=== PATIENT | female | born 1995 | race Caucasian/White ===

== ENCOUNTER → 2022-08-09 15:12 | Outpatient (BNVA) | payer OTHER, SELFPAY | PROVIDERS: PCP Hospitalist; Visit Provider Nurse Practitioner Family | DX: R40.0 Somnolence (principal); R06.83 Snoring; G47.9 Sleep disorder, unspecified; G43.009 Migraine without aura, not intractable, without status migrainosus | CPT/HCPCS: 99212 ==

== ENCOUNTER → 2022-09-01 15:03 | Outpatient (REF) | payer OTHER, SELFPAY | LOC: HO.SL 15:03 | PROVIDERS: Visit Provider Nurse Practitioner Family | DX: G47.19 Other hypersomnia (principal); R06.83 Snoring | CPT/HCPCS: 95806 ==

== ENCOUNTER 2023-08-24 12:53 | Outpatient (AMB) | payer OTHER, SELFPAY ==
[2023-08-24 13:15] VITALS: PULSE 94; O2SAT 99
--- NOTE | 2023-08-24 13:15 | A.OFFVIS_ITS ---
Intake Vital Signs 08/24/23 13:15 Height 5 ft 3 in Weight 113 lb BMI 20.0 Pulse 94 Pulse Source Pulse Oximeter Pulse Oximetry (%) 99 Oxygen Delivery Method Room Air Intake Visit Reasons: f/u appt - LVM Intake Note: Im having issues sleeping, Im on clonazepam and been on it for 4 years now and im tolerant to it Allergies amoxicillin Allergy (Unknown, Verified 08/24/23 13:16) Hives Medication List - Last Reconciled 08/24/23 by KEVEN Valentin albuterol sulfate 90 mcg/actuation (Ventolin HFA) 1 puff inhalation Q4H PRN bupropion HCl 150 mg PO QAM clonazepam 1 mg PO BEDTIME PRN clonidine HCl 0.1 mg PO BID fluticasone propionate 50 mcg/actuation 1 spray intranasal BID galcanezumab-gnlm (Emgality Pen) 120 mg subcut ONCE 30 days hydroxyzine HCl 50 mg PO BID levocetirizine 5 mg PO DAILY multivitamin 1 tab PO DAILY norgestimate-ethinyl estradiol 0.25-35 mg-mcg 1 tab PO DAILY riboflavin (vitamin B2) 400 mg PO DAILY 90 days rizatriptan 5 - 10 mg (0.5 - 1 x 10 mg) PO Q2H PRN 30 days HPI HPI Comments History of Present Illness Details 28-yr-old female presents for f/u visit for migraine. She is having migraine only on the 1st day of her migraine, which can last a second day. Takes Rizatriptan- which does not always help the menstrual migraine. She is on OCP- may be regular but may be a few days later. Pt patient has several concerns today: She is having worsening insomnia, needing to add NyQuil to her usual sleep medication routine. She notes more difficulty initiating, then maintaining slee p. States she can just lay awake for hours not sleeping. She notes that no matter what time she falls asleep, she wakes up at 07:00 despite the fact that she has complete room darkening drapes. She will tend to go back to bed after this, to make up for her sleep. She does avoid using her phone and electronics prior to bed. Her previous HST was normal, however patient does not feel that she slept- unfortunately HST cannot evaluate if the patient has slept or not during the study. Pt reports she does wake up with a racing heart. She feels that she an autoimmune disorder- but her previous LATASHA was normal. She has been having facial butterfly rash, she is more prone to photo sensitivity and skin redness with sun exposure, skin becomes easily red and bumpy, dry flaky skin on her chin and scalp, joint and muscle pain- on Gabapentin for this, fatigue, insomnia. She is also wondering about postural lightheadedness, think she may have POTS. Has maternal h/o cancer- breast, lung, liver, but no autoimmune hx. Does not know her paternal FMH- although states they were unwell. PFSH Surgical History (Updated 08/24/23 @ 13:19 by ROC Cortez) History of nasal surgery Family History Father HTN (hypertension) Mother Asthma FH: mental illness Social History Alcohol intake: never Patient Tobacco Use Status: Never used Tobacco Physical Exam Vital Signs: Last Vital Signs Pulse 94 08/24/23 13:15 Pulse Ox 99 08/24/23 13:15 Oxygen Delivery Method Room Air 08/24/23 13:15 BMI result Body Mass Index 20.0 Const General: cooperative and no acute distress Orientation/consciousness: patient oriented x3 Resp Effort & Inspection: normal respiratory effort and able to speak in complete sentences Skin Other: Tight cues areas of light headedness cross left arm. Very mild papular rash. Neuro General: patient oriented x3 Cranial nerves: Yes CN's II-XII intact bilaterally Cognition (Neuro): normal cognition Psych Appearance: grossly normal Mental Status: mental status grossly normal Speech and movement: Normal speech and movement present Affect: normal affect Attitude: cooperative Assessment & Plan Assessment & Plan (1) Migraine without aura: Code(s): G43.009 - Migraine without aura, not intractable, without status migrainosus (2) Orthostatic lightheadedness: Code(s): R42 - Dizziness and giddiness (3) Sleep difficulties: Code(s): G47.9 - Sleep disorder, unspecified Plan Reviewed HST- inconclusive. Patient may benefit from cognitive behavioral therapy for insomnia. Information shared on various [facility] resources. I advised patient to resist the urge to go back to bed after waking up at 07:00. Will check labs for common etiology of fatigue, rash, joint and muscle pain, lightheadedness. Will request Rheumatology input. We will schedule patient for a tilt-table test. ? For acute headache treatment: Continue Rizatriptan 10mg prn- she may try to take this along with an NSAID 1-2 days prior to onset of menses. Previous acute migraine medication trials: Sumatriptan- ineffective. Acute migraine medication contraindications: Opioids. ? For headache prevention medication: Continue Riboflavin 400mg qam Continue OTC Magnesium 400mg qhs Continue Emgality 120 mg sc q month, as pt has had a significant reduction migraine burden of greater than 30%. Reviewed potential adverse effects of Emgality, including but not limited to injection site reactions. Previous migraine prevention medication trials: Emgalaity was helpful- but previously stopped d/t insurance issues. Aimovig- was not tolerated or effective. Amitriptyline- ineffective. Propranolol- ineffective and caused hypotension. Topiramate- ineffective and caused altered taste. Migraine prevention medication contraindications: none at this time ? ? f/u in 3-4 months or sooner prn. Orders: Orders Comprehensive Met. Panel Today E53.8 - Deficiency of other specified B group vitamins, G47.9 - Sleep disorder, unspecified, M25.50 - Pain in unspecified joint, M79.10 - Myalgia, unspecified site, R41.3 - Other amnesia, R53.83 - Other fatigue, R63.4 - Abnormal weight loss Folate Today E53.8 - Deficiency of other specified B group vitamins, G47.9 - Sleep disorder, unspecified, M25.50 - Pain in unspecified joint, M79.10 - Myalgia, unspecified site, R41.3 - Other amnesia, R53.83 - Other fatigue, R63.4 - Abnormal weight loss Methylmalonic Acid Today E53.8 - Deficiency of other specified B group vitamins, G47.9 - Sleep disorder, unspecified, M25.50 - Pain in unspecified joint, M79.10 - Myalgia, unspecified site, R41.3 - Other amnesia, R53.83 - Other fatigue, R63.4 - Abnormal weight loss Homocysteine Today E53.8 - Deficiency of other specified B group vitamins, G47.9 - Sleep disorder, unspecified, M25.50 - Pain in unspecified joint, M79.10 - Myalgia, unspecified site, R41.3 - Other amnesia, R53.83 - Other fatigue, R63.4 - Abnormal weight loss Erythrocyte Sedimentation Rate Today E53.8 - Deficiency of other specified B group vitamins, G47.9 - Sleep disorder, unspecified, M25.50 - Pain in unspecified joint, M79.10 - Myalgia, unspecified site, R41.3 - Other amnesia, R53.83 - Other fatigue, R63.4 - Abnormal weight loss Creatine Kinase Total Today E53.8 - Deficiency of other specified B group vitamins, G47.9 - Sleep disorder, unspecified, M25.50 - Pain in unspecified joint, M79.10 - Myalgia, unspecified site, R41.3 - Other amnesia, R53.83 - Other fatigue, R63.4 - Abnormal weight loss ECG Tilt Table Test Today R00.2 - Palpitations, R42 - Dizziness and giddiness Lipid Panel with Reflex Today E78.5 - Hyperlipidemia, unspecified Complete Blood Count Auto Diff Today E53.8 - Deficiency of other specified B group vitamins, G47.9 - Sleep disorder, unspecified, M25.50 - Pain in unspecified joint, M79.10 - Myalgia, unspecified site, R41.3 - Other amnesia, R53.83 - Other fatigue, R63.4 - Abnormal weight loss LATASHA Reflex Titer and Pattern Today E53.8 - Deficiency of other specified B group vitamins, G47.9 - Sleep disorder, unspecified, M25.50 - Pain in unspecified joint, M79.10 - Myalgia, unspecified site, R41.3 - Other amnesia, R53.83 - Other fatigue, R63.4 - Abnormal weight loss Vitamin B12 and Folate Today E53.8 - Deficiency of other specified B group vitamins, G47.9 - Sleep disorder, unspecified, M25.50 - Pain in unspecified joint, M79.10 - Myalgia, unspecified site, R41.3 - Other amnesia, R53.83 - Other fatigue, R63.4 - Abnormal weight loss Rheumatoid Factor Today E53.8 - Deficiency of other specified B group vitamins, G47.9 - Sleep disorder, unspecified, M25.50 - Pain in unspecified joint, M79.10 - Myalgia, unspecified site, R41.3 - Other amnesia, R53.83 - Other fatigue, R63.4 - Abnormal weight loss TSH reflex Free T4 Today E53.8 - Deficiency of other specified B group vitamins, G47.9 - Sleep disorder, unspecified, M25.50 - Pain in unspecified joint, M79.10 - Myalgia, unspecified site, R41.3 - Other amnesia, R53.83 - Other fatigue, R63.4 - Abnormal weight loss CRP High Sensitivity Today E53.8 - Deficiency of other specified B group vitamins, G47.9 - Sleep disorder, unspecified, M25.50 - Pain in unspecified joint, M79.10 - Myalgia, unspecified site, R41.3 - Other amnesia, R53.83 - Other fatigue, R63.4 - Abnormal weight loss Referrals Rheumatology Referral G43.009 - Migraine without aura, not intractable, without status migrainosus, M25.50 - Pain in unspecified joint, M79.10 - Myalgia, unspecified site, R21 - Rash and other nonspecific skin eruption, R53.83 - Other fatigue Coding Level of Care Code Est Pt Level 4 (86540) Diagnoses Migraine without aura G43.009 Orthostatic lightheadedness R42 Sleep difficulties G47.9
== END 2023-08-24 14:07 | disposition home or self-care (01) ==
PROVIDERS: PCP Hospitalist; Visit Provider Nurse Practitioner Family
DX: G43.009 Migraine without aura, not intractable, without status migrainosus (principal); R42 Dizziness and giddiness; G47.9 Sleep disorder, unspecified
CPT/HCPCS: 99214

== ENCOUNTER → 2023-08-24 12:53 | Outpatient (BNVA) | payer OTHER, SELFPAY | PROVIDERS: PCP Hospitalist; Visit Provider Nurse Practitioner Family | DX: G43.009 Migraine without aura, not intractable, without status migrainosus (principal); G47.9 Sleep disorder, unspecified; R42 Dizziness and giddiness | CPT/HCPCS: 99212 ==

== ENCOUNTER → 2023-09-27 14:58 | Outpatient (BNVA) | payer OTHER, SELFPAY | PROVIDERS: PCP Hospitalist; Visit Provider Nurse Practitioner Family ==

== ENCOUNTER 2023-10-14 15:39 | Outpatient (AMB) | payer OTHER, SELFPAY ==
--- NOTE | 2023-10-14 15:40 | MHC.OFFVIS ---
Vital Signs 10/14/23 15:44 Height 5 ft 3 in Weight 113 lb 8.609 oz BMI 20.1 BP 102/80 Blood Pressure Location Rt brachial Position Sitting Pulse 109 H Pulse Source Pulse Oximeter Pulse Oximetry (%) 97 Oxygen Delivery Method Room Air Intake Visit Reasons: Rash/joint pain Intake Note: New patient, internally referred, presents to office today for rash and joint pain. Joints affected: Pain began approx: Has tried: Previously saw a wilton weaver once. Goes to [facility]. [facility]. [employer] Required: No Accompanied by: Self / Same As Patient Allergies amoxicillin Allergy (Unknown, Verified 10/14/23 15:47) Hives HPI Comments Details: Ms. Hightower 28-year-old female, here on referral by neurologist, presents for evaluation for rash and joint pain. For the last here her complaints are as follows: (also see Neurology visit below): --skin rash, --sun makes her red, gets rash and makes her really fatigue --Mouth sores on gums, inner [lip and tongue) --Raynaud's - feet and hands turn blue and pale when cold. --hair loss, has had sores on scalp --sweats at night; not sure about fevers --migraines. --dry eyes and dry mouth - uses dry mouth spray, and keeps hydrated;sometimes uses eye drops --posible Dx POTs, tachycardia, heart murmur --COVID 07/2023 --negative LATASHA Neuro Visit 08/24/2023: 28-yr-old female presents for f/u visit for migraine. She is having migraine only on the 1st day of her migraine, which can last a second day. Takes Rizatriptan- which does not always help the menstrual migraine. She is on OCP- may be regular but may be a few days later. Pt patient has several concerns today: She is having worsening insomnia, needing to add NyQuil to her usual sleep medication routine. She notes more difficulty initiating, then maintaining sleep. States she can just lay awake for hours not sleeping. She notes that no matter what time she falls asleep, she wakes up at 07:00 despite the fact that she has complete room darkening drapes. She will tend to go back to bed after this, to make up for her sleep. She does avoid using her phone and electronics prior to bed. Her previous HST was normal, however patient does not feel that she slept- unfortunately HST cannot evaluate if the patient has slept or not during the study. Pt reports she does wake up with a racing heart. She feels that she an autoimmune disorder- but her previous LATASHA was normal. She has been having facial butterfly rash, she is more prone to photo sensitivity and skin redness with sun exposure, skin becomes easily red and bumpy, dry flaky skin on her chin and scalp, joint and muscle pain- on Gabapentin for this, fatigue, insomnia. She is also wondering about postural lightheadedness, think she may have POTS. Has maternal h/o cancer- breast, lung, liver, but no autoimmune hx. Does not know her paternal FMH- although states they were unwell. 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 Pain in joint involving multiple sites POTS (postural orthostatic tachycardia syndrome) Anxiety Hair loss Surgical History History of nasal surgery Family History (Updated 10/14/23 @ 15:50 by ROC Faria) Father HTN (hypertension) Mother Asthma FH: mental illness Paternal Grandfather Fibromyalgia Social History (Updated 10/14/23 @ 15:49 by ROC Faria) Household Members: Family Alcohol intake: never Patient Tobacco Use Status: Never used Tobacco Current occupational status: employed 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 External ear normal. NOSE/SINUS:? Airflow through both nares, no nasal discharge, no bleeding THROAT:? Oral mucosa moist, no ulcerations NECK:? No thyromegaly or masses, no adenopathy, trachea midline. HEART:? Tachy, pulse 109, S1-S2 heard, no murmurs, rubs or gallops. LUNG:? Clear to percussion and auscultation EXTREMITIES:? No edema, no calf tenderness, normal peripheral pulses. NEURO:? Oriented and alert x3.? No focal weakness.? Reflexes symmetric.? Gait normal. SKIN:? There are no skin lesions evident. No objective signs of Raynaud's phenomenon. JOINT EXAM: Cervical Spine:.? Full range of motion without pain; no tenderness. Thoracic Spine:.? No scoliosis.? No tenderness on palpation. Lumbar Spine:.? Alignment normal.? Full range of motion without pain, no tenderness. Chest Wall:.? No tenderness, swelling, increased warmth or erythema. Hands:.? Normal pain-free range of motion with mild diffuse tenderness, but no swelling, increased warmth or erythema. 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 Wrists:.? Normal pain-free range of motion without tenderness, swelling, increased warmth or erythema. Elbows:. Normal pain-free range of motion with mild tenderness, but no swelling, increased warmth or erythema. Shoulders:.?? Full range of motion without pain. No tenderness, weakness, swelling, increased warmth or erythema. Hips:.? Full range of motion without pain. Hip bursa:.? No tenderness. Knees:.?? Normal pain-free range of motion without tenderness, swelling, increased warmth or erythema.? There is no effusion or crepitation Ankles:.? Normal pain-free range of motion without tenderness, swelling, increased warmth or erythema. Feet:.? Normal pain-free range of motion without tenderness, swelling, increased warmth or erythema. Tender points:? Tenderness to digital palpation at the occiput, trapezius, second rib, lateral epicondyle, and gluteal area bilaterally. ? Assessment & Plan Assessment & Plan (1) Butterfly rash: Code(s): R21 - Rash and other nonspecific skin eruption Category: Medical (2) Pain in joint involving multiple sites: Code(s): M25.50 - Pain in unspecified joint Category: Medical (3) Low serum alkaline phosphatase: Code(s): R74.8 - Abnormal levels of other serum enzymes Category: Medical (4) Weight loss: Code(s): R63.4 - Abnormal weight loss Category: Medical (5) Fatigue: Code(s): R53.83 - Other fatigue Category: Medical Qualifiers: Fatigue type: chronic, unspecified Qualified Code(s): R53.82 - Chronic fatigue, unspecified (6) Thyroid antibody positive: Code(s): R76.8 - Other specified abnormal immunological findings in serum Category: Medical (7) High total iron binding capacity: Code(s): R79.89 - Other specified abnormal findings of blood chemistry Category: Medical Plan #Multiple symptoms of UCTD: Ms. Hightower is here for evaluation of certain symptoms to determine if there is any autoimmune rheumatologic pathology. Her PE was largely unremarkable. However, her reported symptoms and complaints (see HPI) does give a clinical consideration for SLE or a MCTD onset, and she is of the age and sex demographics. However, except for a weak Low C4 result of 14(15), her serology is grossly negative for SLE or any other rheumatologic processes. The immunoglobulins are within normal range and therefore do not suggest hyperactivity in the immune system for CTD at this time. Nonetheless, SLE presentation, at the very least, can be described as a spectrum process so I think Ms. Hightower should continue to be monitored for development of an autoimmune rheumatologic progress. At this time, undifferentiated connective tissue disease(UCTD) comes to mind as a label, BUT it cannot be accurately labeled as an undifferentiated connective tissue process because of the lack of supporting serologies. #Low Alk Phos/Positive Thyroid Antibodies: Lab shows positive antibodies for autoimmune thyroid but her levels for TSH, T3 are within normal range. However, given low alk phos and low C4, with chronic fatigue and weight loss, she may benefit from an Endocrine evaluation. Autoimmune thyroid disease can also be responsible for her symptoms. #High TIBC: Labs also show elevated total iron binding capacity would suggest low serum iron levels though this is not reflected in her recent CBC. Further workup may be beneficial as this could also contribute to her level fatigue. She should also be continuously monitored as this can be the 1st stage of developing iron deficiency anemia. I spent 50 minutes reviewing history, evaluating patient and documenting Follow-up in 4 weeks Orders: Orders ANCA Vasculitides 10/17/23 R21 - Rash and other nonspecific skin eruption, G90.A - Postural orthostatic tachycardia syndrome [POTS], M25.50 - Pain in unspecified joint Anti DNA DS Antibody 10/17/23 R21 - Rash and other nonspecific skin eruption, G90.A - Postural orthostatic tachycardia syndrome [POTS], M25.50 - Pain in unspecified joint Complement C3 10/17/23 R21 - Rash and other nonspecific skin eruption, G90.A - Postural orthostatic tachycardia syndrome [POTS], M25.50 - Pain in unspecified joint Complement C4 10/17/23 R21 - Rash and other nonspecific skin eruption, G90.A - Postural orthostatic tachycardia syndrome [POTS], M25.50 - Pain in unspecified joint C Reactive Protein 10/17/23 R21 - Rash and other nonspecific skin eruption, G90.A - Postural orthostatic tachycardia syndrome [POTS], M25.50 - Pain in unspecified joint Creatine Kinase Total 10/17/23 R21 - Rash and other nonspecific skin eruption, G90.A - Postural orthostatic tachycardia syndrome [POTS], M25.50 - Pain in unspecified joint Erythrocyte Sedimentation Rate 10/17/23 R21 - Rash and other nonspecific skin eruption, G90.A - Postural orthostatic tachycardia syndrome [POTS], M25.50 - Pain in unspecified joint Immunofixation Pnl, Serum 10/17/23 R21 - Rash and other nonspecific skin eruption, G90.A - Postural orthostatic tachycardia syndrome [POTS], M25.50 - Pain in unspecified joint Sjogren's Antibodies 10/17/23 R21 - Rash and other nonspecific skin eruption, G90.A - Postural orthostatic tachycardia syndrome [POTS], M25.50 - Pain in unspecified joint UA w Microscopic 10/17/23 R21 - Rash and other nonspecific skin eruption, G90.A - Postural orthostatic tachycardia syndrome [POTS], M25.50 - Pain in unspecified joint Protein Electrophoresis, Serum 10/17/23 R21 - Rash and other nonspecific skin eruption, G90.A - Postural orthostatic tachycardia syndrome [POTS], M25.50 - Pain in unspecified joint Protein Creatinine Ratio, Ur 10/17/23 R21 - Rash and other nonspecific skin eruption, G90.A - Postural orthostatic tachycardia syndrome [POTS], M25.50 - Pain in unspecified joint Thyroid Peroxidase Antibodies 10/17/23 R21 - Rash and other nonspecific skin eruption, G90.A - Postural orthostatic tachycardia syndrome [POTS], M25.50 - Pain in unspecified joint IRON PROFILE 10/17/23 R21 - Rash and other nonspecific skin eruption, G90.A - Postural orthostatic tachycardia syndrome [POTS], M25.50 - Pain in unspecified joint LATASHA Reflex Titer and Pattern 10/17/23 R21 - Rash and other nonspecific skin eruption, G90.A - Postural orthostatic tachycardia syndrome [POTS], M25.50 - Pain in unspecified joint Anti-Centromere B Antibodies 10/17/23 R21 - Rash and other nonspecific skin eruption, G90.A - Postural orthostatic tachycardia syndrome [POTS], M25.50 - Pain in unspecified joint Anti Extractable Nuclear Ag 10/17/23 R21 - Rash and other nonspecific skin eruption, G90.A - Postural orthostatic tachycardia syndrome [POTS], M25.50 - Pain in unspecified joint Complete Blood Count Auto Diff 10/17/23 R21 - Rash and other nonspecific skin eruption, G90.A - Postural orthostatic tachycardia syndrome [POTS], M25.50 - Pain in unspecified joint Comprehensive Met. Panel 10/17/23 R21 - Rash and other nonspecific skin eruption, G90.A - Postural orthostatic tachycardia syndrome [POTS], M25.50 - Pain in unspecified joint Immunoglobulins,IgG IgA IgM 10/17/23 R21 - Rash and other nonspecific skin eruption, G90.A - Postural orthostatic tachycardia syndrome [POTS], M25.50 - Pain in unspecified joint Scleroderma 70 Antibody 10/17/23 R21 - Rash and other nonspecific skin eruption, G90.A - Postural orthostatic tachycardia syndrome [POTS], M25.50 - Pain in unspecified joint Vitamin D 25-OH (D2 and D3) 10/17/23 R21 - Rash and other nonspecific skin eruption, G90.A - Postural orthostatic tachycardia syndrome [POTS], M25.50 - Pain in unspecified joint Thyroid Stimulating Hormone 10/17/23 R21 - Rash and other nonspecific skin eruption, G90.A - Postural orthostatic tachycardia syndrome [POTS], M25.50 - Pain in unspecified joint Thyroglobulin Antibodies 10/17/23 R21 - Rash and other nonspecific skin eruption, G90.A - Postural orthostatic tachycardia syndrome [POTS], M25.50 - Pain in unspecified joint Coding Level of Care Code New Pt Level 5 (14202) Diagnoses Butterfly rash R21 Pain in joint involving multiple sites M25.50 Low serum alkaline phosphatase R74.8 Weight loss R63.4 Chronic fatigue R53.82 Fatigue type: chronic, unspecified Thyroid antibody positive R76.8 High total iron binding capacity R79.89
[2023-10-14 15:44] VITALS: BP 102/80; PULSE 109; O2SAT 97; BMI 20.1
== END 2023-10-14 16:32 | disposition home or self-care (01) ==
PROVIDERS: PCP Hospitalist; Visit Provider Nurse Practitioner Family
DX: R21 Rash and other nonspecific skin eruption (principal); M25.50 Pain in unspecified joint; R74.8 Abnormal levels of other serum enzymes; R63.4 Abnormal weight loss; R53.82 Chronic fatigue, unspecified; R76.8 Other specified abnormal immunological findings in serum; R79.89 Other specified abnormal findings of blood chemistry
CPT/HCPCS: 99204

== ENCOUNTER → 2023-10-14 15:39 | Outpatient (BNVA) | payer OTHER, SELFPAY | PROVIDERS: PCP Hospitalist; Visit Provider Nurse Practitioner Family | DX: M25.50 Pain in unspecified joint (principal); R21 Rash and other nonspecific skin eruption; R74.8 Abnormal levels of other serum enzymes; R63.4 Abnormal weight loss; R53.82 Chronic fatigue, unspecified; R76.8 Other specified abnormal immunological findings in serum; R79.89 Other specified abnormal findings of blood chemistry | CPT/HCPCS: 99202 ==

== ENCOUNTER 2023-10-17 15:06 | Outpatient (REF) | payer OTHER, SELFPAY ==
[2023-10-17 15:55] LABS: MANUAL DIFF FLAG NO
[2023-10-17 16:13] LABS: Basophils Percent Auto 0.5 % (0-2); Eosinophils Absolute Auto 0.1 X10*3/uL (0.0-0.4); Eosinophils Percent Auto 0.7 % (0-4); Hematocrit 39.3 % (37.0-47.0); Hemoglobin 13.1 g/dl (12.0-16.0); Imm Gran Abs Auto 0.03 X10*3/uL (0.00-0.03); Imm Gran Pct Auto 0.4 % (0.0-0.4); Lymphocytes Absolute Auto 2.5 X10*3/uL (1.2-4.9); Lymphocytes Percent Auto 29.6 % (20-40); Mean Corpuscular HGB Conc 33.3 g/dl (31.0-35.0); Mean Corpuscular Hemoglobin 27.8 pg (27.0-33.0); Mean Corpuscular Volume 83.4 fL (80.0-98.0); Mean Platelet Volume 9.4 fL (9.4-12.3); Monocytes Absolute Auto 0.2 X10*3/uL (0.1-1.2); Monocytes Percent Auto 2.7 % (2-11); Neutrophils Absolute Auto 5.6 x10*3/uL (2.0-8.3); Neutrophils Percent Auto 66.1 % (45-73); Platelet Count 328 X10*3/uL (160-400); Red Blood Count 4.71 X10*6/uL (4.20-5.50); Red Cell Distribution Width 11.9 % (11.0-16.0); White Blood Count 8.5 X10*3/uL (4.8-10.8)
[2023-10-17 16:47] LABS: Erythrocyte Sedimentation Rate 7 MM/HR (0-20)
[2023-10-17 17:59] LABS: Rheumatoid Factor < 13.0 IU/mL (<15.0)
[2023-10-17 18:33] LABS: Alanine Aminotransferase 8 U/L (0-31); Albumin Level 4.8 g/dL (3.5-5.0); Alkaline Phosphatase 27 U/L (39-117); Anion Gap 14 (12-20); Aspartate Amino Transferase 14 U/L (5-31); Bilirubin Total 0.3 mg/dL (0.0-1.0); Blood Urea Nitrogen 9 mg/dL (9-16); C Reactive Protein 0.16 mg/dL (< or = 0.50); Calcium 9.6 mg/dL (8.4-10.2); Carbon Dioxide 25 mmol/L (22-29); Chloride 104 mmol/L (96-108); Cholesterol 238 mg/dL (<200); Estimated Glomerular Filt Rate > 60; Glucose Random 84 mg/dL (60-115); HDL Cholesterol 67 mg/dL (>40); Iron 124 mcg/dL (30-160); LDL Cholesterol Calculated 139 mg/dL (<100); Percent Iron Saturation 27 % (15-50); Sodium 139 mmol/L (135-145); TSH reflex Free T4 2.33 uIU/mL (0.32-4.0); Thyroid Stimulating Hormone 2.33 uIU/mL (0.32-4.0); Total Iron Binding Capacity 451 mcg/dL (228-428); Total Protein 8.3 g/dL (6.5-8.0); Triglycerides 161 mg/dL (<150); Unsaturated Iron Binding 327 ug/dL
[2023-10-17 19:46] LABS: Folate 10.1 ng/mL (> or = 4.0); Vitamin B12 319 pg/mL (200-900)
[2023-10-17 20:56] LABS: Reflex LDLD? No
[2023-10-18 11:04] LABS: Thyroglobulin Antibodies 1 IU/mL (< or = 1); Thyroid Peroxidase Antibodies 260 IU/mL (<9)
[2023-10-18 19:28] LABS: Homocysteine 7.3 umol/L (<10.4)
[2023-10-18 20:54] LABS: Transglutaminase Ab IgG <1.0 U/mL
[2023-10-18 21:33] LABS: Prot Elec - Albumin 4.8 g/dL (3.8-4.8); Prot Elec - Alpha1 0.4 g/dL (0.2-0.3); Prot Elec - Alpha2 0.8 g/dL (0.5-0.9); Prot Elec - Beta 1 0.5 g/dL (0.4-0.6); Prot Elec - Beta 2 0.4 g/dL (0.2-0.5); Prot Elec - Total Protein 7.8 g/dL (6.1-8.1)
[2023-10-19 14:28] LABS: CRP High Sensitivity 1.6 mg/L
[2023-10-19 14:38] LABS: Complement C3 122 mg/dL (83-193)
[2023-10-19 15:34] LABS: Anti Nuclear Antibody Screen NEGATIVE (NEGATIVE)
[2023-10-19 18:18] LABS: Anti-Centromere B Antibodies <1.0 NEG AI (<1.0 NEG)
[2023-10-20 10:13] LABS: Methylmalonic Acid 232 nmol/L (87-318)
[2023-10-20 14:18] LABS: Vitamin D 25-OH, D2 <4 ng/mL; Vitamin D 25-OH, D3 49 ng/mL; Vitamin D 25-OH, Total 49 ng/mL (30-100)
[2023-10-20 14:27] LABS: Anti DNA DS Antibody <1 IU/mL; Antibody to SS-A Antigen <1.0 NEG AI (<1.0 NEG); Antibody to SS-B Antigen <1.0 NEG AI (<1.0 NEG); Myeloperoxidase Antibody <1.0 AI; Proteinase 3 PR3 Antibodies <1.0 AI; SM/Ribonucleoprotein Ab <1.0 NEG AI (<1.0 NEG); Scleroderma 70 Antibody <1.0 NEG AI (<1.0 NEG); Smith Protein <1.0 NEG AI (<1.0 NEG)
[2023-10-24 22:39] LABS: IgA 197 mg/dL (47-310); IgG 1070 mg/dL (600-1640); IgM 176 mg/dL (50-300)
== END 2023-10-17 15:07 | disposition home or self-care (01) ==
LOC: HO.LAB 15:06
PROVIDERS: Nurse Practitioner Family; Absent Provider Hospitalist; PCP Hospitalist; Visit Provider Nurse Practitioner Family
DX: Z00.00 Encounter for general adult medical examination without abnormal findings (principal); R21 Rash and other nonspecific skin eruption; G90.A Postural orthostatic tachycardia syndrome [POTS]; M25.50 Pain in unspecified joint; G47.9 Sleep disorder, unspecified; R53.83 Other fatigue; R41.3 Other amnesia; E53.8 Deficiency of other specified B group vitamins; M79.10 Myalgia, unspecified site; E78.5 Hyperlipidemia, unspecified; R63.4 Abnormal weight loss; R19.7 Diarrhea, unspecified
CPT/HCPCS: 36415; 80053; 80061; 82306; 82550; 82607; 82746; 82784; 83090; 83540; 83921; 84165; 84443; 85025; 85652; 86021; 86038; 86140; 86141; 86160; 86225; 86235; 86334; 86364; 86376; 86431; 86800

== ENCOUNTER → 2023-12-27 13:43 | Outpatient (BNVA) | payer OTHER, SELFPAY | PROVIDERS: PCP Hospitalist; Visit Provider Nurse Practitioner Family | DX: G47.9 Sleep disorder, unspecified (principal); R53.83 Other fatigue; R41.3 Other amnesia; E53.8 Deficiency of other specified B group vitamins; M79.10 Myalgia, unspecified site; M25.50 Pain in unspecified joint; R63.4 Abnormal weight loss; R42 Dizziness and giddiness; R00.2 Palpitations; E78.5 Hyperlipidemia, unspecified; R21 Rash and other nonspecific skin eruption; G43.009 Migraine without aura, not intractable, without status migrainosus ==

== ENCOUNTER 2024-06-25 14:03 | Outpatient (AMB) | payer OTHER, SELFPAY ==
--- NOTE | 2024-06-25 14:11 | MHC.OFFVIS ---
Vital Signs 06/25/24 14:11 Height 5 ft 3 in Weight 113 lb BMI 20.0 Intake Visit Reasons: Follow Up Intake Note: Patient presents for follow up. patient cant sleep,requested this appointment because she wants an MRI. Allergies amoxicillin Allergy (Unknown, Verified 06/25/24 14:13) Hives Medication List - Last Reconciled 06/25/24 by Pamella Rodriguez, KEVEN albuterol sulfate 90 mcg/actuation (Ventolin HFA) 1 puff inhalation Q4H PRN clonazepam 1 mg PO BEDTIME PRN clonidine HCl 0.1 mg PO BID fluticasone propionate 50 mcg/actuation 1 spray intranasal BID gabapentin 600 mg PO TID galcanezumab-gnlm (Emgality Pen) 120 mg subcut ONCE 30 days hydrocortisone 2.5% topical hydroxyzine HCl 50 mg PO BID levocetirizine 5 mg PO DAILY multivitamin 1 tab PO DAILY norgestimate-ethinyl estradiol 0.25-35 mg-mcg 1 tab PO DAILY riboflavin (vitamin B2) (Vitamin B-2) 200 mg PO BID rizatriptan 5 - 10 mg (0.5 - 1 x 10 mg) PO Q2H PRN 90 days trazodone 50 mg PO BEDTIME PRN HPI Comments Details: 29-yr-old female presents for f/u visit for migraine. Pt reports Emgality was helping her migraine, however in the last few months she is having worsening migraine. She she also reports generalized blurry vision, floaters, photophobia, skin photosensitivity, joint pains, distal extremity coldness, hands turning blue, skin rashes, fatigue and unrefreshing sleep, constipation alternating with diarrhea. She also notes difficulties swallowing and feeling like she can breathe well- in the last year. She has been having intermittent low back pain- over the last year. Stage she was recently shopping when all of a sudden she started having low back pain and began limping some. She has tried OTC NSAIDs, without much effect. She had initial rheumatology consult in October, however she has not had follow-up since the provider she saw has left the practice. Review of interval labs was notable for- positive TPO antibody 290 high. She is also concerned that her mother is currently being worked up for question of MS versus vasculitis in setting of chronic vertigo and recent onset gait difficulties. She states she has a strong family h/o thyroid dz- but unsure if autoimmune sub-type. 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 Very mild papular rash. Neuro General: patient oriented x3 Cranial nerves: Yes CN's II-XII intact bilaterally Cognition (Neuro): normal cognition Gait exam (Neuro): Normal gait present Motor exam (neuro): 5/5 motor strength present throughout Deep tendon reflexes (DTR's): Right patellar reflex intensity grade: 2+ and Left patellar reflex intensity grade: 2+ Psych Appearance: grossly normal Mental Status: mental status grossly normal Speech and movement: Normal speech and movement present Affect: normal affect Attitude: cooperative Assessment & Plan Assessment & Plan (1) Low back pain: Code(s): M54.50 - Low back pain, unspecified Category: Medical (2) Migraine without aura: Code(s): G43.009 - Migraine without aura, not intractable, without status migrainosus Category: Medical (3) Thyroid antibody positive: Code(s): R76.8 - Other specified abnormal immunological findings in serum Category: Medical (4) Orthostatic lightheadedness: Code(s): R42 - Dizziness and giddiness Category: Medical (5) Sleep difficulties: Code(s): G47.9 - Sleep disorder, unspecified Category: Medical Plan For worsening migraines w/ visual change, difficulty swallowing: Brain MRI w/wo F/u w/ rheumatology to review previous lab work-up. Will request endocrinology consult for +TPO Ab. Recheck labs. For low back apin: XR l-spine w/ flex/ext OTC Ibuprofen 400-600mg q 4-6 hrs prn or Naproxen 440mg q 12 hrs prn Warm packs x's 20 min. Future consideration- PT For sleep: Previous HST- inconclusive. Continue trazodone 50mg- 1-2 tabs qhs prn- will refill once as pt is running out. Information previously shared on various [facility] resources. F/u w/ psychiatry. ? For acute headache treatment: Continue Rizatriptan 10mg prn- she may try to take this along with an NSAID 1-2 days prior to onset of menses. Previous acute migraine medication trials: Sumatriptan- ineffective. Acute migraine medication contraindications: Opioids. ? For headache prevention medication: Continue Riboflavin 400mg qam Continue OTC Magnesium 400mg qhs Continue Emgality 120 mg sc q month. Previous migraine prevention medication trials: Emgalaity was helpful- but previously stopped d/t insurance issues. Aimovig- was not tolerated or effective. Amitriptyline- ineffective. Propranolol- ineffective and caused hypotension. Topiramate- ineffective and caused altered taste. Migraine prevention medication contraindications: none at this time ? ? Will follow-up upon review of above and patient to follow-up in clinic in 6 months or sooner prn.. Orders: Orders TSH reflex Free T4 Today H53.8 - Other visual disturbances, R51.9 - Headache, unspecified, R76.8 - Other specified abnormal immunological findings in serum Triiodothyronine T3 Free Today H53.8 - Other visual disturbances, R51.9 - Headache, unspecified, R76.8 - Other specified abnormal immunological findings in serum Free T4 (Free Thyroxine) Today H53.8 - Other visual disturbances, R51.9 - Headache, unspecified, R76.8 - Other specified abnormal immunological findings in serum MR head/brain wo/w con Today H53.8 - Other visual disturbances, R51.9 - Headache, unspecified XR lumbar spine 6V w bending Today M54.50 - Low back pain, unspecified Complete Blood Count Auto Diff Today H53.8 - Other visual disturbances, R51.9 - Headache, unspecified, R76.8 - Other specified abnormal immunological findings in serum Comprehensive Met. Panel Today H53.8 - Other visual disturbances, R51.9 - Headache, unspecified, R76.8 - Other specified abnormal immunological findings in serum Triiodothyronine T3 Total Today H53.8 - Other visual disturbances, R51.9 - Headache, unspecified, R76.8 - Other specified abnormal immunological findings in serum Referrals Endocrinology Referral R76.8 - Other specified abnormal immunological findings in serum Medications: New trazodone 100 mg (2 x 50 mg) PO BEDTIME 30 days PRN 60 tabs 0RF insomnia Coding Level of Care Code Est Pt Level 4 (11237) Complex EM visit Add On G2211 Diagnoses Low back pain M54.50 Migraine without aura G43.009 Thyroid antibody positive R76.8 Orthostatic lightheadedness R42 Sleep difficulties G47.9
== END 2024-06-25 15:18 | disposition home or self-care (01) ==
PROVIDERS: PCP Hospitalist; Visit Provider Nurse Practitioner Family
DX: M54.50 Low back pain, unspecified (principal); G43.009 Migraine without aura, not intractable, without status migrainosus; R76.8 Other specified abnormal immunological findings in serum; R42 Dizziness and giddiness; G47.9 Sleep disorder, unspecified
CPT/HCPCS: 99214; G2211

== ENCOUNTER → 2024-06-25 14:03 | Outpatient (BNVA) | payer OTHER, SELFPAY | PROVIDERS: PCP Hospitalist; Visit Provider Nurse Practitioner Family | DX: G43.009 Migraine without aura, not intractable, without status migrainosus (principal); G47.9 Sleep disorder, unspecified; R76.8 Other specified abnormal immunological findings in serum; R42 Dizziness and giddiness; M54.50 Low back pain, unspecified | CPT/HCPCS: 99212 ==

== ENCOUNTER 2024-07-30 13:43 | Outpatient (REF) | payer OTHER, SELFPAY ==
--- NOTE | ~2024-07-30 | MR_ITS ---
EXAMINATION: MR BRAIN WITHOUT AND WITH CONTRAST CLINICAL INFORMATION: Daily headaches, blurred vision and dizziness. Weakness in both upper and lower extremities with numbness.. Family history of MS. COMPARISON: None available. TECHNIQUE: Multiplanar, multisequence MRI of the brain was obtained before and after the intravenous administration of 5.5 mL Gadavist. FINDINGS: There is no restricted diffusion seen to suspect any acute ischemic changes. No magnetic susceptibility artifact either to suspect acute or chronic hemorrhagic products or calcium. No abnormal T2 FLAIR signal changes seen in the deep white matter. There is no extra-axial collection. The cortical sulci are symmetrical and normal. There is normal flow-void signal seen in major cerebral vasculature. The cervical -medullary junction appears normal. The lateral ventricles are symmetrical and normal. Postcontrast no enhancing foci, mass or edema seen the bone marrow signal is normal. The scalp soft tissues are normal. The paranasal sinuses and mastoid air cells are well-aerated. MR/MR head/brain wo/w con IMPRESSION: Unremarkable MRI brain without and with contrast. Electronically signed by: Evin Snowden MD 07/30/2024 04:04 PM ALEXANDER
[2024-07-30] MEDS: gadobutroL 7.5 ML VIAL IVPUSH (14:48)
--- OUTSIDE RECORDS SUMMARY | 2024-07-30 18:27 | XMS_ITS ---
Author Organization [facility] Address [address] [place] [address] Care Team Providers Care Flatwork Feeder Name Role Phone SHELLY DUKES Primary Care Provider [phone] REASON FOR VISIT Derm referral update Encounters Encounter Location Date Provider Diagnosis [facility] [address] [place] [address] 09/15/2023 SHELLY DUKES Plan Of Treatment No Information Progress Notes * Eugenia LEACHDOB: 4 (28 yo F)Acc No.[id number]:09/15/2023 Patient:?Eugenia LEACH :1995???Age:28 Y???Sex:Female Address:[address] [place] [id number] * true * Date:? Generated for Mark ferrer/Elias/eTransmitting on:?07/30/2024 06:26 PM EST
--- OUTSIDE RECORDS SUMMARY | 2024-07-30 18:27 | XMS_ITS | Clinical Summary ---
Author Organization [facility] it Address [address] [place] [address] Care Team Providers Care Scraper Meat Name Role Phone Meliza Martinez MD Primary Care Provider [phone] Surgical History Surgery Date Site/Laterality Comments OTHER SURGICAL HISTORY PROCEDURE: DENIES PREVIOUS SURGERY Medical History Medical History Date Comments Migraine headache without aura D X:Migraine headache without aura Family History Medical History Relation Name Comments No Known Problems Aunt No Known Problems Brother Hyperlipidemia Father Hypertension Father Sleep disorder Father Glaucoma Maternal Grandfather Heart failure Maternal Grandfather Arthritis Maternal Grandmother Glaucoma Maternal Grandmother Allergies Mother Depression Mother Hyperlipidemia Mother Sleep disorder Mother No Known Problems Other Diabetes Paternal Grandfather Hypertension Paternal Grandfather No Known Problems Paternal Grandmother No Known Problems Sister No Known Problems Uncle Blindness Neg Hx Cataracts Neg Hx Macular degeneration Neg Hx Strabismus Neg Hx Relation Name Status Comments Aunt Brother Father Alive noah aaron Maternal Grandfather Maternal Grandmother Alive Mother Alive gustavo 8 Other Paternal Grandfather Alive Paternal Grandmother Alive Sister Uncle Social History Tobacco Use Types Packs/Day Years Used Date Smoking Tobacco: Never Smokeless Tobacco: Never Alcohol Use Standard Drinks/Week Comments No 0 (1 standard drink = 0.6 oz pur e alcohol) Sex and Gender Information Value Date Recorded Sex Assigned at Not on file Gender Identity Not on file Sexual Orientation Not on file Obstetrics History Plan of Treatment Health Maintenance Due Date Last Done Comments Cervical Cancer Screening: Pap Smear 2015 DTaP,Tdap,and Td Vaccines (7 - Td or Tdap) 08/09/2016 08/09/2006, 02/26/2000, 11/02/1995, Additional history exists COVID-19 Vaccine ( season) 2024 Influenza Vaccine (#1) 2024 Hepatitis B Vaccines Completed 05/04/1995, 1995, 1995 HIB Vaccines Completed 08/15/1995, 02/1995, 1994, Additional history exists MMR Vaccines Completed 12/02/1998, 08/15/1995 IPV Vaccines Completed 02/26/2000, 08/04, 1994, Additional history exists HPV Vaccines Completed 02/09/2007, 03/2007, 08/09/2006 Varicella Vaccines Completed 07/31/2009, 08/15/1995 Meningococcal ACWY Vaccine Completed 08/04/2012 Hepatitis A Vaccines Aged Out No long er eligible based on patient's age to complete this topic Pneumococcal Vaccine: Pediatrics (0 to 5 Years) and At-Risk Patients (6 to 64 Years) Aged Out No longer eligible based on patient's age to complete this topic RSV Immunization Patients Under 20 months Aged Out No longer eligible based on patient's age to complete this topic Care Teams Scraper Meat Relationship Specialty Start Date End Date Meliza Martinez MD PCP - General Internal Medicine 10/23/18
--- OUTSIDE RECORDS SUMMARY | 2024-07-30 18:27 | XMS_ITS | Data Portability ---
Author Organization Offline [place], [place]_[facility]_Deposit Address [address] [place] [address] Assessment Encounter Date Assessment Date Assessment LastModified by Organization Details LastModified Time 05/10/2022 05/10/2022 This patient wit h a history of OUD presents today for their monthly MAT visit Current prescription is: Sublocade 25mg inj Patient denies any S/E, cravings, or withdrawal sx at current dose Update Since Last Visit : (narrative note) Patient Denies all illicit drug use since last visit Monthly OUD follow-up visit and sublocade injection. Sublocade 25 mg inj administered in RLQ without complications- weaning per pt request Next inj due 06/07/22 Weaning off sublocade- will transition to 25 mg starting next month x 2 months, patient in agreement with plan of care at this time. Advised patient that even after weaning off sublocade she will continue in MAT program monthly x 3 months for support and UDS monitoring- patient is in agreement with plan of care at this time Does not require Subutex supplemental tabs Denies cravings or W/D sxs at this time UDS NEG Seeing mental health prescriber @ [facility] - stable on current medications per patient. 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 Follow-up monthly for support LAB RESULTS Last UDS result (qualitative screen): pos bup Last confirmatory test result (LCMS/quantitative ): N/A due to negative UDS Last Bup confirmation test result: Bup: 226 ng/ml & Norbup: 104 ng/ml Last LFT result: WNL 2/14/22 ASSESSMENT The patient's current phase of OUD treatment is: Stable maintenance. Interpretation of last buprenorphine confirmation test result: No concern Medication dose: No report of severe or persistent cravings/withdrawa l symptoms. Pt will remain at current dose Sublocade Injection Administration: The patient is due for injection today. Sublocade injection dose of 25mg/0.12.5ml was administered subcutaneously using aseptic technique. - Site: [facility] - Lot #: [id number] - Exp. Date: 07/02/23 Sublocade dose 25 mg planned injection due on 06/07/22. PLAN (narrative, if applicable) Rx : Continue Sublocade 25mg inj monthly Rx Quantity No Rx provided today. VISIT FREQUENCY Continue monthly visits and UDS. Treatment plan review or change includes continue current level of care UNEXPECTED results on UDS may impact this patient's treatment plan. The following information will be used to place the proper confirmation orders for the specimen collected for this date 05/10/2022 . Perform Confirmation if Positive Amphetamines Currently Prescribed Benzodiazepines Perform Confirmation if Positive Cocaine Perform Confirmation if Positive Methadone Perform Confirmation if Positive Opiates and/or Fentanyl Perform Confirmation if Positive Oxycodone Additional requests in regards to confirmation orders. NONE LFTS will be repeated per our clinical protocol. Prescription monitoring program is reviewed. If applicable, I have identified agents prescribed to the patient in addition to any issued by our program. The patient has been counseled regarding any risk of combining sedating agents. Not available 05/10/2022 16:20:24 06/08/2022 06/08/2022 This patient with a history of OUD presents today for their monthly MAT visit Current prescription is: Sublocade 25mg inj Patient denies any S/E, cravings, or withdrawal sx at current dose Update Since Last Visit : (narrative note) Patient Denies all illicit drug use since last visit Monthly OUD follow-up visit and sublocade injection. Sublocade 25 mg inj administered in LLQ without complications- weaning per pt request Weaning off sublocade- patient has completed taper plan- feeling well and very proud of herself Patient in agreement with plan of care at this time. Advised patient that even after weaning off sublocade she will continue in MAT program monthly x 3 months for support and UDS monitoring- patient is in agreement with plan of care at this time Does not require Subutex supplemental tabs Denies cravings or W/D sxs at this time UDS + amphetamine- not confirmed yet Denies use of amphetamine Seeing mental health prescriber @ [facility] - stable on current medications per patient. 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 Follow-up monthly for support LAB RESULTS Last UDS result (qualitative screen): pos bup, + amphetamine Last confirmatory test result (LCMS/quantitative ): pending Last Bup confirmation test result: Bup: 429 ng/ml & Norbup: 261 ng/ml Last LFT result: WNL 08/17/21 ASSESSMENT The patient's current phase of OUD treatment is: Stable maintenance. Interpretation of last buprenorphine confirmation test result: No concern Medication dose: No report of severe or persistent cravings/withdrawa l symptoms. Pt will remain at current dose Sublocade Injection Administration: The patient is due for injection today. Sublocade injection dose of 25mg/0.12.5ml was administered subcutaneously using aseptic technique. - Site: [facility] - Lot #: [id number] - Exp. Date: 06/02/23 PLAN (narrative, if applicable) Rx : stop Sublocade monthly per pt request Rx Quantity No Rx provided today. VISIT FREQUENCY Continue monthly visits and UDS. Treatment plan review or change includes continue current level of care UNEXPECTED results on UDS may impact this patient's treatment plan. The following information will be used to place the proper confirmation orders for the specimen collected for this date 06/08/2022 . Perform Confirmation if Positive Amphetamines Currently Prescribed Benzodiazepines Perform Confirmation if Positive Cocaine Perform Confirmation if Positive Methadone Perform Confirmation if Positive Opiates and/or Fentanyl Perform Confirmation if Positive Oxycodone Additional requests in regards to confirmation orders. NONE LFTS will be repeated per our clinical protocol. Prescription monitoring program is reviewed. If applicable, I have identified agents prescribed to the patient in addition to any issued by our program. The patient has been counseled regarding any risk of combining sedating agents. Not available 06/08/2022 16:56:51 07/07/2022 07/07/2022 This patient wit h a history of OUD presents today for their monthly MAT visit Current prescription is: Sublocade on hold per pt request- completed sublocade taper Patient denies any S/E, cravings, or withdrawal sx at current dose Update Since Last Visit : (narrative note) Patient Denies all illicit drug use since last visit Monthly OUD follow-up visit and sublocade f/u Last Sublocade 25 mg inj administered 06/08/22 Weaned off sublocade- patient has completed taper plan- feeling well and very proud of herself Patient in agreement with plan of care at this time. Advised patient that even after weaning off sublocade she will continue in MAT program monthly x 3 months for support and UDS monitoring- patient is in agreement with plan of care at this time Reports feeling great- denies W/D sx, cravings or adverse side effects Does not require Subutex supplemental tabs She continues to follow up Q1 month as per agreement with MAT provider She states she [place] the [place] after she has completed the 3 month follow up She states she understands that she can call MAT provider anytime to restart tx if needed UDS + amphetamine- NEG on confirmation Denies use of amphetamine Seeing mental health prescriber @ [facility] - stable on current medications per patient. 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 Follow-up monthly for support LAB RESULTS Last UDS result (qualitative screen): pos bup, + amphetamine Last confirmatory test result (LCMS/quantitative ): Amphetamine NEG Last Bup confirmation test result: Bup: 334 ng/ml & Norbup: 384 ng/ml Last LFT result: WNL 08/17/21 ASSESSMENT The patient's current phase of OUD treatment is: Stable maintenance. Interpretation of last buprenorphine confirmation test result: No concern Medication dose: No report of severe or persistent cravings/withdrawa l symptoms. Pt will remain at current dose Sublocade Injection Administration: The patient is not due for injection today. PLAN (narrative, if applicable) Rx : stop Sublocade monthly per pt request Rx Quantity No Rx provided today. VISIT FREQUENCY Continue monthly visits and UDS. Treatment plan review or change includes continue current level of care UNEXPECTED results on UDS may impact this patient's treatment plan. The following information will be used to place the proper confirmation orders for the specimen collected for this date 07/07/2022 . Perform Confirmation if Positive Amphetamines Perform Confirmation if Positive Benzodiazepines Perform Confirmation if Positive Cocaine Perform Confirmation if Positive Methadone Perform Confirmation if Positive Opiates and/or Fentanyl Perform Confirmation if Positive Oxycodone Additional requests in regards to confirmation orders. NONE LFTS will be repeated per our clinical protocol. Prescription monitoring program is reviewed. If applicable, I have identified agents prescribed to the patient in addition to any issued by our program. The patient has been counseled regarding any risk of combining sedating agents. Not available 07/07/2022 14:53:40 08/05/2022 08/05/2022 This patient wit h a history of OUD presents today for their monthly MAT visit Current prescription is: Sublocade on hold per pt request- completed sublocade taper Patient denies any S/E, cravings, or withdrawal sx at current dose Update Since Last Visit : (narrative note) Patient Denies all illicit drug use since last visit Monthly OUD follow-up visit and sublocade f/u Last Sublocade 25 mg inj administered 06/08/22 Weaned off sublocade- patient has completed taper plan- feeling well and very proud of herself Patient in agreement with plan of care at this time. Advised patient that even after weaning off sublocade she will continue in MAT program monthly x 3 months for support and UDS monitoring- patient is in agreement with plan of care at this time Reports feeling great- denies W/D sx, cravings or adverse side effects Does not require Subutex supplemental tabs She continues to follow up Q1 month as per agreement with MAT provider She states she plans [place] traveling the [place] after she has completed the 3 month follow up She states she understands that she can call MAT provider anytime to restart tx if needed UDS +THC Smokes MJ- trusted source Seeing mental health prescriber @ [facility] - stable on current medications per patient. 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 Follow-up monthly for support LAB RESULTS Last UDS result (qualitative screen): pos bup, +THC Last confirmatory test result (LCMS/quantitative ): N/A due to negative UDS Last Bup confirmation test result: Bup: 156 ng/ml & Norbup: 161 ng/ml Last LFT result: WNL 08/17/21 ASSESSMENT The patient's current phase of OUD treatment is: Stable maintenance. Interpretation of last buprenorphine confirmation test result: No concern Medication dose: No report of severe or persistent cravings/withdrawa l symptoms. Pt will remain at current dose Sublocade Injection Administration: The patient is not due for injection today. PLAN (narrative, if applicable) Rx : stop Sublocade monthly per pt request Rx Quantity No Rx provided today. VISIT FREQUENCY Continue monthly visits and UDS. Treatment plan review or change includes continue current level of care UNEXPECTED results on UDS may impact this patient's treatment plan. The following information will be used to place the proper confirmation orders for the specimen collected for this date 08/05/2022 . Perform Confirmation if Positive Amphetamines Perform Confirmation if Positive Benzodiazepines Perform Confirmation if Positive Cocaine Perform Confirmation if Positive Methadone Perform Confirmation if Positive Opiates and/or Fentanyl Perform Confirmation if Positive Oxycodone Additional requests in regards to confirmation orders. Repeat Bup/Norbup LFTS will be repeated per our clinical protocol. Prescription monitoring program is reviewed. If applicable, I have identified agents prescribed to the patient in addition to any issued by our program. The patient has been counseled regarding any risk of combining sedating agents. Not available 08/05/2022 15:38:51 09/01/2022 09/01/2022 This patient wit h a history of OUD presents today for their monthly MAT visit Current prescription is: Sublocade on hold per pt request- completed sublocade taper Patient denies any S/E, cravings, or withdrawal sx at current dose Update Since Last Visit : (narrative note) Patient Denies all illicit drug use since last visit Monthly OUD follow-up visit and sublocade f/u Last Sublocade 25 mg inj administered 06/08/22 Weaned off sublocade- patient has completed taper plan- feeling well and very proud of herself Patient in agreement with plan of care at this time. Advised patient that even after weaning off sublocade she will continue in MAT program monthly x 3 months for support and UDS monitoring- patient is in agreement with plan of care at this time Reports feeling great- denies W/D sx, cravings or adverse side effects Does not require Subutex supplemental tabs She continues to follow up Q1 month as per agreement with MAT provider She states she plans to [place] the [place] after she has completed the 3 month follow up She states she understands that she can call MAT provider anytime to restart tx if needed UDS +THC + benzo, + amphetamine False pos amphetamine on confirmation Smokes MJ- trusted source Seeing mental health prescriber @ [facility] - stable on current medications per patient. 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 Follow-up monthly for support LAB RESULTS Last UDS result (qualitative screen): + amphetamine, + benzo, + bup, + THC Last confirmatory test result (LCMS/quantitative ): NEG amphetamine Last Bup confirmation test result: Bup: 92 ng/ml & Norbup: 114 ng/ml Last LFT result: WNL 08/17/21 ASSESSMENT The patient's current phase of OUD treatment is: Stable maintenance. Interpretation of last buprenorphine confirmation test result: No concern Medication dose: No report of severe or persistent cravings/withdrawa l symptoms. Pt will remain at current dose Sublocade Injection Administration: The patient is not due for injection today. PLAN (narrative, if applicable) Rx : stop Sublocade monthly per pt request Rx Quantity No Rx provided today. VISIT FREQUENCY Continue monthly visits and UDS. Treatment plan review or change includes continue current level of care UNEXPECTED results on UDS may impact this patient's treatment plan. The following information will be used to place the proper confirmation orders for the specimen collected for this date 09/01/2022 . Perform Confirmation if Positive Amphetamines Perform Confirmation if Positive Benzodiazepines Perform Confirmation if Positive Cocaine Perform Confirmation if Positive Methadone Perform Confirmation if Positive Opiates and/or Fentanyl Perform Confirmation if Positive Oxycodone Additional requests in regards to confirmation orders. Repeat Bup/Norbup LFTS will be repeated per our clinical protocol. Prescription monitoring program is reviewed. If applicable, I have identified agents prescribed to the patient in addition to any issued by our program. The patient has been counseled regarding any risk of combining sedating agents. Not available 09/01/2022 14:44:16 Plan of Treatment Reminders Order Date Submit Date Provider Last Modified By Organization Details Last Modified Time Details Appointments None recorded. Lab drug screen, urine 2021 022 [facility], [facility] [place], [address], 09:31:40 test, urine 2021 022 [email or web address], [address], 16:20:30 drug screen, urine 2021 022 [facility], [address] [place] [address], [address], 2 11:14:53 test, urine [address], [address], 2 11:13:49 drug screen, urine 2022 023 [facility], [address] [place] [address], [address], 3 13:11:53 test, urine 2022 023 [email or web address] [address], [address], 3 14:40:45 drug screen, urine 2022 023 [facility], [address] [place], [address], 3 05:45:06 test, urine 2022 023 [email or web address] [facility]sp [address], [address], 3 15:37:12 drug screen, urine 2022 023 J[facility], [address] [facility] [place], [address], 3 10:56:05 test, urine 2022 023 antonio Hern[facility] [address], [address], 3 14:43:59 Referral None recorded. Procedures None recorded. Surgeries None recorded. Imaging None recorded. Medication Orders None recorded. Patient TargetsNo targets recorded. Patient Instructions Encounter Date Encounter Id Patient Instructions Last Modified By Organization Details Last Modified Time 05/10/2022 [id number] Education provid ed at today's visit included: Review of patient's individualized treatment plan; Review of Specialty pharmacy procedures; Review of program policies: urine screening, medication, visit, counseling requirement; Discussed importance of avoiding opioid while on Sublocade Treatment; discussed Sublocadea??s common and serious side effects; Counseling re: trigger avoidance, relapse prevention and the importance of developing a sober network; Counseling re safe sex and control; Counseling re: Discovery & Drop-out prevention in early recovery. Greater than 50% of today's visit spent face to face counseling and coordinating care. Education provided at today's visit included: Review of patient's individualized treatment plan; Review of Specialty pharmacy procedures; Review of program policies: urine screening, medication, visit, counseling requirement; Discussed importance of avoiding opioid while on Sublocade Treatment; discussed Sublocadea??s common and serious side effects; Counseling re: trigger avoidance, relapse prevention and the importance of developing a sober network; Counseling re safe sex and control; Counseling re: Discovery & Drop-out prevention in early recovery. Greater than 50% of today's visit spent face to face counseling and coordinating care. Education provided at today's visit included: Review of patient's individualized treatment plan; Review of Specialty pharmacy procedures; Review of program policies: urine screening, medication, visit, counseling requirement; Discussed importance of avoiding opioid while on Sublocade Treatment; discussed Sublocadea??s common and serious side effects; Counseling re: trigger avoidance, relapse prevention and the importance of developing a sober network; Counseling re safe sex and control; Counseling re: Discovery & Drop-out prevention in early recovery. Greater than 50% of today's visit spent face to face counseling and coordinating care. Education provided at today's visit included: Review of patient's individualized treatment plan; Review of Specialty pharmacy procedures; Review of program policies: urine screening, medication, visit, counseling requirement; Discussed importance of avoiding opioid while on Sublocade Treatment; discussed Sublocadea??s common and serious side effects; Counseling re: trigger avoidance, relapse prevention and the importance of developing a sober network; Counseling re safe sex and control; Counseling re: Discovery & Drop-out prevention in early recovery. Greater than 50% of today's visit spent face to face counseling and coordinating care. Education provided at today's visit included: Review of patient's individualized treatment plan; Review of Specialty pharmacy procedures; Review of program policies: urine screening, medication, visit, counseling requirement; Discussed importance of avoiding opioid while on Sublocade Treatment; discussed Sublocadea??s common and serious side effects; Counseling re: trigger avoidance, relapse prevention and the importance of developing a sober network; Counseling re safe sex and control; Counseling re: Discovery & Drop-out prevention in early recovery. Greater than 50% of today's visit spent face to face counseling and coordinating care. Education provided at today's visit included: Review of patient's individualized treatment plan; Review of Specialty pharmacy procedures; Review of program policies: urine screening, medication, visit, counseling requirement; Discussed importance of avoiding opioid while on Sublocade Treatment; discussed Sublocadea??s common and serious side effects; Counseling re: trigger avoidance, relapse prevention and the importance of developing a sober network; Counseling re safe sex and control; Counseling re: Discovery & Drop-out prevention in early recovery. Greater than 50% of today's visit spent face to face counseling and coordinating care. Education provided at today's visit included: Review of patient's individualized treatment plan; Review of Specialty pharmacy procedures; Review of program policies: urine screening, medication, visit, counseling requirement; Discussed importance of avoiding opioid while on Sublocade Treatment; discussed Sublocadea??s common and serious side effects; Counseling re: trigger avoidance, relapse prevention and the importance of developing a sober network; Counseling re safe sex and control; Counseling re: Discovery & Drop-out prevention in early recovery. Greater than 50% of today's visit spent face to face counseling and coordinating care. Education provided at today's visit included: Review of patient's individualized treatment plan; Review of Specialty pharmacy procedures; Review of program policies: urine screening, medication, visit, counseling requirement; Discussed importance of avoiding opioid while on Sublocade Treatment; discussed Sublocadea??s common and serious side effects; Counseling re: trigger avoidance, relapse prevention and the importance of developing a sober network; Counseling re safe sex and control; Counseling re: Discovery & Drop-out prevention in early recovery. Greater than 50% of today's visit spent face to face counseling and coordinating care. Education provided at [facility]'s visit included: Review of patient's individualized treatment plan; Review of Specialty pharmacy procedures; Review of program policies: urine screening, medication, visit, counseling requirement; Discussed importance of avoiding opioid while on Sublocade Treatment; discussed Sublocadea??s common and serious side effects; Counseling re: trigger avoidance, relapse prevention and the importance of developing a sober network; Counseling re safe sex and control; Counseling re: Discovery & Drop-out prevention in early recovery. Greater than 50% of today's visit spent face to face counseling and coordinating care. [email or web address] Not available 05/10/2022 16:07:51 06/08/2022 [id number] Education provid ed at today's visit included: Review of patient's individualized treatment plan; Review of Specialty pharmacy procedures; Review of program policies: urine screening, medication, visit, counseling requirement; Discussed importance of avoiding opioid while on Sublocade Treatment; discussed Sublocadea??s common and serious side effects; Counseling re: trigger avoidance, relapse prevention and the importance of developing a sober network; Counseling re safe sex and control; Counseling re: Discovery & Drop-out prevention in early recovery. Greater than 50% of today's visit spent face to face counseling and coordinating care. Education provided at today's visit included: Review of patient's individualized treatment plan; Review of Specialty pharmacy procedures; Review of program policies: urine screening, medication, visit, counseling requirement; Discussed importance of avoiding opioid while on Sublocade Treatment; discussed Sublocadea??s common and serious side effects; Counseling re: trigger avoidance, relapse prevention and the importance of developing a sober network; Counseling re safe sex and control; Counseling re: Discovery & Drop-out prevention in early recovery. Greater than 50% of today's visit spent face to face counseling and coordinating care. Education provided at today's visit included: Review of patient's individualized treatment plan; Review of Specialty pharmacy procedures; Review of program policies: urine screening, medication, visit, counseling requirement; Discussed importance of avoiding opioid while on Sublocade Treatment; discussed Sublocadea??s common and serious side effects; Counseling re: trigger avoidance, relapse prevention and the importance of developing a sober network; Counseling re safe sex and control; Counseling re: Discovery & Drop-out prevention in early recovery. Greater than 50% of today's visit spent face to face counseling and coordinating care. Education provided at today's visit included: Review of patient's individualized treatment plan; Review of Specialty pharmacy procedures; Review of program policies: urine screening, medication, visit, counseling requirement; Discussed importance of avoiding opioid while on Sublocade Treatment; discussed Sublocadea??s common and serious side effects; Counseling re: trigger avoidance, relapse prevention and the importance of developing a sober network; Counseling re safe sex and control; Counseling re: Discovery & Drop-out prevention in early recovery. Greater than 50% of today's visit spent face to face counseling and coordinating care. Education provided at today's visit included: Review of patient's individualized treatment plan; Review of Specialty pharmacy procedures; Review of program policies: urine screening, medication, visit, counseling requirement; Discussed importance of avoiding opioid while on Sublocade Treatment; discussed Sublocadea??s common and serious side effects; Counseling re: trigger avoidance, relapse prevention and the importance of developing a sober network; Counseling re safe sex and control; Counseling re: Discovery & Drop-out prevention in early recovery. Greater than 50% of today's visit spent face to face counseling and coordinating care. Education provided at today's visit included: Review of patient's individualized treatment plan; Review of Specialty pharmacy procedures; Review of program policies: urine screening, medication, visit, counseling requirement; Discussed importance of avoiding opioid while on Sublocade Treatment; discussed Sublocadea??s common and serious side effects; Counseling re: trigger avoidance, relapse prevention and the importance of developing a sober network; Counseling re safe sex and control; Counseling re: Discovery & Drop-out prevention in early recovery. Greater than 50% of today's visit spent face to face counseling and coordinating care. Education provided at today's visit included: Review of patient's individualized treatment plan; Review of Specialty pharmacy procedures; Review of program policies: urine screening, medication, visit, counseling requirement; Discussed importance of avoiding opioid while on Sublocade Treatment; discussed Sublocadea??s common and serious side effects; Counseling re: trigger avoidance, relapse prevention and the importance of developing a sober network; Counseling re safe sex and control; Counseling re: Discovery & Drop-out prevention in early recovery. Greater than 50% of today's visit spent face to face counseling and coordinating care. Education provided at today's visit included: Review of patient's individualized treatment plan; Review of Specialty pharmacy procedures; Review of program policies: urine screening, medication, visit, counseling requirement; Discussed importance of avoiding opioid while on Sublocade Treatment; discussed Sublocadea??s common and serious side effects; Counseling re: trigger avoidance, relapse prevention and the importance of developing a sober network; Counseling re safe sex and control; Counseling re: Discovery & Drop-out prevention in early recovery. Greater than 50% of today's visit spent face to face counseling and coordinating care. Education provided at today's visit included: Review of patient's individualized treatment plan; Review of Specialty pharmacy procedures; Review of program policies: urine screening, medication, visit, counseling requirement; Discussed importance of avoiding opioid while on Sublocade Treatment; discussed Sublocadea??s common and serious side effects; Counseling re: trigger avoidance, relapse prevention and the importance of developing a sober network; Counseling re safe sex and control; Counseling re: Discovery & Drop-out prevention in early recovery. Greater than 50% of today's visit spent face to face counseling and coordinating care. Education provided at today's visit included: Review of patient's individualized treatment plan; Review of Specialty pharmacy procedures; Review of program policies: urine screening, medication, visit, counseling requirement; Discussed importance of avoiding opioid while on Sublocade Treatment; discussed Sublocadea??s common and serious side effects; Counseling re: trigger avoidance, relapse prevention and the importance of developing a sober network; Counseling re safe sex and control; Counseling re: Discovery & Drop-out prevention in early recovery. Greater than 50% of today's visit spent face to face counseling and coordinating care. [email or web address] Not available 06/08/2022 15:51:30 07/07/2022 [id number] Education provid ed at today's visit included: Review of patient's individualized treatment plan; Review of Specialty pharmacy procedures; Review of program policies: urine screening, medication, visit, counseling requirement; Discussed importance of avoiding opioid while on Sublocade Treatment; discussed Sublocadea??s common and serious side effects; Counseling re: trigger avoidance, relapse prevention and the importance of developing a sober network; Counseling re safe sex and control; Counseling re: Discovery & Drop-out prevention in early recovery. Greater than 50% of today's visit spent face to face counseling and coordinating care. Education provided at today's visit included: Review of patient's individualized treatment plan; Review of Specialty pharmacy procedures; Review of program policies: urine screening, medication, visit, counseling requirement; Discussed importance of avoiding opioid while on Sublocade Treatment; discussed Sublocadea??s common and serious side effects; Counseling re: trigger avoidance, relapse prevention and the importance of developing a sober network; Counseling re safe sex and control; Counseling re: Discovery & Drop-out prevention in early recovery. Greater than 50% of today's visit spent face to face counseling and coordinating care. Education provided at today's visit included: Review of patient's individualized treatment plan; Review of Specialty pharmacy procedures; Review of program policies: urine screening, medication, visit, counseling requirement; Discussed importance of avoiding opioid while on Sublocade Treatment; discussed Sublocadea??s common and serious side effects; Counseling re: trigger avoidance, relapse prevention and the importance of developing a sober network; Counseling re safe sex and control; Counseling re: Discovery & Drop-out prevention in early recovery. Greater than 50% of today's visit spent face to face counseling and coordinating care. Education provided at today's visit included: Review of patient's individualized treatment plan; Review of Specialty pharmacy procedures; Review of program policies: urine screening, medication, visit, counseling requirement; Discussed importance of avoiding opioid while on Sublocade Treatment; discussed Sublocadea??s common and serious side effects; Counseling re: trigger avoidance, relapse prevention and the importance of developing a sober network; Counseling re safe sex and control; Counseling re: Discovery & Drop-out prevention in early recovery. Greater than 50% of today's visit spent face to face counseling and coordinating care. Education provided at today's visit included: Review of patient's individualized treatment plan; Review of Specialty pharmacy procedures; Review of program policies: urine screening, medication, visit, counseling requirement; Discussed importance of avoiding opioid while on Sublocade Treatment; discussed Sublocadea??s common and serious side effects; Counseling re: trigger avoidance, relapse prevention and the importance of developing a sober network; Counseling re safe sex and control; Counseling re: Discovery & Drop-out prevention in early recovery. Greater than 50% of today's visit spent face to face counseling and coordinating care. Education provided at today's visit included: Review of patient's individualized treatment plan; Review of Specialty pharmacy procedures; Review of program policies: urine screening, medication, visit, counseling requirement; Discussed importance of avoiding opioid while on Sublocade Treatment; discussed Sublocadea??s common and serious side effects; Counseling re: trigger avoidance, relapse prevention and the importance of developing a sober network; Counseling re safe sex and control; Counseling re: Discovery & Drop-out prevention in early recovery. Greater than 50% of today's visit spent face to face counseling and coordinating care. Education provided at today's visit included: Review of patient's individualized treatment plan; Review of Specialty pharmacy procedures; Review of program policies: urine screening, medication, visit, counseling requirement; Discussed importance of avoiding opioid while on Sublocade Treatment; discussed Sublocadea??s common and serious side effects; Counseling re: trigger avoidance, relapse prevention and the importance of developing a sober network; Counseling re safe sex and control; Counseling re: Discovery & Drop-out prevention in early recovery. Greater than 50% of today's visit spent face to face counseling and coordinating care. Education provided at today's visit included: Review of patient's individualized treatment plan; Review of Specialty pharmacy procedures; Review of program policies: urine screening, medication, visit, counseling requirement; Discussed importance of avoiding opioid while on Sublocade Treatment; discussed Sublocadea??s common and serious side effects; Counseling re: trigger avoidance, relapse prevention and the importance of developing a sober network; Counseling re safe sex and control; Counseling re: Discovery & Drop-out prevention in early recovery. Greater than 50% of today's visit spent face to face counseling and coordinating care. Education provided at today's visit included: Review of patient's individualized treatment plan; Review of Specialty pharmacy procedures; Review of program policies: urine screening, medication, visit, counseling requirement; Discussed importance of avoiding opioid while on Sublocade Treatment; discussed Sublocadea??s common and serious side effects; Counseling re: trigger avoidance, relapse prevention and the importance of developing a sober network; Counseling re safe sex and control; Counseling re: Discovery & Drop-out prevention in early recovery. Greater than 50% of today's visit spent face to face counseling and coordinating care. Education provided at today's visit included: Review of patient's individualized treatment plan; Review of Specialty pharmacy procedures; Review of program policies: urine screening, medication, visit, counseling requirement; Discussed importance of avoiding opioid while on Sublocade Treatment; discussed Sublocadea??s common and serious side effects; Counseling re: trigger avoidance, relapse prevention and the importance of developing a sober network; Counseling re safe sex and control; Counseling re: Discovery & Drop-out prevention in early recovery. Greater than 50% of today's visit spent face to face counseling and coordinating care. Education provided at today's visit included: Review of patient's individualized treatment plan; Review of Specialty pharmacy procedures; Review of program policies: urine screening, medication, visit, counseling requirement; Discussed importance of avoiding opioid while on Sublocade Treatment; discussed Sublocadea??s common and serious side effects; Counseling re: trigger avoidance, relapse prevention and the importance of developing a sober network; Counseling re safe sex and control; Counseling re: Discovery & Drop-out prevention in early recovery. Greater than 50% of today's visit spent face to face counseling and coordinating care. [email or web address] Not available 07/07/2022 14:29:46 08/05/2022 [id number] Education provid ed at today's visit included: Review of patient's individualized treatment plan; Review of Specialty pharmacy procedures; Review of program policies: urine screening, medication, visit, counseling requirement; Discussed importance of avoiding opioid while on Sublocade Treatment; discussed Sublocadea??s common and serious side effects; Counseling re: trigger avoidance, relapse prevention and the importance of developing a sober network; Counseling re safe sex and control; Counseling re: Discovery & Drop-out prevention in early recovery. Greater than 50% of today's visit spent face to face counseling and coordinating care. Education provided at today's visit included: Review of patient's individualized treatment plan; Review of Specialty pharmacy procedures; Review of program policies: urine screening, medication, visit, counseling requirement; Discussed importance of avoiding opioid while on Sublocade Treatment; discussed Sublocadea??s common and serious side effects; Counseling re: trigger avoidance, relapse prevention and the importance of developing a sober network; Counseling re safe sex and control; Counseling re: Discovery & Drop-out prevention in early recovery. Greater than 50% of today's visit spent face to face counseling and coordinating care. Education provided at today's visit included: Review of patient's individualized treatment plan; Review of Specialty pharmacy procedures; Review of program policies: urine screening, medication, visit, counseling requirement; Discussed importance of avoiding opioid while on Sublocade Treatment; discussed Sublocadea??s common and serious side effects; Counseling re: trigger avoidance, relapse prevention and the importance of developing a sober network; Counseling re safe sex and control; Counseling re: Discovery & Drop-out prevention in early recovery. Greater than 50% of today's visit spent face to face counseling and coordinating care. Education provided at today's visit included: Review of patient's individualized treatment plan; Review of Specialty pharmacy procedures; Review of program policies: urine screening, medication, visit, counseling requirement; Discussed importance of avoiding opioid while on Sublocade Treatment; discussed Sublocadea??s common and serious side effects; Counseling re: trigger avoidance, relapse prevention and the importance of developing a sober network; Counseling re safe sex and control; Counseling re: Discovery & Drop-out prevention in early recovery. Greater than 50% of today's visit spent face to face counseling and coordinating care. Education provided at today's visit included: Review of patient's individualized treatment plan; Review of Specialty pharmacy procedures; Review of program policies: urine screening, medication, visit, counseling requirement; Discussed importance of avoiding opioid while on Sublocade Treatment; discussed Sublocadea??s common and serious side effects; Counseling re: trigger avoidance, relapse prevention and the importance of developing a sober network; Counseling re safe sex and control; Counseling re: Discovery & Drop-out prevention in early recovery. Greater than 50% of today's visit spent face to face counseling and coordinating care. Education provided at today's visit included: Review of patient's individualized treatment plan; Review of Specialty pharmacy procedures; Review of program policies: urine screening, medication, visit, counseling requirement; Discussed importance of avoiding opioid while on Sublocade Treatment; discussed Sublocadea??s common and serious side effects; Counseling re: trigger avoidance, relapse prevention and the importance of developing a sober network; Counseling re safe sex and control; Counseling re: Discovery & Drop-out prevention in early recovery. Greater than 50% of today's visit spent face to face counseling and coordinating care. Education provided at today's visit included: Review of patient's individualized treatment plan; Review of Specialty pharmacy procedures; Review of program policies: urine screening, medication, visit, counseling requirement; Discussed importance of avoiding opioid while on Sublocade Treatment; discussed Sublocadea??s common and serious side effects; Counseling re: trigger avoidance, relapse prevention and the importance of developing a sober network; Counseling re safe sex and control; Counseling re: Discovery & Drop-out prevention in early recovery. Greater than 50% of today's visit spent face to face counseling and coordinating care. Education provided at today's visit included: Review of patient's individualized treatment plan; Review of Specialty pharmacy procedures; Review of program policies: urine screening, medication, visit, counseling requirement; Discussed importance of avoiding opioid while on Sublocade Treatment; discussed Sublocadea??s common and serious side effects; Counseling re: trigger avoidance, relapse prevention and the importance of developing a sober network; Counseling re safe sex and control; Counseling re: Discovery & Drop-out prevention in early recovery. Greater than 50% of today's visit spent face to face counseling and coordinating care. Education provided at today's visit included: Review of patient's individualized treatment plan; Review of Specialty pharmacy procedures; Review of program policies: urine screening, medication, visit, counseling requirement; Discussed importance of avoiding opioid while on Sublocade Treatment; discussed Sublocadea??s common and serious side effects; Counseling re: trigger avoidance, relapse prevention and the importance of developing a sober network; Counseling re safe sex and control; Counseling re: Discovery & Drop-out prevention in early recovery. Greater than 50% of today's visit spent face to face counseling and coordinating care. Education provided at today's visit included: Review of patient's individualized treatment plan; Review of Specialty pharmacy procedures; Review of program policies: urine screening, medication, visit, counseling requirement; Discussed importance of avoiding opioid while on Sublocade Treatment; discussed Sublocadea??s common and serious side effects; Counseling re: trigger avoidance, relapse prevention and the importance of developing a sober network; Counseling re safe sex and control; Counseling re: Discovery & Drop-out prevention in early recovery. Greater than 50% of today's visit spent face to face counseling and coordinating care. Education provided at today's visit included: Review of patient's individualized treatment plan; Review of Specialty pharmacy procedures; Review of program policies: urine screening, medication, visit, counseling requirement; Discussed importance of avoiding opioid while on Sublocade Treatment; discussed Sublocadea??s common and serious side effects; Counseling re: trigger avoidance, relapse prevention and the importance of developing a sober network; Counseling re safe sex and control; Counseling re: Discovery & Drop-out prevention in early recovery. Greater than 50% of today's visit spent face to face counseling and coordinating care. [email or web address] Not available 08/05/2022 15:32:15 09/01/2022 [id number] Education provid ed at today's visit included: Review of patient's individualized treatment plan; Review of Specialty pharmacy procedures; Review of program policies: urine screening, medication, visit, counseling requirement; Discussed importance of avoiding opioid while on Sublocade Treatment; discussed Sublocadea??s common and serious side effects; Counseling re: trigger avoidance, relapse prevention and the importance of developing a sober network; Counseling re safe sex and control; Counseling re: Discovery & Drop-out prevention in early recovery. Greater than 50% of today's visit spent face to face counseling and coordinating care. Education provided at today's visit included: Review of patient's individualized treatment plan; Review of Specialty pharmacy procedures; Review of program policies: urine screening, medication, visit, counseling requirement; Discussed importance of avoiding opioid while on Sublocade Treatment; discussed Sublocadea??s common and serious side effects; Counseling re: trigger avoidance, relapse prevention and the importance of developing a sober network; Counseling re safe sex and control; Counseling re: Discovery & Drop-out prevention in early recovery. Greater than 50% of today's visit spent face to face counseling and coordinating care. Education provided at today's visit included: Review of patient's individualized treatment plan; Review of Specialty pharmacy procedures; Review of program policies: urine screening, medication, visit, counseling requirement; Discussed importance of avoiding opioid while on Sublocade Treatment; discussed Sublocadea??s common and serious side effects; Counseling re: trigger avoidance, relapse prevention and the importance of developing a sober network; Counseling re safe sex and control; Counseling re: Discovery & Drop-out prevention in early recovery. Greater than 50% of today's visit spent face to face counseling and coordinating care. Education provided at today's visit included: Review of patient's individualized treatment plan; Review of Specialty pharmacy procedures; Review of program policies: urine screening, medication, visit, counseling requirement; Discussed importance of avoiding opioid while on Sublocade Treatment; discussed Sublocadea??s common and serious side effects; Counseling re: trigger avoidance, relapse prevention and the importance of developing a sober network; Counseling re safe sex and control; Counseling re: Discovery & Drop-out prevention in early recovery. Greater than 50% of today's visit spent face to face counseling and coordinating care. Education provided at today's visit included: Review of patient's individualized treatment plan; Review of Specialty pharmacy procedures; Review of program policies: urine screening, medication, visit, counseling requirement; Discussed importance of avoiding opioid while on Sublocade Treatment; discussed Sublocadea??s common and serious side effects; Counseling re: trigger avoidance, relapse prevention and the importance of developing a sober network; Counseling re safe sex and control; Counseling re: Discovery & Drop-out prevention in early recovery. Greater than 50% of today's visit spent face to face counseling and coordinating care. Education provided at today's visit included: Review of patient's individualized treatment plan; Review of Specialty pharmacy procedures; Review of program policies: urine screening, medication, visit, counseling requirement; Discussed importance of avoiding opioid while on Sublocade Treatment; discussed Sublocadea??s common and serious side effects; Counseling re: trigger avoidance, relapse prevention and the importance of developing a sober network; Counseling re safe sex and control; Counseling re: Discovery & Drop-out prevention in early recovery. Greater than 50% of today's visit spent face to face counseling and coordinating care. Education provided at today's visit included: Review of patient's individualized treatment plan; Review of Specialty pharmacy procedures; Review of program policies: urine screening, medication, visit, counseling requirement; Discussed importance of avoiding opioid while on Sublocade Treatment; discussed Sublocadea??s common and serious side effects; Counseling re: trigger avoidance, relapse prevention and the importance of developing a sober network; Counseling re safe sex and control; Counseling re: Discovery & Drop-out prevention in early recovery. Greater than 50% of today's visit spent face to face counseling and coordinating care. Education provided at today's visit included: Review of patient's individualized treatment plan; Review of Specialty pharmacy procedures; Review of program policies: urine screening, medication, visit, counseling requirement; Discussed importance of avoiding opioid while on Sublocade Treatment; discussed Sublocadea??s common and serious side effects; Counseling re: trigger avoidance, relapse prevention and the importance of developing a sober network; Counseling re safe sex and control; Counseling re: Discovery & Drop-out prevention in early recovery. Greater than 50% of today's visit spent face to face counseling and coordinating care. Education provided at today's visit included: Review of patient's individualized treatment plan; Review of Specialty pharmacy procedures; Review of program policies: urine screening, medication, visit, counseling requirement; Discussed importance of avoiding opioid while on Sublocade Treatment; discussed Sublocadea??s common and serious side effects; Counseling re: trigger avoidance, relapse prevention and the importance of developing a sober network; Counseling re safe sex and control; Counseling re: Discovery & Drop-out prevention in early recovery. Greater than 50% of today's visit spent face to face counseling and coordinating care. Education provided at today's visit included: Review of patient's individualized treatment plan; Review of Specialty pharmacy procedures; Review of program policies: urine screening, medication, visit, counseling requirement; Discussed importance of avoiding opioid while on Sublocade Treatment; discussed Sublocadea??s common and serious side effects; Counseling re: trigger avoidance, relapse prevention and the importance of developing a sober network; Counseling re safe sex and control; Counseling re: Discovery & Drop-out prevention in early recovery. Greater than 50% of today's visit spent face to face counseling and coordinating care. Education provided at today's visit included: Review of patient's individualized treatment plan; Review of Specialty pharmacy procedures; Review of program policies: urine screening, medication, visit, counseling requirement; Discussed importance of avoiding opioid while on Sublocade Treatment; discussed Sublocadea??s common and serious side effects; Counseling re: trigger avoidance, relapse prevention and the importance of developing a sober network; Counseling re safe sex and control; Counseling re: Discovery & Drop-out prevention in early recovery. Greater than 50% of today's visit spent face to face counseling and coordinating care. [email or web address] Not available 09/01/2022 14:31:26 Reason for Referral None Reported. Results Created Date Observation Date Name Description Value Unit Range Abnormal Flag Note LastModifiedBy Organization Detail LastModifiedTime 04/12/20 22 04/12/2022 [facility] PT SCREE ISHMAEL amphetamines Negati ve NG/mL 1,000 Tatianna brown by LESTER KEMP NA-WE ISS Not Available [facility] [place] [address] [place], [id number], 04/14/2022 09:05:52 04/12/20 22 04/12/2022 [facility] PT [facility]MAEL benzodiazapi everton Negati ve NG/mL 200 Not Available [facility] [place], [id number], 04/14/2022 09:05:52 04/12/20 22 04/12/2022 [facility] PT SCREE ISHMAEL buprenorphin e Positi ve NG/mL 5 Not Available [place] [address] [place], [address], 04/14/2022 09:05:52 04/12/20 22 04/12/2022 [facility] PT SCREE [facility]HMAEL cocaine metabolite Negati ve NG/mL 150 Not Available [place] [address] [place], [address], 04/14/2022 09:05:52 04/12/20 22 04/12/2022 [facility] PT SCREE ISHMAEL opiates Negati ve NG/mL 300 Not Available [place] [address] [place], [address], 04/14/2022 09:05:52 04/12/20 22 04/12/2022 [facility] PT SCREE ISHMAEL oxycodone Negati ve NG/mL 300 Not Available [place] [address] [place], [address], 04/14/2022 09:05:52 04/12/20 22 04/12/2022 [facility] PT [facility]CR[facility] ISHMAEL fentanyl Negati ve NG/mL 2 Not Available [place] [address] [place], [address], 04/14/2022 09:05:52 04/12/20 22 04/12/2022 [facility] PT SCREE ISHMAEL ethyl alcohol Negati ve mg/dL 10 Not Available [place] [address] [place], [address], 04/14/2022 09:05:52 04/12/20 22 04/12/2022 [facility] PT [facility]HMAEL methadone metabolite Negati ve NG/mL 300 Not Available [place] [address] [place], [address], 04/14/2022 09:05:52 04/12/20 22 04/12/2022 [facility] PT SCREE ISHMAEL cannabinoids (THC) Negati ve NG/mL 50 Not Available [place] [address] [place], [address], 04/14/2022 09:05:52 04/12/20 22 04/12/2022 [facility] PT SCREE ISHMAEL urine creatinine 287.3 mg/dL >20 Not Available [place] [address] [place], [address], 04/14/2022 09:05:52 04/12/20 22 04/12/2022 [facility] PT [facility]CR[facility] ISHMAEL urine pH 6.10 4.5-9. 0 Not Available [place] [address] [place], [address], 04/14/2022 09:05:52 04/12/20 22 04/12/2022 [facility] PT SCREE ISHMAEL specific gravity 1.034 1.003- 1.035 Not Available [place] [address] [place], [address], 04/14/2022 09:05:52 04/12/20 22 04/12/2022 PRESC RIBED DRUG CONFI RMATI ON BUPRE NORPH INE 1, QN, U buprenorphin e 225.6 NG/mL 10 Elect solitairo rodrigues d by LESTER KEMP NA-WE ISS Not Available [place] [address] [place], [address], 04/15/2022 06:09:06 04/12/20 22 04/12/2022 PRESC RIBED DRUG CONFI RMATI ON BUPRE [facility] INE 1, QN, U norbuprenorp liliane 103.7 NG/mL 10 Not Available [place] [address] [place], [address], 04/15/2022 06:09:06 04/12/20 22 04/12/2022 PRESC RIBED DRUG CONFI RMATI ON BUPRE [facility]PH INE 1, QN, U legend Abbrev iation s LOW - Detec courtney but unqua ntifi able OLR - Outsi de of linea r range ATR - Addit ional Testi ng Requi red Not Available [place] [address] [address] [place] M[place]ain, [address], 04/15/2022 06:09:06 04/12/20 22 04/12/2022 PRESC RIBED DRUG CONFI RMATI ON BUPRE NORPH INE 1, QN, U billing only (g0480) Billin g Only Not Available [facility] [place], [address], 04/15/2022 06:09:06 05/10/20 22 05/10/2022 [facility] PT SCREE [facility]HMAEL amphetamines Positi ve NG/mL 1,000 abnormal Elect solitario rodrigues d by LESTER KEMP NA-WE ISS Not Available [place] [address] [place], [address], 05/12/2022 09:31:40 05/10/20 22 05/10/2022 [facility] PT SCREE ISHMAEL benzodiazapi everton Negati ve NG/mL 200 Not Available [facility] [place], [address], 05/12/2022 09:31:40 05/10/20 22 05/10/2022 [facility] PT SCREE ISHMAEL buprenorphin e Positi ve NG/mL 5 Not Available [facility] [place], [address], 05/12/2022 09:31:40 05/10/20 22 05/10/2022 [facility] PT SCREE ISHMAEL cocaine metabolite Negati ve NG/mL 150 Not Available [facility] [place], [address], 05/12/2022 09:31:40 05/10/20 22 05/10/2022 [facility] PT SCREE ISHMAEL opiates Negati ve NG/mL 300 Not Available [place] [address] [place], [address], 05/12/2022 09:31:40 05/10/20 22 05/10/2022 [facility] PT SCREE ISHMAEL oxycodone Negati ve NG/mL 300 Not Available [place] [address] [place], [address], 05/12/2022 09:31:40 05/10/20 22 05/10/2022 [facility] PT SCREE ISHMAEL fentanyl Negati ve NG/mL 2 Not Available [place] [address] [place], [address], 05/12/2022 09:31:40 05/10/20 22 05/10/2022 [facility] PT SCREE ISHMAEL ethyl alcohol Negati ve mg/dL 10 Not Available [place] [address] [place], [address], 05/12/2022 09:31:40 05/10/20 22 05/10/2022 [facility] PT SCREE ISHMAEL methadone metabolite Negati ve NG/mL 300 Not Available [place] [address] [place], [address], 05/12/2022 09:31:40 05/10/20 22 05/10/2022 [facility] PT SCR[facility]HMAEL cannabinoids (THC) Negati ve NG/mL 50 Not Available [place] [address] [place], [address], 05/12/2022 09:31:40 05/10/20 22 05/10/2022 [facility] PT [facility]CR[facility]HMAEL urine creatinine 357.1 mg/dL >20 Not Available [place] [address] [place], [address], 05/12/2022 09:31:40 05/10/20 22 05/10/2022 [facility] PT SCREE ISHMAEL urine pH 5.90 4.5-9. 0 Not Available [place] [address] [place], [address], 05/12/2022 09:31:40 05/10/20 22 05/10/2022 [facility] PT SCREE ISHMAEL specific gravity 1.036 1.003- 1.035 high Not Available [place] [address] [place], [address], 05/12/2022 09:31:40 05/10/20 22 05/10/2022 AMPHE TAMIN ES, QN, U amphetamine Negati ve NG/mL 250 Elect solitario brown by LESTER KEMP NA-WE ISS Not Available [place] [address] [place], [address], 05/14/2022 07:28:01 05/10/20 22 05/10/2022 AMPHE TAMIN ES, QN, U methamphetam ine Negati ve NG/mL 250 Not Available [facility] [place], [address], 05/14/2022 07:28:01 05/10/20 22 05/10/2022 AMPHE TAMIN ES, QN, U mda Negati ve NG/mL 250 Not Available [facility] Debbie [place], [address], 05/14/2022 07:28:01 05/10/20 22 05/10/2022 AMPHE TAMIN ES, QN, U legend Abbrev iation s OLR - Outsi de of linea r range Not Available [place] [address] [place], [address], 05/14/2022 07:28:01 05/10/20 22 05/10/2022 AMPHE TAMIN ES, QN, U billing only (g0480) Billin g Only Not Available [facility] Debbie [place], [address], 05/14/2022 07:28:01 05/10/20 22 05/10/2022 PRESC RIBED DRUG CONFI RMATI ON BUPRE [facility]PH INE 1, QN, U buprenorphin e 428.5 NG/mL 10 Elect solitario rodrigues d by LESTER KEMP NA-WE ISS Not Available [place] [address] [place], [address], 05/14/2022 07:28:02 05/10/20 22 05/10/2022 PRESC RIBED DRUG CONFI RMATI ON BUPRE [facility]PH INE 1, QN, U norbuprenorp liliane 261.3 NG/mL 10 Not Available [place] [address] [place], [address], 05/14/2022 07:28:02 05/10/20 22 05/10/2022 PRESC RIBED DRUG CONFI RMATI ON BUPRE NORPH INE 1, QN, U legend Abbrev iation s LOW - Detec courtney but unqua ntifi able OLR - Outsi de of linea r range ATR - Addit ional Testi ng Requi red Not Available [place] [address] [place], [address], 05/14/2022 07:28:02 05/10/20 22 05/10/2022 pregn vasquez test, urine HCG negati ve Not Available [facility] [address], [address], 05/10/2022 16:05:50 06/08/20 22 06/08/2022 [facility] PT SCREE [facility]HMAEL amphetamines Positi ve NG/mL 1,000 abnormal Elect solitario rodrigues d by LESTER KEMP NA-WE ISS Not Available [place] [address] [place], [address], 06/10/2022 11:14:53 06/08/20 22 06/08/2022 [facility] PT SCREE ISHMAEL benzodiazapi everton Negati ve NG/mL 200 Not Available [facility] [place], [address], 06/10/2022 11:14:53 06/08/20 22 06/08/2022 BUPRE NORPH INE PT SCREE ISHMAEL buprenorphin e Positi ve NG/mL 5 Not Available [facility] [place], [address], 06/10/2022 11:14:53 06/08/20 22 06/08/2022 [facility]UP[facility] PT SCREE ISHMAEL cocaine metabolite Negati ve NG/mL 150 Not Available [facility] [place], [address], 06/10/2022 11:14:53 06/08/20 22 06/08/2022 BUP[facility]PH INE PT SCREE ISHMAEL opiates Negati ve NG/mL 300 Not Available [facility] [place], [address], 06/10/2022 11:14:53 06/08/20 22 06/08/2022 B[facility]E PT SCREE ISHMAEL oxycodone Negati ve NG/mL 300 Not Available [facility] [place], [address], 06/10/2022 11:14:53 06/08/20 22 06/08/2022 BUPRE [facility]PH INE PT SCREE ISHMAEL fentanyl Negati ve NG/mL 2 Not Available [facility] [place], [address], 06/10/2022 11:14:53 06/08/20 22 06/08/2022 BUPRE [facility]PH INE PT SCREE ISHMAEL ethyl alcohol Negati ve mg/dL 10 Not Available [facility] [place], [address], 06/10/2022 11:14:53 06/08/20 22 06/08/2022 BUP[facility]E PT SCREE ISHMAEL methadone metabolite Negati ve NG/mL 300 Not Available [facility] [address] [place], [address], 06/10/2022 11:14:53 06/08/20 22 06/08/2022 BUPRE [facility] INE PT SCREE ISHMAEL cannabinoids (THC) Negati ve NG/mL 50 Not Available [facility] [address] [place], [address], 06/10/2022 11:14:53 06/08/20 22 06/08/2022 BUP[facility]PH [facility]E PT SCREE ISHMAEL urine creatinine 284.9 mg/dL >20 Not Available [place] [address] [place], [address], 06/10/2022 11:14:53 06/08/20 22 06/08/2022 B[facility] PT SCREE ISHMAEL urine pH 6.70 4.5-9. 0 Not Available [place] [address] SeanDebbie CummingsMIRIAM [place], [address], 06/10/2022 11:14:53 06/08/20 22 06/08/2022 [facility] PT SCREE ISHMAEL specific gravity 1.035 1.003- 1.035 Not Available [place] [address] [place], [address], 06/10/2022 11:14:53 06/08/20 22 06/08/2022 PRESC RIBED DRUG CONFI RMATI ON BUPRE [facility]PH INE 1, QN, U buprenorphin e 333.9 NG/mL 10 Tatianna brown by LESTER PERSON Not Available [place] [address] [place], [address], 06/14/2022 08:11:13 06/08/20 22 06/08/2022 PRESC RIBED DRUG CONFI RMATI ON BUPRE NORPH INE 1, QN, U norbuprenorp liliane 383.6 NG/mL 10 Not Available [place] [address] [place], [address], 06/14/2022 08:11:13 06/08/20 22 06/08/2022 PRES RIBED DRUG CONFI RMATI ON BUPRE NORPH INE 1, QN, U legend Abbrev iation s LOW - Detec courtney but unqua ntifi able OLR - Outsi de of linea r range ATR - Addit ional Testi ng Requi red Not Available [place] [address] [place], [address], 06/14/2022 08:11:13 06/08/20 22 06/08/2022 [facility] RIBED DRUG CONFI RMATI ON BUPRE NORPH INE 1, QN, U billing only (g0480) Billin g Only Not Available [place] [address] [place], [address], 06/14/2022 08:11:13 06/08/20 22 06/08/2022 AMPHE TAMIN ES, QN, U amphetamine Negati ve NG/mL 250 Elect solitario rodrigues d by LESTER KEMP NA-WE ISS Not Available [place] [address] [place], [address], 06/14/2022 08:11:13 06/08/20 22 06/08/2022 AMPHE TAMIN ES, QN, U methamphetam ine Negati ve NG/mL 250 Not Available [facility] [place], [address], 06/14/2022 08:11:13 06/08/20 22 06/08/2022 AMPHE TAMIN ES, QN, U mda Negati ve NG/mL 250 Not Available [facility] [place], [address], 06/14/2022 08:11:13 06/08/20 22 06/08/2022 AMPHE TAMIN ES, QN, U legend Abbrev iation s OLR - Outsi de of linea r range Not Available [place] [address] [place], [address], 06/14/2022 08:11:13 06/10/20 22 06/10/2022 pregn vasquez test, urine HCG negati ve Not Available [facility] [address], [address], 06/08/2022 15:48:34 07/07/19 23 07/07/2022 [facility] PT SCREE ISHMAEL amphetamines Negati ve NG/mL 1,000 Elect solitario rodrigues d by LESTER KEMP NA-WE ISS Not Available [place] [address] [place], [address], 07/09/2022 13:11:53 07/07/19 23 07/07/2022 [facility]E PT SCREE ISHMAEL benzodiazapi everton Negati ve NG/mL 200 Not Available [facility] [place], [address], 07/09/2022 13:11:53 07/07/19 23 07/07/2022 [facility] INE PT SCREE ISHMAEL buprenorphin e Positi ve NG/mL 5 Not Available [facility] [place], [address], 07/09/2022 13:11:53 07/07/19 23 07/07/2022 BUPRE NORPH INE PT SCREE ISHMAEL cocaine metabolite Negati ve NG/mL 150 Not Available [facility] [place] [place], [address], 07/09/2022 13:11:53 07/07/19 23 07/07/2022 BUPRE NORPH INE PT SCREE ISHMAEL opiates Negati ve NG/mL 300 Not Available [facility] [place], [address], 07/09/2022 13:11:53 07/07/19 23 07/07/2022 BUPRE NORPH INE PT SCREE ISHMAEL oxycodone Negati ve NG/mL 300 Not Available [place] [address] [place], [address], 07/09/2022 13:11:53 07/07/19 23 07/07/2022 BUPRE NORPH INE PT SCREE ISHMAEL fentanyl Negati ve NG/mL 2 Not Available [place] [address] [place], [address], 07/09/2022 13:11:53 07/07/19 23 07/07/2022 BUPRE NORPH INE PT SCREE ISHMAEL ethyl alcohol Negati ve mg/dL 10 Not Available [place] [address] [place], [address], 07/09/2022 13:11:53 07/07/19 23 07/07/2022 BUPRE NORPH INE PT SCREE ISHMAEL methadone metabolite Negati ve NG/mL 300 Not Available [place] [address] [place], [address], 07/09/2022 13:11:53 07/07/19 23 07/07/2022 BUPRE NORPH INE PT SCREE ISHMAEL cannabinoids (THC) Positi ve NG/mL 50 abnormal Not Available [place] [address] [place], [address], 07/09/2022 13:11:53 07/07/19 23 07/07/2022 BUPRE NORPH INE PT SCREE ISHMAEL urine creatinine 213.0 mg/dL >20 Not Available [place] [address] [place], [address], 07/09/2022 13:11:53 07/07/19 23 07/07/2022 BUPRE NORPH INE PT SCREE ISHMAEL urine pH 6.20 4.5-9. 0 Not Available [place] [address] [place], [address], 07/09/2022 13:11:53 07/07/19 23 07/07/2022 BUPRE NORPH INE PT RHEA QUIÑONES specific gravity 1.036 1.003- 1.035 high Not Available [place] [address] [place], [address], 07/09/2022 13:11:53 07/07/19 23 07/07/2022 PRESC RIBED DRUG CONFI RMATI ON BUPRE NORPH INE 1, QN, U buprenorphin e 156.3 NG/mL 10 Elect solitario rodrigues d by LESTER KEMP NA-WE ISS Not Available [place] [address] [place], [address], 07/13/2022 10:49:19 07/07/19 23 07/07/2022 PRESC RIBED DRUG CONFI RMATI ON BUPRE NORPH INE 1, QN, U norbuprenorp liliane 160.8 NG/mL 10 Not Available [place] [address] [place], [address], 07/13/2022 10:49:19 07/07/19 23 07/07/2022 PRESC RIBED DRUG CONFI RMATI ON BUPRE NORPH INE 1, QN, U legend Abbrev iation s LOW - Detec courtney but unqua ntifi able OLR - Outsi de of linea r range ATR - Addit ional Testi ng Requi red Not Available [place] [address] [place], [address], 07/13/2022 10:49:19 07/07/19 23 07/07/2022 PRESC RIBED DRUG CONFI RMATI ON BUPRE NORPH INE 1, QN, U billing only (g0480) Billin g Only Not Available [place] [address] [place], [address], 07/13/2022 10:49:19 07/07/19 23 07/07/2022 pregn vasquez test, urine HCG negati ve Not Available [facility] [address], [place], [address], 07/07/2022 14:23:58 08/05/19 23 08/05/2022 BUPRE NORPH INE PT SCREE ISHMAEL amphetamines Positi ve NG/mL 1,000 abnormal Elect solitario rodrigues d by LESTER KEMP NA-WE ISS Not Available [place] [address] [place], [address], 08/10/2022 05:45:06 08/05/19 23 08/05/2022 BUPRE NORPH INE PT SCREE ISHMAEL benzodiazapi everton Positi ve NG/mL 200 abnormal Not Available [place] [address] [place], [address], 08/10/2022 05:45:06 08/05/19 23 08/05/2022 BUPRE NORPH INE PT SCREE ISHMAEL buprenorphin e Positi ve NG/mL 5 Not Available [place] [address] [place], [address], 08/10/2022 05:45:06 08/05/19 23 08/05/2022 BUPRE NORPH INE PT SCREE ISHMAEL cocaine metabolite Negati ve NG/mL 150 Not Available [place] [address] [place], [address], 08/10/2022 05:45:06 08/05/19 23 08/05/2022 BUPRE NORPH INE PT SCREE ISHMAEL opiates Negati ve NG/mL 300 Not Available [place] [address] [place], [address], 08/10/2022 05:45:06 08/05/19 23 08/05/2022 BUPRE NORPH INE PT SCREE ISHMAEL oxycodone Negati ve NG/mL 300 Not Available [place] [address] [place], [address], 08/10/2022 05:45:06 08/05/19 23 08/05/2022 BUPRE NORPH INE PT SCREE ISHMAEL fentanyl Negati ve NG/mL 2 Not Available [place] [address] [place], [address], 08/10/2022 05:45:06 08/05/19 23 08/05/2022 BUPRE NORPH INE PT SCREE ISHMAEL ethyl alcohol Negati ve mg/dL 10 Not Available [place] [address] [place], [address], 08/10/2022 05:45:06 08/05/19 23 08/05/2022 BUPRE NORPH INE PT SCREE ISHMAEL methadone metabolite Negati ve NG/mL 300 Not Available [place] [address] [place], [address], 08/10/2022 05:45:06 08/05/19 23 08/05/2022 BUPRE NORPH INE PT SCREE ISHMAEL cannabinoids (THC) Positi ve NG/mL 50 abnormal Not Available [place] [address] [place], [address], 08/10/2022 05:45:06 08/05/19 23 08/05/2022 BUPRE NORPH INE PT SCREE ISHMAEL urine creatinine 204.1 mg/dL >20 Not Available [place] [address] [place], [address], 08/10/2022 05:45:06 08/05/19 23 08/05/2022 BUPRE NORPH INE PT SCREE ISHMAEL urine pH 5.70 4.5-9. 0 Not Available [place] [address] [place], [address], 08/10/2022 05:45:06 08/05/19 23 08/05/2022 BUPRE NORPH INE PT SCREE ISHMAEL specific gravity 1.032 1.003- 1.035 Not Available [place] [address] [place], [address], 08/10/2022 05:45:06 08/05/19 23 08/05/2022 AMPHE TAMIN ES, QN, U amphetamine Negati ve NG/mL 250 Elect solitario rodrigues d by LESTER KEMP NA-WE ISS Not Available [place] [address] [place], [address], 08/12/2022 09:42:11 08/05/19 23 08/05/2022 AMPHE TAMIN ES, QN, U methamphetam ine Negati ve NG/mL 250 Not Available [facility] [place], [address], 08/12/2022 09:42:11 08/05/19 23 08/05/2022 AMPHE RENETTAIN ES, QN, U mda Negati ve NG/mL 250 Not Available [facility] [place], [address], 08/12/2022 09:42:11 08/05/19 23 08/05/2022 AMPHE TAMIN ES, QN, U legend Abbrev iation s OLR - Outsi de of linea r range Not Available [place] [address] [place], [address], 08/12/2022 09:42:11 08/05/19 23 08/05/2022 AMPHE TAMIN ES, QN, U billing only (g0480) Billin g Only Not Available [facility] [place], [address], 08/12/2022 09:42:11 08/05/19 23 08/05/2022 BENZO DIAZE [place] , QN, U alpha-hydrox yalprazolam Negati ve NG/mL 25 Elect solitario rodrigues d by LESTER KEMP NA-WE ISS Not Available [place] [address] [place], [address], 08/12/2022 09:42:11 08/05/19 23 08/05/2022 BENZO DIAZE [place] , QN, U 7-aminoclona zepam 1619.1 NG/mL 40 high Not Available [place] [address] [address] [place], [address], 08/12/2022 09:42:11 08/05/19 23 08/05/2022 BENZO D[place] , QN, U lorazepam Negati ve NG/mL 50 Not Available [place] [address] [place], [address], 08/12/2022 09:42:11 08/05/19 23 08/05/2022 BENZO [place] , QN, U nordiazepam Negati ve NG/mL 50 Not Available [place] [address] [place], [address], 08/12/2022 09:42:11 08/05/19 23 08/05/2022 BENZO [place] , QN, U temazepam Negati ve NG/mL 50 Not Available [facility] [place], [address], 08/12/2022 09:42:11 08/05/19 23 08/05/2022 BENZO [place] , QN, U legend Abbrev iation s OLR - Outsi de of linea r range Not Available [place] [address] [place], [id number], 08/12/2022 09:42:11 08/05/19 23 08/05/2022 PRESC RIBED DRUG CONFI RMATI ON BUPRE NORPH INE 1, QN, U buprenorphin e 92.2 NG/mL 10 Elect solitario rodrigues d by LESTER KEMP NA-WE ISS Not Available [place] [address] [place], [id number], 08/12/2022 09:42:12 08/05/19 23 08/05/2022 PRESC RIBED DRUG CONFI RMATI ON BUPRE NORPH INE 1, QN, U norbuprenorp liliane 114.0 NG/mL 10 Not Available [place] [address] [place], [address], 08/12/2022 09:42:12 08/05/19 23 08/05/2022 PRESC RIBED DRUG CONFI RMATI ON BUPRE NORPH INE 1, QN, U legend Abbrev iation s LOW - Detec courtney but unqua ntifi able OLR - Outsi de of linea r range ATR - Addit ional Testi ng Requi red Not Available [place] [address] [place], [id number], 08/12/2022 09:42:12 08/05/19 23 08/05/2022 pregn vasquez test, urine HCG negati ve Not Available [facility] [address], [address], 08/05/2022 15:24:01 09/02/19 23 09/01/2022 BUPRE NORPH INE PT SCREE ISHMAEL amphetamines Positi ve NG/mL 1,000 abnormal Elect solitario rodrigues d by LESTER KEMP NA-WE ISS Not Available [place] [address] [place], [address], 09/02/2022 10:56:04 09/02/19 23 09/01/2022 BUPRE NORPH INE PT SCREE ISHMAEL benzodiazapi everton Positi ve NG/mL 200 abnormal Not Available [facility] [place], [address], 09/02/2022 10:56:04 09/02/19 23 09/01/2022 BUPRE NORPH INE PT SCREE ISHMAEL buprenorphin e Positi ve NG/mL 5 Not Available [facility] [place], [address], 09/02/2022 10:56:04 09/02/19 23 09/01/2022 BUPRE NORPH INE PT SCREE ISHMAEL cocaine metabolite Negati ve NG/mL 150 Not Available [facility] [place], [address], 09/02/2022 10:56:04 09/02/19 23 09/01/2022 BUPRE NORPH INE PT SCREE ISHMAEL opiates Negati ve NG/mL 300 Not Available [place] [address] [place], [address], 09/02/2022 10:56:04 09/02/19 23 09/01/2022 BUPRE NORPH INE PT SCREE ISHMAEL oxycodone Negati ve NG/mL 300 Not Available [place] [address] [place], [address], 09/02/2022 10:56:04 09/02/19 23 09/01/2022 BUPRE NORPH INE PT SCREE ISHMAEL fentanyl Negati ve NG/mL 2 Not Available [place] [address] [place], [address], 09/02/2022 10:56:04 09/02/19 23 09/01/2022 BUPRE NORPH INE PT SCREE ISHMAEL ethyl alcohol Negati ve mg/dL 10 Not Available [place] [address] [place], [address], 09/02/2022 10:56:04 09/02/19 23 09/01/2022 BUPRE NORPH INE PT SCREE ISHMAEL methadone metabolite Negati ve NG/mL 300 Not Available [place] [address] [place], [address], 09/02/2022 10:56:04 09/02/19 23 09/01/2022 BUPRE NORPH INE PT SCREE ISHMAEL cannabinoids (THC) Positi ve NG/mL 50 abnormal Not Available [place] [address] [place], [address], 09/02/2022 10:56:04 09/02/19 23 09/01/2022 BUPRE NORPH INE PT SCREE ISHMAEL urine creatinine 216.0 mg/dL >20 Not Available [place] [address] [place], [address], 09/02/2022 10:56:04 09/02/19 23 09/01/2022 BUPRE NORPH INE PT SCREE ISHMAEL urine pH 5.90 4.5-9. 0 Not Available [place] [address] [place], [address], 09/02/2022 10:56:04 09/02/19 23 09/01/2022 BUPRE NORPH INE PT SCREE ISHMAEL specific gravity 1.029 1.003- 1.035 Not Available [place] [address] [place], [address], 09/02/2022 10:56:04 09/02/19 23 09/01/2022 AMPHE TAMIN ES, QN, U amphetamine Negati ve NG/mL 250 Elect solitario rodrigues d by LESTER KEMP NA-WE ISS Not Available [place] [address] [place], [address], 09/07/2022 07:12:38 09/02/19 23 09/01/2022 AMPHE TAMIN ES, QN, U methamphetam ine Negati ve NG/mL 250 Not Available [facility] [place] [place], [address], 09/07/2022 07:12:38 09/02/19 23 09/01/2022 AMPHE TAMIN ES, QN, U mda Negati ve NG/mL 250 Not Available [facility] [place] [place], [address], 09/07/2022 07:12:38 09/02/19 23 09/01/2022 AMPHE TAMIN ES, QN, U legend Abbrev iation s OLR - Outsi de of linea r range Not Available [place] [address] [place], [address], 09/07/2022 07:12:38 09/02/19 23 09/01/2022 AMPHE TAMIN ES, QN, U billing only ([id number]) Billin g Only Not Available [place] [address] [place], [address], 09/07/2022 07:12:38 09/02/19 23 09/01/2022 PRESC RIBED DRUG CONFI RMATI ON BUPRE NORPH INE 1, QN, U buprenorphin e 91.2 NG/mL 10 Elect solitario rodrigues d by LESTER KEMP NA-WE ISS Not Available [place] [address] [place], [address], 09/07/2022 07:12:38 09/02/19 23 09/01/2022 PRESC RIBED DRUG CONFI RMATI ON BUPRE NORPH INE 1, QN, U norbuprenorp liliane 95.9 NG/mL 10 Not Available [place] [address] [place], [address], 09/07/2022 07:12:38 09/02/19 23 09/01/2022 PRESC RIBED DRUG CONFI RMATI ON BUPRE NORPH INE 1, QN, U legend Abbrev iation s LOW - Detec courtney but unqua ntifi able OLR - Outsi de of linea r range ATR - Addit ional Testi ng Requi red Not Available [place] [address] [place], [address], 09/07/2022 07:12:38 09/02/19 23 09/01/2022 BENZO DIAZE PINES , QN, U alpha-hydrox yalprazolam Negati ve NG/mL 25 Elect solitario [place] lilia d by LESTER KEMP NA-WE ISS Not Available [place] [address] [place], [address], 09/07/2022 07:12:39 09/02/19 23 09/01/2022 BENZO DIAZE [place] , QN, U 7-aminoclona zepam 662.7 NG/mL 40 high Not Available [place] [address] [place], [address], 09/07/2022 07:12:39 09/02/19 23 09/01/2022 BENZO DIAZE [place] , QN, U lorazepam Negati ve NG/mL 50 Not Available [facility] [place], [address], 09/07/2022 07:12:39 09/02/19 23 09/01/2022 BENZO DIAZE [place] , QN, U nordiazepam Negati ve NG/mL 50 Not Available [facility] [place], [address], 09/07/2022 07:12:39 09/02/19 23 09/01/2022 BENZO DIAZE [place] , QN, U temazepam Negati ve NG/mL 50 Not Available [facility] [place] [place], [address], 09/07/2022 07:12:39 09/02/19 23 09/01/2022 BENZO DIAZE [place] , QN, U legend Abbrev iation s OLR - Outsi de of linea r range Not Available [place] [address] [place], [address], 09/07/2022 07:12:39 09/02/19 23 09/01/2022 pregn vasquez test, urine HCG negati ve Not Available [facility] [address], [address], 09/01/2022 14:30:05 Result Notes None recorded. Problems Name Problem SNOMED Code Status Onset Date Resolution Date Notes Provider Name and Address Organization Details Recorded Time Insomnia 039956922 Active 2019 Not Available [facility] 1 10:09:00 Migraine 06277884 Active 2019 Not Available [facility] 1 10:09:00 Anxiety 46053378 Active 2019 Not Available [facility] 1 10:09:00 Opioid dependence 09742429 Active 2019 Not Available [facility] 1 10:09:00 Problem Notes None recorded. Procedures Surgical History Date Name Laterality Status Provider Name and Address Organization Details Recorded Time 09/01/2022 98823, G0480, G0481 completed [facility] 09/01/2022 14:24:21 08/05/2022 66547, G0480, G0481 completed Y[facility]ila [facility] 08/05/2022 15:19:14 07/07/2022 85412, G0480, G0481 completed [facility] 07/07/2022 14:18:49 06/08/2022 34062, G0480, G0481 completed [facility] Carmen [facility] 06/08/2022 15:37:43 05/10/2022 79040, G0480, G0481 [facility] 05/10/2022 15:55:35 04/12/2022 52295, G0480, G0481 completed Betty Carmen [place] - [facility] 04/12/2022 15:53:06 03/15/2022 25916, G0480, G0481 completed Betty Carmen [place] - [facility] 03/15/2022 15:23:47 02/11/2022 63513, G0480, G0481 completed Betty Carmen [place] - [facility] 02/11/2022 15:04:07 01/14/2022 38468, G0480, G0481 completed Betty Carmen [place] - [facility] 01/14/2022 15:04:41 12/17/2021 94298, G0480, G0481 completed Gabby Sharmin [facility] 12/17/2021 13:08:22 12/03/2021 98350, G0480, G0481 completed Betty Carmen [place] [facility] 12/03/2021 14:22:57 11/19/2021 14211, G0480, G0481 completed Emmanuelle Ann CNP [address] [place], [address], [facility] 11/19/2021 09:55:23 11/03/2021 87265, G0480, G0481 completed [facility] 11/03/2021 15:38:04 10/20/2021 55658, G0480, G0481 completed [facility] 10/20/2021 15:28:52 10/09/2021 05512, G0480, G0481 completed Doroteo Galvano [facility] 10/09/2021 14:36:25 09/23/2021 65192, G0480, G0481 completed [facility] 09/23/2021 14:54:59 09/08/2021 31798, G0480, G0481 [facility]/08/[facility] 14:57:18 09/01/2021 31187, G0480, G0481 completed [facility] 09/01/2021 14:40:04 08/25/2021 98062, G0480, G0481 completed Tanika Colon [facility] 08/25/2021 15:42:53 08/10/2021 37673, G0480, G0481 completed Emmanuelle Ann, REFRIGERATOR REPAIRMAN [address] [place], [address], [facility] 08/10/2021 13:28:19 08/03/2021 61432, G0480, G0481 completed Gabby Sharmin [facility] 08/03/2021 13:26:53 Imaging Results None recorded. Procedure Notes None recorded. Medical Equipment None Reported. Allergies Allergen ID Allergen Name Allergen Category Reaction Reaction Severity Criticality Documentation Date Start Date Code Code System Note Provider Name and Address Organization Details Recorded Time 4661 amoxicill in medicatio n Not available Not available Not available 07/03/2021 723 RxNorm Not Available [facility] 10:33:24 6583 Suboxone medicatio n headache nausea palpitati ons tachycard ia Not available Not available Not available Not available Not available 08/03/2021 97055 0 RxNorm Emmanuelle Valenzuela eiss, REFRIGERATOR REPAIRMAN [address] [place], [address], [facility] - [employer] [facility] 13:50:24 Medications Name Sig Start Date Stop Date Status Note LastModified by Organization Details LastModified Time clonidine HCl 0.1 mg tablet Take 1 tablet every day by oral route. 08/25 completed Not Available Not Available Not Available hydroxyzine HCl 50 mg tablet Take 1 tablet every day by oral route. active Not Available Not Available No t Available ondansetron 4 mg disintegrat ing tablet Place 1 tablet twice a day by transling ual route as needed for 7 days. 2021 active Not Available Not Available Not Avai lable Sudafed 12 Hour 120 mg tablet,exte nded release Take 1 tablet every day by oral route. 08/25 completed Not Available Not Available Not Available buprenorphi ne HCl [address] 2 tablets every day by sublingua l route as needed for 5 days. 2021 active Not Available Not Available Not Avai lable buprenorphi ne HCl [address] 1 tablet every day by sublingua l route for 8 days. 08/25 completed Not Available Not Available Not Available sumatriptan active Not Available Not A vailable Not Available Fish Oil active Not Available Not Avai lable Not Available multivitami n active Not Available Not Available Not Available Suboxone 4 mg-[address] 1 film twice a day by sublingua l route. 08/17 completed Not Available Not Available Not Available Sublocade 300 mg/1.5 mL solution,ex tended release subcutaneou s syringe Inject 1.5 mL every month by subcutane ous route. 09/23 completed Not Available Not Available Not Available Sublocade 100 mg/0.5 mL solution,ex tended release subcutaneou s syringe Inject 0.5 mL every month by subcutane ous route. 2021 active Not Available Not Available Not Avai lable Vitals Date Recorded Heart rate Oxygen saturation Oxygen saturation in Arterial blood by Pulse oximetry Body temperature Provider Name and Address Organization Details Last Updated DateTime 05/10/2022 79 /min 99 % 99 % 98 [degF] Shayla Elena [facility] 16:05:33 Date Recorded Heart rate Oxygen saturation Oxygen saturation in Arterial blood by Pulse oximetry Provider Name and Address Organization Details Last Updated DateTime 07/07/2022 82 /min 98 % 98 % Betty Morales [facility] 07/07/2022 14:24:53 Date Recorded Heart rate Oxygen saturation Oxygen saturation in Arterial blood by Pulse oximetry Body temperature Provider Name and Address Organization Details Last Updated DateTime 08/05/2022 98 /min 98 % 98 % 97.6 [degF] Stas Bull [facility] 3 15:30:04 Social History Question Answer Notes LastModified by Organizat ion Details LastModified Time *Housing Stable - Safe Information not available 08/03/2021 *Employment Employed Self Empployed Information not available 08/03/2021 *Food Adequate Information no t available 08/03/2021 * Not A [place] Information not available 08/03/2021 *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 Not Needed Information not available 08/03/2021 *Legal Status No Legal Issues Information not available 08/03/2021 *Legal Assistance Not Required Information not available 08/03/2021 *Custody Of Dependent Children N/A Information not available 08/03/2021 *Social Service's Involvement With Dependent Children Not Applicable Information not available 08/03/2021 *Childcare Needed No Information not available 08/03/2021 *Concern For Domestic Violence No Information not available 08/03/2021 *Primary Care Provider Yes Dr Domo Bowman Information not available 08/03/2021 *Other Medical Issues None Information not available 08/03/2021 *Social Support Network Does Not Have Stable Support System Sometimes Has And Sometimes Does Not Have Support Information not available 08/03/2021 *Transportatio n Issues No Information not available 08/03/2021 Sex: Unknown Functional Status None recorded. Mental Status None recorded. Family History Nothing Reported Notes:NICOTINE ADDICTION Medical History No medical history recorded. Gynecological HistoryNo gynecological history recorded. Obstetrics History GPAL:G 0 P 0 0 0 0 Past Encounters Encounter ID Performer Location Encounter Start Date Encounter Closed Date Diagnosis/Indication Diagnosis SNOMED-CT Code Diagnosis ICD10 Code Diagnosis Note [id number] Adeel [facility] [address] [place] [address] 01/11/2020 00:00:00 01/19/2020 11:22:57 [id number] Adeel Whiteside [address] [place] [address] 01/16/2020 00:00:00 01/17/2020 08:23:35 [id number] Emmanuelle person, GUILHERME Denis [address] [place] [address] 08/03/2021 13:03:32 08/03/2021 14:08:09 Opioid dependence 46318602 F11.20 unstable [id number] Emmanuelle person, GUILHERME Mora[address] [place] [address] 08/10/2021 13:20:15 08/10/2021 16:40:07 Opioid dependence 70236522 F11.20 unstable [id number] Emmanuelle Schneider [facility], GUILHERME Denis l_[address] [place] [address] 08/25/2021 15:42:12 08/25/2021 16:54:25 Opioid dependence 12845158 F11.20 unstable Injection given 49077523 2 Z98.890 Stable [id number] Emmanuelle person, GUILHERME guillaumeSpring[address] [place] [address] 09/01/2021 14:38:50 09/01/2021 16:28:07 Opioid dependence 64899187 F11.20 unstable [id number] Emmanuelle person, GUILHERME [facility]Medica [facility] [address] [place] [address] 09/08/2021 14:52:38 09/08/2021 16:53:09 Opioid dependence 61267385 F11.20 unstable [id number] Emmanuelle person, GUILHERME Denis [facility] [address] [place] [address] 09/23/2021 14:47:37 09/23/2021 16:04:39 Opioid dependence 54637955 F11.20 stable Anxiety 74930035 F41.9 Stable Injection given 49418494 2 Z98.890 Stable [id number] Miguel Angel Jenkins NP [facility] [facility] [address] [place] [address] 10/09/2021 14:34:31 10/09/2021 15:13:25 Opioid dependence 47936807 F11.20 STABLE [id number] Emmanuelle person, GUILHERME Rydera [facility] [address] [place] [address] 10/20/2021 15:17:33 10/20/2021 15:39:02 Opioid dependence 47786819 F11.20 stable Anxiety 20645235 F41.9 Stable Injection given 06331574 2 Z98.890 Stable [id number] Emmanuelle person, GUILHERME [place] [facility] [address] [place] [address] 11/03/2021 15:33:38 11/03/2021 16:25:13 Opioid dependence 02580691 F11.20 stable [id number] Emmanuelle person, GUILHERME HERN[facility]Medica [facility] [address] [place] [address] 11/19/2021 09:49:28 11/19/2021 11:06:05 Opioid dependence 37007233 F11.20 stable Injection given 33692569 2 Z98.890 Stable [id number] Emmanuelle person, GUILHERME HERN[facility]Medica [facility] [address] [facility], [place] [address] 12/03/2021 14:22:00 12/03/2021 14:36:00 Opioid dependence 86400538 F11.20 stable [id number] Emmanuelle person, GUILHERME HERN[facility]ZMedica [facility] [address] [facility], [place] [address] 12/17/2021 13:00:08 12/17/2021 13:35:03 Opioid dependence 37450863 F11.20 stable Injection given 06185847 2 Z98.890 Stable [id number] Emmanuelle person, GUILHERME [place] [facility] [address] [facility], [place] [address] 01/14/2022 15:02:05 01/14/2022 15:31:24 Opioid dependence 94192633 F11.20 stable Injection given 79158779 2 Z98.890 Stable [id number] Emmanuelle person, GUILHERME [place]a [facility] [address] [facility], [place] [address] 02/11/2022 15:00:34 02/11/2022 16:15:24 Opioid dependence 83620485 F11.20 stable Injection given 73777043 2 Z98.890 Stable [id number] Emmanuelle person, GUILHERME [place]a [facility] [address] [facility], [place] [address] 03/15/2022 15:16:13 03/15/2022 15:58:08 Opioid dependence 40556438 F11.20 stable Injection given 85691272 2 Z98.890 Stable [id number] Emmanuelle person, GUILHERME HERN[facility]NDEZMedica [facility] [address] [place] [address] 04/12/2022 15:47:56 04/12/2022 16:15:19 Opioid dependence 76024229 F11.20 stable Injection given 17677383 2 Z98.890 Stable Medication dose decreased by tapering 9724402803 37759 Z76.89 Stable [id number] Emmanuelle person, GUILHERME HERN[facility]NDEZMedica [facility] [address] [place] [address] 05/10/2022 15:51:12 2022 12:11:13 Opioid dependence 05973579 F11.20 stable Injection given 35756869 2 Z98.890 Stable Medication dose decreased by tapering 9850257236 20568 Z76.89 Stable [id number] Emmanuelle person, GUILHERME HERN[facility]ZMedica [facility] [address] [place] [address] 06/08/2022 15:35:19 06/08/2022 16:47:05 Opioid dependence 49784991 F11.20 stable Injection given 79006286 2 Z98.890 Stable Medication dose decreased by tapering 7706419432 99032 Z76.89 Stable [id number] Emmanuelle person, GUILEHRME Rydera [facility] [place] [address] [place] [address] 07/07/2022 14:14:30 07/07/2022 14:45:17 Opioid dependence 08092158 F11.20 stable [id number] Emmanuelle person, GUILHERME HERN[facility]ZMedica [facility] [address] [place] [address] 08/05/2022 15:18:13 08/06/2022 17:14:01 Opioid dependence 79061876 F11.20 stable [id number] Emmanuelle Schneider [facility], GUILHERME HERN[facility]NDEZMedica [facility] [address] [place] [address] 09/01/2022 14:18:47 09/01/2022 14:43:39 Opioid dependence 43781795 F11.20 stable Health Concerns Section Related Observation LastModified by Organization Detai ls LastModified Time None Recorded Concern Status LastModified by Organization Details LastModified Time None Recorded Advance Directives Directive None Recorded Payers Encounter Date Sequence Insurance Name Policy Number Policy Lemon Covered Member ID Lemon Member ID Guarantor Name 05/10/2022 1 [facility] [employer] - HEALTH NET PLAN (MEDICAID HMO) [id number] Eugenia Lopardo [id number] Eugenia Lopardo 06/08/2022 1 [facility] HEALTH NET PLAN (MEDICAID HMO) [id number] Eugenia Lopardo [id number] Eugenia Lopardo 07/07/2022 1 [facility] HEALTH NET PLAN (MEDICAID HMO) [id number] Eugenia Lopardo [id number] Eugenia Lopardo 08/05/2022 1 [facility] HEALTH NET PLAN (MEDICAID HMO) [id number] Eugenia Lopardo [id number] Eugenia Lopardo 09/01/2022 1 [facility] HEALTH NET PLAN (MEDICAID HMO) [id number] Eugenia Lopardo [id number] Eugenia Lopardo Notes Date Note Type Note Provider Name and Address Organization Details Recorded Time 05/10/2022 text/html This patient is being treated for their OUD with Sublocade Injection. They are here today for their injection visit. PLEASE SEE A & P SECTION FOR FULL VISIT NOTE Emmanuelle Ann, REFRIGERATOR REPAIRMAN [address] [place], [address], Figure 1 [facility] 05/10/2022 16:20:28 06/08/2022 text/html This patient is being treated for their OUD with Sublocade Injection. They are here today for their injection visit. PLEASE SEE A & P SECTION FOR FULL VISIT NOTE Emmanuelle Ann, GUILHERME [address] [place], [address], Figure 1 [facility] 06/08/2022 16:57:07 07/07/2022 text/html This patient is being treated for their OUD with Sublocade Injection. They are here today for their injection visit. PLEASE SEE A & P SECTION FOR FULL VISIT NOTE This patient is here today for their follow-up MAT visit. They are being treated for OUD with buprenorphine. PLEASE SEE A & P SECTION FOR FULL VISIT NOTE Emmanuelle Ann, REFRIGERATOR REPAIRMAN [address] [place], [address], [employer] 07/07/2022 14:54:07 08/05/2022 text/html This patient is here today for their follow-up MAT visit. They are being treated for OUD with buprenorphine. PLEASE SEE A & P SECTION FOR FULL VISIT NOTE Emmanuelle Ann CNP [address] [place], [address], [facility] [employer] [facility] 08/05/2022 15:39:37 09/01/2022 text/html This patient is here today for their follow-up MAT visit. They are being treated for OUD with buprenorphine. PLEASE SEE A & P SECTION FOR FULL VISIT NOTE Emmanuelle Ann, GUILHERME [address] [place], [address], [facility] [employer] [facility] 09/01/2022 14:44:27 OBGyn Episode No OBEpisode recorded.
--- OUTSIDE RECORDS SUMMARY | 2024-07-30 18:27 | XMS_ITS ---
Author Organization [facility] Address [address] [address] Care Team Providers Care Automotive Service Writer Name Role Phone ROSELINESHELLY Primary Care Provider REASON FOR VISIT Refill Medications Medication SIG (Take, Route, Frequency, Duration) Notes Start Date End Date Status Ventolin HFA 108 (90 Base) MCG/ACT INHALE 1 PUFF NEEDED INTO THE LUNGS EVERY 4 HOURS for 30 days REFILL NEEDED Active Encounters Encounter Location Date Provider Diagnosis [facility] [address] [address] 12/20/2023 SHELLY DUKES Plan Of Treatment Medication Medication Name Sig Start Date Stop Date Notes Ventolin HFA 108 (90 Base) MCG/ACT INHALE 1 PUFF NEEDED INTO THE LUNGS EVERY 4 HOURS for 30 days REFILL NEEDED Progress Notes * CHRISTINASHEKHARBhupendrajennifferDOB: 4 (28 yo F)Acc No.[id number]:12/20/2023 Patient:?Eugenia LEACH :1995???Age:28 Y???Sex:Female Address:[address] [place] [address] * Refills? Refill Ventolin HFA Aerosol Solution, 108 (90 Base) MCG/ACT, 1, INHALE 1 PUFF NEEDED INTO THE LUNGS EVERY 4 HOURS, 30 days, Refills=5 * true * Date:? Generated for Printi ng/Faxing/eTransmitting on:?07/30/2024 06:27 PM EST
--- OUTSIDE RECORDS SUMMARY | 2024-07-30 18:27 | XMS_ITS | Data Portability ---
Author Organization [place] [facility] , [place] Address [address] [place] [address] Assessment Encounter Date Assessment Date Assessment LastModified by Organization Details LastModified Time 01/11/2020 01/11/2020 - PRESENTS TOODA Y FOR INITIAL BUP ASSMT - PMH: OPIATE (VICODIN) PILL ABUSE. PRESCRIBE FOR MIGRAINES. ONCE D/'C'D SOUGHT illicit OXYCODONE--ENROLLE D IN [facility] BUP [place] PROG 07/2019. RECIEVED SUBOXONE 6 MG/DAILY (DIV TID DOSES) - D/T INSUR ISSUES PT [facility] / GRANDMOTHER, UNEMPLOYED - DISCUSSED ACCURATE TECHNIQUE OF SUBOXONE SELF-ADMIN. - DISCUSSED PRECIPITATED W/D RISKS, SYMPTOMS, TIME FRAME, AND GRADUAL INDUCTION PROCESS. PATIENT VERBALIZES UNDERSTANDING, INCLUDING 24 HOUR OPIATE ABSTINENCE PRIOR TO SUBOXONE INDUCTION. DENIES OPIATE USE WITHIN THE LAST 24 HOURS. THE FOLLOWING SUBSTANCES LIST LAST OR CURRENT USE: - SUBOXONE: 01/10 - OXYCODONE--07/2018 - HEROIN: N/A - METHADONE:N/A - COCAINE: N/A - THC: N/A - BENZO: RX CLONAZEPAM---INSOM ANNA AND ANX - ALCOHOL: N/A - SMOKER: N/A - COWS SCORE: 0 - OVERDOSE: WITNESS: - NO HX OF SUICIDAL IDEATION. CURRENTLY DENIES Telemedicine Information: This telmed (audio & visual) appointment provided a MAT prescription. Time Start: 02:33 PM; Time End:02:53 PM Provider Location: office; Patient Location: office Telemedicine Consent Given (verbal): Y The patient's current phase of treatment is Stabilization phase, OUD. Assessment The patient does meet diagnostic criteria for opioid dependence. The patient is responding to treatment with buprenorphine at OBOT level of care at this phase of treatment. The patient does continue to be a good candidate for this level of care. LFT will be repeated per our clinical protocol. Urine drug testing is ordered today with medical necessity as below. Plan Recommendations for buprenorphine dosing today include continue same dose. Visit frequency recommendations include continue current frequency of visits. Treatment plan review or change TODAY includes continue current level of care. Discussed next step requirements for treatment plan based on response to treatment between now and next visit which will include no change. Referrals made today include substance abuse counseling. Prescription monitoring program is reviewed. If reviewed, I have identified agents prescribed to the patient in addition to any issued by our program; the patient is counseled regarding any risk of combining sedating agents. [email or web address] Not available 01/19/2020 11:22:47 01/16/2020 01/16/2020 - INITIAL BUP 01/10. PMX: TREATED FR MIGRAINES W/ VICODIN, ONCE D/C'D ABUSE OF ILLICIT OXYCODONE. ENTERED [facility] WITH SUBOXONE 6 MG/DAILY ( DIV TID DOSES) - PRESENTS TO TODAY INFORMING SHE WILL OBTAIN MAT SERVICES AT [facility] WITH MAIRA GREENWOOD BEGINNING 01/23 - REPORTS UNEVENTFUL WEEK WITH NO ILLICIT USE - 01/10 HARM R PANEL NEGATIVE - RX: CLONAZEPAM - PRESCRIBED SUBOXONE TO HER NEXT VISIT W/ PSYCH ON 01/23 - PT CASE SENT TO INFORM ANTWAN OF D/C STATUS Telemedicine Information: This telmed (audio & visual) appointment provided a MAT prescription. Time Start: 03:54 PMTime End:04:12 PM Provider Location: office; Patient Location: office Telemedicine Consent Given (verbal): Y The patient's current phase of treatment is Stabilization phase, OUD. Assessment Review of recent UDS and LCMS is expected. The patient does meet diagnostic criteria for opioid dependence. The patient is responding to treatment with buprenorphine at OBOT level of care at this phase of treatment. The patient does continue to be a good candidate for this level of care. LFT will be repeated per our clinical protocol. Urine drug testing is ordered today with medical necessity as below. Plan Recommendations for buprenorphine dosing today include continue same dose. Visit frequency recommendations include continue current frequency of visits. Treatment plan review or change TODAY includes continue current level of care. Discussed next step requirements for treatment plan based on response to treatment between now and next visit which will include no change. Referrals made today include substance abuse counseling. Prescription monitoring program is reviewed. If reviewed, I have identified agents prescribed to the patient in addition to any issued by our program; the patient is counseled regarding any risk of combining sedating agents. [email or web address] Not available 01/17/2020 08:22:46 Plan of Treatment Reminders Order Date Submit Date Provider Last Modified By Organization Details Last Modified Time Details Appointments None recorded. Lab test, urine 2019 [email or web address] Not available 0 17:23:17 drug screen, urine 2019 [facility], [address] [place], [address], 0 12:38:05 drug screen, urine 2019 [facility], [address] [place], [address], 0 11:39:43 Referral None recorded. Procedures None recorded. Surgeries None recorded. Imaging None recorded. Medication Orders None recorded. Patient TargetsNo targets recorded. Patient Instructions Encounter Date Encounter Id Patient Instructions Last Modified By Organization Details Last Modified Time 01/11/2020 [id number] Abstain from opiates for 24 hours unless directed by provider; > If already taking buprenorphine, do not take a dose the day of the induction until you are in the office with your provider; > Comfort medications were recommended. If accepted, please take as prescribed to support your ability to abstain from opiates until your buprenorphine induction; > Keep your buprenorphine RX package closed until you are seen by your provider for induction unless otherwise directed; If you have problems abstaining from opiates, please call the office. As part of your individualized treatment plan and program requirement, you will need to bring your correct prescription bottle and all used and unused medication and counseling verification to each appointment; > Agree to participate in counseling and bring counseling verification to each appointment; > Agree to present for random visits; > Agree to not falsify your urine specimens. [email or web address] Not available 01/11/2020 14:25:40 Education provid ed at today's visit included: Review of patient's individualized treatment plan; Review of program policies: RX, visit, counseling and DATA compliance; Review medication administration technique; Discussion proper care of medication/safety/ lock box; Counseling re: trigger avoidance, relapse prevention and the importance of developing a sober network; Counseling re safe sex and control; Review risk of BZD and BUP, as well as ETOH; Counseling re: Discovery & Drop out prevention in early recovery. [email or web address] Not available 01/11/2020 14:25:40 01/16/2020 [id number] As part of your individualized treatment plan and program requirement, you will need to bring your correct prescription bottle and all used and unused medication and counseling verification to each appointment; > Agree to participate in counseling and bring counseling verification to each appointment; > Agree to present for random visits; > Agree to not falsify your urine specimens. [email or web address] Not available 01/16/2020 15:21:56 Education provid ed at today's visit included: Review of patient's individualized treatment plan; Review of program policies: RX, visit, counseling and DATA compliance; Review medication administration technique; Discussion proper care of medication/safety/ lock box; Counseling re: trigger avoidance, relapse prevention and the importance of developing a sober network; Counseling re safe sex and control; Review risk of BZD and BUP, as well as ETOH; Counseling re: Discovery & Drop out prevention in early recovery. [email or web address] Not available 01/16/2020 15:21:56 Reason for Referral None Reported. Results Created Date Observation Date Name Description Value Unit Range Abnormal Flag Note LastModifiedBy Organization Detail LastModifiedTime 01/11/20 20 01/11/2020 drug scree n, urine amphetamine NEGATI VE 100 Elect solitario rodrigues d by IRENE LOPEZ Not Available [employer] [place] [address] [place], [address], 01/14/2020 12:38:05 01/11/2001/11/2020 drug scree n, urine benzodiazepi ne NEGATI VE 100 Not Available [facility] [place], [address], 01/14/2020 12:38:05 01/11/2001/11/2020 drug scree n, urine buprenorphin e POSITI VE 100 Not Available [facility] [place], [address], 01/14/2020 12:38:05 01/11/20 20 01/11/2020 drug scree n, urine cannabinoid NEGATI VE 100 Not Available [place] [address] [place], [address], 01/14/2020 12:38:05 01/11/20 20 01/11/2020 drug scree n, urine cocaine metab. NEGATI VE 100 Not Available [place] [address] [place], [address], 01/14/2020 12:38:05 01/11/20 20 01/11/2020 drug scree n, urine methadone NEGATI VE 100 Not Available [place] [address] [place], [address], 01/14/2020 12:38:05 01/11/20 20 01/11/2020 drug scree n, urine opiates NEGATI VE 100 Not Available [place] [address] [place], [address], 01/14/2020 12:38:05 01/11/20 20 01/11/2020 drug scree n, urine oxycodone NEGATI VE 100 Not Available [place] [address] [place], [address], 01/14/2020 12:38:05 01/11/20 20 01/11/2020 drug scree n, urine ethanol <10, <10 mg/dL <10 Not Available [place] [address] [place], [address], 01/14/2020 12:38:05 01/11/20 20 01/11/2020 drug scree n, urine fentanyl NEGATI VE 100 Not Available [place] [address] [place], [address], 01/14/2020 12:38:05 01/11/20 20 01/11/2020 drug scree n, urine creatinine 203.2 mg/dL >20 Not Available [place] [address] [place], [address], 01/14/2020 12:38:05 01/11/20 20 01/11/2020 drug scree n, urine specific gravity 1.024 1.003- 1.035 Not Available [place] [address] Sean[address] [place], [address], 01/14/2020 12:38:05 01/11/20 20 01/11/2020 drug scree n, urine pH 7.00 4.5-9. 0 Not Available [place] [address] SeanDeb[address] [place], [address], 01/14/2020 12:38:05 01/11/20 20 01/11/2020 pregn vasquez test, urine HCG negati ve Not Available [facility] [address], [address], 01/11/2020 14:25:45 01/16/20 20 01/16/2020 drug scree n, urine amphetamine Negati ve 100 Elect solitario rodrigues d by IRENE LOPEZ Not Available [place] [address] [place], [address], 01/17/2020 11:39:43 01/16/20 20 01/16/2020 drug scree n, urine benzodiazepi ne Negati ve 100 Not Available [place] [address] [place], [address], 01/17/2020 11:39:43 01/16/20 20 01/16/2020 drug scree n, urine buprenorphin e Positi ve 100 Not Available [place] [address] [place], [address], 01/17/2020 11:39:43 01/16/20 20 01/16/2020 drug scree n, urine cocaine metab. Negati ve 100 Not Available [place] [address] [place], [address], 01/17/2020 11:39:43 01/16/20 20 01/16/2020 drug scree n, urine methadone Negati ve 100 Not Available [place] [address] [place], [address], 01/17/2020 11:39:43 01/16/20 20 01/16/2020 drug scree n, urine opiates Negati ve 100 Not Available [place] [address] [place], [address], 01/17/2020 11:39:43 01/16/20 20 01/16/2020 drug scree n, urine oxycodone Negati ve 100 Not Available [place] [address] [place], [address], 01/17/2020 11:39:43 01/16/20 20 01/16/2020 drug scree n, urine fentanyl Negati ve 100 Not Available [place] [address] [place], [address], 01/17/2020 11:39:43 01/16/20 20 01/16/2020 drug scree n, urine creatinine 112.9 mg/dL >20 Not Available [place] [address] [place], [address], 01/17/2020 11:39:43 01/16/20 20 01/16/2020 drug scree n, urine specific gravity 1.021 1.003- 1.035 Not Available [place] [address] [place], [address], 01/17/2020 11:39:43 01/16/20 20 01/16/2020 drug scree n, urine pH 7.10 4.5-9. 0 Not Available [place] [address] [place], [address], 01/17/2020 11:39:43 Result Notes None recorded. Problems Name Problem SNOMED Code Status Onset Date Resolution Date Notes Provider Name and Address Organization Details Recorded Time Opioid dependence 33776599 Active 020 IRENE LOPEZ NP [address] [place] [address] [place], [address], [facility], 0 07:03:19 Anxiety 34369127 Active 020 IRENE LOPEZ, [employer] [address] [place], [address], [facility], 0 07:03:28 Migraine 30873480 Active 020 IRENE LOPEZ, [employer] [address] [place], [address], [facility], 0 07:03:35 Insomnia 701157458 Active 020 IRENE LOPEZ, INSTRU[employer] [address] [place], [address], [facility], 0 07:04:01 Problem Notes None recorded. Procedures Surgical History Date Name Laterality Status Provider Name and Address Organization Details Recorded Time 01/16/2020 22733, G0480, G0481 completed [facility], 01/16/2020 15:21:56 01/11/2020 61694, G0480, G0481 completed [facility], 01/11/2020 14:25:41 Imaging Results None recorded. Procedure Notes None recorded. Medical Equipment None Reported. Allergies Allergen ID Allergen Name Allergen Category Reaction Reaction Severity Criticality Documentation Date Start Date Code Code System Note Provider Name and Address Organization Details Recorded Time [id number] 2824e amoxicill in medicatio n Not available Not available Not available 01/12/2020 723 RxNorm Not Available Not Available Not Available Medications Name Sig Start Date Stop Date Status Note LastModified by Organization Details LastModified Time Suboxone 4 mg-[address] 1 film twice a day by sublingual route. 2019 active Not Available Not Available Not Avai lable Vitals Date Recorded Body temperature Provider Name a nd Address Organization Details Last Updated DateTime 01/11/2020 98.5 [degF] Tanika Hollingsworth [place] [facility] 01/11/2020 14:21:38 Date Recorded Body temperature Provider Name a nd Address Organization Details Last Updated DateTime 01/16/2020 98.7 [degF] Tanika [facility]ane [facility] 01/16/2020 15:17:28 Date Recorded Oxygen saturation Oxygen saturation in Arterial blood by Pulse oximetry Heart rate Provider Name and Address Organization Details Last Updated DateTime 01/16/2020 98 % 98 % 130 /min Nasreen Paresh [facility], 01/16/2020 15:31:42 Social History None recorded. Functional Status None recorded. Mental Status None recorded. Family History Nothing Reported Notes:NICOTINE ADDICTION Medical History No medical history recorded. Gynecological HistoryNo gynecological history recorded. Obstetrics History GPAL:G 0 P 0 0 0 0 Past Encounters Encounter ID Performer Location Encounter Start Date Encounter Closed Date Diagnosis/Indication Diagnosis SNOMED-CT Code Diagnosis ICD10 Code Diagnosis Note [id number] IRENE LOPEZ NP [facility] [address] 01/11/2020 14:19:16 01/11/2020 15:58:59 Opioid dependence 78492820 F11.20 Anxiety 56387076 F41.9 [id number] IRENE [facility]OPEZ NP [facility] [address] [address] 01/16/2020 15:17:05 01/16/2020 16:24:54 Opioid dependence 15275562 F11.20 Health Concerns Section Related Observation LastModified by Organization Detai ls LastModified Time None Recorded Concern Status LastModified by Organization Details LastModified Time None Recorded Advance Directives Directive None Recorded Payers Encounter Date Sequence Insurance Name Policy Number Policy Lemon Covered Member ID Lemon Member ID Guarantor Name 01/11/2020 1 [facility] [facility] (MEDICAID HMO) [id number] Eugenia Hightower [id number] Eugenia Hightower 01/16/2020 1 [facility] [employer] [facility] (MEDICAID HMO) [id number] Eugenia Hightower [id number] Eugenia Hightower Notes Date Note Type Note Provider Name and Address Organization Details Recorded Time 01/11/2020 text/html Initial MAT HPI The patient presents today seeking outpatient treatment for {{opiate* alcohol bot h opiate and alcohol}} dependence. Current readiness for treatment/stage of change is described as {{pre-contemplation c ontemplation preparat ion* action maintenan ce}}. Onset of substance dependence, beginning with first substance used and all illicit and/or prescription abuse to date and including current substances: {{YR 2018 -# CLICK TO FREE TEXT}}. Current or most recent route of primary substance use is described as {{oral* intranasal sk in popping intravenous s moking}}. The patient {{denies* reports}} a history of IV drug use. The patient {{denies* reports}} a history of overdose. The patient {{denies* reports}} a history of witnessing an overdose. The patient {{denies* reports}} having ever used or been prescribed Methadone. The patient {{denies reports*}} having ever used or been prescribed Buprenorphine. The patient's last exposure to Buprenorphine was {{DATE 01/11/2020}}. Attempts to stop including past and/or most recent: > Inpatient detox: {{Y N*}} > Residential and/or Sober Housing: {{Y N*}} > Periods of sobriety during incarceration: {{Y N*}} > Intensive Outpatient Program: {{Y N*}} > Partial Hospitalization Program: {{Y N*}} > Medication assisted treatment program(s): {{Y* N}} Most successful program to date has been {{none methadone/OTP inpatient residential sober living buprenorphine* bup+residential Valerie trol Vivitrol+residen tial incarceration}}. The patient describes individual goals for substance dependence treatment as {{TAPERING OFF SUBOXONE# CLICK TO FREE TEXT}}. IRENE LOPEZ NP [address] [place] [address], [address], [facility] 01/19/2020 11:22:57 01/16/2020 text/html The patient repo rts {{doing better doing well* struggling}} since last visit and {{denies* reports}} slip or relapse. MAT HPI They {{deny* report}} cravings for opiates and {{deny* report}} opiates use since their last visit. They {{deny* report}} cravings for other substances and {{deny* report}} other substance use since their last visit. Triggers {{are* are not}} identified and any alleviating factors to identified triggers are discussed. Withdrawal symptoms {{are are not*}} present. MAT Administration and Program Adherence The patient {{has* has not}} met with their buprenorphine prescriber within the past 6 months. The patient {{is* is not}} compliant with prescribed buprenorphine dose and {{can* can not}} describe proper medication administration and technique. The patient {{denies* reports}} side effects from the medication. The patient {{has* has not}} attended counseling since their last MAT visit and {{is* is not}} in program compliance. There {{are* are not}} other support systems in place for this patient. Markers of recovery include:{{NO OPIOID CRAVINGS OR USE.# CLICK TO FREE TEXT OR DELETE LINE}} IRENE LOPEZ, VIET [address] [place] [address], [address], [facility], 01/17/2020 08:23:35 OBGyn Episode No OBEpisode recorded.
--- OUTSIDE RECORDS SUMMARY | 2024-07-30 18:27 | XMS_ITS ---
Author Organization [employer] Address [address] [place] [address] Care Team Providers Care Staff Climate Scientist Name Role Phone SHELLY DUKES Primary Care Provider REASON FOR VISIT CPE Medications Medication SIG (Take, Route, Frequency, Duration) Notes Start Date End Date Status Ventolin HFA 108 (90 Base) MCG/ACT INHALE 1 PUFF PRN INTO THE LUNGS EVERY 4 HOURS for 30 days Active Paxlovid 10 x 150 MG & 10 x 100MG as directed Orally 2 times a day for 5 days 12/09/2021 Not-Takin g OXcarbazepine 150 MG 1 tablet Orally Twi ce a day Not-Taking Fluticasone Propionate 50 MCG/ACT SPRAY 1 SPRAY INTO EACH NOSTRIL EVERY DAY FOR 30 DAYS for 90 Active Levocetirizine Dihydrochloride 5 MG TAKE 1 TABLET BY MOUTH EVERY DAY IN THE EVENING FOR 30 DAYS for 90 Active Paxlovid (300/100) 20 x 150 MG & 10 x 100MG 3 tablets Orally Twice a day for 5 day(s) 10/08/2022 Not-Taking Ketoconazole 2 % 1 application Externally Once a day Not-Taking Sublocade Not-Taking Rizatriptan Benzoate 10 MG TAKE 1 TABLET BY MOUTH EVERY DAY NEEDED FOR 28 DAYS for 28 Not-Taking Vitamin D 25 MCG (1000 UT) 1 tablet Oral ly Once a day Active clonazePAM 1 MG 1 tablet at bedtime Orally Active Biotin Active cloNIDine HCl 0.1 MG 1 tablet Orally Onc e a day Active Gabapentin 300 MG 1 capsule Orally 3 TIMES A DAY 06/02/2023 Active hydrOXYzine HCl 50 MG 1 tablet as needed Orally Once a day Active Encounters Encounter Location Date Provider Diagnosis [facility] [address] [place] [address] 06/04/2024 SHELLY DUKES Plan Of Treatment No Information Progress Notes * Eugenia LEACHDOB: [birth year] (29 yo F)Acc No.[id number]:06/04/2024 Progress Notes Patient:?Eugenia LEACH Provider:?SHELLY DUKES MD :1995???Age:29 Y???Sex:Female D ate:06/04/2024 Address:[address] [place], [place] [id number] Subjective: * Chief Complaints: * ???1. CPE. * Medical History:? * Medications:?Taking cloNIDin e HCl 0.1 MG Tablet 1 tablet Orally Once a day , Taking hydrOXYzine HCl 50 MG Tablet 1 tablet as needed Orally Once a day , Taking Gabapentin 300 MG Capsule 1 capsule Orally 3 TIMES A DAY , Taking Biotin , Taking clonazePAM 1 MG Tablet 1 tablet at bedtime Orally , Taking Vitamin D 25 MCG (1000 UT) Tablet 1 tablet Orally Once a day , Taking Levocetirizine Dihydrochloride 5 MG Tablet TAKE 1 TABLET BY MOUTH EVERY DAY IN THE EVENING FOR 30 DAYS , Taking Fluticasone Propionate 50 MCG/ACT Suspension SPRAY 1 SPRAY INTO EACH NOSTRIL EVERY DAY FOR 30 DAYS , Taking Ventolin HFA 108 (90 Base) MCG/ACT Aerosol Solution INHALE 1 PUFF PRN INTO THE LUNGS EVERY 4 HOURS , Not-Taking Rizatriptan Benzoate 10 MG Tablet TAKE 1 TABLET BY MOUTH EVERY DAY NEEDED FOR 28 DAYS , Not-Taking Paxlovid (300/100) 20 x 150 MG & 10 x 100MG Tablet Therapy Pack 3 tablets Orally Twice a day , Not-Taking Sublocade , Not-Taking Ketoconazole 2 % Shampoo 1 application Externally Once a day , Not- Taking OXcarbazepine 150 MG Tablet 1 tablet Orally Twice a day , Not-Taking Paxlovid 10 x 150 MG & 10 x 100MG Tablet Therapy Pack as directed Orally 2 times a day Objective: * Vitals:? Assessment: Plan: * Treatment: * Procedure Codes:?NOSHO NO SH OW FEE * Preventive Medicine:?COVID FLU BMD COLONSCOPY EYE EXAM BOX SHOOK PATCHER MAMMOGRAM. * * Electronic signature of PUSHPA DUKES MD on 07/30/2024 at 06:27 PM EST Sign off status: Pending * Provider:YULY DUKES MD Date:?06/04 Generated for Mark ferrer/Elias/Hueyitting on:?07/30/2024 06:27 PM EST
--- OUTSIDE RECORDS SUMMARY | 2024-07-30 18:27 | XMS_ITS | Clinical Summary ---
Author Organization [facility] [employer] Address [address] [place] [address] Care Team Providers Care Machine Lay Out Worker Name Role Phone Hira Stephens MD Primary Care Prov ider Social History Tobacco Use Types Packs/Day Years Used Date Smoking Tobacco: Never Assessed Comments Unknown Sex and Gender Information Value Date Recorded Sex Assigned at Not on file Legal Sex Female 11:15 AM EDT Gender Identity Not on file Sexual Orientation Not on file Plan of Treatment Health Maintenance Due Date Last Done Comments Depression: Screening Annual ly using PHQ-2/9 in Adults 18 yrs or above (or HM Modifier)([facility]) 2012 Hepatitis C Virus Infection in Adolescents and Adults: Screening (or Modifier) ([facility]) 2012 SDPA Screening Reminder: Debra georgina for all adults ([facility]) 2012 Tobacco Smoking Cessation: i n Adults excluding Women: Behavioral and Pharmacotherapy Interventions ([facility]) 2012 DTaP/Tdap/Td Vaccines ([facility]) (1 - Tdap) 2013 Lipid Screening: Once for Wo men aged 20 to 45 yrs ([facility]) 2014 Cervical Cancer Screenin 1-65 yrs of age (or Modifier) 2015 Cervical Cancer Screening: P ap every 3 yrs pts age 21-65 2015 Cervical Cancer: Pap Screeni ng with Modifier timing ([facility]) 2015 Cervical Cancer: hrHPV alone or with cotesting Pap for Pts 30-65yrs screening every 5yrs ([facility]) 2015 Flu Vaccination: Yearly for ages 18mos through 64 years (or Modifier)([facility]) 02/02/2024 COVID-19 Vaccine Screening: Initial Series and Booster Status ([facility]) (2023- season) 2024 Zoster/Shingles Vaccine Seri es Screening: Adults aged 18+ yrs (or HM Modifiers)([facility]) (1 of 2) 2044 Pneumococcal Vaccination Scr eening: Pts 0-19 & 19-64 yrs of age ([facility]) Aged Out No longer eligible based on patient's age to complete this topic Medical Devices Not on file Insurance [employer] Care Teams Machine Lay Out Worker Relationship Specialty Start Date End Date Hira Stephens MD [address] [place] [id number] PCP - Glue Bone Crusher 12/05/19
--- OUTSIDE RECORDS SUMMARY | 2024-07-30 18:27 | XMS_ITS | Patient Health Record ---
Author Organization [employer] Address [address] [place] [address] Care Team Providers Care Radiologic Electronic Specialist Name Role Phone SHELLY DUKES Primary Care Provider Allergies Allergen (clinical drug ingredient) Drug/Non Drug Allergy documented on EMR Reaction Allergy Type Onset Date Status amoxicillin Amoxicillin hives Drug Allergy Act poncho Results Component Value Reference Range Notes Calprotectin, Fecal-[id number] Reviewed date:09/22/2023 12:13:25 PM Interpretation: Performing Lab:[facility], [address] [place] [address], Phone - [phone], Director - yMchal Notes/Report: Clinical Information:SRC:ST SRC:ST Calprotectin, Fecal 10 0-120 ug/g Concentration Interpretation Follow-Up < 5 - 50 ug/g Normal None >50 -120 ug/g Borderline Re-evaluate in 4-6 weeks >120 ug/g Abnormal Repeat as clinically indicated Lactoferrin, Fecal, Quant.-1 [id number] Reviewed date:09/22/2023 12:14:18 PM Interpretation: Performing Lab:[facility], [facility], Phone - [phone], Director - Mychal Notes/Report: Clinical Information:SRC:ST SRC:ST Lactoferrin, Fecal, Quant. <1.00 0.00-7.24 ug/m L(g) Results verified by repeat testing . Baseline (normal) 0.00 - 7.24 Elevated >7.24 . An elevated result is indicative of the presence of fecal lactoferrin, a marker of intestinal inflammation. A normal result does not exclude the presence of intestinal inflammation. The test can be used as an in vitro diagnostic aid to distinguish patients with active inflammatory bowel disease (IBD) from those with non-inflammatory irritable bowel syndrome (IBS). C difficile Toxins A+B, EIA- [id number] Reviewed date:09/22/2023 12:13:39 PM Interpretation: Performing Lab:[facility], [address] [place] [address], [place], Phone - [phone], Director - Mychal Notes/Report: Clinical Information:SRC:ST SRC:ST C difficile Toxins A+B, EIA Negative Negative White Blood Cells (WBC), Sto ol-[id number] Reviewed date:09/22/2023 12:13:14 PM Interpretation: Performing Lab:[facility], [address] [place] [address], [place], Phone - [phone], Director - Mychal Notes/Report: Clinical Information:SRC:ST SRC:ST Clinical Information:SRC:ST SRC:ST White Blood Cells (WBC), Stool Final report None Seen Result 1 No white blood cells seen. Stool Culture-[id number] Reviewed date:09/22/2023 12:13:47 PM Interpretation: Performing Lab:[facility], [address] [place] [address], [place], Phone - [phone], Director - [facility] Notes/Report: Clinical Information:SRC:ST SRC:ST Clinical Information:SRC:ST SRC:ST Clinical Information:SRC:ST SRC:ST Salmonella/Shigella Screen Final report Campylobacter Culture Final report E coli Shiga Toxin EIA Negative Negative Result 1 No Salmonella o r Shigella recovered. Result 1 No Campylobacte r species isolated. Reason For Referral Reason rash Diagnosis 1 Rash and other nonsp ecific skin eruption (R21) Referral Organization [facility] Referring Provider First Name SHELLY Referring Provider Last Name [facility] Referring Provider Speciality Internal M edicine Referred Provider Specialty Dermatology General Notes Referral sent to [facility] F: [phone], marked STAT. Printed referral and given to patient, Kristal Perez 09/08/2023 04:14:37 PM > Clinical Notes Fax failed, Printed referral with ov notes and manually faxed to F: [phone], Chris Kristal 09/09/2023 08:01:14 AM > Referral Priority Stat Reason diarrhea Diagnosis 1 Diarrhea, unspecifie d (R19.7) Referral Organization [facility] Referring Provider First Name SHELLY Referring Provider Last Name GUAngelica Referring Provider Speciality Internal M edicine Referred Provider Specialty Gastroentero logy General Notes Referral faxed to [facility] at F: [phone], Tonyaylakvng Kristal 10/05/2023 12:54:24 PM > Referral Priority Routine Medications Medication SIG (Take, Route, Frequency, Duration) Notes Start Date End Date Status Paxlovid (300/100) 20 x 150 MG & 10 x 100MG 3 tablets Orally Twice a day for 5 day(s) 10/08/2022 Not-Taking Ketoconazole 2 % 1 application Externally Once a day Not-Taking Sublocade Not-Taking clonazePAM 1 MG 1 tablet at bedtime Orally Active Biotin Active Ventolin HFA 108 (90 Base) MCG/ACT INHALE 1 PUFF PRN INTO THE LUNGS EVERY 4 HOURS for 30 days Active Rizatriptan Benzoate 10 MG TAKE 1 TABLET BY MOUTH EVERY DAY NEEDED FOR 28 DAYS for 28 Not-Taking Vitamin D 25 MCG (1000 UT) 1 tablet Oral ly Once a day Active cloNIDine HCl 0.1 MG 1 tablet Orally Onc e a day Active Paxlovid 10 x 150 MG & 10 x 100MG as directed Orally 2 times a day for 5 days 12/09/2021 Not-Takin g OXcarbazepine 150 MG 1 tablet Orally Twi ce a day Not-Taking Gabapentin 300 MG 1 capsule Orally 3 TIMES A DAY 06/02/2023 Active Fluticasone Propionate 50 MCG/ACT SPRAY 1 SPRAY INTO EACH NOSTRIL EVERY DAY FOR 30 DAYS for 90 Active hydrOXYzine HCl 50 MG 1 tablet as needed Orally Once a day Active Levocetirizine Dihydrochloride 5 MG TAKE 1 TABLET BY MOUTH EVERY DAY IN THE EVENING FOR 30 DAYS for 90 Active Social History Tobacco Use: Social History Observation Description Date Details (start date - stop date) Never Smoker NA - NA Tobacco Use/Smoking Question Answer Notes Are you a nonsmoker Problems Problem Type SNOMED Code ICD Code Onset Dates Problem Status W/U Status Risk Notes Problem Thyrotoxicosis (56498376) Thyrotoxicosis, unspecified without thyrotoxic crisis or storm (E05.90) Active confirmed Problem Vitamin D deficiency (15627707) Vitamin D deficiency, unspecified (E55.9) Active confirmed Problem Opioid dependence (66882870) Opioid dependence, uncomplicated (F11.20) Active confirmed Problem Generalized anxiety disorder (89659667) Generalized anxiety disorder (F41.1) Active confirmed Problem Chronic migraine without aura, non-refractory (disorder) (644808756707098) Migraine without aura, not intractable, without status migrainosus (G43.009) Active confirmed Problem Chronic sinusitis (05834399) Chronic sinusitis, unspecified (J32.9) Active confirmed Vital Signs Heart Rate 80 /min 09/08/2023 Temperature 97.2 degrees Fahrenheit 09/08/2023 Blood pressure diastolic 100 mm Hg 09/08/2023 Oximetry 98 % 09/08/2023 Height 64 in 09/08/2023 Blood pressure systolic 128 mm Hg 09/08/2023 Weight 112.2 lbs 09/08/2023 BMI 19.26 kg/m2 09/08/2023 Encounters Encounter Location Date Provider Diagnosis [address] [address] 06/04/[address] [address] 09/08/2023 BRAVO GUL Diarrhea, unspecifie d R19.7 and Rash and other nonspecific skin eruption R21 [address] [address] 09/06/[address] [address] 09/09/[address] [address] 09/15/[address] [address] 12/20/2023 BRAVO GUL Assessments Encounter Date Diagnosis (ICD Code) Assessment Notes Treatment Notes Treatment Clinical Notes Section Notes 09/08/2023 Diarrhea, unspecified (ICD-10 - R19.7) Ms. Hightower is a 28 year old lady with vitamin D deficiency, migraine headaches, mood disorder/anxiety disorder, insomnia and opioid use disorder here complaining of watery diarrhea associated with abdominal cramping. It started a month ago after she contracted COVID. Denies melena or hematochezia. Plan is as follows: Diarrhea. Likely colitis/IBS/lacto se or gluten-sensitivit y. Keep a food diary and avoid triggers. She may do a trial of gluten- and lactose-free diets on alternating weeks. Advised appropriate hydration. Stool test ordered Referred to GI for futher evaluation and management. Rash. Referred to Dermatology. Screening blood work before next appointment. General health concerns discussed with patient. Scribe services used to formulate this note under HIPAA compliance and under [place] law mandated for scribe services. Patient aware of service. Verbal consent and written consent taken from the patient. Patient understands and verbalizes understanding of the scribes services and all questions answered regarding scribes services. Patient agrees to use of scribes services. 09/08/2023 Rash and other nonspecific skin eruption (ICD-10 - R21) Ms. Hightower is a 28 year old lady with vitamin D deficiency, migraine headaches, mood disorder/anxiety disorder, insomnia and opioid use disorder here complaining of watery diarrhea associated with abdominal cramping. It started a month ago after she contracted COVID. Denies melena or hematochezia. Plan is as follows: Diarrhea. Likely colitis/IBS/lacto se or gluten-sensitivit y. Keep a food diary and avoid triggers. She may do a trial of gluten- and lactose-free diets on alternating weeks. Advised appropriate hydration. Stool test ordered Referred to GI for futher evaluation and management. Rash. Referred to Dermatology. Screening blood work before next appointment. General health concerns discussed with patient. Scribe services used to formulate this note under HIPAA compliance and under [place] law mandated for scribe services. Patient aware of service. Verbal consent and written consent taken from the patient. Patient understands and verbalizes understanding of the scribes services and all questions answered regarding scribes services. Patient agrees to use of scribes services. Plan Of Treatment Pending Test Test Name Order Date RESPIRATORY PATHOGEN PANEL, PCR 07/15/19 23 Future Test Test Name Order Date 25OH VITAMIN D 01/10/2020 CBC (COMPLETE BLOOD COUNT) 01/10/2020 COMPREHENSIVE METABOLIC PANEL 01/10/2020 LIPID PANEL 01/10/2020 TSH WITH REFLEX TO FT4 01/10/2020 25OH VITAMIN D 06/02/2022 ANTI-NUCLEAR ANTIBODY SCREEN, REFLEX TO TITER 06/02/2022 CBC (COMPLETE BLOOD COUNT) 06/02/2022 CITRULLINE PEPTIDE ANTIBODY 06/02/2022 COMPREHENSIVE METABOLIC PANEL 06/02/2022 C-REACTIVE PROTEIN 06/02/2022 DNA (DOUBLE-STRANDED, [place]AKTOVIK) ANTIBODY 1 08/02/2021 LIPID PANEL 06/02/2022 RHEUMATOID FACTOR 06/02/2022 SEDIMENTATION RATE 06/02/2022 SMOOTH MUSCLE ANTIBODY 06/02/2022 TSH WITH REFLEX TO FT4 06/02/2022 URIC ACID 06/02/2022 COMPREHENSIVE METABOLIC PANEL 06/02/2023 LIPID PANEL 06/02/2023 CULTURE, STOOL 09/08/2023 BASIC METABOLIC PANEL 09/08/2023 C. DIFFICILE TOXIN PCR 09/08/2023 CALPROTECTIN,FECAL 09/08/2023 CBC (COMPLETE BLOOD COUNT) WITH DIFF 01/2024 LACTOFERRIN, STOOL 09/08/2023 TISSUE TRANSGLUTAMINASE IGG 09/08/2023 WBC STOOL 09/08/2023 Insurance Providers Payer Name Payer Address Payer Phone Subscriber Number Group Number Insured Name Patient Relationship to Insured Coverage Start Date Coverage End Date [facility]) [address] [address] [place] [address] [id number] Eugenia Hightower Self - patient is the insured Medical (General) History Medical History History ICD Code hypertension hyperthyroidism insomnia Opioid use disorder Generalized anxiety disorder/mood disord er, Dr. Saldana Chronic insomnia Migraine headaches Vitamin D deficiency Personal history of COVID-19
--- OUTSIDE RECORDS SUMMARY | 2024-07-30 18:27 | XMS_ITS | Data Portability ---
Author Organization [place] - [facility], Allergy Address [address] [place] [address] Assessment Encounter Date Assessment Date Assessment LastModified by Organization Details LastModified Time 12/05/2023 12/05/2023 Patient with history of allergic rhinitis. Sublingual immunotherapy treatment was initiated today. Epi-pen teaching was performed. The first dose of immunotherapy was administered in the office and the patient was observed for 20 minutes without adverse reaction. Proper use of the immunotherapy drops was discussed in detail and all questions were answered. [email or web address] Not available 12/05/2023 16:05:20 Plan of Treatment Reminders Order Date Submit Date Provider Last Modified By Organization Details Last Modified Time Details Appointments None record ed. Lab None record ed. Referral None record ed. Procedures None record ed. Surgeries None record ed. Imaging None record ed. Medication Orders None record ed. Patient TargetsNo targets recorded. Patient InstructionsNo instructions recorded. Reason for Referral None Reported. Results Created Date Observation Date Name Description Value Unit Range Abnormal Flag Note LastModifiedBy Organization Detail LastModifiedTime 02/22/2010/18/2023 imagi ng/di agnos tic resul t No observ ation record ed. [email or web address] Not Available 04:54:56 Result Notes None recorded. Problems Name Problem SNOMED Code Status Onset Date Resolution Date Notes Provider Name and Address Organization Details Recorded Time Nasal congestio n 56957209 Active 2022 Nasal congestio n; Note: Date Diagnosed : 11/02/2022 3:17 PM (R09.81) Not Available [employer] 03:08:03 Deviated nasal septum 350202809 Active 2022 Deviated nasal septum; Note: Date Diagnosed : 11/02/2022 3:17 PM (J34.2) Not Available [facility] 4 03:08:01 Posterior rhinorrhe a 35757425 Active 2022 Postnasal drip; Note: Date Diagnosed : 11/02/2022 3:17 PM (R09.82) Not Available [facility] 4 03:08:02 Allergic rhinitis 57960384 Active 2023 Allergic rhinitis: Due to other allergen; Note: Date Diagnosed : 10/19/2023 3:04 PM (477.8) ; Start Date : 4 Other allergic rhinitis; Note: Date Diagnosed : 11/10/2023 2:40 PM (J30.89) Not Available [facility] 4 03:08:02 Impacted cerumen of bilateral ears [id number] 65270 Active 2023 Impacted cerumen, bilateral ; Note: Date Diagnosed : 09/23/2023 1:57 PM (H61.23) Not Available [facility] 4 03:08:02 Problem Notes None recorded. Procedures Surgical History None recorded. Imaging Results Imaging Date Name Status LastModified by Organiz ation Details LastModified Time 10/18/2023 imaging/diag nostic result completed [email or web address] Information not available 02/22/2024 04:54:56 Procedure Notes None recorded. Medical Equipment None Reported. Allergies Allergen ID Allergen Name Allergen Category Reaction Reaction Severity Criticality Documentation Date Start Date Code Code System Note Provider Name and Address Organization Details Recorded Time 915154 amoxicill in medicatio n hives Not available Not available 02/03/2024 723 RxNorm React ion: Hives ; Not Available [facility] 4 00:36:01 Medications Name Sig Start Date Stop Date Status Note LastModified by Organization Details LastModified Time Vitamin B-2 100 mg tablet TAKE 4 TABLETS BY MOUTH DAILY FOR 90 DAYS active Not Available Not Available No t Available norgestim ate 0.25 mg-ethiny l estradiol 35 mcg tablet active Medicati on ID: [id number] B rand Name: norgesti mate-eth inyl estradio l Send Method: E-Prescr ibed Sub s Allowed: subs OK Medic ationGen ericName : norgesti mate-eth inyl estradio l Not Available Not Available Not Available clonidine HCl 0.1 mg tablet TAKE 1 TABLET BY MOUTH TWICE A DAY DIRECTED TAKE 1 AT BEDTIME AND 1 IN THE AM IF NEEDED active Not Available Not Available No t Available gabapenti n 600 mg tablet TAKE 1 TABLET BY MOUTH THREE TIMES A DAY NEEDED active Not Available Not Available No t Available trazodone 50 mg tablet TAKE 1 TABLET BY MOUTH EVERYDAY AT BEDTIME active Not Available Not Available No t Available rizatript an 10 mg tablet PLEASE SEE ATTACHED FOR DETAILED DIRECTIO NS active Not Available Not Available No t Available clonazepa m 1 mg tablet TAKE 1 TABLET BY MOUTH EVERY DAY AT BEDTIME NEEDED active Not Available Not Available No t Available metronida zole 500 mg tablet TAKE 1 TABLET BY MOUTH EVERY 12 HOURS FOR 7 DAYS active Not Available Not Available No t Available hydroxyzi ne HCl 50 mg tablet TAKE 1 TABLET BY MOUTH TWICE A DAY NEEDED FOR ANXIETY /SLEEP active Not Available Not Available No t Available epinephri ne 0.3 mg/0.3 mL injection , auto-inje ctor INJECT 1 PEN INTRAMUS CULARLY A SINGLE DOSE NEEDED active Not Available Not Available No t Available hydrocort isone 2.5 % topical ointment APPLY TO THE AFFECTED AREAS ON FACE ONCE NIGHTLY FOR ONE WEEK, BREAK ONE WEEK. REPEAT NEEDED active Not Available Not Available No t Available fluticaso ne propionat e 50 mcg/actua tion nasal spray,jaqui pension SPRAY 1 SPRAY INTO EACH NOSTRIL EVERY DAY active Not Available Not Available No t Available Ventolin HFA 90 mcg/actua tion aerosol inhaler INHALE 1 PUFF NEEDED INTO THE LUNGS EVERY 4 HOURS 30 DAYS active Not Available Not Available No t Available bupropion HCl XL 150 mg 24 hr tablet, extended release 12/04 completed Medicati on ID: [id number] B rand Name: bupropio n HCl Send Method: E-Prescr ibed Sub s Allowed: subs OK Medic ationGen ericName : bupropio n HCl Medi cation ID: [id number] B rand Name: bupropio n HCl Send Method: E-Prescr ibed Sub s Allowed: subs OK Medic ationGen ericName : bupropio n HCl Not Available Not Available Not Available gabapenti n 600 mg active Not Available Not Available Not Available aripipraz ole 2 mg tablet TAKE 1 TABLET BY MOUTH EVERY DAY active Not Available Not Available No t Available levocetir izine 5 mg tablet TAKE 1 TABLET BY MOUTH EVERY DAY IN THE EVENING active Not Available Not Available No t Available GaviLyte- G 236 gram-22.7 4 gram-6.74 gram-5.86 gram oral solution PER INSTRUCT IONS FROM GI. active Not Available Not Available No t Available riboflavi n (vitamin B2) 400 mg tablet active Medicati on ID: [id number] B rand Name: riboflav in (vitamin B2) Send Method: E-Prescr ibed Sub s Allowed: subs OK Medic ationGen ericName : riboflav in (vitamin B2) Not Available Not Available Not Available Emgality Pen 120 mg/mL subcutane ous pen injector INJECT 1 PEN SUBCUTAN EOUSLY ONCE FOR 30 DAYS active Not Available Not Available No t Available Vitals Date Recorded Oxygen saturation Oxygen saturation in Arterial blood by Pulse oximetry Body height Body mass index (BMI) Body weight Heart rate Systolic blood pressure Diastolic blood pressure Provider Name and Address Organization Details Last Updated DateTime 4 100 % 100 % 160.02 cm 19.5 kg/m2 33097.1 6 g 101 /min 103 mm[Hg] 73 mm[Hg] HECTOR THOMPSON Eric [address] [address], [place], [address] [place] - [facility] 4 15:22:30 Social History None recorded. Functional Status None recorded. Mental Status None recorded. Family History Nothing Reported. Medical History No medical history recorded. Gynecological HistoryNo gynecological history recorded. Obstetrics History GPAL:G 0 P 0 0 0 0 Past Encounters Encounter ID Performer Location Encounter Start Date Encounter Closed Date Diagnosis/Indication Diagnosis SNOMED-CT Code Diagnosis ICD10 Code Diagnosis Note [id number] PEDRO RICHTER MD Allergy [address] [facility] [address] [place] [address] 12/05/2023 15:06:46 12/06/2023 15:52:59 Deviated nasal septum 700802074 J34.2 Nasal congestion 7156428 0 R09.81 Health Concerns Section Related Observation LastModified by Organization Rayshawn reyes LastModified Time None Recorded Concern Status LastModified by Organization Details LastModified Time None Recorded Advance Directives Directive None Recorded Payers Encounter Date Sequence Insurance Name Policy Number Policy Lemon Covered Member ID Lemon Member ID Guarantor Name 12/05/2023 1 [facility] [employer] (MEDICAID HMO) [id number] Eugenia Campbell [id number] Eugenia Hightower Notes Date Note Type Note Provider Name and Address Organization Details Recorded Time 12/05/2023 text/html 28-year-old female presents for SLIT initiation. She has brought her EpiPen. PDERO GUERRA MD [address] [place] [address], [phone], [facility] - [facility] 12/05/2023 16:39:22 OBGyn Episode No OBEpisode recorded.
== END 2024-07-30 13:44 | disposition home or self-care (01) ==
LOC: HO.MRI 13:43
PROVIDERS: PCP Hospitalist; Visit Provider Nurse Practitioner Family
DX: R51.9 Headache, unspecified (principal); H53.8 Other visual disturbances
CPT/HCPCS: 70553; A9585

== ENCOUNTER → 2024-07-30 13:59 | Outpatient (BNV) | payer OTHER, SELFPAY | PROVIDERS: PCP Hospitalist; Visit Provider Radiology Diagnostic Radiology | DX: H53.9 Unspecified visual disturbance (principal); R42 Dizziness and giddiness; R51.9 Headache, unspecified; R53.1 Weakness | CPT/HCPCS: 70553 ==

== ENCOUNTER 2024-08-01 12:02 | Outpatient (REF) | payer OTHER, SELFPAY ==
--- NOTE | ~2024-08-01 | XR_ITS ---
CLINICAL HISTORY: M54.50 - Low back pain, unspecified 7 views lumbar spine Comparison: None Findings: Normal vertebral body alignment. No acute fractures or dislocation. No significant degenerative change. IMPRESSION: No acute findings. This document has been electronically signed by: Nemesio Alatorre MD on 08/02/2024 14:55:11
[2024-08-01 12:32] LABS: MANUAL DIFF FLAG NO
[2024-08-01 13:06] LABS: Basophils Absolute Auto 0.1 X10*3/uL (0.0-0.2); Basophils Percent Auto 1.1 % (0-2); Eosinophils Absolute Auto 0.1 X10*3/uL (0.0-0.4); Eosinophils Percent Auto 2.1 % (0-4); Imm Gran Abs Auto 0.01 X10*3/uL (0.00-0.03); Imm Gran Pct Auto 0.2 % (0.0-0.4); Lymphocytes Absolute Auto 2.1 X10*3/uL (1.2-4.9); Lymphocytes Percent Auto 44.4 % (20-40); Mean Corpuscular HGB Conc 34.3 g/dl (31.0-35.0); Mean Corpuscular Hemoglobin 28.9 pg (27.0-33.0); Mean Corpuscular Volume 84.3 fL (80.0-98.0); Mean Platelet Volume 9.2 fL (9.4-12.3); Monocytes Absolute Auto 0.3 X10*3/uL (0.1-1.2); Monocytes Percent Auto 5.6 % (2-11); Neutrophils Absolute Auto 2.2 x10*3/uL (2.0-8.3); Neutrophils Percent Auto 46.6 % (45-73); Platelet Count 268 X10*3/uL (160-400); Red Blood Count 4.15 X10*6/uL (4.20-5.50); Red Cell Distribution Width 11.7 % (11.0-16.0); White Blood Count 4.7 X10*3/uL (4.8-10.8)
[2024-08-01 13:50] LABS: Alanine Aminotransferase 11 U/L (0-31); Albumin Level 4.6 g/dL (3.5-5.0); Alkaline Phosphatase 31 U/L (39-117); Anion Gap 14 (12-20); Aspartate Amino Transferase 18 U/L (5-31); Bilirubin Total 0.3 mg/dL (0.0-1.0); Blood Urea Nitrogen 13 mg/dL (9-16); Carbon Dioxide 23 mmol/L (22-29); Chloride 103 mmol/L (96-108); Estimated Glomerular Filt Rate > 60; Glucose Random 103 mg/dL (60-115); Potassium 3.6 mmol/L (3.3-5.1); Sodium 136 mmol/L (135-145); Total Protein 7.7 g/dL (6.5-8.0)
[2024-08-01 14:06] LABS: Free T4 (Free Thyroxine) 0.99 ng/dL (0.71-1.85); TSH reflex Free T4 2.71 uIU/mL (0.32-4.0)
--- OUTSIDE RECORDS SUMMARY | 2024-08-01 14:25 | XMS_ITS ---
Author Organization [facility] Address [address] [place] [address] Care Team Providers Care School Lunch Manager Name Role Phone SHELLY DUKES Primary Care Provider [phone] REASON FOR VISIT Derm referral update Encounters Encounter Location Date Provider Diagnosis [facility] [address] [place] [address] 09/15/2023 SHELLY DUKES Plan Of Treatment No Information Progress Notes * Eugenia LEACHDOB: 4 (28 yo F)Acc No.[id number]:09/15/2023 Patient:?Eugenia LEACH :1995???Age:28 Y???Sex:Female Address:[address] [place] [phone] * true * Date:? Generated for Mark ferrer/Elias/eTransmitting on:?08/01/2024 02:25 PM EST
--- OUTSIDE RECORDS SUMMARY | 2024-08-01 14:26 | XMS_ITS ---
Author Organization [facility] Address [address] [place] [address] Care Team Providers Care Community Reinvestment Act Officer Name Role Phone SHELLY DUKES Primary Care Provider [phone] REASON FOR VISIT CPE Medications Medication SIG [...] Active Encounters Encounter Location Date Provider Diagnosis [facility] [address] [place] [address] 06/04/2024 SHELLY DUKES Plan Of Treatment No Information Progress Notes * Eugenia LEACHDOB: 4 (29 yo F)Acc No.[id number]:06/04/2024 Progress Notes Patient:?Eugenia LEACH Provider:?SHELLY DUKES MD :1995???Age:29 Y???Sex:Female D ate:06/04/2024 Address:[address] [place], [place] [id number] Subjective: * Chief Complaints: * ???1. CPE. [...] Preventive Medicine:?COVID FLU BMD COLONSCOPY EYE EXAM PARLIAMENTARY LIBRARIAN MAMMOGRAM. * * Electronic signature of PUSHPA DUKES MD on 08/01/2024 at 02:26 PM EST Sign off status: Pending * Provider:YULY DUKES MD Date:?06/04 Generated for Mark ferrer/Elias/Hueyitting on:?08/01/2024 02:26 PM EST
--- OUTSIDE RECORDS SUMMARY | 2024-08-01 14:26 | XMS_ITS ---
Author Organization [facility] Address [address] [address] Care Team Providers Care Ged Instructor Name Role Phone ROSELINESHELLY Primary Care Provider REASON FOR VISIT Refill Medications Medication SIG (Take, Route, Frequency, Duration) Notes Start Date End Date Status Ventolin HFA 108 (90 Base) MCG/ACT INHALE 1 PUFF NEEDED INTO THE LUNGS EVERY 4 HOURS for 30 days REFILL NEEDED Active Encounters Encounter Location Date Provider Diagnosis [facility] [address] [address] 12/20/2023 SHELLY DUKES Plan Of Treatment Medication Medication Name Sig Start Date Stop Date Notes Ventolin HFA 108 (90 Base) MCG/ACT INHALE 1 PUFF NEEDED INTO THE LUNGS EVERY 4 HOURS for 30 days REFILL NEEDED Progress Notes * CHRISTINASHEKHARBhupendrajennifferDOB: 4 (28 yo F)Acc No.[id number]:12/20/2023 Patient:?Eugenia LEACH :1995???Age:28 Y???Sex:Female Address:[address] [place] [id number] * Refills? Refill Ventolin HFA Aerosol Solution, 108 (90 Base) MCG/ACT, 1, INHALE 1 PUFF NEEDED INTO THE LUNGS EVERY 4 HOURS, 30 days, Refills=5 * true * Date:? Generated for Printi ng/Faxing/eTransmitting on:?08/01/2024 02:25 PM EST
--- OUTSIDE RECORDS SUMMARY | 2024-08-01 14:26 | XMS_ITS | Data Portability ---
Author Organization [facility] Address [address] [place] [phone] Assessment Encounter Date Assessment Date Assessment LastModified [...] in detail and all questions were answered. [email or web address] Not available 12/05/2023 16:05:20 Plan of Treatment [...] Organization Details Recorded Time Nasal congestio n 58447961 Active 2022 Nasal congestio n; Note: Date Diagnosed : 11/02/2022 3:17 PM (R09.81) Not Available [facility] 03:08:03 Deviated nasal septum 351534015 Active 2022 Deviated nasal septum; Note: Date Diagnosed : 11/02/2022 3:17 PM (J34.2) Not Available [facility] 4 03:08:01 Posterior rhinorrhe a 82099454 Active 2022 Postnasal drip; Note: Date Diagnosed : 11/02/2022 3:17 PM (R09.82) Not Available [facility] 4 03:08:02 Allergic rhinitis 77897091 Active 2023 Allergic rhinitis: Due to other allergen; Note: Date Diagnosed : 10/19/2023 3:04 PM (477.8) ; Start Date : 4 Other allergic rhinitis; Note: Date Diagnosed : 11/10/2023 2:40 PM (J30.89) Not Available [facility] 4 03:08:02 Impacted cerumen of bilateral ears 01176033063 32857 Active 2023 Impacted cerumen, bilateral ; Note: Date Diagnosed : 09/23/2023 1:57 PM (H61.23) Not Available [facility] 4 03:08:02 Problem Notes None recorded. Procedures [...] Name and Address Organization Details Recorded Time 836835 amoxicill in medicatio n hives Not available Not available 02/03/2024 723 RxNorm React ion: Hives ; Not Available [facility] 4 00:36:01 Medications Name Sig Start Date Stop Date Status Note LastModified by Organization Details LastModified Time Vitamin B-2 100 mg tablet TAKE 4 TABLETS BY MOUTH DAILY FOR 90 DAYS active Not Available Not Available No t Available norgestim ate 0.25 mg-ethiny l estradiol 35 mcg tablet active Medicati on ID: 496329 B rand Name: norgesti mate-eth inyl estradio [...] extended release 12/04 completed Medicati on ID: 787059 B rand Name: bupropio n HCl Send Method: E-Prescr ibed Sub s Allowed: subs OK Medic ationGen ericName : bupropio n HCl Medi cation ID: [id number] B rand Name: bupropio n HCl Send [...] 400 mg tablet active Medicati on ID: [id number] B rand Name: riboflav in (vitamin B2) [...] % 100 % 160.02 cm 19.5 kg/m2 78017.1 6 g 101 /min 103 mm[Hg] 73 mm[Hg] HECTOR THOMPSON Eric [address] [address], [place], [address] [place] - [facility] 4 15:22:30 Social History None recorded. Functional [...] Note 2514 PEDRO RICHTER MD Allergy [address] [facility] [address] [place] [address] 12/05/2023 15:06:46 12/06/2023 15:52:59 Deviated nasal septum 819626547 J34.2 Nasal congestion 6230981 0 R09.81 Health Concerns Section Related Observation LastModified by Organization Rayshawn reyes LastModified Time None Recorded Concern Status LastModified by Organization Details LastModified Time None Recorded Advance Directives Directive None Recorded Payers Encounter Date Sequence Insurance Name Policy Number Policy Lemon Covered Member ID Lemon Member ID Guarantor Name 12/05/2023 1 [facility] - HEALTH NET PLAN (MEDICAID HMO) [id number] Eugenia Campbell [id number] Eugenia Hightower Notes Date Note Type Note Provider Name and Address Organization Details Recorded Time 12/05/2023 text/html 28-year-old female presents for SLIT initiation. She has brought her EpiPen. PEDRO GUERRA MD [address] [place] [address], [phone], [facility] - [facility] 12/05/2023 16:39:22 OBGyn Episode No OBEpisode recorded.
--- OUTSIDE RECORDS SUMMARY | 2024-08-01 14:26 | XMS_ITS | Data Portability ---
Author Organization [place] [place] Address [address] [place] [address] Assessment Encounter Date Assessment Date Assessment LastModified [...] UDS NEG Seeing mental health prescriber @ [facility] - stable on current medications per patient. 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 - Site: [facility] - Lot #: [id number] - Exp. Date: 07/02/23 Sublocade dose 25 [...] of amphetamine Seeing mental health prescriber @ [facility] - stable on current medications per patient. 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 - Site: [facility] - Lot #: [id number] - Exp. Date: 06/02/23 PLAN (narrative, if [...] of amphetamine Seeing mental health prescriber @ [facility] - stable on current medications per patient. 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 - stable on current medications per patient. 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 - stable on current medications per patient. 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 Lab drug screen, urine 2021 022 [facility], [facility] [place], [address], 09:31:40 test, urine 2021 [email or web address], [address], 16:20:30 drug screen, urine 2021 022 [facility], [address] [place] [address], [address], 2 11:14:53 test, urine [address], [address], 2 11:13:49 drug screen, urine 2022 023 [facility], [address] [place] [address], [address], 3 13:11:53 test, urine 2022 023 [email or web address], [address], 3 14:40:45 drug screen, urine 2022 023 [facility], [address] [place], [address], 3 05:45:06 test, urine 2022 023 antonio Hern[facility]dezmedical_sp [address], [address], 3 15:37:12 drug screen, urine 2022 023 JAMAL [facility], [address] [facility] [place], [address], 3 10:56:05 test, urine 2022 023 antonio Hernándezmedical_sp [address], [address], 3 14:43:59 Referral None recorded. Procedures None recorded. Surgeries None recorded. Imaging None recorded. Medication Orders None recorded. Patient TargetsNo targets recorded. Patient Instructions Encounter Date Encounter Id Patient Instructions Last Modified By Organization Details Last Modified Time 05/10/2022 [id number] Education provid ed at today's visit included: [...] counseling and coordinating care. Education provided at [facility]'s visit included: Review of patient's individualized [...] [email or web address] Not available 05/10/2022 16:07:51 06/08/2022 [id number] Education provid ed at today's visit included: [...] [email or web address] Not available 06/08/2022 15:51:30 07/07/2022 [id number] Education provid ed at today's visit included: [...] alissa [email or web address] Not available 07/07/2022 14:29:46 08/05/2022 [id number] Education provid ed at today's visit included: [...] [email or web address] Not available 08/05/2022 15:32:15 09/01/2022 [id number] Education provid ed at today's visit included: [...] by LESTER KEMP NA-WE ISS Not Available [facility] [place] [address] [place], [address], 04/14/2022 09:05:52 04/12/20 22 04/12/2022 BUPRE NORPH INE PT SCREE ISHMAEL benzodiazapi everton Negati ve NG/mL 200 Not Available [facility] [place], [address], 04/14/2022 09:05:52 04/12/20 22 04/12/2022 BUPRE NORPH INE PT SCREE ISHMAEL buprenorphin e Positi ve NG/mL 5 Not Available [place] [address] [place], [address], 04/14/2022 09:05:52 04/12/20 22 04/12/2022 BUPRE NORPH INE PT SCREE ISHMAEL cocaine metabolite Negati ve NG/mL 150 Not Available [place] [address] [address] [place], [address], 04/14/2022 09:05:52 04/12/20 22 04/12/2022 BUPRE NORPH INE PT SCREE ISHMAEL opiates Negati ve NG/mL 300 Not Available [place] [address] [place], [address], 04/14/2022 09:05:52 04/12/20 22 04/12/2022 BUPRE NORPH INE PT SCREE ISHMAEL oxycodone Negati ve NG/mL 300 Not Available [place] [address] [place], [address], 04/14/2022 09:05:52 04/12/20 22 04/12/2022 BUPRE NORPH INE PT SCREE ISHMAEL fentanyl Negati ve NG/mL 2 Not Available [place] [address] [place], [address], 04/14/2022 09:05:52 04/12/20 22 04/12/2022 BUPRE NORPH INE PT SCREE ISHMAEL ethyl alcohol Negati ve mg/dL 10 Not Available [place] [address] [place], [address], 04/14/2022 09:05:52 04/12/20 22 04/12/2022 BUPRE NORPH INE PT SCREE ISHMAEL methadone metabolite Negati ve NG/mL 300 Not Available [place] [address] [place], [address], 04/14/2022 09:05:52 04/12/20 22 04/12/2022 BUPRE NORPH INE PT SCREE ISHMAEL cannabinoids (THC) Negati ve NG/mL 50 Not Available [place] [address] [place], [address], 04/14/2022 09:05:52 04/12/20 22 04/12/2022 BUPRE NORPH INE PT SCREE ISHMAEL urine creatinine 287.3 mg/dL >20 Not Available [place] [address] [place], [address], 04/14/2022 09:05:52 04/12/20 22 04/12/2022 BUPRE NORPH INE PT SCREE ISHMAEL urine pH 6.10 4.5-9. 0 Not Available [place] [address] [place], [address], 04/14/2022 09:05:52 04/12/20 22 04/12/2022 BUPRE NORPH INE PT SCREE ISHMAEL specific gravity 1.034 1.003- 1.035 Not Available [place] [address] [place], [address], 04/14/2022 09:05:52 04/12/20 22 04/12/2022 PRESC RIBED DRUG CONFI RMATI ON BUPRE NORPH INE 1, QN, U buprenorphin e 225.6 NG/mL 10 Elect solitario rodrigues d by LESTER KEMP NA-WE ISS Not Available [place] [address] [place], [address], 04/15/2022 06:09:06 04/12/20 22 04/12/2022 PRESC RIBED DRUG CONFI RMATI ON BUPRE NORPH INE 1, QN, U norbuprenorp liliane 103.7 NG/mL 10 Not Available [address] [address] [place], [address], 04/15/2022 06:09:06 04/12/20 22 04/12/2022 PRESC RIBED DRUG CONFI RMATI ON BUPRE NORPH INE 1, QN, U legend Abbrev iation s LOW - Detec courtney but unqua ntifi able OLR - Outsi de of linea r range ATR - Addit ional Testi ng Requi red Not Available [place] [address] [address] [place], [address], 04/15/2022 06:09:06 04/12/20 22 04/12/2022 PRESC RIBED DRUG CONFI RMATI ON BUPRE NORPH INE 1, QN, U billing only ([id number]) Billin g Only Not Available [facility] [place], [address], 04/15/2022 06:09:06 05/10/20 22 05/10/2022 BUPRE NORPH INE PT SCREE ISHMAEL amphetamines Positi ve NG/mL 1,000 abnormal Elect solitario rodrigues d by LESTER KEMP NA-WE ISS Not Available [place] [address] [place], [address], 05/12/2022 09:31:40 05/10/20 22 05/10/2022 BUPRE NORPH INE PT SCREE ISHMAEL benzodiazapi everton Negati ve NG/mL 200 Not Available [facility] [place], [address], 05/12/2022 09:31:40 05/10/20 22 05/10/2022 BUPRE NORPH INE PT SCREE ISHMAEL buprenorphin e Positi ve NG/mL 5 Not Available [facility] [place], [address], 05/12/2022 09:31:40 05/10/20 22 05/10/2022 BUPRE NORPH INE PT SCREE ISHMAEL cocaine metabolite Negati ve NG/mL 150 Not Available [facility] [place], [address], 05/12/2022 09:31:40 05/10/20 22 05/10/2022 BUPRE NORPH INE PT SCREE ISHMAEL opiates Negati ve NG/mL 300 Not Available [place] [address] [place], [address], 05/12/2022 09:31:40 05/10/20 22 05/10/2022 BUPRE NORPH INE PT SCREE ISHMAEL oxycodone Negati ve NG/mL 300 Not Available [place] [address] [place], [address], 05/12/2022 09:31:40 05/10/20 22 05/10/2022 BUPRE NORPH INE PT SCREE ISHMAEL fentanyl Negati ve NG/mL 2 Not Available [place] [address] [place], [address], 05/12/2022 09:31:40 05/10/20 22 05/10/2022 BUPRE NORPH INE PT SCREE ISHMAEL ethyl alcohol Negati ve mg/dL 10 Not Available [place] [address] [place], [address], 05/12/2022 09:31:40 05/10/20 22 05/10/2022 BUPRE NORPH INE PT SCREE ISHMAEL methadone metabolite Negati ve NG/mL 300 Not Available [place] [address] [place], [address], 05/12/2022 09:31:40 05/10/20 22 05/10/2022 BUPRE NORPH INE PT SCREE ISHMAEL cannabinoids (THC) Negati ve NG/mL 50 Not Available [place] [address] [place], [address], 05/12/2022 09:31:40 05/10/20 22 05/10/2022 BUPRE NORPH INE PT SCREE ISHMAEL urine creatinine 357.1 mg/dL >20 Not Available [place] [address] [place], [address], 05/12/2022 09:31:40 05/10/20 22 05/10/2022 BUPRE NORPH INE PT SCREE ISHMAEL urine pH 5.90 4.5-9. 0 Not Available [address] [address] [place], [address], 05/12/2022 09:31:40 05/10/20 22 05/10/2022 BUPRE NORPH INE PT SCREE ISHMAEL specific gravity 1.036 1.003- 1.035 high Not Available [address] [place] [address] [place], [address], 05/12/2022 09:31:40 05/10/20 22 05/10/2022 AMPHE TAMIN ES, QN, U amphetamine Negati ve NG/mL 250 Elect solitario brown by LESTER KEMP NA-WE ISS Not Available [address] [place] [address] [place], [address], 05/14/2022 07:28:01 05/10/20 22 05/10/2022 AMPHE TAMIN ES, QN, U methamphetam ine Negati ve NG/mL 250 Not Available [facility] [place], [address], 05/14/2022 07:28:01 05/10/20 22 05/10/2022 AMPHE TAMIN ES, QN, U mda Negati ve NG/mL 250 Not Available [facility] Debbie [place], [address], 05/14/2022 07:28:01 05/10/20 22 05/10/2022 AMPHE TAMIN ES, QN, U legend Abbrev iation s OLR - Outsi de of linea r range Not Available [address] [address] [place], [address], 05/14/2022 07:28:01 05/10/20 22 05/10/2022 AMPHE TAMIN ES, QN, U billing only ([id number]) Billin g Only Not Available [facility] Debbie [place], [address], 05/14/2022 07:28:01 05/10/20 22 05/10/2022 PRESC RIBED DRUG CONFI RMATI ON BUPRE NORPH INE 1, QN, U buprenorphin e 428.5 NG/mL 10 Elect solitario rodrigues d by LESTER KEMP NA-WE ISS Not Available [address] [address] [place], [address], 05/14/2022 07:28:02 05/10/20 22 05/10/2022 PRESC RIBED DRUG CONFI RMATI ON BUPRE NORPH INE 1, QN, U norbuprenorp liliane 261.3 NG/mL 10 Not Available [address] [address] [place], [address], 05/14/2022 07:28:02 05/10/20 22 05/10/2022 PRESC RIBED DRUG CONFI RMATI ON BUPRE NORPH INE 1, QN, U legend Abbrev iation s LOW - Detec courtney but unqua ntifi able OLR - Outsi de of linea r range ATR - Addit ional Testi ng Requi red Not Available [address] [address] [place], [address], 05/14/2022 07:28:02 05/10/20 22 05/10/2022 pregn vasquez test, urine HCG negati ve Not Available [facility] [address], [address], 05/10/2022 16:05:50 06/08/20 22 06/08/2022 BUPRE NORPH INE PT SCREE ISHMAEL amphetamines Positi ve NG/mL 1,000 abnormal Elect solitario rodrigues d by LESTER KEMP NA-WE ISS Not Available [address] [address] [place], [address], 06/10/2022 11:14:53 06/08/20 22 06/08/2022 BUPRE NORPH INE PT SCREE ISHMAEL benzodiazapi everton Negati ve NG/mL 200 Not Available [facility] [place], [address], 06/10/2022 11:14:53 06/08/20 22 06/08/2022 BUPRE NORPH INE PT SCREE ISHMAEL buprenorphin e Positi ve NG/mL 5 Not Available [facility] [place], [address], 06/10/2022 11:14:53 06/08/20 22 06/08/2022 BUPRE NORPH INE PT SCREE ISHMAEL cocaine metabolite Negati ve NG/mL 150 Not Available [facility] [place], [address], 06/10/2022 11:14:53 06/08/20 22 06/08/2022 BUPRE NORPH INE PT SCREE ISHMAEL opiates Negati ve NG/mL 300 Not Available [facility] [place], [address], 06/10/2022 11:14:53 06/08/20 22 06/08/2022 BUPRE NORPH INE PT SCREE ISHMAEL oxycodone Negati ve NG/mL 300 Not Available [facility] [place], [address], 06/10/2022 11:14:53 06/08/20 22 06/08/2022 BUPRE NORPH INE PT SCREE ISHMAEL fentanyl Negati ve NG/mL 2 Not Available [facility] [place], [address], 06/10/2022 11:14:53 06/08/20 22 06/08/2022 BUPRE NORPH INE PT SCREE ISHMAEL ethyl alcohol Negati ve mg/dL 10 Not Available [facility] [place], [address], 06/10/2022 11:14:53 06/08/20 22 06/08/2022 BUPRE NORPH INE PT SCREE ISHMALE methadone metabolite Negati ve NG/mL 300 Not Available [facility] [address] [place], [address], 06/10/2022 11:14:53 06/08/20 22 06/08/2022 BUPRE NORPH INE PT SCREE ISHMAEL cannabinoids (THC) Negati ve NG/mL 50 Not Available [facility] [address] [place], [address], 06/10/2022 11:14:53 06/08/20 22 06/08/2022 BUPRE NORPH INE PT SCREE ISHMAEL urine creatinine 284.9 mg/dL >20 Not Available [place] [address] [place], [address], 06/10/2022 11:14:53 06/08/20 22 06/08/2022 BUPRE NORPH INE PT SCREE ISHMAEL urine pH 6.70 4.5-9. 0 Not Available [place] [address] [address]Deb[address] Cummings[place]IRIAM [place], [address], 06/10/2022 11:14:53 06/08/20 22 06/08/2022 BUPRE NORPH INE PT SCREE ISHMAEL specific gravity 1.035 1.003- 1.035 Not Available [place] [address] [place] [place], [address], 06/10/2022 11:14:53 06/08/20 22 06/08/2022 PRESC RIBED DRUG CONFI RMATI ON BUPRE NORPH INE 1, QN, U buprenorphin e 333.9 NG/mL 10 Tatianna brown by LESTER PERSON Not Available [place] [address] [place], [address], 06/14/2022 08:11:13 06/08/20 22 06/08/2022 PRESC RIBED DRUG CONFI RMATI ON BUPRE NORPH INE 1, QN, U norbuprenorp liliane 383.6 NG/mL 10 Not Available [place] [address] [place], [address], 06/14/2022 08:11:13 06/08/20 22 06/08/2022 PRES RIBED DRUG CONFI RMATI ON BUPRE NORPH INE 1, QN, U legend Abbrev iation s LOW - Detec courtney but unqua ntifi able OLR - Outsi de of linea r range ATR - Addit ional Testi ng Requi red Not Available [place] [address] [place], [address], 06/14/2022 08:11:13 06/08/20 22 06/08/2022 RUST RIBED DRUG CONFI RMATI ON BUPRE NORPH INE 1, QN, U billing only ([id number]) Billin g Only Not Available [place] [address] [place], [address], 06/14/2022 08:11:13 06/08/20 22 06/08/2022 AMPHE TAMIN ES, QN, U amphetamine Negati ve NG/mL 250 Elect solitario rodrigues d by LESTER KEMP NA-WE ISS Not Available [place] [address] [place], [address], 06/14/2022 08:11:13 06/08/20 22 06/08/2022 AMPHE TAMIN ES, QN, U methamphetam ine Negati ve NG/mL 250 Not Available [facility] [place], [address], 06/14/2022 08:11:13 06/08/20 22 06/08/2022 AMPHE TAMIN ES, QN, U mda Negati ve NG/mL 250 Not Available [facility] [place], [address], 06/14/2022 08:11:13 06/08/20 22 06/08/2022 AMPHE TAMIN ES, QN, U legend Abbrev iation s OLR - Outsi de of linea r range Not Available [place] [address] [place], [address], 06/14/2022 08:11:13 06/10/20 22 06/10/2022 pregn vasquez test, urine HCG negati ve Not Available [facility] [address], [address], 06/08/2022 15:48:34 07/07/19 23 07/07/2022 BUPRE NORPH INE PT SCREE ISHMAEL amphetamines Negati ve NG/mL 1,000 Elect solitario rodrigues d by LESTER KEMP NA-WE ISS Not Available [place] [address] [place], [address], 07/09/2022 13:11:53 07/07/19 23 07/07/2022 BUPRE NORPH INE PT SCREE ISHMAEL benzodiazapi everton Negati ve NG/mL 200 Not Available [facility] [place], [address], 07/09/2022 13:11:53 07/07/19 23 07/07/2022 BUPRE NORPH INE PT SCREE ISHAMEL buprenorphin e Positi ve NG/mL 5 Not Available [facility] [place], [address], 07/09/2022 13:11:53 07/07/19 23 07/07/2022 BUPRE NORPH INE PT SCREE ISHMAEL cocaine metabolite Negati ve NG/mL 150 Not Available [facility] [place], [address], 07/09/2022 13:11:53 07/07/19 23 07/07/2022 BUPRE NORPH INE PT SCREE ISHMAEL opiates Negati ve NG/mL 300 Not Available [facility] [place], [address], 07/09/2022 13:11:53 07/07/19 23 07/07/2022 BUPRE NORPH INE PT SCREE ISHMAEL oxycodone Negati ve NG/mL 300 Not Available [place] [address] [place], [address], 07/09/2022 13:11:53 07/07/19 23 07/07/2022 BUPRE NORPH INE PT SCREE ISHMAEL fentanyl Negati ve NG/mL 2 Not Available [place] [address] [place], [address], 07/09/2022 13:11:53 07/07/19 23 07/07/2022 BUPRE NORPH INE PT SCREE ISHMAEL ethyl alcohol Negati ve mg/dL 10 Not Available [place] [address] [place], [address], 07/09/2022 13:11:53 07/07/19 23 07/07/2022 BUPRE NORPH INE PT SCREE ISHMAEL methadone metabolite Negati ve NG/mL 300 Not Available [place] [address] [place], [address], 07/09/2022 13:11:53 07/07/19 23 07/07/2022 BUPRE NORPH INE PT SCREE ISHMAEL cannabinoids (THC) Positi ve NG/mL 50 abnormal Not Available [place] [address] [place], [address], 07/09/2022 13:11:53 07/07/19 23 07/07/2022 BUPRE NORPH INE PT SCREE ISHMAEL urine creatinine 213.0 mg/dL >20 Not Available [place] [address] [place], [address], 07/09/2022 13:11:53 07/07/19 23 07/07/2022 BUPRE NORPH INE PT SCREE ISHMAEL urine pH 6.20 4.5-9. 0 Not Available [address] [place] [address] [place], [address], 07/09/2022 13:11:53 07/07/19 23 07/07/2022 BUPRE NORPH INE PT RHEA QUIÑONES specific gravity 1.036 1.003- 1.035 high Not Available [address] [place] [address] [place], [address], 07/09/2022 13:11:53 07/07/19 23 07/07/2022 PRESC RIBED DRUG CONFI RMATI ON BUPRE NORPH INE 1, QN, U buprenorphin e 156.3 NG/mL 10 Elect solitario rodrigues d by LESTER KEMP NA-WE ISS Not Available [place] [address] [place], [address], 07/13/2022 10:49:19 07/07/19 23 07/07/2022 PRESC RIBED DRUG CONFI RMATI ON BUPRE NORPH INE 1, QN, U norbuprenorp liliane 160.8 NG/mL 10 Not Available [place] [address] [address] [place], [address], 07/13/2022 10:49:19 07/07/19 23 07/07/2022 PRESC RIBED DRUG CONFI RMATI ON BUPRE NORPH INE 1, QN, U legend Abbrev iation s LOW - Detec courtney but unqua ntifi able OLR - Outsi de of linea r range ATR - Addit ional Testi ng Requi red Not Available [place] [address] [place], [address], 07/13/2022 10:49:19 07/07/19 23 07/07/2022 PRESC RIBED DRUG CONFI RMATI ON BUPRE NORPH INE 1, QN, U billing only ([id number]) Billin g Only Not Available [place] [address] [place], [address], 07/13/2022 10:49:19 07/07/19 23 07/07/2022 pregn vasquez test, urine HCG negati ve Not Available [facility] [address], [place], [address], 07/07/2022 14:23:58 08/05/19 23 08/05/2022 BUPRE NORPH INE PT SCREE ISHMAEL amphetamines Positi ve NG/mL 1,000 abnormal Elect solitario rodrigues d by LESTER KEMP NA-WE ISS Not Available [address] [place] [address] [place], [address], 08/10/2022 05:45:06 08/05/19 23 08/05/2022 BUPRE NORPH INE PT SCREE ISHMAEL benzodiazapi everton Positi ve NG/mL 200 abnormal Not Available [place] [address] [place], [address], 08/10/2022 05:45:06 08/05/19 23 08/05/2022 BUPRE NORPH INE PT SCREE ISHMAEL buprenorphin e Positi ve NG/mL 5 Not Available [place] [address] [place], [address], 08/10/2022 05:45:06 08/05/19 23 08/05/2022 BUPRE NORPH INE PT SCREE ISHMAEL cocaine metabolite Negati ve NG/mL 150 Not Available [place] [address] [place], [address], 08/10/2022 05:45:06 08/05/19 23 08/05/2022 BUPRE NORPH INE PT SCREE ISHMAEL opiates Negati ve NG/mL 300 Not Available [place] [address] [place], [address], 08/10/2022 05:45:06 08/05/19 23 08/05/2022 BUPRE NORPH INE PT SCREE ISHMAEL oxycodone Negati ve NG/mL 300 Not Available [place] [address] [place], [address], 08/10/2022 05:45:06 08/05/19 23 08/05/2022 BUPRE NORPH INE PT SCREE ISHMAEL fentanyl Negati ve NG/mL 2 Not Available [place] [address] [place], [address], 08/10/2022 05:45:06 08/05/19 23 08/05/2022 BUPRE NORPH INE PT SCREE ISHMAEL ethyl alcohol Negati ve mg/dL 10 Not Available [place] [address] [place], [address], 08/10/2022 05:45:06 08/05/19 23 08/05/2022 BUPRE NORPH INE PT SCREE ISHMAEL methadone metabolite Negati ve NG/mL 300 Not Available [place] [address] [place], [address], 08/10/2022 05:45:06 08/05/19 23 08/05/2022 BUPRE NORPH INE PT SCREE ISHMAEL cannabinoids (THC) Positi ve NG/mL 50 abnormal Not Available [place] [address] [place], [address], 08/10/2022 05:45:06 08/05/19 23 08/05/2022 BUPRE NORPH INE PT SCREE ISHMAEL urine creatinine 204.1 mg/dL >20 Not Available [address] [place] [address] [place], [address], 08/10/2022 05:45:06 08/05/19 23 08/05/2022 BUPRE NORPH INE PT SCREE ISHMAEL urine pH 5.70 4.5-9. 0 Not Available [address] [address] [place], [address], 08/10/2022 05:45:06 08/05/19 23 08/05/2022 BUPRE NORPH INE PT SCREE ISHMAEL specific gravity 1.032 1.003- 1.035 Not Available [address] [address] [place], [address], 08/10/2022 05:45:06 08/05/19 23 08/05/2022 AMPHE TAMIN ES, QN, U amphetamine Negati ve NG/mL 250 Elect solitario rodrigues d by LESTER KEMP NA-WE ISS Not Available [address] [place] [address] [place], [address], 08/12/2022 09:42:11 08/05/19 23 08/05/2022 AMPHE TAMIN ES, QN, U methamphetam ine Negati ve NG/mL 250 Not Available [facility] [place], [address], 08/12/2022 09:42:11 08/05/19 23 08/05/2022 AMPHE RENETTAIN ES, QN, U mda Negati ve NG/mL 250 Not Available [facility] [place], [address], 08/12/2022 09:42:11 08/05/19 23 08/05/2022 AMPHE TAMIN ES, QN, U legend Abbrev iation s OLR - Outsi de of linea r range Not Available [address] [address] [place], [address], 08/12/2022 09:42:11 08/05/19 23 08/05/2022 AMPHE TAMIN ES, QN, U billing only ([id number]) Billin g Only Not Available [facility] [place], [address], 08/12/2022 09:42:11 08/05/19 23 08/05/2022 BENZO [place] , QN, U alpha-hydrox yalprazolam Negati ve NG/mL 25 Elect solitario rodrigues d by LESTER KEMP NA-WE ISS Not Available [address] [place] [address] [place], [address], 08/12/2022 09:42:11 08/05/19 23 08/05/2022 BENZO [place] , QN, U 7-aminoclona zepam 1619.1 NG/mL 40 high Not Available [place] [address] [address] [place] MIRIAM M[place]ain, [id number], 08/12/2022 09:42:11 08/05/19 23 08/05/2022 BENZO DIAZE PINES , QN, U lorazepam Negati ve NG/mL 50 Not Available [place] [address] [place], [id number], 08/12/2022 09:42:11 08/05/19 23 08/05/2022 BENZO DIAZE PINES , QN, U nordiazepam Negati ve NG/mL 50 Not Available [place] [address] [place], [id number], 08/12/2022 09:42:11 08/05/19 23 08/05/2022 BENZO DIAZE PINES , QN, U temazepam Negati ve NG/mL 50 Not Available [facility] [place], [address], 08/12/2022 09:42:11 08/05/19 23 08/05/2022 BENZO DIAZE PINES , QN, U legend Abbrev iation s OLR - Outsi de of linea r range Not Available [place] [address] [place], [id number], 08/12/2022 09:42:11 08/05/19 23 08/05/2022 PRESC RIBED DRUG CONFI RMATI ON BUPRE NORPH INE 1, QN, U buprenorphin e 92.2 NG/mL 10 Elect solitario rodrigues d by LESTER KEMP NA-WE ISS Not Available [place] [address] [place], [id number], 08/12/2022 09:42:12 08/05/19 23 08/05/2022 PRESC RIBED DRUG CONFI RMATI ON BUPRE NORPH INE 1, QN, U norbuprenorp liliane 114.0 NG/mL 10 Not Available [place] [address] [place], [id number], 08/12/2022 09:42:12 08/05/19 23 08/05/2022 PRESC RIBED DRUG CONFI RMATI ON BUPRE NORPH INE 1, QN, U legend Abbrev iation s LOW - Detec courtney but unqua ntifi able OLR - Outsi de of linea r range ATR - Addit ional Testi ng Requi red Not Available [place] [address] [place], [id number], 08/12/2022 09:42:12 08/05/19 23 08/05/2022 pregn vasquez test, urine HCG negati ve Not Available [facility] [address], [address], 08/05/2022 15:24:01 09/02/19 23 09/01/2022 BUPRE NORPH INE PT SCREE ISHMAEL amphetamines Positi ve NG/mL 1,000 abnormal Elect solitario rodrigues d by LESTER KEMP NA-WE ISS Not Available [place] [address] [place], [address], 09/02/2022 10:56:04 09/02/19 23 09/01/2022 BUPRE NORPH INE PT SCREE ISHMAEL benzodiazapi everton Positi ve NG/mL 200 abnormal Not Available [facility] [place], [address], 09/02/2022 10:56:04 09/02/19 23 09/01/2022 BUPRE NORPH INE PT SCREE ISHMAEL buprenorphin e Positi ve NG/mL 5 Not Available [facility] [place], [address], 09/02/2022 10:56:04 09/02/19 23 09/01/2022 BUPRE NORPH INE PT SCREE ISHMAEL cocaine metabolite Negati ve NG/mL 150 Not Available [facility] [place], [address], 09/02/2022 10:56:04 09/02/19 23 09/01/2022 BUPRE NORPH INE PT SCREE ISHMAEL opiates Negati ve NG/mL 300 Not Available [place] [address] [place], [address], 09/02/2022 10:56:04 09/02/19 23 09/01/2022 BUPRE NORPH INE PT SCREE ISHMAEL oxycodone Negati ve NG/mL 300 Not Available [place] [address] [place], [address], 09/02/2022 10:56:04 09/02/19 23 09/01/2022 BUPRE NORPH INE PT SCREE ISHMAEL fentanyl Negati ve NG/mL 2 Not Available [place] [address] [place], [address], 09/02/2022 10:56:04 09/02/19 23 09/01/2022 BUPRE NORPH INE PT SCREE ISHMAEL ethyl alcohol Negati ve mg/dL 10 Not Available [place] [address] [place], [address], 09/02/2022 10:56:04 09/02/19 23 09/01/2022 BUPRE NORPH INE PT SCREE ISHMAEL methadone metabolite Negati ve NG/mL 300 Not Available [place] [address] [place], [address], 09/02/2022 10:56:04 09/02/19 23 09/01/2022 BUPRE NORPH INE PT SCREE ISHMAEL cannabinoids (THC) Positi ve NG/mL 50 abnormal Not Available [place] [address] [place], [address], 09/02/2022 10:56:04 09/02/19 23 09/01/2022 BUPRE NORPH INE PT SCREE ISHMAEL urine creatinine 216.0 mg/dL >20 Not Available [place] [address] [place], [address], 09/02/2022 10:56:04 09/02/19 23 09/01/2022 BUPRE NORPH INE PT SCREE ISHMAEL urine pH 5.90 4.5-9. 0 Not Available [place] [address] [place], [address], 09/02/2022 10:56:04 09/02/19 23 09/01/2022 BUPRE NORPH INE PT SCREE ISHMAEL specific gravity 1.029 1.003- 1.035 Not Available [address] [place] [address] [place], [address], 09/02/2022 10:56:04 09/02/19 23 09/01/2022 AMPHE TAMIN ES, QN, U amphetamine Negati ve NG/mL 250 Elect solitario rodrigues d by LESTER KEMP NA-WE ISS Not Available [place] [address] [place], [address], 09/07/2022 07:12:38 09/02/19 23 09/01/2022 AMPHE TAMIN ES, QN, U methamphetam ine Negati ve NG/mL 250 Not Available [facility] [place], [address], 09/07/2022 07:12:38 09/02/19 23 09/01/2022 AMPHE TAMIN ES, QN, U mda Negati ve NG/mL 250 Not Available [facility] [place], [address], 09/07/2022 07:12:38 09/02/19 23 09/01/2022 AMPHE TAMIN ES, QN, U legend Abbrev iation s OLR - Outsi de of linea r range Not Available [place] [address] [place], [address], 09/07/2022 07:12:38 09/02/19 23 09/01/2022 AMPHE TAMIN ES, QN, U billing only ([id number]) Billin g Only Not Available [place] [address] [place], [address], 09/07/2022 07:12:38 09/02/19 23 09/01/2022 PRESC RIBED DRUG CONFI RMATI ON BUPRE NORPH INE 1, QN, U buprenorphin e 91.2 NG/mL 10 Elect solitario rodrigues d by LESTER KEMP NA-WE ISS Not Available [place] [address] [place], [address], 09/07/2022 07:12:38 09/02/19 23 09/01/2022 PRESC RIBED DRUG CONFI RMATI ON BUPRE NORPH INE 1, QN, U norbuprenorp liliane 95.9 NG/mL 10 Not Available [address] [place] [address] [place], [address], 09/07/2022 07:12:38 09/02/19 23 09/01/2022 PRESC RIBED DRUG CONFI RMATI ON BUPRE NORPH INE 1, QN, U legend Abbrev iation s LOW - Detec courtney but unqua ntifi able OLR - Outsi de of linea r range ATR - Addit ional Testi ng Requi red Not Available [place] [address] [place], [address], 09/07/2022 07:12:38 09/02/19 23 09/01/2022 BENZO [place] , QN, U alpha-hydrox yalprazolam Negati ve NG/mL 25 Elect solitario [place] lilia d by LESTER KEMP NA-WE ISS Not Available [place] [address] [place], [address], 09/07/2022 07:12:39 09/02/19 23 09/01/2022 [place]ENZO [place] , QN, U 7-aminoclona zepam 662.7 NG/mL 40 high Not Available [place] [address] [place], [address], 09/07/2022 07:12:39 09/02/19 23 09/01/2022 [place] , QN, U lorazepam Negati ve NG/mL 50 Not Available [facility] [place], [address], 09/07/2022 07:12:39 09/02/19 23 09/01/2022 [place]ZO [place] , QN, U nordiazepam Negati ve NG/mL 50 Not Available [facility] [place], [address], 09/07/2022 07:12:39 09/02/19 23 09/01/2022 [place]ZO [place] , QN, U temazepam Negati ve NG/mL 50 Not Available [facility] [place], [address], 09/07/2022 07:12:39 09/02/19 23 09/01/2022 B[place] , QN, U legend Abbrev iation s OLR - Outsi de of linea r range Not Available [address] [place] [address] [place], [address], 09/07/2022 07:12:39 09/02/19 23 09/01/2022 pregn vasquez test, urine HCG negati ve Not Available [facility] [address], [address], 09/01/2022 14:30:05 Result Notes None recorded. Problems Name Problem SNOMED Code Status Onset Date Resolution Date Notes Provider Name and Address Organization Details Recorded Time Insomnia 038796811 Active 2019 Not Available [facility] 1 10:09:00 Migraine 60373618 Active 2019 Not Available [facility] 1 10:09:00 Anxiety 30416302 Active 2019 Not Available [facility] 1 10:09:00 Opioid dependence 61211205 Active 2019 Not Available [facility] 1 10:09:00 Problem Notes None recorded. Procedures Surgical History Date Name Laterality Status Provider Name and Address Organization Details Recorded Time 09/01/2022 72625, G0480, G0481 completed [facility] 09/01/2022 14:24:21 08/05/2022 06698, G0480, G0481 completed Yeleila Escobartron [facility] 08/05/2022 15:19:14 07/07/2022 37469, G0480, G0481 completed Betty Carmen [facility] 07/07/2022 14:18:49 06/08/2022 50791, G0480, G0481 completed Betty Carmen [facility] 06/08/2022 15:37:43 05/10/2022 10495, G0480, G0481 completed [facility] 05/10/2022 15:55:35 04/12/2022 94319, G0480, G0481 completed Betty Carmen [facility] - [facility] 04/12/2022 15:53:06 03/15/2022 41946, G0480, G0481 completed Betty Carmen [place] - [facility] 03/15/2022 15:23:47 02/11/2022 30818, G0480, G0481 completed Betty Carmen [place] - [facility] 02/11/2022 15:04:07 01/14/2022 43112, G0480, G0481 completed Betty Carmen [place] - [facility] 01/14/2022 15:04:41 12/17/2021 32109, G0480, G0481 completed Gabby Sharmin [facility] 12/17/2021 13:08:22 12/03/2021 29711, G0480, G0481 completed Betty Carmen [facility] - [facility] 12/03/2021 14:22:57 11/19/2021 67194, G0480, G0481 completed Emmanuelle Ann CNP [address] [place], [address], [facility] 11/19/2021 09:55:23 11/03/2021 76879, G0480, G0481 completed [facility] 11/03/2021 15:38:04 10/20/2021 73837, G0480, G0481 completed [facility] 10/20/2021 15:28:52 10/09/2021 71290, G0480, G0481 completed Doroteo Galvano [facility] 10/09/2021 14:36:25 09/23/2021 78001, G0480, G0481 completed [facility] 09/23/2021 14:54:59 09/08/2021 30919, G0480, G0481 [facility] 09/08/[facility] 14:57:18 09/01/2021 15305, G0480, G0481 completed [facility] 09/01/2021 14:40:04 08/25/2021 07691, G0480, G0481 completed Tanika Colon [facility] 08/25/2021 15:42:53 08/10/2021 10043, G0480, G0481 completed Emmanuelle Ann, GRADUATION COACH [address] [place], [address], [facility] 08/10/2021 13:28:19 08/03/2021 86490, G0480, G0481 completed Gabby Sharmin [facility] 08/03/2021 13:26:53 Imaging Results None recorded. Procedure Notes None recorded. Medical Equipment None Reported. Allergies Allergen ID Allergen Name Allergen Category Reaction Reaction Severity Criticality Documentation Date Start Date Code Code System Note Provider Name and Address Organization Details Recorded Time 4661 amoxicill in medicatio n Not available Not available Not available 07/03/2021 723 RxNorm [facility] Available [facility] 10:33:24 6583 Suboxone medicatio n headache nausea palpitati ons tachycard ia Not available Not available Not available Not available Not available 08/03/2021 37740 0 RxNorm Emmanuelle Valenzuela eiss, GRADUATION COACH [address] [place], [address], [facility] [employer] [facility] 13:50:24 Medications Name Sig Start Date Stop [...] % 99 % 98 [degF] Shayla Elena [facility] 16:05:33 Date Recorded Heart rate Oxygen saturation Oxygen saturation in Arterial blood by Pulse oximetry Provider Name and Address Organization Details Last Updated DateTime 07/07/2022 82 /min 98 % 98 % Betty Morales [facility] 07/07/2022 14:24:53 Date Recorded Heart rate Oxygen saturation Oxygen saturation in Arterial blood by Pulse oximetry Body temperature Provider Name and Address Organization Details Last Updated DateTime 08/05/2022 98 /min 98 % 98 % 97.6 [degF] Stas Bull [facility] 3 15:30:04 Social History Question Answer Notes LastModified by Organizat ion Details LastModified Time *Housing Stable - Safe Information not available 08/03/2021 *Employment Employed Self Empployed Information not available 08/03/2021 *Food Adequate Information no t available 08/03/2021 * Not A [place] Information not available 08/03/2021 *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 [...] SNOMED-CT Code Diagnosis ICD10 Code Diagnosis Note [id number] Adeel l_[place] [address] [place] [address] 01/11/2020 00:00:00 01/19/2020 11:22:57 129484 Adeel Whiteside [address] [place] [address] 01/16/2020 00:00:00 01/17/2020 08:23:35 285399 Emmanuelle person, GUILHERME Denis lRuthSpring[address] [place] [address] 08/03/2021 13:03:32 08/03/2021 14:08:09 Opioid dependence 66104382 F11.20 unstable [id number] Emmanuelle person, GUILHERME Mora[address] [place] [address] 08/10/2021 13:20:15 08/10/2021 16:40:07 Opioid dependence 82913227 F11.20 unstable [id number] Emmanuelle Schneider [facility], GUILHERME Denis l_[address] [place] [address] 08/25/2021 15:42:12 08/25/2021 16:54:25 Opioid dependence 93456384 F11.20 unstable Injection given 87998677 2 Z98.890 Stable 680719 Emmanuelle person, GUILHERME guillaumeSpring[address] [place] [address] 09/01/2021 14:38:50 09/01/2021 16:28:07 Opioid dependence 10395054 F11.20 unstable [id number] Emmanuelle person, GUILHERME HERN[facility]NDEZMedica l[facility] [address] [facility] [place] [address] 09/08/2021 14:52:38 09/08/2021 16:53:09 Opioid dependence 37641097 F11.20 unstable [id number] Emmanuelle person, GUILHERME Denis l[place] [address] [facility] [place] [address] 09/23/2021 14:47:37 09/23/2021 16:04:39 Opioid dependence 10833853 F11.20 stable Anxiety 01750177 F41.9 Stable Injection given 03841606 2 Z98.890 Stable 326460 Miguel Angel Jenkins NP [facility] [facility] [address] [facility] [place] [address] 10/09/2021 14:34:31 10/09/2021 15:13:25 Opioid dependence 02679743 F11.20 STABLE 843805 Emmanuelle person, GUILHERME Rydera l[place] [address] [facility] [place] [address] 10/20/2021 15:17:33 10/20/2021 15:39:02 Opioid dependence 56020905 F11.20 stable Anxiety 99368905 F41.9 Stable Injection given 89366389 2 Z98.890 Stable 831313 Emmanuelle person, GUILHERME Rydera [facility] [address] [facility] [place] [address] 11/03/2021 15:33:38 11/03/2021 16:25:13 Opioid dependence 15019855 F11.20 stable 224922 Emmanuelle person, GUILHERME HERN[facility]ZMedica [facility] [address] [facility] [place] [address] 11/19/2021 09:49:28 11/19/2021 11:06:05 Opioid dependence 99947835 F11.20 stable Injection given 34388449 2 Z98.890 Stable 046447 Emmanuelle person, GUILHERME HERN[facility]NDEZMedica l[facility] [address] [facility], [place] [address] 12/03/2021 14:22:00 12/03/2021 14:36:00 Opioid dependence 45023497 F11.20 stable [id number] Emmanuelle person, GUILHERME HERN[facility]NDEZMedica l[facility] [address] [facility], [place] [address] 12/17/2021 13:00:08 12/17/2021 13:35:03 Opioid dependence 67830479 F11.20 stable Injection given 76097474 2 Z98.890 Stable [id number] Emmanuelle person, GUILHERME Rydera [place] [address] [facility], [place] [address] 01/14/2022 15:02:05 01/14/2022 15:31:24 Opioid dependence 43315813 F11.20 stable Injection given 07334295 2 Z98.890 Stable 205482 Emmanuelle person, GUILHERME Rydera [place] [address] [facility], [place] [address] 02/11/2022 15:00:34 02/11/2022 16:15:24 Opioid dependence 19605230 F11.20 stable Injection given 89274722 2 Z98.890 Stable 542224 Emmanuelle person, GUILHERME [place]a [place] [address] [facility], [place] [address] 03/15/2022 15:16:13 03/15/2022 15:58:08 Opioid dependence 05747464 F11.20 stable Injection given 82130698 2 Z98.890 Stable 383059 Emmanuelle person, GUILHERME HERNÁNDEZMedica l[facility] [address] [facility] [place] [address] 04/12/2022 15:47:56 04/12/2022 16:15:19 Opioid dependence 77205669 F11.20 stable Injection given 31394855 2 Z98.890 Stable Medication dose decreased by tapering 7341290432 43538 Z76.89 Stable 597033 Emmanuelle person, GUILHERME HERN[facility]NDEZMedica l[facility] [address] [facility] [place] [address] 05/10/2022 15:51:12 2022 12:11:13 Opioid dependence 80502616 F11.20 stable Injection given 22649846 2 Z98.890 Stable Medication dose decreased by tapering 7346904449 67784 Z76.89 Stable 736701 Emmanuelle person, GUILHERME HERN[facility]NDEZMedica l[facility] [address] [facility] [place] [address] 06/08/2022 15:35:19 06/08/2022 16:47:05 Opioid dependence 56077988 F11.20 stable Injection given 72755344 2 Z98.890 Stable Medication dose decreased by tapering 4487198351 31945 Z76.89 Stable 458902 Emmanuelle person, GUILHERME Rydera l_[place] [address] [facility] [place] [address] 07/07/2022 14:14:30 07/07/2022 14:45:17 Opioid dependence 52720274 F11.20 stable 306084 Emmanuelle person, GUILHERME HERN[facility]NDEZMedica l[facility] [place] [address] [facility] [place] [address] 08/05/2022 15:18:13 08/06/2022 17:14:01 Opioid dependence 78972285 F11.20 stable [id number] Emmanuelle Schneider [facility], GUILHERME HERNÁNDEZMedica l[facility] [address] [facility] [place] [address] 09/01/2022 14:18:47 09/01/2022 14:43:39 Opioid dependence 36636039 F11.20 stable Health Concerns Section Related Observation LastModified by Organization Detai ls LastModified Time None Recorded Concern Status LastModified by Organization Details LastModified Time None Recorded Advance Directives Directive None Recorded Payers Encounter Date Sequence Insurance Name Policy Number Policy Lemon Covered Member ID Lemon Member ID Guarantor Name 05/10/2022 1 [employer] - HEALTH NET PLAN (MEDICAID HMO) [id number] Eugenia Lopardo [id number] Eugenia Lopardo 06/08/2022 1 [facility] HEALTH NET PLAN (MEDICAID HMO) [id number] Eugenia Lopardo [id number] Eugenia Lopardo 07/07/2022 1 [facility] HEALTH NET PLAN (MEDICAID HMO) [id number] Eugenia Lopardo [id number] Eugenia Lopardo 08/05/2022 1 [facility] HEALTH NET PLAN (MEDICAID HMO) [id number] Eugenia Lopardo [id number] Eugenia Lopardo 09/01/2022 1 [facility] HEALTH NET PLAN (MEDICAID HMO) [id number] Eugenia Lopardo [id number] Eugenia Lopardo Notes Date Note Type Note Provider Name and Address Organization Details Recorded Time 05/10/2022 text/html This patient is being treated for their OUD with Sublocade Injection. They are here today for their injection visit. PLEASE SEE A & P SECTION FOR FULL VISIT NOTE Emmanuelle Ann, GRADUATION COACH [address] [place], [address], [facility] 05/10/2022 16:20:28 06/08/2022 text/html This patient is being treated for their OUD with Sublocade Injection. They are here today for their injection visit. PLEASE SEE A & P SECTION FOR FULL VISIT NOTE Emmanuelle Ann, GUILHERME [address] [place], [address], [facility] 06/08/2022 16:57:07 07/07/2022 text/html This patient is being treated for their OUD with Sublocade Injection. They are here today for their injection visit. PLEASE SEE A & P SECTION FOR FULL VISIT NOTE This patient is here today for their follow-up MAT visit. They are being treated for OUD with buprenorphine. PLEASE SEE A & P SECTION FOR FULL VISIT NOTE Emmanuelle Ann, GRADUATION COACH [address] [place], [address], [employer] 07/07/2022 14:54:07 08/05/2022 text/html This patient is here today for their follow-up MAT visit. They are being treated for OUD with buprenorphine. PLEASE SEE A & P SECTION FOR FULL VISIT NOTE Emmanuelle Ann CNP [address] [place], [address], [facility] [employer] [facility] 08/05/2022 15:39:37 09/01/2022 text/html This patient is here today for their follow-up MAT visit. They are being treated for OUD with buprenorphine. PLEASE SEE A & P SECTION FOR FULL VISIT NOTE Emmanuelle Ann, GUILHERME [address] [place], [address], [facility] [employer] [facility] 09/01/2022 14:44:27 OBGyn Episode No OBEpisode recorded.
--- OUTSIDE RECORDS SUMMARY | 2024-08-01 14:26 | XMS_ITS | Patient Health Record ---
Author Organization [facility] Address [address] [place] [address] Care Team Providers Care Online Advertising Director Name Role Phone SHELLY DUKES Primary Care Provider Allergies Allergen (clinical drug ingredient) Drug/Non Drug Allergy documented on EMR Reaction Allergy Type Onset Date Status amoxicillin Amoxicillin hives Drug Allergy Act poncho Results Component Value Reference Range Notes Calprotectin, Fecal-[id number] Reviewed date:09/22/2023 12:13:25 PM Interpretation: Performing Lab:[facility], [address] [place] [address], Phone - [phone], Director - Mychal Notes/Report: Clinical Information:SRC:ST SRC:ST Calprotectin, Fecal 10 0-120 ug/g Concentration Interpretation Follow-Up < 5 - 50 ug/g Normal None >50 -120 ug/g Borderline Re-evaluate in 4-6 weeks >120 ug/g Abnormal Repeat as clinically indicated Lactoferrin, Fecal, Quant.-1 74884 Reviewed date:09/22/2023 12:14:18 PM Interpretation: Performing Lab:[facility], [facility], Phone - [phone], Director - Mychal Notes/Report: Clinical Information:SRC:ST SRC:ST [...] syndrome (IBS). C difficile Toxins A+B, EIA- 676884 Reviewed date:09/22/2023 12:13:39 PM Interpretation: Performing Lab:[facility] [place], [address] [place] [address], [place], Phone - [phone], Director - Mychal Notes/Report: Clinical Information:SRC:ST SRC:ST C difficile Toxins A+B, EIA Negative Negative White Blood Cells (WBC), Sto ol-337430 Reviewed date:09/22/2023 12:13:14 PM Interpretation: Performing Lab:[facility] [place], [address] [place] [address], [place], Phone - [phone], Director - Mychal Notes/Report: Clinical Information:SRC:ST SRC:ST Clinical Information:SRC:ST SRC:ST White Blood Cells (WBC), Stool Final report None Seen Result 1 No white blood cells seen. Stool Culture-886671 Reviewed date:09/22/2023 12:13:47 PM Interpretation: Performing Lab:[facility] [place], [address] [place] [address], [place], Phone - [phone], [facility] Notes/Report: Clinical Information:SRC:ST SRC:ST Clinical Information:SRC:ST SRC:ST Clinical Information:SRC:ST SRC:ST Salmonella/Shigella Screen Final report Campylobacter Culture Final report E coli Shiga Toxin EIA Negative Negative Result 1 No Salmonella o r Shigella recovered. Result 1 No Campylobacte r species isolated. Reason For Referral Reason rash Diagnosis 1 Rash and other nonsp ecific skin eruption (R21) Referral Organization [facility] Referring Provider First Name SHELLY Referring Provider Last Name [facility] Referring Provider Speciality Internal M edicine Referred Provider Specialty Dermatology General Notes Referral sent to [facility] F: [phone], marked STAT. Printed referral and given to patient, Kristal Perez 09/08/2023 04:14:37 PM > Clinical Notes Fax failed, Printed referral with ov notes and manually faxed to F: [phone], Chris Kristal 09/09/2023 08:01:14 AM > Referral Priority Stat Reason diarrhea Diagnosis 1 Diarrhea, unspecifie d (R19.7) Referral Organization [facility] Referring Provider First Name SHELLY Referring Provider Last Name GUAngelica Referring Provider Speciality Internal M edicine Referred Provider Specialty Gastroentero logy General Notes Referral faxed to Honorio [facility] at F: [phone], Tonyaylakvng Kristal 10/05/2023 12:54:24 PM > Referral [...] Status W/U Status Risk Notes Problem Thyrotoxicosis (82278548) Thyrotoxicosis, unspecified without thyrotoxic crisis or storm (E05.90) Active confirmed Problem Vitamin D deficiency (69409295) Vitamin D deficiency, unspecified (E55.9) Active confirmed Problem Opioid dependence (68009161) Opioid dependence, uncomplicated (F11.20) Active confirmed Problem Generalized anxiety disorder (42403998) Generalized anxiety disorder (F41.1) Active confirmed Problem Chronic migraine without aura, non-refractory (disorder) (960094960734326) Migraine without aura, not intractable, without status migrainosus (G43.009) Active confirmed Problem Chronic sinusitis (96315566) Chronic sinusitis, unspecified (J32.9) Active confirmed Vital Signs Heart Rate 80 /min 09/08/2023 Temperature 97.2 degrees Fahrenheit 09/08/2023 Blood pressure diastolic 100 mm Hg 09/08/2023 Oximetry 98 % 09/08/2023 Height 64 in 09/08/2023 Blood pressure systolic 128 mm Hg 09/08/2023 Weight 112.2 lbs 09/08/2023 BMI 19.26 kg/m2 09/08/2023 Encounters Encounter Location Date Provider Diagnosis [address] [address] 06/04/[address] [address] 09/08/2023 BRAVO GUL Diarrhea, unspecifie d R19.7 and Rash and other nonspecific skin eruption R21 [address] [address] 09/06/[address] [address] 09/09/[address] [address] 09/15/[address] [address] 12/20/2023 BRAVO GUL Assessments Encounter Date Diagnosis (ICD Code) Assessment Notes Treatment Notes Treatment Clinical Notes Section Notes 09/08/2023 Diarrhea, unspecified (ICD-10 - R19.7) Ms. Hightoewr is a 28 year old lady with [...] this note under HIPAA compliance and under [place] law mandated for scribe services. Patient aware [...] this note under HIPAA compliance and under [place] law mandated for scribe services. Patient aware [...] PANEL 06/02/2022 C-REACTIVE PROTEIN 06/02/2022 DNA (DOUBLE-STRANDED, ASA'CARSARMIUT) ANTIBODY 1 08/02/2021 LIPID PANEL 06/02/2022 RHEUMATOID [...] Insured Coverage Start Date Coverage End Date [facility] [address] [address] [place] [address] [id number] Eugenia Hightower Self - patient is the insured Medical (General) History Medical History History ICD Code hypertension hyperthyroidism insomnia Opioid use disorder Generalized anxiety disorder/mood disord er, Dr. Saldana Chronic insomnia Migraine headaches Vitamin D deficiency Personal history of COVID-19
--- OUTSIDE RECORDS SUMMARY | 2024-08-01 14:26 | XMS_ITS | Clinical Summary ---
Author Organization [facility] it Address [address] [place] [address] Care Team Providers Care Dock Worker Name Role Phone Meliza Martinez MD Primary Care Provider [phone] Surgical History Surgery Date Site/Laterality Comments OTHER [...] age to complete this topic Care Teams Dock Worker Relationship Specialty Start Date End Date Meliza Martinez MD PCP - General Internal Medicine 10/23/18
[2024-08-02 07:44] LABS: Triiodothyronine T3 Free 3.5 pg/mL (2.3-4.2); Triiodothyronine T3 Total 101 ng/dL (76-181)
[2024-08-02 10:23] LABS: Ceruloplasmin 25 mg/dL (14-48)
[2024-08-04 00:29] LABS: Zinc 79 mcg/dL (60-130)
[2024-08-04 16:28] LABS: Copper, serum 112 mcg/dL (70-175)
== END 2024-08-01 12:03 | disposition home or self-care (01) ==
LOC: HO.LAB 12:02
PROVIDERS: PCP Hospitalist; Visit Provider Nurse Practitioner Family
DX: R51.9 Headache, unspecified (principal); H53.8 Other visual disturbances; R76.8 Other specified abnormal immunological findings in serum; R74.8 Abnormal levels of other serum enzymes; M54.50 Low back pain, unspecified
CPT/HCPCS: 36415; 72114; 80053; 82390; 82525; 84439; 84443; 84480; 84481; 84630; 85025

== ENCOUNTER → 2024-08-01 12:33 | Outpatient (BNV) | payer OTHER, SELFPAY | PROVIDERS: PCP Hospitalist; Visit Provider Radiology Diagnostic Radiology | DX: M54.50 Low back pain, unspecified (principal) | CPT/HCPCS: 72114 ==

== ENCOUNTER 2024-10-31 12:28 | Outpatient (REF) | payer OTHER, SELFPAY ==
--- OUTSIDE RECORDS SUMMARY | 2024-10-31 15:08 | XMS_ITS | Encounter Summary ---
Author Organization [facility] Address [address] [place] [address] Care Team Providers Care Superintendent Production Name Role Phone Dick Rene MD Primary Care Provider [phone] Reason for Visit * Reason Comments Abdominal Pain Encounter Details Date Type Department Care Team (Late st Contact Info) Description 10/27/2024 2:38 PM EDT - 10/27/2024 7:14 PM EDT Emergency [facility] Emergency [address] [place] [address] Abdominal pain, epigastric (Primary Dx); [...] she was seen at a hospital in [place] and diagnosed with acute pancreatitis when she had similar pain, then 2 weeks later was seen at [facility] however there were no acute findings on [...] REFLEX MICROSCOPIC AND CULTURE - Normal Specific Finley Urine 1.017 pH, Urine 7.0 Leukocytes, Urine [...] Procedure Abnormality Status --------- ------ CBC auto differential[[id number]] Abnormal Final result Please view results for these tests on the individual orders. URINALYSIS WITH REFLEX MICROSCOPIC AND CULTURE Narrative: The following orders were created for panel order Urinalysis with reflex microscopic and culture. Procedure Abnormality Status --------- ------ Urinalysis with reflex ...[[id number]] Normal Final result Schmitz urine culture tube[[id number]] Final result Please view results for these [...] ago was seen at a hospital in [place] and found to have acute pancreatitis with similar pain, then 2 weeks later was seen at [facility] with similar pain but there was no [...] on 10/27/2024 17:13:03 us Yotam Block [facility] CT PROCEDURES Final Result * ECG 12 lead (10/27/2024 4:20 PM EDT) Ventricular Rate ECG 70 BPM GEMUSE Atrial Rate 70 BPM GEMUSE P-R Interval 120 ms GEMUSE QRS Duration 74 ms GEMUSE Q-T Interval 424 ms GEMUSE QTc 457 ms GEMUSE P Wave Tie Siding 40 degrees GEMUSE R Tie Siding 71 degrees GEMUSE T Tie Siding 45 degrees GEMUSE ECG Interpretation Normal sinus rhythm with sinus arrhythmia Normal ECG When compared with ECG of 23-AUG-2017 21:54, QT has lengthened Confirmed by MD Domingo, Dexter ([id number]) on 10/28/2024 12:15:21 AM GEMUSE 10/27/2024 4:20 PM EDT 10/28/2024 12:15 AM EDT us [email or web address] [place] ECG ORDERABLES Final Result Performing Organization Address City/[facility]/ZIP Co de Phone Number GEMUSE * Schmitz urine culture tube (10/27/2024 4:08 PM EDT) Pathologist [facility] Extra Tube Hold for add-ons. 10/27/2024 6:01 PM EDT [facility] Comment:Auto resulted. Urine Urine specimen obtained by clean catch procedure / Unknown Non-blood Collection / Unknown 10/27/2024 4:08 PM EDT 10/27/2024 4:15 PM EDT Blair Angulo [place] LAB URINE ORDERABLES Final Resul t Performing Organization Address City/[facility] Co de Phone Number [facility] [address] [place] [address], [place] [phone] * Urinalysis with reflex microscopic and culture (10/27/2024 4:08 PM EDT) Pathologist [facility] Specific Finley Urine 1.017 1.003 - 1.030 LAB URINALYSIS - AUTOMATED METHOD 10/27/2024 4:38 PM EDT [facility] pH, Urine 7.0 5.0 - 8.0 pH LAB URINALYSIS - AUTOMATED METHOD 10/27/2024 4:38 PM EDT [facility] Leukocytes, Urine Negative Negative LAB URINALYSIS - AUTOMATED METHOD 10/27/2024 4:38 PM EDT [facility] Nitrite, Urine Negative Negative LAB URINALYSIS - AUTOMATED METHOD 10/27/2024 4:38 PM EDT [facility] Protein, Urine Negative <=Trace mg/dL LAB URINALYSIS - AUTOMATED METHOD 10/27/2024 4:38 PM EDT [facility] Glucose, Urine Negative Negative mg/dL LAB URINALYSIS - AUTOMATED METHOD 10/27/2024 4:38 PM EDT [facility] Ketones, Urine Negative Negative mg/dL LAB URINALYSIS - AUTOMATED METHOD 10/27/2024 4:38 PM EDT [facility] Urobilinogen, Urine 0.2 0.2 - 1.0 mg/dL LAB URINALYSIS - AUTOMATED METHOD 10/27/2024 4:38 PM EDT [facility] Bilirubin, Urine Negative Negative LAB URINALYSIS - AUTOMATED METHOD 10/27/2024 4:38 PM EDT [facility] Blood, Urine Negative Negative LAB URINALYSIS - AUTOMATED METHOD 10/27/2024 4:38 PM EDT [facility] Urine Urine specimen obtained by clean catch procedure / Unknown Non-blood Collection / Unknown 10/27/2024 4:08 PM EDT 10/27/2024 4:15 PM EDT us Bentley Kev [place] LAB URINE ORDERABLES Final Resul t [facility] [address] [place] [address], * POC , urine manually resulted (10/27/2024 4:07 PM EDT) HCG, Ur POC Negative Negative POC hCG Int QC Pass? Yes Yes Urine Urine specimen obtained by clean catch procedure / Unknown 10/27/2024 4:07 PM EDT De Moody MD POINT OF CARE TEST ENTER/ED IT ORDERABLES Final Result * (ABNORMAL) CBC auto differential (10/27/2024 1:59 PM EDT) [facility] WBC 5.7 4.8 - 10.8 K/mcL LAB HEMETOLOGY METHOD 10/27/2024 2:23 [facility] RBC 3.90 3.80 - 4.80 M/mcL LAB HEMETOLOGY METHOD 10/27/2024 2:23 PM [facility] Hemoglobin 11.0(L) 11.5 - 16.0 g/dL LAB HEMETOLOGY METHOD 10/27/2024 2:23 PM [facility] Hematocrit 33.4(L) 35.0 - 47.0 % LAB HEMETOLOGY METHOD 10/27/2024 2:23 PM [facility] MCV 84.8 79.0 - 98.0 FL LAB HEMETOLOGY METHOD 10/27/2024 2:23 PM [facility] MCH 27.9 27.0 - 32.0 pcg LAB HEMETOLOGY METHOD 10/27/2024 2:23 PM [facility] MCHC 32.9 32.0 - 37.0 g/dL LAB HEMETOLOGY METHOD 10/27/2024 2:23 PM [facility] RDW 11.6 11.0 - 15.0 % LAB HEMETOLOGY METHOD 10/27/2024 2:23 PM [facility] Platelets 254 130 - 400 K/mcL LAB HEMETOLOGY METHOD 10/27/2024 2:23 PM [facility] MPV 9.6 7.0 - 11.0 FL LAB HEMETOLOGY METHOD 10/27/2024 2:23 PM [facility] NRBC 0.0 <1.0 % LAB HEMETOLOGY METHOD 10/27/2024 2:23 PM T [facility] NRBC Absolute 0.00 <0.10 K/mcL LAB HEMETOLOGY METHOD 10/27/2024 2:23 PM [facility] Neutrophils Relative 55.3 % LAB HEMETOLOGY METHOD 10/27/2024 2:23 PM [facility] Lymphocytes Relative 36.8 % LAB HEMETOLOGY METHOD 10/27/2024 2:23 PM [facility] Monocytes Relative 5.7 % LAB HEMETOLOGY METHOD 10/27/2024 2:23 PM [facility] Eosinophils Relative 0.9 % LAB HEMETOLOGY METHOD 10/27/2024 2:23 PM [facility] Basophils Relative 0.9 % LAB HEMETOLOGY METHOD 10/27/2024 2:23 PM [facility] Immature Granulocytes Relative 0.4 % LAB HEMETOLOGY METHOD 10/27/2024 2:23 PM [facility] Neutrophils Absolute 3.13 1.50 - 7.00 K/mcL LAB HEMETOLOGY METHOD 10/27/2024 2:23 PM [facility] Lymphocytes Absolute 2.08 1.00 - 5.00 K/mcL LAB HEMETOLOGY METHOD 10/27/2024 2:23 PM [facility] Monocytes Absolute 0.32 0.20 - 1.00 K/mcL LAB HEMETOLOGY METHOD 10/27/2024 2:23 PM [facility] Eosinophils Absolute 0.05 0.00 - 0.50 K/mcL LAB HEMETOLOGY METHOD 10/27/2024 2:23 PM [facility] Basophils Absolute 0.05 0.00 - 0.20 K/mcL LAB HEMETOLOGY METHOD 10/27/2024 2:23 PM [facility] Immature Granulocytes Absolute 0.02 0.00 - 0.03 K/mcL LAB HEMETOLOGY METHOD 10/27/2024 2:23 PM EDT [facility] Blood Venous blood specimen / Unknown Venipuncture / Unknown 10/27/2024 1:59 PM EDT 10/27/2024 2:17 PM EDT De Moody MD LAB BLOOD ORDERABLES Final Result Performing Organization Address [facility]/ZIP Co de Phone Number [facility] [address] [place] [address], [place] [phone] * Lipase (10/27/2024 1:59 PM EDT) [facility] Lipase 17 13 - 75 unit/L LAB CHEMISTRY METHOD 10/27/2024 2:47 PM EDT [facility] Blood Venous blood specimen / Unknown Venipuncture / Unknown 10/27/2024 1:59 PM EDT 10/27/2024 2:17 PM EDT De Moody MD LAB BLOOD ORDERABLES Final Result Performing Organization Address [facility] de Phone Number [facility] [address] [place] [address], [place] [phone] * Comprehensive metabolic panel (10/27/2024 1:59 PM EDT) [facility] Sodium 136 133 - 145 mmol/L LAB CHEMISTRY METHOD 10/27/2024 2:47 PM EDT [facility] Potassium 4.3 3.5 - 5.5 mmol/L LAB CHEMISTRY METHOD 10/27/2024 2:47 PM EDT [facility] Chloride 102 96 - 110 mmol/L LAB CHEMISTRY METHOD 10/27/2024 2:47 PM EDT [facility] CO2 27 21 - 32 mmol/L LAB CHEMISTRY METHOD 10/27/2024 2:47 PM EDT [facility] Anion Gap 7 3 - 11 LAB CHEMISTRY METHOD 10/27/2024 2:47 PM [facility] Glucose 95 70 - 100 mg/dL LAB CHEMISTRY METHOD 10/27/2024 2:47 PM [facility] BUN 11 5 - 25 mg/dL LAB CHEMISTRY METHOD 10/27/2024 2:47 PM [facility] Creatinine 0.57 0.50 - 1.10 mg/dL LAB CHEMISTRY METHOD 10/27/2024 2:47 PM [facility] eGFR 126 >=60 mL/min/1. 73m2 LAB CHEMISTRY METHOD 10/27/2024 2:47 PM [facility] Comment:Calculation based on the??Chronic Kidney Disease Epidemiology Collaboration (CKD-EPI) equation refit??without adjustment for race. BUN/Creatinine Ratio 19.3 LAB CHEMISTRY METHOD 10/27/2024 2:47 PM [facility] Calcium 9.3 8.5 - 10.5 mg/dL LAB CHEMISTRY METHOD 10/27/2024 2:47 PM [facility] AST (SGOT) 11 10 - 42 unit/L LAB CHEMISTRY METHOD 10/27/2024 2:47 PM [facility] ALT (SGPT) 13 10 - 60 unit/L LAB CHEMISTRY METHOD 10/27/2024 2:47 PM [facility] Alkaline Phosphatase 63 42 - 121 unit/L LAB CHEMISTRY METHOD 10/27/2024 2:47 PM [facility] Total Protein 7.5 6.0 - 8.0 g/dL LAB CHEMISTRY METHOD 10/27/2024 2:47 PM [facility] Albumin 4.1 3.2 - 5.0 g/dL LAB CHEMISTRY METHOD 10/27/2024 2:47 PM [facility] Total Bilirubin 0.3 0.0 - 1.4 mg/dL LAB CHEMISTRY METHOD 10/27/2024 2:47 PM EDT [facility] Blood Venous blood specimen / Unknown Venipuncture / Unknown 10/27/2024 1:59 PM EDT 10/27/2024 2:17 PM EDT us De Moody MD LAB BLOOD ORDERABLES Final Result [facility] [address] [place] [address], documented in this encounter Visit Diagnoses Diagnosis [...] Hernandez) documented in this encounter Care Teams Superintendent Production Relationship Specialty Start Date End Date Dick Rene MD [address] [place] [address] PCP - General Internal Medicine 09/08/24 documented as of this encounter
--- OUTSIDE RECORDS SUMMARY | 2024-10-31 15:08 | XMS_ITS | Data Portability ---
Author Organization [place] - [employer], , [place]_[facility] Address [address] [place] [address] Assessment Encounter Date Assessment Date Assessment LastModified by Organization Details LastModified Time 01/11/2020 01/11/2020 - PRESENTS TOODA Y FOR INITIAL BUP ASSMT - PMH: OPIATE (VICODIN) PILL ABUSE. PRESCRIBE FOR MIGRAINES. ONCE D/'C'D SOUGHT illicit OXYCODONE--ENROLLE D IN [facility] BUP [place] PROG 07/2019. RECIEVED SUBOXONE 6 MG/DAILY (DIV TID DOSES) - D/T INSUR ISSUES PT [facility] / GRANDMOTHER, UNEMPLOYED - DISCUSSED [...] risk of combining sedating agents. Not available 01/19/2020 11:22:47 01/16/2020 01/16/2020 - INITIAL BUP 01/10. PMX: TREATED FR MIGRAINES W/ VICODIN, ONCE D/C'D ABUSE OF ILLICIT OXYCODONE. ENTERED [facility] WITH SUBOXONE 6 MG/DAILY ( DIV TID DOSES) - PRESENTS TO TODAY INFORMING SHE WILL OBTAIN MAT SERVICES AT [facility] WITH MAIRA GREENWOOD BEGINNING 01/23 [...] risk of combining sedating agents. Not available 01/17/2020 08:22:46 Plan of Treatment Reminders Order Date Submit Date Provider Last Modified By Organization Details Last Modified Time Details Appointments None recorded. Lab drug screen, urine 2019 [facility], [address] [place], [address], 0 11:39:43 test, urine 2019 Not available 0 17:23:17 drug screen, urine 2019 [facility], [address] [place], [address], 0 12:38:05 Referral None recorded. Procedures None recorded. Surgeries None recorded. Imaging None recorded. Medication Orders None recorded. Patient TargetsNo targets recorded. Patient Instructions Encounter Date Encounter Id Patient Instructions Last Modified By Organization Details Last Modified Time 01/11/2020 [id number] Abstain from opiates for 24 hours unless [...] Agree to not falsify your urine specimens. [email or web address] Not available 01/11/2020 14:25:40 Education provid [...] & Drop out prevention in early recovery. [email or web address] Not available 01/11/2020 14:25:40 01/16/2020 [id number] As part of your individualized treatment plan and program requirement, you will need to bring your correct prescription bottle and all used and unused medication and counseling verification to each appointment; > Agree to participate in counseling and bring counseling verification to each appointment; > Agree to present for random visits; > Agree to not falsify your urine specimens. [email or web address] 9 Not available 01/16/2020 15:21:56 Education provid [...] & Drop out prevention in early recovery. [email or web address] Not available 01/16/2020 15:21:56 Reason for Referral None Reported. Results Created Date Observation Date Name Description Value Unit Range Abnormal Flag Note LastModifiedBy Organization Detail LastModifiedTime 01/11/20 20 01/11/2020 drug scree n, urine amphetamine NEGATI VE 100 Elect solitario rodrigues d by IRENE LOPEZ Not Available [facility] [address] [address] [place], [address], 01/14/2020 12:38:05 01/11/2001/11/2020 drug scree n, urine benzodiazepi ne NEGATI VE 100 Not Available [facility] [place], [address], 01/14/2020 12:38:05 01/11/2001/11/2020 drug scree n, urine buprenorphin e POSITI VE 100 Not Available [facility] [place], [address], 01/14/2020 12:38:05 01/11/20 20 01/11/2020 drug scree n, urine cannabinoid NEGATI VE 100 Not Available [place] [address] [place], [address], 01/14/2020 12:38:05 01/11/20 20 01/11/2020 drug scree n, urine cocaine metab. NEGATI VE 100 Not Available [place] [address] [place], [address], 01/14/2020 12:38:05 01/11/20 20 01/11/2020 drug scree n, urine methadone NEGATI VE 100 Not Available [place] [address] [place], [address], 01/14/2020 12:38:05 01/11/20 20 01/11/2020 drug scree n, urine opiates NEGATI VE 100 Not Available [place] [address] [place], [address], 01/14/2020 12:38:05 01/11/20 20 01/11/2020 drug scree n, urine oxycodone NEGATI VE 100 Not Available [place] [address] [place], [address], 01/14/2020 12:38:05 01/11/20 20 01/11/2020 drug scree n, urine ethanol <10, <10 mg/dL <10 Not Available [place] [address] [place], [address], 01/14/2020 12:38:05 01/11/20 20 01/11/2020 drug scree n, urine fentanyl NEGATI VE 100 Not Available [place] [address] [place], [address], 01/14/2020 12:38:05 01/11/20 20 01/11/2020 drug scree n, urine creatinine 203.2 mg/dL >20 Not Available [place] [address] [place], [address], 01/14/2020 12:38:05 01/11/20 20 01/11/2020 drug scree n, urine specific gravity 1.024 1.003- 1.035 Not Available [place] [address] [address] [place], [address], 01/14/2020 12:38:05 01/11/20 20 01/11/2020 drug scree n, urine pH 7.00 4.5-9. 0 Not Available [place] [address] [address] [place], [address], 01/14/2020 12:38:05 01/11/20 20 01/11/2020 pregn vasquez test, urine HCG negati ve Not Available [facility] [address], [address], 01/11/2020 14:25:45 01/16/20 20 01/16/2020 drug scree n, urine amphetamine Negati ve 100 Elect solitario rodrigues d by IRENE LOPEZ Not Available [place] [address] [place], [address], 01/17/2020 11:39:43 01/16/20 20 01/16/2020 drug scree n, urine benzodiazepi ne Negati ve 100 Not Available [place] [address] [place], [address], 01/17/2020 11:39:43 01/16/20 20 01/16/2020 drug scree n, urine buprenorphin e Positi ve 100 Not Available [place] [address] [place], [address], 01/17/2020 11:39:43 01/16/20 20 01/16/2020 drug scree n, urine cocaine metab. Negati ve 100 Not Available [place] [address] [place], [address], 01/17/2020 11:39:43 01/16/20 20 01/16/2020 drug scree n, urine methadone Negati ve 100 Not Available [place] [address] [place], [address], 01/17/2020 11:39:43 01/16/20 20 01/16/2020 drug scree n, urine opiates Negati ve 100 Not Available [place] [address] [place], [address], 01/17/2020 11:39:43 01/16/20 20 01/16/2020 drug scree n, urine oxycodone Negati ve 100 Not Available [place] [address] [place], [address], 01/17/2020 11:39:43 01/16/20 20 01/16/2020 drug scree n, urine fentanyl Negati ve 100 Not Available [place] [address] [place], [address], 01/17/2020 11:39:43 01/16/20 20 01/16/2020 drug scree n, urine creatinine 112.9 mg/dL >20 Not Available [place] [address] [place], [address], 01/17/2020 11:39:43 01/16/20 20 01/16/2020 drug scree n, urine specific gravity 1.021 1.003- 1.035 Not Available [place] [address] [place], [address], 01/17/2020 11:39:43 01/16/20 20 01/16/2020 drug scree n, urine pH 7.10 4.5-9. 0 Not Available [place] [address] [place], [address], 01/17/2020 11:39:43 Result Notes None recorded. Problems Name Problem SNOMED Code Status Onset Date Resolution Date Notes Provider Name and Address Organization Details Recorded Time Opioid dependence 62877842 Active 020 IRENE LOPEZ NP [address] [place] [address] [place], [address], [facility], 0 07:03:19 Anxiety 86196459 Active 020 IRENE LOPEZ NP [address] [place], [address], [facility], 0 07:03:28 Migraine 15086985 Active 020 IRENE LOPEZ NP [address] [place], [address], [facility], 0 07:03:35 Insomnia 907621373 Active 020 IRENE LOPEZ, [address] [place], [address], [facility], 0 07:04:01 Problem Notes None recorded. Procedures Surgical History Date Name Laterality Status Provider Name and Address Organization Details Recorded Time 01/16/2020 [address]3871, G0480, G0481 completed [facility], 01/16/2020 15:21:56 01/11/2020 998[address], G0480, G0481 completed [facility], 01/11/2020 14:25:41 Imaging Results None recorded. Procedure Notes None recorded. Medical Equipment None Reported. Allergies Allergen ID Allergen Name Allergen Category Reaction Reaction Severity Criticality Documentation Date Start Date Code Code System Note Provider Name and Address Organization Details Recorded Time 4119 amoxicill in medicatio n Not available Not available Not available 01/12/2020 723 RxNorm IRENE LOPEZ NP [address] [place] [address], [place], [address], [facility], 0 06:58:39 Medications Name Sig Start Date Stop Date Status Note LastModified by Organization Details LastModified Time Suboxone 4 mg-[address] 1 film twice a day by sublingual route. 2019 active Not Available Not Available Not Avai lable Vitals Date Recorded Body temperature Provider Name a nd Address Organization Details Last Updated DateTime 01/11/2020 98.5 [degF] Tanika Colon [facility], 01/11/2020 14:21:38 Date Recorded Body temperature Provider Name a nd Address Organization Details Last Updated DateTime 01/16/2020 98.7 [degF] Tanika Hollingsworth [facility], 01/16/2020 15:17:28 Date Recorded Oxygen saturation Oxygen saturation in Arterial blood by Pulse oximetry Heart rate Provider Name and Address Organization Details Last Updated DateTime 01/16/2020 98 % 98 % 130 /min Nasreen Yoder [facility], 01/16/2020 15:31:42 Social History None recorded. Functional Status None recorded. Mental Status None recorded. Family History Nothing Reported Notes:NICOTINE ADDICTION Medical History No medical history recorded. Gynecological HistoryNo gynecological history recorded. Obstetrics History GPAL:G 0 P 0 0 0 0 Past Encounters Encounter ID Performer Location Encounter Start Date Encounter Closed Date Diagnosis/Indication Diagnosis SNOMED-CT Code Diagnosis ICD10 Code Diagnosis Note [id number] Ashely Sharp MD [facility] [address] [place] [address] 01/11/2020 14:19:16 01/11/2020 15:58:59 Opioid dependence 17156809 F11.20 Anxiety 91305850 F41.9 [id number] Ashely Sharp MD [facility] [address] [place] [address] 01/16/2020 15:17:05 01/16/2020 16:24:54 Opioid dependence 43955654 F11.20 Health Concerns Section Related Observation LastModified by Organization Detai ls LastModified Time None Recorded Concern Status LastModified by Organization Details LastModified Time None Recorded Advance Directives Directive None Recorded Payers Encounter Date Sequence Insurance Name Policy Number Policy Lemon Covered Member ID Lemon Member ID Guarantor Name 01/11/2020 1 [facility] Our [employer] Team [employer] (MEDICAID HMO) [id number] Eugenia Davispardo [id number] Eugenia Hightower 01/16/2020 1 [facility] Our Security Team [employer] (MEDICAID HMO) [id number] Eugenia Davispardo [id number] Eugenia Davispar Notes Date Note Type Note Provider Name [...] CLICK TO FREE TEXT}}. IRENE LOPEZ NP [address] [place] [address], [phone], [facility] [employer], 01/19/2020 11:22:57 01/16/2020 text/html The patient repo [...] TO FREE TEXT OR DELETE LINE}} IRENE LOPEZ NP [address] [place] [address], [phone], [facility], 01/17/2020 08:23:35 OBGyn Episode No OBEpisode recorded.
--- OUTSIDE RECORDS SUMMARY | 2024-10-31 15:08 | XMS_ITS | Clinical Summary ---
Author Organization [facility] Address [address] [place] [address] Phone Care Team Providers Care Design Editor Name Role Phone Dick Rene MD Primary Care Provider Allergies Active Allergy Reactions Criticality Noted Date Comments Amoxicillin Rash 12/13/2006 Medications promethazine (PHENERGAN) 12.5 mg tablet Take 1 tablet (12.5 mg total) by mouth every 4 (four) hours if needed. 10/08/2024 Active Active Problems No known active problems Encounters Date Type Department Care Team Description 10/27/2024 2:38 PM EDT - 10/27/2024 7:14 PM EDT Emergency [facility] Emergency [address] [place] [phone] Abdominal pain, epigastric (Primary Dx); Pericardial effusion Discharge Disposition: Home or Self Care 09/08/2024 1:17 PM EST - 09/08/2024 5:06 PM EST Emergency [facility] Emergency [address] [place] [phone] Acute recurrent frontal sinusitis (Primary Dx) Discharge [...] This document has been electronically signed by: Umberot Blevins MD on 10/27/2024 17:13:03 Yotam Block PA IM CT PROCEDURES Final Result * ECG 12 lead (10/27/2024 4:20 PM EDT) Ventricular Rate ECG 70 BPM GEMUSE Atrial Rate 70 BPM GEMUSE P-R Interval 120 ms GEMUSE QRS Duration 74 ms GEMUSE Q-T Interval 424 ms GEMUSE QTc 457 ms GEMUSE P Wave Nenzel 40 degrees GEMUSE R Nenzel 71 degrees GEMUSE T Nenzel 45 degrees GEMUSE ECG Interpretation Normal sinus rhythm with sinus arrhythmia Normal ECG When compared with ECG of 23-AUG-2017 21:54, QT has lengthened Confirmed by MD Domingo, Dexter ([id number]) on 10/28/2024 12:15:21 AM GEMUSE 10/27/2024 4:20 PM EDT 10/28/2024 12:15 AM EDT Blair OJEDA ECG ORDERABLES Final Result GEMUSE * Urinalysis with reflex microscopic and culture (10/27/2024 4:08 PM EDT) Specific [place] Urine 1.017 1.003 - 1.030 LAB URINALYSIS - AUTOMATED METHOD 10/27/2024 4:[address] [facility] pH, Urine 7.0 5.0 - 8.0 pH LAB URINALYSIS - AUTOMATED METHOD 10/27/2024 4:38 PM [facility] Leukocytes, Urine Negative Negative LAB URINALYSIS - AUTOMATED METHOD 10/27/2024 4:38 PM [facility] Nitrite, Urine Negative Negative LAB URINALYSIS - AUTOMATED METHOD 10/27/2024 4:38 PM [facility] Protein, Urine Negative <=Trace mg/dL LAB URINALYSIS - AUTOMATED METHOD 10/27/2024 4:38 PM [facility] Glucose, Urine Negative Negative mg/dL LAB URINALYSIS - AUTOMATED METHOD 10/27/2024 4:38 PM [facility] Ketones, Urine Negative Negative mg/dL LAB URINALYSIS - AUTOMATED METHOD 10/27/2024 4:38 PM [facility] Urobilinogen, Urine 0.2 0.2 - 1.0 mg/dL LAB URINALYSIS - AUTOMATED METHOD 10/27/2024 4:38 PM [facility] Bilirubin, Urine Negative Negative LAB URINALYSIS - AUTOMATED METHOD 10/27/2024 4:38 PM [facility] Blood, Urine Negative Negative LAB URINALYSIS - AUTOMATED METHOD 10/27/2024 4:38 PM [facility] Urine Urine specimen obtained by clean catch procedure / Unknown Non-blood Collection / Unknown 10/27/2024 4:08 PM EDT 10/27/2024 4:15 PM EDT [facility] URINE ORDERABLES Final Resul t Performing Organization Address [facility]/ZIP Co de Phone Number [facility] [address] [place] [address], [place] [phone] * Schmitz urine culture tube (10/27/2024 4:08 PM EDT) Pathologist [facility] [place] Extra Tube Hold for add-ons. 10/27/2024 6:[address] [facility] Comment:Auto resulted. Urine Urine specimen obtained by clean catch procedure / Unknown Non-blood Collection / Unknown 10/27/2024 4:08 PM EDT 10/27/2024 4:15 PM EDT [facility] URINE ORDERABLES Final Resul t Performing Organization Address [facility] Co de Phone Number [facility] [address] [place] [address], [place] [phone] * POC , urine manually resulted (10/27/2024 4:07 PM EDT) Pathologist [facility] [place] HCG, Ur POC Negative Negative POC hCG Int QC Pass? Yes Yes Urine Urine specimen obtained by clean catch procedure / Unknown 10/27/2024 4:07 PM EDT De Moody MD POINT OF CARE TEST ENTER/ED IT ORDERABLES Final Result * (ABNORMAL) CBC auto differential (10/27/2024 1:59 PM EDT) WBC 5.7 4.8 - 10.8 K/[facility] LAB HEMETOLOGY METHOD 10/27/2024 2:[address] [facility] RBC 3.90 3.80 - 4.80 M/mcL LAB HEMETOLOGY METHOD 10/27/2024 2:[address] [facility] Hemoglobin 11.0(L) 11.5 - 16.0 g/dL LAB HEMETOLOGY METHOD 10/27/2024 2:[address] [facility] Hematocrit 33.4(L) 35.0 - 47.0 % LAB HEMETOLOGY METHOD 10/27/2024 2:[address] [facility] MCV 84.8 79.0 - 98.0 FL LAB HEMETOLOGY METHOD 10/27/2024 2:[address] [facility] MCH 27.9 27.0 - 32.0 pcg LAB HEMETOLOGY METHOD [facility] MCHC 32.9 32.0 - 37.0 g/dL LAB HEMETOLOGY METHOD 10/27[facility]2024 [facility] RDW 11.6 11.0 - 15.0 % LAB HEMETOLOGY METHOD 10/27/2024 2:[address] [facility] Platelets 254 130 - 400 K/mcL LAB HEMETOLOGY METHOD 10/27/2024 2[facility] MPV 9.6 7.0 - 11.0 FL LAB HEMETOLOGY METHOD 10/27/2024 2[facility] NRBC 0.0 <1.0 % LAB HEMETOLOGY METHOD 10/27/2024 2:[address] [facility] NRBC Absolute 0.00 <0.10 K/mcL LAB HEMETOLOGY METHOD 10/27/2024 2:[facility] Neutrophils Relative 55.3 % LAB HEMETOLOGY METHOD 10/27/2024 2:[facility] Lymphocytes Relative 36.8 % LAB HEMETOLOGY METHOD 10/27/2024 2:[address] [facility] Monocytes Relative 5.7 % LAB HEMETOLOGY METHOD 10/27/2024 2:[address] [facility] Eosinophils Relative 0.9 % LAB HEMETOLOGY METHOD 10/27/2024 2:[address] [facility] Basophils Relative 0.9 % LAB HEMETOLOGY METHOD 10/27/2024 2:[address] [facility] Immature Granulocytes Relative 0.4 % LAB HEMETOLOGY METHOD 10/27/2024 2:[address] [facility] Neutrophils Absolute 3.13 1.50 - 7.00 K/mcL LAB HEMETOLOGY METHOD 10/27/2024 2:[address] [facility] Lymphocytes Absolute 2.08 1.00 - 5.00 K/mcL LAB HEMETOLOGY METHOD 10/27/2024 2:[address] [facility] Monocytes Absolute 0.32 0.20 - 1.00 K/mcL LAB HEMETOLOGY METHOD 10/27/2024 2:[address] [facility] Eosinophils Absolute 0.05 0.00 - 0.50 K/mcL LAB HEMETOLOGY METHOD 10/27/2024 2:23 PM [facility] Basophils Absolute 0.05 0.00 - 0.20 K/mcL LAB HEMETOLOGY METHOD 10/27/2024 2:[address] [facility] Immature Granulocytes Absolute 0.02 0.00 - 0.03 K/mcL LAB HEMETOLOGY METHOD 10/27/2024 2:23 PM [facility] Blood Venous blood specimen / Unknown Venipuncture / Unknown 10/27/2024 1:59 PM EDT 10/27/2024 2:17 PM EDT De Moody MD LAB BLOOD ORDERABLES Final Result [facility] [address] [place] [address], [place] [phone] * Lipase (10/27/2024 1:59 PM EDT) Pathologist [facility] [place] Lipase 17 13 - 75 unit/L LAB CHEMISTRY METHOD 10/27/2024 2:[address] [facility] Blood Venous blood specimen / Unknown Venipuncture / Unknown 10/27/2024 1:59 PM EDT 10/27/2024 2:17 PM EDT De Moody MD LAB BLOOD ORDERABLES Final Result Performing Organization Address [facility] Co de Phone Number [facility] [address] [place] [address], [place] [phone] * Comprehensive metabolic panel (10/27/2024 1:59 PM EDT) [facility] Sodium 136 133 - 145 mmol/L LAB CHEMISTRY METHOD 10/27/2024 2:47 PM [facility] Potassium 4.3 3.5 - 5.5 mmol/L LAB CHEMISTRY METHOD 10/27/2024 2:47 PM [facility] Chloride 102 96 - 110 mmol/L LAB CHEMISTRY METHOD 10/27/2024 2:47 PM [facility] CO2 27 21 - 32 mmol/L LAB CHEMISTRY METHOD 10/27/2024 2:47 PM [facility] Anion Gap 7 3 - 11 LAB CHEMISTRY METHOD 10/27/2024 2:47 PM [facility] Glucose 95 70 - 100 mg/dL LAB CHEMISTRY METHOD 10/27/2024 2:47 PM [facility] BUN 11 5 - 25 mg/dL LAB CHEMISTRY METHOD 10/27/2024 2:47 PM [facility] Creatinine 0.57 0.50 - 1.10 mg/dL LAB CHEMISTRY METHOD 10/27/2024 2:[address] [facility] eGFR 126 >=60 mL/min/1. 73m2 LAB CHEMISTRY METHOD 10/27/2024 2:[address] [facility] Comment:Calculation based on the??Chronic Kidney Disease Epidemiology Collaboration (CKD-EPI) equation refit??without adjustment for race. BUN/Creatinine Ratio 19.3 LAB CHEMISTRY METHOD 10/27/2024 2:[address] [facility] Calcium 9.3 8.5 - 10.5 mg/dL LAB CHEMISTRY METHOD 10/27/2024 2:47 PM [facility] AST (SGOT) 11 10 - 42 unit/L LAB CHEMISTRY METHOD 10/27/2024 2:47 PM [facility] ALT (SGPT) 13 10 - 60 unit/L LAB CHEMISTRY METHOD 10/27/2024 2:47 PM [facility] Alkaline Phosphatase 63 42 - 121 unit/L LAB CHEMISTRY METHOD 10/27/2024 2:47 PM [facility] Total Protein 7.5 6.0 - 8.0 g/dL LAB CHEMISTRY METHOD 10/27/2024 2:47 PM [facility] Albumin 4.1 3.2 - 5.0 g/dL LAB CHEMISTRY METHOD 10/27/2024 2:47 PM [facility] Total Bilirubin 0.3 0.0 - 1.4 mg/dL LAB CHEMISTRY METHOD 10/27/2024 2:47 PM [facility] Blood Venous blood specimen / Unknown Venipuncture / Unknown 10/27/2024 1:59 PM EDT 10/27/2024 2:17 PM EDT us De Moody MD LAB BLOOD ORDERABLES Final Result [facility] [address] [place] [address], [place] [phone] * XR Chest 2 Views (09/08/2024 1:21 PM EST) Anatomical Region Laterality Modality Body Radiographic Yasmin ging 09/08/2024 1:50 PM EST Impressions 09/08/2024 1:51 PM EST No acute chest disease -------- FINAL REPORT -------- Dictated By: Geoffrey Acosta Dictated Date: 09/08/2024 13:50 ET Assigned Physician: Geoffrey Acosta Reviewed and Electronically Signed By: Geoffrey Acosta Signed Date: 09/08/2024 13:51 ET Workstation ID: [id number] Transcribed By: Self Edit Transcribed Date: 09/08/2024 [...] Signed Date: 09/08/2024 13:51 ET Workstation ID: [id number] Transcribed By: Self Edit Transcribed Date: 09/08/2024 13:50 ET Zion Moss MD IMG XR PROCEDURES Final Resul t * Respiratory virus panel molecular study (09/08/2024 1:10 PM EST) Adenovirus Detection by PCR Not Detected Not Detected LAB MICROBIOLOGY METHOD 09/08/2024 2:31 PM [facility] Influenza A PCR Not Detected Not Detected LAB MICROBIOLOGY METHOD 09/08/2024 2:31 PM [facility] Influenza B PCR Not Detected Not Detected LAB MICROBIOLOGY METHOD 09/08/2024 2:31 PM [facility] Coronavirus 229E Not Detected Not Detected LAB MICROBIOLOGY METHOD 09/08/2024 2:31 PM [facility] Coronavirus HKU1 Not Detected Not Detected LAB MICROBIOLOGY METHOD 09/08/2024 2:31 PM [facility] Coronavirus OC43 Not Detected Not Detected LAB MICROBIOLOGY METHOD 09/08/2024 2:31 PM [facility] Coronavirus NL63 Not Detected Not Detected LAB MICROBIOLOGY METHOD 09/08/2024 2:31 PM [facility] Parainfluenza Virus 1 Not Detected Not Detected LAB MICROBIOLOGY METHOD 09/08/2024 2:31 PM [facility] Parainfluenza Virus 2 Not Detected Not Detected LAB MICROBIOLOGY METHOD 09/08/2024 2:31 PM [facility] Parainfluenza Virus 3 Not Detected Not Detected LAB MICROBIOLOGY METHOD 09/08/2024 2:31 PM [facility] Parainfluenza Virus 4 Not Detected Not Detected LAB MICROBIOLOGY METHOD 09/08/2024 2:31 PM [facility] RSV PCR Not Detected Not Detected LAB MICROBIOLOGY METHOD 09/08/2024 2:31 PM [facility] Human Metapneumovirus A and B Not Detected Not Detected LAB MICROBIOLOGY METHOD 09/08/2024 2:31 PM [facility] Rhinovirus/Entero virus Not Detected Not Detected LAB MICROBIOLOGY METHOD 09/08/2024 2:[address] [facility] Bordetella pertussis Not Detected Not Detected LAB MICROBIOLOGY METHOD 09/08/2024 2:[address] [facility] Bordetella parapertussis Not Detected Not Detected LAB MICROBIOLOGY METHOD 09/08/2024 2:[address] [facility] Mycoplasma pneumo by PCR Not Detected Not Detected LAB MICROBIOLOGY METHOD 09/08/2024 2:[address] [facility] Chlamydia pneumoniae Not Detected Not Detected LAB MICROBIOLOGY METHOD 09/08/2024 2:[address] [facility] SARS COV-2 Not Detected Not Detected LAB MICROBIOLOGY METHOD 09/08/2024 2:[address] [facility] Swab Both anterior nares / Unknown Non-blood Collection / Unknown 09/08/2024 1:10 PM EST 09/08/2024 1:[address] [facility] - 09/08/2024 2:31 PM EST Testing was performed using the [employer] Respiratory Pathogen PCR Assay. All results must [...] MICROBIOLOGY - GENERAL OR DERABLES Final Result [facility] [address] [place] [address], * Rapid strep A screen (09/08/2024 1:10 PM EST) Strep A Ag Negative Negative, Invalid 09/08/2024 1:[address] [facility] Comment:Refer to Throat Cult ure. Swab Structure of anterior portion of neck / Unknown Non-blood Collection / Unknown 09/08/2024 1:10 PM EST 09/08/2024 1:18 PM EST Zion Moss MD LAB MICROBIOLOGY - GENERAL OR DERABLES Final Result Performing Organization Address [facility] de Phone Number [facility] [address] [place] [address], * (ABNORMAL) Culture throat (09/08/2024 1:10 PM EST) Culture, Throat Streptococcus beta-hemolytic Group C(A) 09/10/2024 12:[address] [facility] Comment: Susceptibility testing is not [...] OR DERABLES Final Result Performing Organization Address [facility] de Phone Number [facility] [address] [place] [address], from Last 3 Months Insurance [facility] [employer] Care Teams Design Editor Relationship Specialty Start Date End Date Dick Rene MD [address] [place] [phone] PCP - General Internal Medicine 09/08/24
[2024-10-31 18:04] LABS: MANUAL DIFF FLAG NO
[2024-10-31 18:11] LABS: Basophils Absolute Auto 0.1 X10*3/uL (0.0-0.2); Basophils Percent Auto 0.7 % (0-2); Eosinophils Absolute Auto 0.1 X10*3/uL (0.0-0.4); Eosinophils Percent Auto 0.7 % (0-4); Hematocrit 37.7 % (37.0-47.0); Hemoglobin 12.3 g/dl (12.0-16.0); Imm Gran Abs Auto 0.02 X10*3/uL (0.00-0.03); Imm Gran Pct Auto 0.3 % (0.0-0.4); Lymphocytes Absolute Auto 2.2 X10*3/uL (1.2-4.9); Lymphocytes Percent Auto 31.3 % (20-40); Mean Corpuscular HGB Conc 32.6 g/dl (31.0-35.0); Mean Corpuscular Hemoglobin 27.5 pg (27.0-33.0); Mean Corpuscular Volume 84.3 fL (80.0-98.0); Mean Platelet Volume 9.7 fL (9.4-12.3); Monocytes Absolute Auto 0.3 X10*3/uL (0.1-1.2); Monocytes Percent Auto 4.6 % (2-11); Neutrophils Absolute Auto 4.5 x10*3/uL (2.0-8.3); Neutrophils Percent Auto 62.4 % (45-73); Platelet Count 314 X10*3/uL (160-400); Red Blood Count 4.47 X10*6/uL (4.20-5.50); Red Cell Distribution Width 11.6 % (11.0-16.0); White Blood Count 7.2 X10*3/uL (4.8-10.8)
[2024-10-31 18:34] LABS: Alanine Aminotransferase 25 U/L (0-31); Aspartate Amino Transferase 35 U/L (5-31); C Reactive Protein 0.21 mg/dL (< or = 0.50); Estimated Glomerular Filt Rate > 60
[2024-10-31 22:04] LABS: Amylase 74 U/L (28-100); Lipase 40 U/L (8-78)
[2024-11-01 08:09] LABS: HBc Num1 0.19 S/CO (0.00-0.79); HBsAGNum1 0.46 S/CO (0.00-0.99); Hepatitis B Core Antibody Nonreactive (Nonreactive); Hepatitis B Surface Antigen Negative (Negative); ~HepC Num1 0.13 S/CO (0.00-0.79); ~Hepatitis B Surface Antibody NONREACTIVE (Nonreactive); ~Hepatitis C Antibody Nonreactive (Nonreactive)
[2024-11-02 12:33] LABS: IgA 213 mg/dL (47-310); IgG 1010 mg/dL (600-1640); IgM 148 mg/dL (50-300)
[2024-11-04 22:58] LABS: Complement C3 187 mg/dL (83-193)
[2024-11-05 10:33] LABS: Anti Nuclear Antibody Screen NEGATIVE (NEGATIVE)
[2024-11-06 14:44] LABS: Aldolase 4.8 U/L (<=8.1)
[2024-11-14 09:04] LABS: Prot Elec - Total Protein 7.7
[2024-11-14 09:05] LABS: Prot Elec - Albumin 4.7; Prot Elec - Alpha1 0.4 (H); Prot Elec - Alpha2 0.8
[2024-11-14 09:06] LABS: Prot Elec - Beta 1 0.5; Prot Elec - Beta 2 0.4; Prot Elec - Gamma 0.9
[2024-11-14 09:07] LABS: Immunoglobulin G Subclass 1 576
[2024-11-14 09:08] LABS: Immunoglobulin G Subclass 2 193 (L)
[2024-11-14 09:09] LABS: Immunoglobulin G Subclass 3 19 (L)
[2024-11-14 09:10] LABS: Anti DNA DS Antibody <1; Immunoglobulin G Total 905
== END 2024-10-31 12:29 | disposition home or self-care (01) ==
LOC: HO.HKASLDS 12:28
PROVIDERS: PCP Hospitalist; Visit Provider Internal Medicine Rheumatology
DX: M79.10 Myalgia, unspecified site (principal); M25.50 Pain in unspecified joint; G90.A Postural orthostatic tachycardia syndrome [POTS]; R68.2 Dry mouth, unspecified; R53.82 Chronic fatigue, unspecified; Z79.899 Other long term (current) drug therapy; E53.8 Deficiency of other specified B group vitamins; R21 Rash and other nonspecific skin eruption; K85.90 Acute pancreatitis without necrosis or infection, unspecified
CPT/HCPCS: 36415; 82085; 82150; 82550; 82565; 82784; 83690; 84165; 84450; 84460; 85025; 86038; 86140; 86160; 86225; 86704; 86706; 86803; 87340; 99212

== ENCOUNTER 2024-10-31 12:28 | Outpatient (AMB) | payer OTHER, SELFPAY ==
--- NOTE | 2024-10-31 12:42 | A.OFFVIS_ITS ---
Vital Signs 10/31/24 12:44 Height 5 ft 4.29 in Weight 120 lb 13.013 oz BMI 20.5 BP 120/82 Blood Pressure Location Rt brachial Position Sitting Pulse 90 Pulse Source Pulse Oximeter Pulse Oximetry (%) 98 Oxygen Delivery Method Room Air Intake Visit Reasons: joint pain Intake Note: presents to office today for joint pain for auto immune . Pt states that she was seeing a doctor who was ging to prescribe a low dose medication for lupus until the office closed. Accompanied by: Self / Same As Patient Allergies amoxicillin Allergy (Unknown, Verified 10/31/24 12:47) Hives HPI HPI joint pain: Details: She has been experiencing recurrent Headaches, migraines, photosensitivity, brain fog, fatigue, CHRONIC malar rash, chronic sicca symptoms. Takes rizotriptin few times a week. She is on maintenance Emgality for migraine management prescribed by neurologists. sometimes cannot take a deep breath yawing. No pleurisy. No fevers. +chills. Raynaud's affects her feet. She has noted the toe nails turned blue. Denies digit turning blue. Difficulty swallowing. Sometimes food gets stuck and comes out. Pain in hands, knees, shoulders, calves. No joint swelling. lost 10 lbs in the last month. She was dx with acute panceratitis on imaging in [place] a month ago. Constant right upper abdomen pain. She had EGD and colonscopy 1.5 weeks ago at [facility] [place] during [place], which was negative. She had went to [facility] last weekend. Her pain right upper quadrant pain is uncontrolled with Tylenol and codeine prescribed by PCP. She spends most of her time in bed. She also has difficulty swallowing. There was an incident where food came up her mouth and her nose. Difficulty swallowing to solids. Denies diarrhea or constipation. Denies nausea. She is unable to work at her current job because of the uncontrolled abdominal pain and the multiple symptoms that she is currently experiencing including brain fog. Last admission at [facility] she was told she had pericardial effusion. It was described as small to her. She reports that couple years ago in [place] she was also found to have fluid around her heart . She has pain in her muscles. She is very teary. She wants to be functional and have a normal life. 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 Pain in joint involving multiple sites POTS (postural orthostatic tachycardia syndrome) Anxiety Hair loss Surgical History History of nasal surgery Family History Father HTN (hypertension) Mother Asthma FH: mental illness Paternal Grandfather Fibromyalgia Social History Household Members: Family Alcohol intake: never Patient Tobacco Use Status: Never used Tobacco Current occupational status: employed 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 Good respiratory effort Skin: Malar erythema present Abdomen: Soft tenderness to palpate right upper and lower quadrant. No guarding. MSK: Diffuse tender upper forearms and lower extremities. Tender PIPs in right hand. No synovitis. Normal range of motion of upper extremity and lower extremity. She has tenderness along spinous process of thoracic spine and paraspinal muscles. No tenderness of lower extremities. Results Reviewed Results Reviewed: [facility] Imaging in [facility] reviewed. Assessment & Plan Assessment & Plan (1) Myalgia: Code(s): M79.10 - Myalgia, unspecified site Category: Medical (2) Pain in joint involving multiple sites: Code(s): M25.50 - Pain in unspecified joint Category: Medical (3) Fatigue: Code(s): R53.83 - Other fatigue Category: Medical Qualifiers: Fatigue type: chronic, unspecified Qualified Code(s): R53.82 - Chronic fatigue, unspecified (4) Dry mouth: Code(s): R68.2 - Dry mouth, unspecified Category: Medical (5) Dry eyes: Code(s): H04.123 - Dry eye syndrome of bilateral lacrimal glands Category: Medical (6) Pancreatitis: Comment: Recent diagnosis of acute pancreatitis in September 2024 in [place]. She continues to have chronic abdominal pain. Patient reports that imaging confirmed acute pancreatitis and that it was attributed secondary to prednisone use for symptoms of chronic sinusitis, which she currently still has. Code(s): K85.90 - Acute pancreatitis without necrosis or infection, unspecified Category: Medical (7) Butterfly rash: Code(s): R21 - Rash and other nonspecific skin eruption Category: Medical Plan 29-year-old female presenting with history of recent diagnosis of acute pancreatitis on imaging a month ago, recently found to have pericardial effusion on imaging per patient with multiple chronic symptoms including sicca symptoms, recurrent headaches, malar rash, photosensitivity, Raynaud's syndrome affecting feet, fatigue, diffuse myalgias and arthralgias. Labs from July reviewed, which reveal leukopenia. Prior rheumatological testing revealed borderline low C4 with negative LATASHA, SSA/SSB, double-stranded DNA, Sm/CAREER DEVELOPMENT MANAGER. With her current symptomatology it is possible that she has cutaneous lupus (malar rash) with secondary Sjogren syndrome (sicca symptoms, leukopenia and low C4) that requires further workup. In setting of malar rash, photosensitivity, Raynaud's syndrome, uncontrolled migraines/headaches, serositis (pericardial effusion), leukopenia and C4 I would consider SLE but prior workup has revealed negative lupus specific antibodies - rare to have seronegative SLE (1%). She just meets SLICC criteria with 4 points (postitive if 4 or greater out of 11). She brought up the possibility of IgG4 related disease in the setting of acute pancreatitis. I will need to review the records of her imaging and workup from her admissions to look for features associated with IgG4 related disease. Typically, IgG4 related disease presenting with acute pancreatitis is diagnosed through imaging with negative amylase and lipase. IgG4 related disease can involved salivary gland with dry mouth and orbital inflammation contributing to dry eyes. Plan: -labs ordered including lupus workup, SPEP, inflammatory markers, immunoglobulins, IgG subsets, muscle enzymes -ophthalmology exam to evaluate for Yoel's test and keratoconjunctivitis sicca ocular manifestation of Sjogren's syndrome. If eye exam reveals orbital inflammation, would need to consider IgG4 related disease. I am requesting consultation with wrapping clerk Dr. Sam. -requesting records of CT chest/abdomen from recent admissions, discharge summary from [facility], and recent urinalysis from [facility] and [facility] -I have requested that she contact GI for further evaluation of dysphagia with consideration of workup for dysmotility disorder/achalasia. -RTC 1-2 months to review results Orders: Orders Aldolase Today M79.10 - Myalgia, unspecified site Aspartate Amino Transferase Today M25.50 - Pain in unspecified joint, M79.10 - Myalgia, unspecified site Complement C3 Today M25.50 - Pain in unspecified joint, M79.10 - Myalgia, unspecified site Creatinine Today M25.50 - Pain in unspecified joint, M79.10 - Myalgia, unspecified site Anti DNA DS Antibody Today M25.50 - Pain in unspecified joint, M79.10 - Myalgia, unspecified site Hepatitis B,C Profile Today M25.50 - Pain in unspecified joint, M79.10 - Myalgia, unspecified site, R53.82 - Chronic fatigue, unspecified Protein Electrophoresis, Serum Today R68.2 - Dry mouth, unspecified Amylase Today K85.90 - Acute pancreatitis without necrosis or infection, unspecified LATASHA Reflex Titer and Pattern Today R21 - Rash and other nonspecific skin eruption Immunoglobulins,IgG IgA IgM Today K85.90 - Acute pancreatitis without necrosis or infection, unspecified, R68.2 - Dry mouth, unspecified IgE Antibody (Anti-IgE IgG) Today K85.90 - Acute pancreatitis without necrosis or infection, unspecified Immunoglobulin G Subclasses Today K85.90 - Acute pancreatitis without necrosis or infection, unspecified Alanine Aminotransferase Today G90.A - Postural orthostatic tachycardia syndrome [POTS], M25.50 - Pain in unspecified joint, M79.10 - Myalgia, unspe cified site, R68.2 - Dry mouth, unspecified C Reactive Protein Today Z79.899 - Other correction (current) drug therapy Complement C4 Today M25.50 - Pain in unspecified joint, M79.10 - Myalgia, unspecified site Complete Blood Count Auto Diff Today E53.8 - Deficiency of other specified B group vitamins, M79.10 - Myalgia, unspecified site Creatine Kinase Total Today M25.50 - Pain in unspecified joint, M79.10 - Myalgia, unspecified site Erythrocyte Sedimentation Rate Today M25.50 - Pain in unspecified joint Lipase Today K85.90 - Acute pancreatitis without necrosis or infection, unspecified Referrals Ophthalmology Referral H04.123 - Dry eye syndrome of bilateral lacrimal glands Coding Level of Care Code Est Pt Level 5 (61092) Complex EM visit Add On G2211 Diagnoses Myalgia M79.10 Pain in joint involving multiple sites M25.50 Chronic fatigue R53.82 Fatigue type: chronic, unspecified Dry mouth R68.2 Dry eyes H04.123 Pancreatitis K85.90 Butterfly rash R21 Time Spent (min) 50
[2024-10-31 12:44] VITALS: BP 120/82; PULSE 90; O2SAT 98; BMI 20.5
--- OUTSIDE RECORDS SUMMARY | 2024-10-31 13:47 | XMS_ITS | Data Portability ---
Author Organization [place] [facility], Allergy Address [address] [address] Assessment Encounter Date Assessment Date Assessment LastModified [...] in detail and all questions were answered. [email or web address] Not available 12/05/2023 16:05:20 Plan of Treatment Reminders Order Date Submit Date Provider Last Modified By Organization Details Last Modified Time Details Appointments Post Op 025 11:00AM SHANNON STERLING PA-C Not available Not available Not available Lab None record ed. Referral None record [...] Organization Details Recorded Time Nasal congestio n 88315988 Active 2022 Nasal congestio n; Note: Date Diagnosed : 11/02/2022 3:17 PM (R09.81) RHONDA WOOD MD 100 [facility], [address] [place] [address], [place], [address], [facility] [place] 5 09:48:19 Deviated nasal septum 843258474 Active 2022 Deviated nasal septum; Note: Date Diagnosed : 11/02/2022 3:17 PM (J34.2) RHONDA WOOD MD 100 [facility], [address], [place], [address], [facility] 5 09:48:19 Posterior rhinorrhe a 43519193 Active 2022 Postnasal drip; Note: Date Diagnosed : 11/02/2022 3:17 PM (R09.82) RHONDA WOOD MD [address] [place] [address] [address] [facility], [place], [place], [address], [facility] 5 09:48:19 Allergic rhinitis 81537810 Active 2023 Allergic rhinitis: Due to other allergen; Note: Date Diagnosed : 10/19/2023 3:04 PM (477.8) ; Start Date : 4 Other allergic rhinitis; Note: Date Diagnosed : 11/10/2023 2:40 PM (J30.89) RHONDA WOOD MD [address] [place] [address] [address] [facility], [place], [address], [facility] 5 09:48:19 Impacted cerumen of bilateral ears [id number] 9108 Active 2023 Impacted cerumen, bilateral ; Note: Date Diagnosed : 09/23/2023 1:57 PM (H61.23) RHONDA WOOD MD [address] [place] [address], E [facility], [place], [address], [facility] - [facility] 5 09:48:19 Problem Notes None recorded. Procedures Surgical History None recorded. Imaging Results Imaging Date Name Status [facility] LastModified Time 10/18/2023 imaging/diag nostic result completed [email or web address] Information not available 02/22/2024 04:54:56 Procedure Notes None recorded. Medical Equipment None Reported. Allergies Allergen ID Allergen Name Allergen Category Reaction Reaction Severity Criticality Documentation Date Start Date Code Code System Note Provider Name and Address Organization Details Recorded Time 609646 amoxicill in medicatio n rash Not available Not available 02/03/20242006 723 [facility]Norm RHONDA WOOD MD [address] [place] [address], [phone], [facility] 5 09:47:00 Medications Name Sig Start Date Stop Date Status Note LastModified by Organization Details LastModified Time Vitamin B-2 100 mg tablet TAKE 4 TABLETS BY MOUTH DAILY FOR 90 DAYS active Not Available Not Available No t Available diclofena c 3 % topical gel DIRECTED EXTERNAL LY THREE TIMES A DAY APPLIED TO THE RIGHT THUMB 7 DAYS active Not Available Not Available No t Available norgestim ate 0.25 mg-ethiny l estradiol 0.035 mg tablet active Medicati on ID: [id number] B rand Name: norgesti mate-eth inyl estradio l Send Method: E-Prescr ibed Sub s Allowed: subs OK Medic ationGen ericName : norgesti mate-eth inyl estradio l Not Available Not Available Not Available clonidine HCl 0.1 mg tablet TAKE 1 TABLET BY MOUTH TWICE A DAY DIRECTED . 1 TAB IN THE MORNING IF NEEDED AND 1 TAB AT BEDTIME active Not Available Not Available No t Available gabapenti n 600 mg tablet TAKE 1 TABLET BY MOUTH THREE TIMES A DAY NEEDED active Not Available Not Available No t Available doxycycli ne hyclate 100 mg capsule TAKE 1 CAPSULE BY MOUTH TWICE A DAY FOR 7 DAYS active Not Available Not Available No t Available trazodone 50 mg tablet TAKE 1 TABLET BY MOUTH EVERYDAY AT BEDTIME active Not Available Not Available No t Available azithromy wilmar 250 mg tablet TAKE 2 TABLETS BY MOUTH TODAY, THEN TAKE 1 TABLET DAILY FOR 4 DAYS DIRECTED active Not Available Not Available No t Available tizanidin e 4 mg tablet TAKE 1 TABLET BY MOUTH EVERY DAY AT BEDTIME NEEDED FOR 14 DAYS active Not Available Not Available No t Available fluconazo le 150 mg tablet TAKE ONE TABLET TODAY AND ONE TABLET IN 72 HOURS active Not Available Not Available No t Available sucralfat e 1 gram tablet TAKE 1 TABLET BY MOUTH TWICE A DAY active Not Available Not Available No t Available promethaz ine 12.5 mg tablet TAKE 1 TABLET BY MOUTH EVERY 4 HOURS, NEEDED FOR NAUSEA/V OMITING active Not Available Not Available No t Available sumatript an 25 mg tablet TAKE 1 TABLET BY MOUTH EVERY DAY NEEDED X7 DAYS active Not Available Not Available No t Available ondansetr on HCl 4 mg tablet TAKE 1 TABLET BY MOUTH IN THE MORNING AND AT NOON AND IN THE EVENING AND BEFORE BEDTIME FOR 7 DAYS active Not Available Not Available No t Available prednison e 20 mg tablet 40 mg by oral route. 09/14 completed Not Available Not Available Not Available clonazepa m 0.5 mg tablet TAKE 1 TABLET BY MOUTH THREE TIMES A DAY NEEDED active Not Available Not Available No t Available rizatript an 10 mg tablet TAKE 1/2 TO 1 TABLET BY MOUTH EVERY 2 HOURS NEEDED FOR MIGRAINE HEADACHE FOR 30 DAYS MAX 2 TABS P active Not Available Not Available No t Available clonazepa m 1 mg tablet TAKE 1 TABLET BY MOUTH EVERY DAY AT BEDTIME NEEDED active Not Available Not Available No t Available hydroxyzi ne pamoate 50 mg capsule TAKE 1 CAPSULE BY MOUTH THREE TIMES A DAY NEEDED active Not Available Not Available No t Available metronida zole 500 mg tablet TAKE 1 TABLET BY MOUTH TWICE A DAY FOR 7 DAYS active Not Available Not Available No t Available hydroxyzi ne HCl 50 mg tablet TAKE 2 TABLETS BY MOUTH AT BEDTIME active Not Available Not Available No t Available famotidin e 20 mg tablet TAKE 1 TABLET BY MOUTH 2 TIMES A DAY NEEDED DYSPEPSI A active Not Available Not Available No t Available trazodone 100 mg tablet TAKE 2 TABLET BY MOUTH EVERY NIGHT AT BEDTIME active Not Available Not Available No t Available benzonata te 100 mg capsule TAKE 1 CAPSULE BY MOUTH THREE TIMES A DAY NEEDED FOR 7 DAYS active Not Available Not Available No t Available pantopraz ole 40 mg tablet,de layed release TAKE 1 TABLET BY MOUTH IN THE MORNING AND 1 IN THE EVENING BEFORE MEALS. DO NOT CRUSH, CHEW OR SPLIT active Not Available Not Available No t Available trazodone 150 mg tablet TAKE 1 TABLET BY MOUTH EVERYDAY AT BEDTIME active Not Available Not Available No t Available clotrimaz ole-betam ethasone 1 %-0.05 % topical cream PLEASE SEE ATTACHED FOR DETAILED DIRECTIO NS [...] Not Available Not Available No t Available ondansetr on 4 mg disintegr ating tablet TAKE 1 TABLET BY MOUTH EVERY 8 HOURS NEEDED FOR NAUSEA AND VOMITING FOR 3 DAYS active Not Available Not Available No t Available fluticaso ne propionat e 50 mcg/actua tion nasal spray,jaqui pension SPRAY 1 SPRAY INTO EACH NOSTRIL EVERY DAY active Not Available Not Available No t Available dicyclomi ne 10 mg capsule TAKE 1 CAPSULE BY MOUTH 4 TIMES A DAY NEEDED FOR ABDOMINA L RELAXANT active Not Available Not Available No t Available Ventolin HFA 90 mcg/actua tion aerosol inhaler INHALE 1 PUFF NEEDED INTO THE LUNGS EVERY 4 HOURS 30 DAYS active Not Available Not Available No t Available oxycodone 5 mg tablet TAKE 1 TABLET BY MOUTH EVERY 8 HOURS NEEDED FOR 7 DAYS active Not Available Not Available No t Available bupropion HCl XL 150 mg 24 hr tablet, extended release 12/04 completed Medicati on ID: [id number] B rand Name: bupropio n HCl Send Method: E-Prescr ibed Sub s Allowed: subs OK Medic ationGen ericName : bupropio n HCl Medi cation ID: [id number] B rand Name: bupropio n HCl Send [...] Not Available Not Available No t Available naloxone 4 mg/actuat ion nasal spray ADMINIST ER 1 SPRAY INTO AFFECTED NOSTRIL( S) IF NEEDED FOR OPIOID REVERSAL OR RESPIRAT ORY DEPRESSI ON FOR UP TO 1 DOSE. MAY REPEAT EVERY 2 TO 3 MINUTES IF NEEDED ALTERNAT ING NOSTRILS , UNTIL MEDICAL ASSISTAN CE BECOMES AVAILABL E active Not Available Not Available No t Available riboflavi n (vitamin B2) 400 mg tablet active Medicati on ID: [id number] B rand Name: riboflav in (vitamin B2) [...] % 100 % 160.02 cm 19.5 kg/m2 05692.1 6 g 101 /min 103 mm[Hg] 73 mm[Hg] [facility] 100 [facility] [address], [place], [address] [place], [place] - [facility] 4 15:22:30 Social History None recorded. Functional Status None recorded. Mental Status None recorded. Family History Nothing Reported. Medical History No medical history recorded. Gynecological HistoryNo gynecological history recorded. Obstetrics History GPAL:G 0 P 0 0 0 0 Past Encounters Encounter ID Performer Location Encounter Start Date Encounter Closed Date Diagnosis/Indication Diagnosis SNOMED-CT Code Diagnosis ICD10 Code Diagnosis Note [id number] SHANNON STERLING PA-C Allergy [address] [facility] [address] [place] [address] 12/05/2023 15:06:46 12/06/2023 15:52:59 Deviated nasal septum [id number] J34.2 Nasal congestion 1689209 0 R09.81 Health Concerns Section Related Observation LastModified by Organization [facility] LastModified Time None Recorded Concern Status LastModified by Organization Details LastModified Time None Recorded Advance Directives Directive None Recorded Payers Encounter Date Sequence Insurance Name Policy Number Policy Lemon Covered Member ID Lemon Member ID Guarantor Name 12/05/2023 1 [facility] PLAN (MEDICAID HMO) [id number] Eugenia Hightower [id number] Eugenia Hightower Notes Date Note Type Note Provider Name and Address Organization Details Recorded Time 12/05/2023 text/html 28-year-old female presents for SLIT initiation. She has brought her EpiPen. PEDRO GUERRA MD [address] [place] [address], [phone], [facility] - [facility] 12/05/2023 16:39:22 OBGyn Episode No OBEpisode recorded.
--- OUTSIDE RECORDS SUMMARY | 2024-10-31 13:47 | XMS_ITS ---
Author Organization [facility] Address [address] [facility] [address] [place] [address] Care Team Providers Care Sales Development Coordinator Name Role Phone SHELLY DUKES Primary Care Provider REASON FOR VISIT Oxycodone Encounters Encounter Location Date Provider Diagnosis [facility] [address] [facility] [address] [place] [address] 10/29/2024 SHELLY DUKES Plan Of Treatment No Information Progress Notes * Eugenia LEACHDOB: 4 (29 yo F)Acc No.[id number]:10/29/2024 Patient:?Eugenia LEACH :1995???Age:29 Y???Sex:Female Address:[address] [place] [phone] * true * Date:? Generated for Mark ferrer/Elias/eTransmitting on:?10/31/2024 01:47 PM EDT
--- OUTSIDE RECORDS SUMMARY | 2024-10-31 13:47 | XMS_ITS ---
Author Organization [facility] Address [address] [place] [address] Care Team Providers Care Etched Circuit Processor Name Role Phone SHELLY DUKES Primary Care Provider [phone] Allergies Allergen (clinical drug ingredient) Drug/Non Drug Allergy documented on EMR Reaction Allergy Type Onset Date Status amoxicillin Amoxicillin hives Drug Allergy Act poncho Reason For Referral Reason the right intercosta l pain Referral Organization [facility] Referring Provider First Name SHELLY Referring Provider Last Name ROSELINE Referring Provider Speciality Internal M edicine Referred Provider Specialty Pain Medicin e Referral Priority Routine REASON FOR VISIT Pain Management Medications Medication SIG (Take, Route, Frequency, Duration) Notes Start Date End Date Status Ventolin HFA 108 (90 Base) MCG/ACT INHALE 1 PUFF PRN INTO THE LUNGS EVERY 4 HOURS for 30 days Active clonazePAM 1 MG 1 tablet at bedtime Orally Active Biotin Active Levocetirizine Dihydrochloride 5 MG TAKE 1 TABLET BY MOUTH EVERY DAY IN THE EVENING FOR 30 DAYS for 90 Active Vitamin D 25 MCG (1000 UT) 1 tablet Orally Once a day Active Acetaminophen-Codeine 300-30 MG 1 tablet as needed Orally 3 times a day for 5 days 10/30/2024 Active cloNIDine HCl 0.1 MG 1 tablet Orally Once a day Active traZODone HCl 150 MG 1 tablet at bedtime Orally Once at night Active Gabapentin 600 MG 1 capsule Orally 3 TIMES A DAY 06/02/2023 Active hydrOXYzine HCl 50 MG 1 tablet as needed Orally Once a day Active tiZANidine HCl 4 MG 1 tablet at bedtime as needed Orally Once a day for 14 days 09/03/2024 Not-Taking Azithromycin 250 MG as directed Orally 2 tablets on the first day, then 1 tablet daily for 5 days 09/03/2024 Not-Taking Doxycycline Hyclate 100 MG 1 capsule Orally Twice a day for 7 days 08/27/2024 Not-Taking oxyCODONE HCl 5 MG 1 tablet as needed Orally every 8 hrs for 3 days Partial Fill upon Patient Request 10/28/2024 Active Fluticasone Propionate 50 MCG/ACT SPRAY 1 SPRAY INTO EACH NOSTRIL EVERY DAY FOR 30 DAYS Twice a day for 90 days Not-Taking Benzonatate 100 MG 1 capsule as needed Orally Three times a day for 7 days 08/27/2024 Not-Taking SUMAtriptan Succinate 25 MG as directed Orally daily for 7 days As needed 08/27/2024 Active Fluticasone Propionate 50 MCG/ACT 1 spray in each nostril Nasally Twice a day for 30 days 09/03/2024 Not-Taking Diclofenac Sodium 3 % as directed Externally three times a day for 7 days applied to the right thumb 08/27/2024 Active Vital Signs Temperature 97.7 degrees Fahrenheit 10/31/19 25 Oximetry 98 % 10/30/2024 Heart Rate 85 /min 10/30/2024 Blood pressure systolic 112 mm Hg 10/31/19 25 Blood pressure diastolic 70 mm Hg 025 Weight 121 lbs 10/30/2024 BMI 20.77 kg/m2 10/30/2024 Height 64 in 10/30/2024 Encounters Encounter Location Date Provider Diagnosis [facility] [address] [address] 10/30/2024 BRAVO GUL Abdominal pain R10.9 Assessments Encounter Date Diagnosis (ICD Code) Assessment Notes Treatment Notes Treatment Clinical Notes Section Notes 10/30/2024 Abdominal pain (ICD-10 - R10.9) Eugenia is 29 years old lady with generalized anxiety disorder and follows up with psychiatrist, migraine headaches and opioid dependence in the past and has been sober for the past 6 years is here today for recurrent abdominal pain. She went to [facility] emergency room and then recently she went to [facility] emergency room and she had CT scan of the abdomen and pelvis with contrast with no significant finding except for mild right pleural effusion, mild pericardial effusion and no signs of acute pancreatitis but she has pancreatic devisum and history of pancreatitis in [place] a few months ago. Her lipase and rest of the blood work was normal in the emergency room. She also had upper endoscopy with no acute findings. Plan is as follows Abdominal pain. Etiology is unclear at this point. Workup is negative. She has a history of gastritis and advised to take PPIs. She will be given referral to pain management. There may be a question of slipping rib syndrome which is a very rare condition. Considering history of opioid dependence we will try Tylenol with codeine for short time and she can supplement with NSAIDs as needed. Stay hydrated. She was also advised to contact her GI physician for further evaluation. Hospital discharge paperwork reviewed and questions answered Plan Of Treatment Medication Medication Name Sig Start Date Stop Date Notes Acetaminophen-Codeine 300-30 MG 1 tablet as needed Orally 3 times a day for 5 days 10/30/2024 Referrals Referral Date Details 10/30/2024 10/30/2024, the righ t intercostal pain Next Appt Details Follow Up: 6 Weeks, Reason: Progress Notes * CHRISTINASHEKHAREugenia SNOWDENDOB: 4 (29 yo F)Acc No.[id number]:10/30/2024 Progress Notes Patient:?Bhupendra HIGHTOWERley Provider:?SHELLY DUKES MD :1995???Age:29 Y???Sex:Female D ate:10/30/2024 Address:[address] [place], [place] [id number] Subjective: * Chief Complaints: * ???Pain Management * HPI: ???Internal Medicine:? Eugenia is 29 years old lady with history of opioid dependence, generalized anxiety disorder plan follow-up with psychiatry, migraine headaches, vitamin D deficiency is here today for abdominal pain and discomfort.? She went to [facility] a few weeks ago for abdominal pain and they did CT scan of the abdomen and pelvis which was negative for acute pancreatitis and any other acute process except for pancreatic divisum.? Her abdominal pain did not resolve and she went to [facility] emergency on October 27, 2024 and she had a repeat CT abdomen and pelvis with IV contrast and they found mild right-sided pleural effusion along with mild pericardial effusion and there was no signs of acute pancreatitis and no other GI pathology.? She has history of acute pancreatitis in the past.? She had a upper endoscopy and biopsy results are negative but procedure report is not available at this point.? She complains of excruciating pain and discomfort in the abdomen.? She has normal bowel movements.? There is no pathology.? She follows up with her psychiatrist on a regular basis. * ROS:?General/Constitutional:?Patient complaining of?frontal headache or sinus pain purulent nasal discharge or sore throat.?Overall health?Good.?Change in appetite?denies.?Chills?denies.?Fever?denies.?Night sweats?denies.?Sleep disturbance?denies.?Weight gain?denies.?Weight loss?denies.?Neurologic:?Difficulty speaking?denies.?Dizziness?denies.?Gait abnormality?denies.?Headache?denies.?Loss of strength?denies.?Memory loss?denies.?Seizures?denies.?Tingling/Numbness?denies .?Ophthalmologic:?Blurred vision?denies.?Discharge?denies.?Dry eye?denies.?Red eye?denies.?ENT:?Change in Voice?Denies.?Cold Symptoms?Denies.?Cough?Denies.?Dizziness?Denies.?Nasal Congestion?Denies.?Otalgia?Denies.?postnasal drip?Denies.?Blocked ear?denies.?Nosebleed?denies.?Snoring?denies.?Cardiovascular:?Diaphoresis?Denies.?Pedal Edema?Denies.?PND (Paroxsymal nocturnal dyspnea)?Denies.?Chest pain?denies.?Difficulty laying flat?denies.?Dyspnea on exertion?denies.?Heart murmur?denies.?Orthopnea?denies.?Respiratory:?Snoring?denies.?Asthma?denies.?Cough?, admits.?Shortness of breath with exertion?denies.?Sputum production?denies.?Wheezing?denies.?Gastrointestinal:?Abdominal pain?epigastric?.?Change in bowel habits?denies.?Constipation?denies.?Decreased appetite?denies.?Diarrhea??denies.?Heartburn?denies.?Nausea?denies.?Vomiting?den ies.?Musculoskeletal:?tingling/numbness?Denies.?myalgias?Denies.?Joint Swelling?Denies.?extremeties?normal.?Arthritis?denies.?Back problems?denies.?Carpal tunnel?denies.?Joint stiffness?denies.?Muscle aches?right intercostal muscle pain.?Endocrine:?Bowel Changes?Denies.?Breast Discharge?Denies.?poor libido?Denies.?Cold intolerance?denies.?Excessive sweating?denies.?Excessive thirst?denies.?Frequent urination?denies.?Thyroid problems?denies.?Skin:?Bruising?Denies.?Eczema?denies.?Hair changes?denies.?Rash?denies.?Skin lesion(s)?denies.?Psychiatric:?Anxiety?denies.?Depressed mood?denies.?Difficulty sleeping?denies.?Nervous breakdown?denies.?Substance abuse?denies.?Urology:?abnormal menstrual bleeding?denies.?blood in urine?denies.?burning on urination?denies.?difficulty urinating?denies.?discharge?denies.?dysuria?denies.? * Medical History:? * Surgical History:? * Hospitalization/Major Diagno stic Procedure:? * Family History:?Father: zion pate?Mother: alive.? Mom side has a HX of mental illness, breast cancer. * Social History:?Miscellaneous:?Exercise: none. ?Living with: family. 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 * Medications:?TakingtraZODone HCl 150 MG Tablet 1 tablet at bedtime Orally Once at night cloNIDine HCl 0.1 MG Tablet 1 tablet Orally Once a day hydrOXYzine HCl 50 MG Tablet 1 tablet as needed Orally Once a day Gabapentin 600 MG Tablet 1 capsule Orally 3 TIMES A DAY Biotin clonazePAM 1 MG Tablet 1 tablet at bedtime Orally Vitamin D 25 MCG (1000 UT) Tablet 1 tablet Orally Once a day Levocetirizine Dihydrochloride 5 MG Tablet TAKE 1 TABLET BY MOUTH EVERY DAY IN THE EVENING FOR 30 DAYS Ventolin HFA 108 (90 Base) MCG/ACT Aerosol Solution INHALE 1 PUFF PRN INTO THE LUNGS EVERY 4 HOURS SUMAtriptan Succinate 25 MG Tablet as directed Orally daily As neededDiclofenac Sodium 3 % Gel as directed Externally three times a day applied to the right thumboxyCODONE HCl 5 MG Tablet 1 tablet as needed Orally every 8 hrs , Notes to Pharmacist: Partial Fill upon Patient RequestTaking traZODone HCl 150 MG Tablet 1 tablet at bedtime Orally Once at night Taking cloNIDine HCl 0.1 MG Tablet 1 tablet Orally Once a day Taking hydrOXYzine HCl 50 MG Tablet 1 tablet as needed Orally Once a day Taking Gabapentin 600 MG Tablet 1 capsule Orally 3 TIMES A DAY Taking Biotin Taking clonazePAM 1 MG Tablet 1 tablet at bedtime Orally Taking Vitamin D 25 MCG (1000 UT) Tablet 1 tablet Orally Once a day Taking Levocetirizine Dihydrochloride 5 MG Tablet TAKE 1 TABLET BY MOUTH EVERY DAY IN THE EVENING FOR 30 DAYS Taking Ventolin HFA 108 (90 Base) MCG/ACT Aerosol Solution INHALE 1 PUFF PRN INTO THE LUNGS EVERY 4 HOURS Taking SUMAtriptan Succinate 25 MG Tablet as directed Orally daily As neededTaking Diclofenac Sodium 3 % Gel as directed Externally three times a day applied to the right thumbTaking oxyCODONE HCl 5 MG Tablet 1 tablet as needed Orally every 8 hrs , Notes to Pharmacist: Partial Fill upon Patient RequestNot-TakingFluticasone Propionate 50 MCG/ACT Suspension 1 spray in each nostril Nasally Twice a day Benzonatate 100 MG Capsule 1 capsule as needed Orally Three times a day Fluticasone Propionate 50 MCG/ACT Suspension SPRAY 1 SPRAY INTO EACH NOSTRIL EVERY DAY FOR 30 DAYS Twice a day Azithromycin 250 MG Tablet as directed Orally 2 tablets on the first day, then 1 tablet daily tiZANidine HCl 4 MG Tablet 1 tablet at bedtime as needed Orally Once a day Doxycycline Hyclate 100 MG Capsule 1 capsule Orally Twice a day Not-Taking Fluticasone Propionate 50 MCG/ACT Suspension 1 spray in each nostril Nasally Twice a day Not-Taking Benzonatate 100 MG Capsule 1 capsule as needed Orally Three times a day Not-Taking Fluticasone Propionate 50 MCG/ACT Suspension SPRAY 1 SPRAY INTO EACH NOSTRIL EVERY DAY FOR 30 DAYS Twice a day Not-Taking Azithromycin 250 MG Tablet as directed Orally 2 tablets on the first day, then 1 tablet daily Not-Taking tiZANidine HCl 4 MG Tablet 1 tablet at bedtime as needed Orally Once a day Not-Taking Doxycycline Hyclate 100 MG Capsule 1 capsule Orally Twice a day * Allergies:?Amoxicillin: hive sno[Allergies Verified] Objective: * Vitals:?Temp:97.7F, Oxygen s at %:98%, HR:85/min, BP:112/70mm Hg, Wt:121lbs, BMI:20.77Index, Ht: 64 in. * Examination: ???General Examination: ?Psychiatry?Normal.?GENERAL APPEARANCE:?Well developed, Appears ill.?MUSCULOSKELETAL:?tenderness on palpation on the right costal muscle.?HEAD:?Normocephalic, atraumatic frontal sinus tenderness on exam No pharyngeal erythema.?EYES:?Pupils equal, round, reactive to light and accommodation, sclera non-icteric.?EARS:?Normal.?ORAL CAVITY:?Normal.?THROAT:?Clear.?OROPHARYNX?Normal.?SINUSES?Normal.?NECK/THYROID:?Neck supple, full range of motion, no cervical lymphadenopathy.?SKIN:?Warm and dry, no suspicious lesions.?HEART:?S1, S2 normal regular rate and rhythm no murmurs, rubs, gallops .?LUNGS:?, clear to auscultation bilaterally, no wheezes, rales, rhonchi.?BREASTS:?__.?ABDOMEN:??tender To palpate epigastric and right upper quadrant, nondistended, bowel sounds present, bowel sounds were positive.? There is no rebound or guarding.?EXTREMITIES:?Normal.?PERIPHERAL PULSES:?Normal.?NEUROLOGIC:?Nonfocal,? appropriate?motor strength normal upper and lower extremities, sensory exam intact.?FEMALE GENITOURINARY:?__.?MALE GENITOURINARY:?__.?PODIATRIC:?tinea unguium.?Library Page? .? Assessment: * Assessment: 1.?Abdominal pain - R10.9 (P rimary)??? Eugenia is 29 years old lady with generalized anxiety disorder and follows up with psychiatrist, migraine headaches and opioid dependence in the past and has been sober for the past 6 years is here today for recurrent abdominal pain.? She went to [facility] emergency room and then recently she went to [facility] emergency room and she had CT scan of the abdomen and pelvis with contrast with no significant finding except for mild right pleural effusion, mild pericardial effusion and no signs of acute pancreatitis but she has pancreatic devisum and history of pancreatitis in [place] a few months ago.? Her lipase and rest of the blood work was normal in the emergency room.? She also had upper endoscopy with no acute findings.? Plan is as follows Abdominal pain.? Etiology is unclear at this point.? Workup is negative.? She has a history of gastritis and advised to take PPIs.? She will be given referral to pain management. There may be a question of slipping rib syndrome which is a very rare condition.? Considering history of opioid dependence we will try Tylenol with codeine for short time and she can supplement with NSAIDs as needed.? Stay hydrated.? She was also advised to contact her GI physician for further evaluation. Hospital discharge paperwork reviewed and questions answered Plan: * Treatment: 2.?Others? Referral To:Pain Medicine ?Reason:the right intercostal pain * Procedure Codes:?3074F SYST BP LT 130 MM [id number] DIAST BP < 80 MM HG * Follow Up:?6 Weeks * Images: * Sign off status: Completed true * Provider:?SHELLY DUKES MD Date:?10/30 Generated for Mark ferrer/Elias/Irmaransmitting on:?10/31/2024 01:47 PM EDT History and Physical Notes * HPI (History of Present Illness) Category Sub-Category Detail Notes Category Not es Internal Medicine Eugenia is 29 years old lady with history of opioid dependence, generalized anxiety disorder plan follow-up with psychiatry, migraine headaches, vitamin D deficiency is here today for abdominal pain and discomfort. She went to [facility] a few weeks ago for abdominal pain and they did CT scan of the abdomen and pelvis which was negative for acute pancreatitis and any other acute process except for pancreatic divisum. Her abdominal pain did not resolve and she went to [facility] emergency on October 27, 2024 and she had a repeat CT abdomen and pelvis with IV contrast and they found mild right-sided pleural effusion along with mild pericardial effusion and there was no signs of acute pancreatitis and no other GI pathology. She has history of acute pancreatitis in the past. She had a upper endoscopy and biopsy results are negative but procedure report is not available at this point. She complains of excruciating pain and discomfort in the abdomen. She has normal bowel movements. There is no pathology. She follows up with her psychiatrist on a regular basis. Examination Category Sub-Category Detail Notes Category Not es General Examination GENERAL APPEARANCE: Well developed , Appears ill HEAD: Normocephalic, atrau matic frontal sinus tenderness on exam No pharyngeal erythema EYES: Pupils equal, round, reactive to light and accommodation, sclera non-icteric EARS: Normal THROAT: Clear NECK/THYROID: Neck supple, full ra nge of motion, no cervical lymphadenopathy HEART: S1, S2 normal regula r rate and rhythm no murmurs, rubs, gallops LUNGS: , clear to auscultat ion bilaterally, no wheezes, rales, rhonchi ABDOMEN: tender To palpate ep igastric and right upper quadrant, nondistended, bowel sounds present, bowel sounds were positive. There is no rebound or guarding NEUROLOGIC: Nonfocal, appropriat e motor strength normal upper and lower extremities, sensory exam intact SKIN: Warm and dry, no jaqui picious lesions EXTREMITIES: Normal PERIPHERAL PULSES: Normal BREASTS: __ MUSCULOSKELETAL: tenderness on palpat ion on the right costal muscle MALE GENITOURINARY: __ FEMALE GENITOURINARY: __ ORAL CAVITY: Normal PODIATRIC: tinea unguium Psychiatry Normal OROPHARYNX Normal SINUSES Normal Library Page Consultation Request Notes Referral Date Referring Provider Referred Provider Not 10/30/2024 GUSHELLY Dominguez , the right inte rcostal pain
--- OUTSIDE RECORDS SUMMARY | 2024-10-31 13:47 | XMS_ITS ---
Author Organization [facility] Address [address] [place] [phone] Care Team Providers Care Director Of Physiotherapy Services Name Role Phone SHELLY DUKES Primary Care Provider Medications Medication SIG (Take, Route, Frequency, Duration) Notes Start Date End Date Status oxyCODONE HCl 5 MG 1 tablet as needed Orally every 8 hrs for 3 days Partial Fill upon Patient Request 10/28/2024 Active Encounters Encounter Location Date Provider Diagnosis [address] [phone] 10/28/2024 SHELLY DUKES Acute pancreatitis without necrosis or infection, unspecified K85.90 Assessments Encounter Date Diagnosis (ICD Code) Assessment Notes Treatment Notes Treatment Clinical Notes Section Notes 10/28/2024 Acute pancreatitis without necrosis or infection, unspecified (ICD-10 - K85.90) Plan Of Treatment Medication Medication Name Sig Start Date Stop Date Notes oxyCODONE HCl 5 MG 1 tablet as needed Orally every 8 hrs for 3 days 10/28/2024 Partial Fill upon Patient Request Progress Notes * Eugenia HIGHTOWERDOB: 4 (29 yo F)Acc No.[id number]:10/28/2024 Patient:?CHRISTINABhupendra BRODERICKley :1995???Age:29 Y???Sex:Female Address:[address] [place] [phone] * Refills? Refill oxyCODONE HCl Tablet, 5 MG, Orally, 9 Tablet, 1 tablet as needed, every 8 hrs, 3 days, Refills=0 * true * Date:? Generated for Mark ferrer/Elias/Hueyitting on:?10/31/2024 01:46 PM EDT
--- OUTSIDE RECORDS SUMMARY | 2024-10-31 13:47 | XMS_ITS | Encounter Summary ---
Author Organization [facility] Address [address] [place] [address] Care Team Providers Care Patrol Sergeant Name Role Phone Dick Rene MD Primary Care Provider [phone] Reason for Visit * Reason Comments Abdominal Pain Encounter Details Date Type Department Care Team (Late st Contact Info) Description 10/27/2024 2:38 PM EDT - 10/27/2024 7:14 PM EDT Emergency [facility] [address] [place] [address] Abdominal pain, epigastric (Primary Dx); Pericardial effusion Discharge Disposition: Home or Self Care Social History Tobacco Use Types Packs/Day Years Used Date Smoking Tobacco: Never Smokeless Tobacco: Never Alcohol Use Standard Drinks/Week Comments No 0 (1 standard drink = 0.6 oz pur e alcohol) Comments Unknown Sex and Gender Information Value Date Recorded Sex Assigned at Female 09/08/2024 2:00 PM EST Legal Sex Female 10:44 PM EST Gender Identity Female 09/08/2024 2:00 PM EST Sexual Orientation Choose not to disclose 2024 2:00 PM EST documented as of this encounter Last Filed Vital Signs Vital Sign Reading Time Taken Comments Blood Pressure 117/75 10/27/2024 2:00 PM EDT Pulse 89 10/27/2024 7:13 PM EDT Temperature 36.9 ??C (98.4 ??F) 10/27/2024 2:00 PM ED T Respiratory Rate 18 10/27/2024 2:00 PM EDT Oxygen Saturation 98% 10/27/2024 4:08 PM EDT Inhaled Oxygen Concentration - - Weight 54.4 kg (120 lb) 10/27/2024 2:00 PM EDT Height 160 cm (5' 3 ) 10/27/2024 2:00 PM EDT Body Mass Index 21.26 10/27/2024 2:00 PM EDT documented in this encounter Discharge Instructions * Discharge Instructions* LYNETTE Rm - 10/27/2024 7:02 PM EDT DIAGNOSIS & TREATMENT: You were seen in the Emergency Department for abdominal pain. We performed laboratory work, and a CT scan of your abdomen, urinalysis and monitored your vital signs. Your CT scan showed evidence of james small right pleural effusion and a small pericardial effusion. Otherwise there were no findings to explain your pain. Please follow-up with your primary care provider regarding these results. You were treated with morphine, Zofran, IV fluids, Pepcid, Maalox, viscous lidocaine. FURTHER CARE: We have not found any emergent physical exam or lab abnormalities that would require admission to the hospital today. Many people who come to the ER with abdominal pain do not leave with a specific diagnosis at the end of their visit. In the Emergency Department we try to make sure that there is noemergent problem that needs surgery or antibiotics right now. This does not mean that your evaluation is complete--please be sure to follow up with your regular doctor as additional testing as an outpatient may be indicated Please be certain to drink plenty of fluids. You should advance your diet as tolerated. You may wish to start with the BRAT diet (bananas, rice, applesauce, toast). WHEN YOU SHOULD BE SEEN NEXT: Please follow-up with your primary care provider within the next 2-3 days for reevaluation of your symptoms. WHEN TO RETURN TO THE ED: Monitor your symptoms closely and return to the emergency department immediately for any new/worsening symptoms, worsening abdominal pain, pain which changes location (particularly if it moved to theright lower quadrant), nausea, vomiting, blood in your stool, black/tarry stool, chest pain, shortness of breath, fevers, chills, night sweats, you are unable to arrange follow-up care, or any other concerning symptoms. documented in this encounter Medications at Time of Discharge promethazine (PHENERGAN) 12.5 mg tablet Take 1 tablet (12.5 mg total) by mouth every 4 (four) hours if needed. 10/08/2024 documented as of this encounter Discharge Disposition Disposition Code Departure Means Destination Comment s Home or Self Care documented in this encounter Progress Notes * Kathy Hathaway RN - 10/27/2024 2:02 PM EDT Patient reports upper abdominal pain radiating to her back, worsening since yesterday, only able tokeep popsicles down. Denies taking any pain medications. * Kathy Hathaway RN - 10/27/2024 1:46 PM EDT Biba- per ems- patient experiencing upper abd pain. Hx of pancreatitis and gallstones a month ago. Pain went away and returned a few weeks ago. States has an enlarged intestine through endoscopy. Pain returned yesterday. Taking morphine for pain with no relief. Complaints of nausea, vomiting, headaches and chills as well as middle back pain. * LYNETTE Rm - 10/27/2024 1:40 PM EDT Emergency Medicine Note Patient Name: Eugenia Hightower Initial Evaluation: 10/27/2024 : 1995 Patient's PCP: Dick Rene MD Emergency Physician: LYNETTE Rm History of Present Illness Chief Complaint: Chief Complaint Patient presents with Abdominal Pain HPI: This is a 29-year-old female with past medical history significant for migraines, opioid dependence, presenting with epigastric abdominal pain x 3 days that has been worsening as well as nausea with vomiting. She notes a month ago she was seen at a hospital in [place] and diagnosed with acute pancreatitis when she had similar pain, then 2 weeks later was seen at [facility] however there were no acute findings on CAT scan and she was discharged. She had an endoscopy recently this week without concerning findings per the patient. Then 3 days ago had worsening epigastric pain. Pain is not worsened by eating or drinking, nothing makes the pain better or worse that she can think of, she rates it a 10 out of 10. Nonradiating. No fevers, hematemesis, melena, hematochezia, dysuria, hematuria, increased urinary urgency or frequency, lower abdominal pain, abnormal vaginal bleeding or discharge. Denies history of previous abdominal surgeries. ROS: I have performed a ROS with the pertinent positives and negatives documented in the history ofpresent illness. Previous History Past Medical History: Diagnosis Date Migraine headache without aura DX:Migraine headache without aura Past Surgical History: Procedure Laterality Date OTHER SURGICAL HISTORY PROCEDURE: DENIES PREVIOUS SURGERY Social History Tobacco Use Smoking status: Never Smokeless tobacco: Never Substance Use Topics Alcohol use: No Drug use: No Family History Problem Relation Name Age of Onset Allergies Mother Hyperlipidemia Mother Depression Mother Sleep disorder Mother Hyperlipidemia Father Hypertension Father Sleep disorder Father Glaucoma Maternal Grandmother Arthritis Maternal Grandmother Heart failure Maternal Grandfather Glaucoma Maternal Grandfather No Known Problems Paternal Grandmother Diabetes Paternal Grandfather Hypertension Paternal Grandfather No Known Problems Brother No Known Problems Sister No Known Problems Aunt No Known Problems Uncle No Known Problems Other Blindness Neg Hx Cataracts Neg Hx Macular degeneration Neg Hx Strabismus Neg Hx is allergic to amoxicillin. No current facility-administered medications on file prior to encounter. Current Outpatient Medications on File Prior to Encounter Medication Sig Dispense Refill promethazine (PHENERGAN) 12.5 mg tablet Take 1 tablet (12.5 mg total) by mouth every 4 (four) hoursif needed. Physical Exam ED Triage Vitals [10/27/24 1400] Temp Pulse Resp BP 36.9 ??C (98.4 ??F) -- 18 117/75 SpO2 Temp Source Heart Rate Source Patient Position 98 % Oral Monitor Sitting BP Location FiO2 (%) Left arm -- GENERAL: Somewhat uncomfortable appearing, nontoxic. SKIN: Appropriate color for ethnicity, warm, dry. No rashes. HEENT: No stridor NECK: Soft, supple, Midline structures, CHEST: Heart regular rate and rhythm, no rubs, no gallops or murmurs. PULMONARY: Clear to auscultation bilaterally without any adventitious lung sounds. ABDOMINAL: Soft, nondistended with positive bowel sounds. Tender to palpation in the epigastrium, no rebound or guarding. Negative Rovsing, negative Huntley's. : Deferred. MUSCULOSKELETAL: Normal tone, moves all extremity spontaneously. NEURO: Alert and oriented x3 PSYCHIATRIC: Normal affect, fluid speech, good eye contact and appropriate demeanor. Results Labs Reviewed CBC WITH AUTO DIFFERENTIAL - Abnormal Result Value WBC 5.7 RBC 3.90 Hemoglobin 11.0 (*) Hematocrit 33.4 (*) MCV 84.8 MCH 27.9 MCHC 32.9 RDW 11.6 Platelets 254 MPV 9.6 NRBC 0.0 NRBC Absolute 0.00 Neutrophils Relative 55.3 Lymphocytes Relative 36.8 Monocytes Relative 5.7 Eosinophils Relative 0.9 Basophils Relative 0.9 Immature Granulocytes Relative 0.4 Neutrophils Absolute 3.13 Lymphocytes Absolute 2.08 Monocytes Absolute 0.32 Eosinophils Absolute 0.05 Basophils Absolute 0.05 Immature Granulocytes Absolute 0.02 COMPREHENSIVE METABOLIC PANEL - Normal Sodium 136 Potassium 4.3 Chloride 102 CO2 27 Anion Gap 7 Glucose 95 BUN 11 Creatinine 0.57 eGFR 126 BUN/Creatinine Ratio 19.3 Calcium 9.3 AST (SGOT) 11 ALT (SGPT) 13 Alkaline Phosphatase 63 Total Protein 7.5 Albumin 4.1 Total Bilirubin 0.3 LIPASE - Normal Lipase 17 URINALYSIS WITH REFLEX MICROSCOPIC AND CULTURE - Normal Specific [place] Urine 1.017 pH, Urine 7.0 Leukocytes, Urine Negative Nitrite, Urine Negative Protein, Urine Negative Glucose, Urine Negative Ketones, Urine Negative Urobilinogen, Urine 0.2 Bilirubin, Urine Negative Blood, Urine Negative POC , URINE DIAGNOSTIC - Normal HCG, Ur POC Negative POC hCG Int QC Pass? Yes CBC AND DIFFERENTIAL Narrative: The following orders were created for panel order CBC and differential. Procedure Abnormality Status --------- ------ CBC auto differential[[id number]] Abnormal Final result Please view results for these tests on the individual orders. URINALYSIS WITH REFLEX MICROSCOPIC AND CULTURE Narrative: The following orders were created for panel order Urinalysis with reflex microscopic and culture. Procedure Abnormality Status --------- ------ Urinalysis with reflex ...[[id number]] Normal Final result Schmitz urine culture tube[[id number]] Final result Please view results for these tests on the individual orders. Abnormal Labs Reviewed CBC WITH AUTO DIFFERENTIAL - Abnormal; Notable for the following components: Result Value Hemoglobin 11.0 (*) Hematocrit 33.4 (*) All other components within normal limits CT Abdomen Pelvis w Contrast Final Result Impression: 1. Equivocal perivesical stranding could suggest cystitis, correlation with urinalysis suggested. 2. Tiny right pleural effusion and small pericardial effusion. 3. Otherwise, no other acute abnormalities or CT explanation for epigastric pain. Specifically, no CT evidence of pancreatitis appreciated. This document has been electronically signed by: Umberto Blevins MD on 10/27/2024 17:13:03 I have discussed the incidental/abnormal imaging and/or lab abnormalities with the patient and haveinstructed them the need for further evaluation and workup with their primary care doctor. I have provided the patient with a paper copy of the abnormality. The laboratory results, imaging results and other diagnostic exam results were reviewed in the EMR. EKG Interpretation Normal sinus rhythm with sinus arrhythmia at [address] elevation or depression. QTc 457. Critical Care Time None Differential Diagnosis Pancreatitis Choledocholithiasis Cholecystitis Gastritis PUD Atypical ACS Viral syndrome ? Medical Decision Making Medications ondansetron (PF) (ZOFRAN) injection 4 mg (4 mg intravenous Given 10/27/24 162) morphine injection 4 mg (4 mg intravenous Given 10/27/24 162) famotidine (PF) (PEPCID) injection 20 mg (20 mg intravenous Given 10/27/24 162) sodium chloride 0.9 % bolus 1,000 mL (0 mL intravenous Stopped 10/27/241809) sodium chloride 0.9 % flush 10 mL (10 mL intravenous Given 10/27/24 164) iopamidoL (ISOVUE-370) 370 mg iodine /mL (76 %) injection 100 mL (90 mL intravenous Given 10/27/24 164) aluminum-magnesium hydroxide-simethicone (MAALOX) 200-200-20 mg/5 mL suspension 30 mL (30 mL oral Given 10/27/241813) lidocaine (XYLOCAINE) 2 % mouth solution 15 mL (15 mL Mouth/Throat Given 10/27/241813) ED Course as of 10/27/24 1905 Sat Oct 27, 2024 1545 Patient seen and evaluated, she is a 29-year-old female presenting with 3 days of worsening epigastric abdominal pain as well as nausea and vomiting. She states a month ago was seen at a hospital in [place] and found to have acute pancreatitis with similar pain, then 2 weeks later was seen at [facility] with similar pain but there was no evidence of pancreatitis or other acute findings. Returns today with similar symptoms. Will give morphine, Zofran, IV fluids, Pepcid, and obtain CT abdomen pelvis IV contrast, UA, lab workup. [YB] 1806 Lab workup has been largely unremarkable, stable anemia, no evidence of UTI. CT shows possiblefindings of cystitis but this does not correlate and patient does not have symptoms of UTI. CT doesshow evidence of a small pericardial effusion and very small right pleural effusion. Discussed casewith Dr. Horton, advises patient can follow-up outpatient regarding this. There is no evidence of pancreatitis or other findings to suggest cause of epigastric pain. Patient had recent endoscopy without findings per the patient. Will trial Maalox and viscous lidocaine, anticipate discharge followingthis. Patient is able to tolerate p.o. intake. [YB] 1857 Patient has some improvement after Maalox and lidocaine, she is tolerating p.o. intake. Patient will be discharged with close PCP follow-up, strict return precaution, gradual advancement increase fluid intake. Advised take Tylenol as directed as needed for pain. Patient expresses understandingplan, all questions answered. [YB] ED Course User Index [YB] LYNETTE Rm Clinical Impressions as of 10/27/241904 Abdominal pain, epigastric Pericardial effusion Procedures Procedures Diagnosis 1. Abdominal pain, epigastric 2. Pericardial effusion Disposition Discharge ED Prescriptions None Physician Attestation LYNETTE Rm 10/27/24 1544 LYNETTE Rm 10/27/241904 Cosigned by Stephanie Horton DO at 10/27/2024 10:01 PM EDT documented in this encounter Plan of Treatment Not on file documented as of this encounter Procedures Procedure Name Priority Date/Time Associated Diagnosis Comments ECG ANNOTATED 10/29/2024 CT ABDOMEN PELVIS W CONTRAST STAT 10/27/2024 4:59 PM EDT ECG 12-LEAD STAT 10/27/2024 4:20 PM EDT URINALYSIS WITH REFLEX MICROSCOPIC AND CULTURE STAT 10/27/2024 4:08 PM EDT SCHMITZ URINE CULTURE TUBE STAT 10/27/2024 4:08 PM EDT URINALYSIS WITH REFLEX MICROSCOPIC AND CULTURE STAT 10/27/2024 4:08 PM EDT POC , URINE DIAGNOSTIC STAT 10/27/2024 4:07 PM EDT CBC WITH AUTO DIFFERENTIAL STAT 10/27/2024 1:59 PM EDT CBC AND DIFFERENTIAL STAT 10/27/2024 1:59 PM EDT LIPASE STAT 10/27/2024 1:59 PM EDT COMPREHENSIVE METABOLIC PANEL STAT 10/27/2024 1:59 PM EDT documented in this encounter Results * ECG-Annotated (10/29/2024) us Provider Onbase MD ECG ORDERABLES Final Result * CT Abdomen Pelvis w Contrast (10/27/2024 4:59 PM EDT) Anatomical Region Laterality Modality Body Computed Tomogra phy 10/27/2024 5:13 PM EDT Impressions 10/27/2024 5:13 PM EDT Impression: 1. Equivocal perivesical stranding could suggest cystitis, correlation with urinalysis suggested. 2. Tiny right pleural effusion and small pericardial effusion. 3. Otherwise, no other acute abnormalities or CT explanation for epigastric pain. Specifically, no CT evidence of pancreatitis appreciated. This document has been electronically signed by: Umberto Blevins MD on 10/27/2024 17:13:03 Narrative 10/27/2024 5:13 PM EDT INDICATION: epigastric abdominal pain, hx pancreatitis Exam: Contrast-enhanced CT abdomen and pelvis with multiplanar reformats. Comparison: None. Findings: CT abdomen: Lung bases reveal a tiny right pleural effusion, and small pericardial effusion. Liver is free of focal lesions and ductal dilatation. Gallbladder is unremarkable. Spleen appears unremarkable. Pancreas and adrenal glands appear unremarkable. Kidneys appear unremarkable. No free intraperitoneal fluid or retroperitoneal masses or adenopathy. Abdominal aorta is normal caliber. Bowel loops reveal no abnormal wall thickening or distention. The appendix appears unremarkable. No significant diverticular disease. CT pelvis: Urinary bladder may reveal trace equivocal perivesical stranding, raising the possibility of cystitis. No pelvic masses, fluid or adenopathy. Osseous structures reveal no destructive osseous lesions. Procedure Note Umberto Blevins MD - 10/27/2024 INDICATION: epigastric abdominal pain, hx pancreatitis Exam: Contrast-enhanced CT abdomen and pelvis with multiplanarreformats. Comparison: None. Findings: CT abdomen: Lung bases reveal a tiny right pleural effusion, and small pericardial effusion. Liver is free of focal lesions and ductal dilatation. Gallbladder is unremarkable. Spleen appears unremarkable. Pancreas and adrenal glands appear unremarkable. Kidneys appear unremarkable. No free intraperitoneal fluid or retroperitoneal masses or adenopathy. Abdominal aorta is normal caliber. Bowel loops reveal no abnormal wall thickening or distention. Theappendix appears unremarkable. No significant diverticular disease. CT pelvis: Urinary bladder may reveal trace equivocal perivesical stranding, raising the possibility of cystitis. No pelvic masses, fluidor adenopathy. Osseous structures reveal no destructive osseous lesions. IMPRESSION: Impression: 1. Equivocal perivesical stranding could suggest cystitis, correlation with urinalysis suggested. 2. Tiny right pleural effusion and small pericardial effusion. 3. Otherwise, no other acute abnormalities or CT explanation for epigastric pain. Specifically, no CT evidence of pancreatitisappreciated. This document has been electronically signed by: Umberto Blevins MD on 10/27/2024 17:13:03 us Yotam Block LYNETTE [facility] CT PROCEDURES Final Result * ECG 12 lead (10/27/2024 4:20 PM EDT) Ventricular Rate ECG 70 BPM GEMUSE Atrial Rate 70 BPM GEMUSE P-R Interval 120 ms GEMUSE QRS Duration 74 ms GEMUSE Q-T Interval 424 ms GEMUSE QTc 457 ms GEMUSE P Wave [place] 40 degrees GEMUSE R [place] 71 degrees GEMUSE T [place] 45 degrees GEMUSE ECG Interpretation Normal sinus rhythm with sinus arrhythmia Normal ECG When compared with ECG of 23-AUG-2017 21:54, QT has lengthened Confirmed by MD Domingo, Dexter ([id number]) on 10/28/2024 12:15:21 AM GEMUSE 10/27/2024 4:20 PM EDT 10/28/2024 12:15 AM EDT us SidelineSwap PA ECG ORDERABLES Final Result Performing Organization Address City/[facility]/ZIP Co de Phone Number GEMUSE * Schmitz urine culture tube (10/27/2024 4:08 PM EDT) Pathologist [facility] Extra Tube Hold for add-ons. 10/27/2024 6:01 PM EDT [facility] Comment:Auto resulted. Urine Urine specimen obtained by clean catch procedure / Unknown Non-blood Collection / Unknown 10/27/2024 4:08 PM EDT 10/27/2024 4:15 PM EDT Blair Angulo [facility] LAB URINE ORDERABLES Final Resul t Performing Organization Address City/[facility] Co de Phone Number [facility] [address] [place] [address], [place] [phone] * Urinalysis with reflex microscopic and culture (10/27/2024 4:08 PM EDT) Pathologist [facility] Specific [place] Urine 1.017 1.003 - 1.030 LAB URINALYSIS - AUTOMATED METHOD 10/27/2024 4:38 PM EDT [facility] pH, Urine 7.0 5.0 - 8.0 pH LAB URINALYSIS - AUTOMATED METHOD 10/27/2024 4:38 PM EDT [facility] Leukocytes, Urine Negative Negative LAB URINALYSIS - AUTOMATED METHOD 10/27/2024 4:38 PM EDT [facility] Nitrite, Urine Negative Negative LAB URINALYSIS - AUTOMATED METHOD 10/27/2024 4:38 PM EDT [facility] Protein, Urine Negative <=Trace mg/dL LAB URINALYSIS - AUTOMATED METHOD 10/27/2024 4:38 PM EDT [facility] Glucose, Urine Negative Negative mg/dL LAB URINALYSIS - AUTOMATED METHOD 10/27/2024 4:38 PM EDT [facility] Ketones, Urine Negative Negative mg/dL LAB URINALYSIS - AUTOMATED METHOD 10/27/2024 4:38 PM EDT [facility] Urobilinogen, Urine 0.2 0.2 - 1.0 mg/dL LAB URINALYSIS - AUTOMATED METHOD 10/27/2024 4:38 PM EDT [facility] Bilirubin, Urine Negative Negative LAB URINALYSIS - AUTOMATED METHOD 10/27/2024 4:38 PM EDT [facility] Blood, Urine Negative Negative LAB URINALYSIS - AUTOMATED METHOD 10/27/2024 4:38 PM EDT [facility] Urine Urine specimen obtained by clean catch procedure / Unknown Non-blood Collection / Unknown 10/27/2024 4:08 PM EDT 10/27/2024 4:15 PM EDT us Bentley Kev PA LAB URINE ORDERABLES Final Resul t [facility] [address] [place] [address], * POC , urine manually resulted (10/27/2024 4:07 PM EDT) HCG, Ur POC Negative Negative POC hCG Int QC Pass? Yes Yes Urine Urine specimen obtained by clean catch procedure / Unknown 10/27/2024 4:07 PM EDT De Moody MD POINT OF CARE TEST ENTER/ED IT ORDERABLES Final Result * (ABNORMAL) CBC auto differential (10/27/2024 1:59 PM EDT) [facility] WBC 5.7 4.8 - 10.8 K/mcL LAB HEMETOLOGY METHOD [facility]24 [facility] RBC 3.90 3.80 - 4.80 M/mcL LAB HEMETOLOGY METHOD 10/27/2024 2:23 [facility] Hemoglobin 11.0(L) 11.5 - 16.0 g/dL LAB HEMETOLOGY METHOD 10/27/2024 2:23 PM [facility] Hematocrit 33.4(L) 35.0 - 47.0 % LAB HEMETOLOGY METHOD 10/27/2024 2:23 PM [facility] MCV 84.8 79.0 - 98.0 FL LAB HEMETOLOGY METHOD 10/27/2024 2:[facility] MCH 27.9 27.0 - 32.0 pcg LAB HEMETOLOGY METHOD 10/27/2024 2:23 PM [facility] MCHC 32.9 32.0 - 37.0 g/dL LAB HEMETOLOGY METHOD 10/27/2024 2:23 PM [facility] RDW 11.6 11.0 - 15.0 % LAB HEMETOLOGY METHOD 10/27/2024 2:23 PM [facility] Platelets 254 130 - 400 K/mcL LAB HEMETOLOGY METHOD 10/27/2024 2:23 PM [facility] MPV 9.6 7.0 - 11.0 FL LAB HEMETOLOGY METHOD 10/27/2024 2:[facility] NRBC 0.0 <1.0 % LAB HEMETOLOGY METHOD 10/27/2024 2:23 PM T [facility] NRBC Absolute 0.00 <0.10 K/mcL LAB HEMETOLOGY METHOD 10/27/2024 2:23 PM [facility] Neutrophils Relative 55.3 % LAB HEMETOLOGY METHOD 10/27/2024 2:23 PM [facility] Lymphocytes Relative 36.8 % LAB HEMETOLOGY METHOD 10/27/2024 2:23 PM [facility] Monocytes Relative 5.7 % LAB HEMETOLOGY METHOD 10/27/2024 2:23 PM [facility] Eosinophils Relative 0.9 % LAB HEMETOLOGY METHOD 10/27/2024 2:23 PM [facility] Basophils Relative 0.9 % LAB HEMETOLOGY METHOD 10/27/2024 2:23 PM [facility] Immature Granulocytes Relative 0.4 % LAB HEMETOLOGY METHOD 10/27/2024 2:23 PM [facility] Neutrophils Absolute 3.13 1.50 - 7.00 K/mcL LAB HEMETOLOGY METHOD 10/27/2024 2:23 PM [facility] Lymphocytes Absolute 2.08 1.00 - 5.00 K/mcL LAB HEMETOLOGY METHOD 10/27/2024 2:23 PM [facility] Monocytes Absolute 0.32 0.20 - 1.00 K/mcL LAB HEMETOLOGY METHOD 10/27/2024 2:23 PM [facility] Eosinophils Absolute 0.05 0.00 - 0.50 K/mcL LAB HEMETOLOGY METHOD 10/27/2024 2:23 PM [facility] Basophils Absolute 0.05 0.00 - 0.20 K/mcL LAB HEMETOLOGY METHOD 10/27/2024 2:23 PM [facility] Immature Granulocytes Absolute 0.02 0.00 - 0.03 K/mcL LAB HEMETOLOGY METHOD 10/27/2024 2:23 PM EDT [facility] Blood Venous blood specimen / Unknown Venipuncture / Unknown 10/27/2024 1:59 PM EDT 10/27/2024 2:17 PM EDT De Moody MD LAB BLOOD ORDERABLES Final Result Performing Organization Address [facility]/ZIP Co de Phone Number [facility] [address] [place] [address], [place] [phone] * Lipase (10/27/2024 1:59 PM EDT) [facility] Lipase 17 13 - 75 unit/L LAB CHEMISTRY METHOD 10/27/2024 2:47 PM EDT [facility] Blood Venous blood specimen / Unknown Venipuncture / Unknown 10/27/2024 1:59 PM EDT 10/27/2024 2:17 PM EDT De Moody MD LAB BLOOD ORDERABLES Final Result Performing Organization Address [facility]/[place] [facility] de Phone Number [facility] [address] [place] [address], [place] [phone] * Comprehensive metabolic panel (10/27/2024 1:59 PM EDT) [facility] Sodium 136 133 - 145 mmol/L LAB CHEMISTRY METHOD 10/27/2024 2:47 PM EDT [facility] Potassium 4.3 3.5 - 5.5 mmol/L LAB CHEMISTRY METHOD 10/27/2024 2:47 PM EDT [facility] Chloride 102 96 - 110 mmol/L LAB CHEMISTRY METHOD 10/27/2024 2:47 PM EDT [facility] CO2 27 21 - 32 mmol/L LAB CHEMISTRY METHOD 10/27/2024 2:47 PM EDT [facility] Anion Gap 7 3 - 11 LAB CHEMISTRY METHOD 10/27/2024 2:47 PM [facility] Glucose 95 70 - 100 mg/dL LAB CHEMISTRY METHOD 10/27/2024 2:47 PM [facility] BUN 11 5 - 25 mg/dL LAB CHEMISTRY METHOD 10/27/2024 2:47 PM [facility] Creatinine 0.57 0.50 - 1.10 mg/dL LAB CHEMISTRY METHOD 10/27/2024 2:47 PM [facility] eGFR 126 >=60 mL/min/1. 73m2 LAB CHEMISTRY METHOD 10/27/2024 2:47 PM [facility] Comment:Calculation based on the??Chronic Kidney Disease Epidemiology Collaboration (CKD-EPI) equation refit??without adjustment for race. BUN/Creatinine Ratio 19.3 LAB CHEMISTRY METHOD 10/27/2024 2:47 PM [facility] Calcium 9.3 8.5 - 10.5 mg/dL LAB CHEMISTRY METHOD 10/27/2024 2:47 PM [facility] AST (SGOT) 11 10 - 42 unit/L LAB CHEMISTRY METHOD 10/27/2024 2:47 PM [facility] ALT (SGPT) 13 10 - 60 unit/L LAB CHEMISTRY METHOD 10/27/2024 2:47 PM [facility] Alkaline Phosphatase 63 42 - 121 unit/L LAB CHEMISTRY METHOD 10/27/2024 2:47 PM [facility] Total Protein 7.5 6.0 - 8.0 g/dL LAB CHEMISTRY METHOD 10/27/2024 2:47 PM [facility] Albumin 4.1 3.2 - 5.0 g/dL LAB CHEMISTRY METHOD 10/27/2024 2:47 PM [facility] Total Bilirubin 0.3 0.0 - 1.4 mg/dL LAB CHEMISTRY METHOD 10/27/2024 2:47 PM EDT [facility] Blood Venous blood specimen / Unknown Venipuncture / Unknown 10/27/2024 1:59 PM EDT 10/27/2024 2:17 PM EDT us De Moody MD LAB BLOOD ORDERABLES Final Result [facility] [address] [place] [address], documented in this encounter Visit Diagnoses Diagnosis Abdominal pain, epigastric- Primary Pericardial effusion Unspecified disease of pericardium documented in this encounter Administered Medications Inactive Administered Medications - up to 3 most recent administrations Medication Order MAR Action Action Date Dose Rate Site aluminum-magnesium hydroxide-simethicone (MAALOX) 200-200-20 mg/5 mL suspension 30 mL 30 mL, oral, Once, On 10/27/24 at 1807, For 1 dose Given 10/27/2024 6:14 PM EDT 30 mL famotidine (PF) (PEPCID) injection 20 mg 20 mg, intravenous, Administer over 2 Minutes, Once, On 10/27/24 at 1554, For 1 dose Given 10/27/2024 4:21 PM EDT 20 mg iopamidoL (ISOVUE-370) 370 mg iodine /mL (76 %) injection 100 mL 100 mL, intravenous, Once in imaging, Starting on 10/27/24 at 1642, For 1 dose Given 10/27/2024 4:42 PM EDT 90 mL lidocaine (XYLOCAINE) 2 % mouth solution 15 mL 15 mL, Mouth/Throat, Once, On 10/27/24 at 1807, For 1 dose Given 10/27/2024 6:14 PM EDT 15 mL morphine injection 4 mg 4 mg, intravenous, Once, On 10/27/24 at 1554, For 1 dose Given 10/27/2024 4:20 PM EDT 4 mg ondansetron (PF) (ZOFRAN) injection 4 mg 4 mg, intravenous, Once, On 10/27/24 at 1554, For 1 dose Given 10/27/2024 4:21 PM EDT 4 mg sodium chloride 0.9 % bolus 1,000 mL 1,000 mL, intravenous, at 2,000 mL/hr, Administer over 30 Minutes, Once, On 10/27/24 at 1554, For 1 dose New Bag 10/27/2024 4:21 PM EDT 1,000 mL 2000 mL/hr sodium chloride 0.9 % flush 10 mL 10 mL, intravenous, Once, On 10/27/24 at 1643, For 1 dose Given 10/27/2024 4:42 PM EDT 10 mL documented in this encounter Historical Medications * This list may reflect changes made after this encounter. promethazine (PHENERGAN) 12.5 mg tablet Take 1 tablet (12.5 mg total) by mouth every 4 (four) hours if needed. 10/08/2024 added in this encounter Active and Recently Administered Medications Times are shown in EDT. Scheduled Medication Order 10/25/2024 10/26/2024 10/27/2024 aluminum-magnesium hydroxide-simethicone (MAALOX) 200-200-20 mg/5 mL suspension 30 mL (COMPLETED) 30 mL, oral, Once, On 10/27/24 at 1807, For 1 dose 1813 (Given - Provid er: Verena Kirby RN) famotidine (PF) (PEPCID) injection 20 mg (COMPLETED) 20 mg, intravenous, Administer over 2 Minutes, Once, On 10/27/24 at 1554, For 1 dose 1620 (Given - Provid er: Verena Kirby RN) iopamidoL (ISOVUE-370) 370 mg iodine /mL (76 %) injection 100 mL (COMPLETED) 100 mL, intravenous, Once in imaging, Starting on 10/27/24 at 1642, For 1 dose 164 (Given - Provid er: Treasure Hernandez) lidocaine (XYLOCAINE) 2 % mouth solution 15 mL (COMPLETED) 15 mL, Mouth/Throat, Once, On 10/27/24 at 1807, For 1 dose 1813 (Given - Provid er: Verena Kirby RN) morphine injection 4 mg (COMPLETED) 4 mg, intravenous, Once, On 10/27/24 at 1554, For 1 dose 1619 (Given - Provid er: Verena Kirby RN) ondansetron (PF) (ZOFRAN) injection 4 mg (COMPLETED) 4 mg, intravenous, Once, On 10/27/24 at 1554, For 1 dose 1621 (Given - Provid er: Verena Kirby RN) sodium chloride 0.9 % bolus 1,000 mL (COMPLETED) 1,000 mL, intravenous, at 2,000 mL/hr, Administer over 30 Minutes, Once, On 10/27/24 at 1554, For 1 dose 1621 (New Bag - Prov ider: Verena Kirby RN)1810 (Stopped - Provider: Verena Kirby RN) sodium chloride 0.9 % flush 10 mL (COMPLETED) 10 mL, intravenous, Once, On 10/27/24 at 1643, For 1 dose 1642 (Given - Provid er: Treasure Hernandez) documented in this encounter Care Teams Patrol Sergeant Relationship Specialty Start Date End Date Dick Rene MD [address] [place] [id number] PCP - General Internal Medicine 09/08/24 documented as of this encounter
--- OUTSIDE RECORDS SUMMARY | 2024-10-31 13:47 | XMS_ITS | Data Portability ---
Author Organization [place] Address [address] [place] [address] Assessment Encounter Date Assessment Date Assessment LastModified [...] UDS NEG Seeing mental health prescriber @ [facility] - stable on current medications per patient. 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 - Site: [facility] - Lot #: [id number] - Exp. Date: 07/02/23 Sublocade dose 25 [...] of amphetamine Seeing mental health prescriber @ [facility] - stable on current medications per patient. 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 - Site: [facility] - Lot #: [id number] - Exp. Date: 06/02/23 PLAN (narrative, if [...] of amphetamine Seeing mental health prescriber @ [facility] - stable on current medications per patient. 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 Lab drug screen, urine 2022 023 [facility], [address] [place] [address], [address], 3 10:56:05 test, urine 2022 023 [email or web address] [employer], [address], 3 14:43:59 drug screen, urine 2022 023 [facility], [address] [place] [address], [address], 3 05:45:06 test, urine 2022 023 [email or web address] [email or web address] [address], [address], 3 15:37:12 drug screen, urine 2022 023 [facility], [address] [place] [address], [address], 3 13:11:53 test, urine 2022 023 [email or web address], [address], 3 14:40:45 drug screen, urine 2021 022 [facility], [address] [place], [address], 2 11:14:53 test, urine 2021 022 [facility], [address] [place] [address], [address], 2 11:13:49 drug screen, urine 2021 022 [facility], [address] [place], [address], 2 09:31:40 test, urine 2021 022 [email or web address] alcaraz [facility], [address] [place] [address], [address], 16:20:30 Referral None recorded. Procedures None recorded. Surgeries None recorded. Imaging None recorded. Medication Orders None recorded. Patient TargetsNo targets recorded. Patient Instructions Encounter Date Encounter Id Patient Instructions Last Modified By Organization Details Last Modified Time 05/10/2022 [id number] Education provid ed at today's visit included: [...] counseling and coordinating care. Education provided at [facility]'s visit included: Review of patient's individualized [...] [email or web address] Not available 05/10/2022 16:07:51 06/08/2022 [id number] Education provid ed at today's visit included: [...] [email or web address] Not available 06/08/2022 15:51:30 07/07/2022 [id number] Education provid ed at today's visit included: [...] alissa [email or web address] Not available 07/07/2022 14:29:46 08/05/2022 [id number] Education provid ed at today's visit included: [...] [email or web address] Not available 08/05/2022 15:32:15 09/01/2022 [id number] Education provid ed at today's visit included: [...] by LESTER KEMP NA-WE ISS Not Available [facility] [address] [place], [address], 04/14/2022 09:05:52 04/12/20 22 04/12/2022 BUPRE NORPH INE PT SCREE ISHMAEL benzodiazapi everton Negati ve NG/mL 200 Not Available [facility], [address], 04/14/2022 09:05:52 04/12/20 22 04/12/2022 BUPRE NORPH INE PT SCREE ISHMAEL buprenorphin e Positi ve NG/mL 5 Not Available [place] [address] [place], [address], 04/14/2022 09:05:52 04/12/20 22 04/12/2022 BUPRE NORPH INE PT SCREE ISHMAEL cocaine metabolite Negati ve NG/mL 150 Not Available [place] [address] [place], [address], 04/14/2022 09:05:52 04/12/20 22 04/12/2022 BUPRE NORPH INE PT SCREE ISHMAEL opiates Negati ve NG/mL 300 Not Available [place] [address] [place], [address], 04/14/2022 09:05:52 04/12/20 22 04/12/2022 BUPRE NORPH INE PT SCREE ISHMAEL oxycodone Negati ve NG/mL 300 Not Available [place] [address] [place], [address], 04/14/2022 09:05:52 04/12/20 22 04/12/2022 BUPRE NORPH INE PT SCREE ISHMAEL fentanyl Negati ve NG/mL 2 Not Available [place] [address] [place], [address], 04/14/2022 09:05:52 04/12/20 22 04/12/2022 BUPRE NORPH INE PT SCREE ISHMAEL ethyl alcohol Negati ve mg/dL 10 Not Available [place] [address] [place], [address], 04/14/2022 09:05:52 04/12/20 22 04/12/2022 BUPRE NORPH INE PT SCREE ISHMAEL methadone metabolite Negati ve NG/mL 300 Not Available [place] [address] [place], [address], 04/14/2022 09:05:52 04/12/20 22 04/12/2022 BUPRE NORPH INE PT SCREE ISHMAEL cannabinoids (THC) Negati ve NG/mL 50 Not Available [place] [address] [place], [address], 04/14/2022 09:05:52 04/12/20 22 04/12/2022 BUPRE NORPH INE PT SCREE ISHMAEL urine creatinine 287.3 mg/dL >20 Not Available [place] [address] [place], [address], 04/14/2022 09:05:52 04/12/20 22 04/12/2022 BUPRE NORPH INE PT SCREE ISHMAEL urine pH 6.10 4.5-9. 0 Not Available [place] [address] [place], [address], 04/14/2022 09:05:52 04/12/20 22 04/12/2022 BUPRE NORPH INE PT SCREE ISHMAEL specific gravity 1.034 1.003- 1.035 Not Available [place] [address] [place], [address], 04/14/2022 09:05:52 04/12/20 22 04/12/2022 PRESC RIBED DRUG CONFI RMATI ON BUPRE NORPH INE 1, QN, U buprenorphin e 225.6 NG/mL 10 Elect solitario rodrigues d by LESTER KEMP NA-WE ISS Not Available [place] [address] [place], [address], 04/15/2022 06:09:06 04/12/20 22 04/12/2022 PRESC RIBED DRUG CONFI RMATI ON BUPRE NORPH INE 1, QN, U norbuprenorp liliane 103.7 NG/mL 10 Not Available [place] [address] [place], [address], 04/15/2022 06:09:06 04/12/20 22 04/12/2022 PRESC RIBED DRUG CONFI RMATI ON BUPRE NORPH INE 1, QN, U legend Abbrev iation s LOW - Detec courtney but unqua ntifi able OLR - Outsi de of linea r range ATR - Addit ional Testi ng Requi red Not Available [place] [address] [address] [place], [address], 04/15/2022 06:09:06 04/12/20 22 04/12/2022 PRESC RIBED DRUG CONFI RMATI ON BUPRE NORPH INE 1, QN, U billing only (g0480) Billin g Only Not Available [facility] [place], [address], 04/15/2022 06:09:06 05/10/20 22 05/10/2022 BUPRE NORPH INE PT SCREE ISHMAEL amphetamines Positi ve NG/mL 1,000 abnormal Elect solitario rodrigues d by LESTER KEMP NA-WE ISS Not Available [place] [address] [place], [address], 05/12/2022 09:31:40 05/10/20 22 05/10/2022 BUPRE NORPH INE PT SCREE ISHMAEL benzodiazapi everton Negati ve NG/mL [address] [facility] [place], [address], 05/12/2022 09:31:40 05/10/20 22 05/10/2022 BUPRE NORPH INE PT SCREE ISHMAEL buprenorphin e Positi ve NG/mL [address] [facility] [place], [address], 05/12/2022 09:31:40 05/10/20 22 05/10/2022 BUPRE NORPH INE PT SCREE ISHMAEL cocaine metabolite Negati ve NG/mL [address] [facility] [place], [address], 05/12/2022 09:31:40 05/10/20 22 05/10/2022 BUPRE NORPH INE PT SCREE ISHMAEL opiates Negati ve NG/mL 300 Not Available [place] [address] [place], [address], 05/12/2022 09:31:40 05/10/20 22 05/10/2022 BUPRE NORPH INE PT SCREE ISHMAEL oxycodone Negati ve NG/mL 300 Not Available [place] [address] [place], [address], 05/12/2022 09:31:40 05/10/20 22 05/10/2022 BUPRE NORPH INE PT SCREE ISHMAEL fentanyl Negati ve NG/mL 2 Not Available [place] [address] [place], [address], 05/12/2022 09:31:40 05/10/20 22 05/10/2022 BUPRE NORPH INE PT SCREE ISHMAEL ethyl alcohol Negati ve mg/dL 10 Not Available [place] [address] [place], [address], 05/12/2022 09:31:40 05/10/20 22 05/10/2022 BUPRE NORPH INE PT SCREE ISHMAEL methadone metabolite Negati ve NG/mL 300 Not Available [place] [address] [place], [address], 05/12/2022 09:31:40 05/10/20 22 05/10/2022 BUPRE NORPH INE PT SCREE ISHMAEL cannabinoids (THC) Negati ve NG/mL 50 Not Available [place] [address] [place], [address], 05/12/2022 09:31:40 05/10/20 22 05/10/2022 BUPRE NORPH INE PT SCREE ISHMAEL urine creatinine 357.1 mg/dL >20 Not Available [place] [address] [place], [address], 05/12/2022 09:31:40 05/10/20 22 05/10/2022 BUPRE NORPH INE PT SCREE ISHMAEL urine pH 5.90 4.5-9. 0 Not Available [place] [address] [place], [address], 05/12/2022 09:31:40 05/10/20 22 05/10/2022 BUPRE NORPH INE PT SCREE ISHMAEL specific gravity 1.036 1.003- 1.035 high Not Available [place] [address] [place], [address], 05/12/2022 09:31:40 05/10/20 22 05/10/2022 AMPHE TAMIN ES, QN, U amphetamine Negati ve NG/mL 250 Elect solitario brown by LESTER KEMP NA-WE ISS Not Available [place] [address] [place], [address], 05/14/2022 07:28:01 05/10/20 22 05/10/2022 AMPHE TAMIN ES, QN, U methamphetam ine Negati ve NG/mL [address] [facility] [place], [address], 05/14/2022 07:28:01 05/10/20 22 05/10/2022 AMPHE TAMIN ES, QN, U mda Negati ve NG/mL [address] [facility] [address] [place] [place], [address], 05/14/2022 07:28:01 05/10/20 22 05/10/2022 AMPHE TAMIN ES, QN, U legend Abbrev iation s OLR - Outsi de of linea r range Not Available [place] [address] [address] [place], [address], 05/14/2022 07:28:01 05/10/20 22 05/10/2022 AMPHE TAMIN ES, QN, U billing only ([id number]) Billin g Only Not Available [facility] [address] [place], [address], 05/14/2022 07:28:01 05/10/20 22 05/10/2022 PRESC RIBED DRUG CONFI RMATI ON BUPRE NORPH INE 1, QN, U buprenorphin e 428.5 NG/mL 10 Elect solitario rodrigues d by LESTER KEMP NA-WE ISS Not Available [place] [address] [place], [address], 05/14/2022 07:28:02 05/10/20 22 05/10/2022 PRESC RIBED DRUG CONFI RMATI ON BUPRE NORPH INE 1, QN, U norbuprenorp liliane 261.3 NG/mL 10 Not Available [place] [address] [place], [address], 05/14/2022 07:28:02 05/10/20 22 05/10/2022 PRESC RIBED DRUG CONFI RMATI ON BUPRE NORPH INE 1, QN, U legend Abbrev iation s LOW - Detec courtney but unqua ntifi able OLR - Outsi de of linea r range ATR - Addit ional Testi ng Requi red Not Available [place] [address] [place], [address], 05/14/2022 07:28:02 05/10/20 22 05/10/2022 pregn vasquez test, urine HCG negati ve Not Available [facility] [address], [address], 05/10/2022 16:05:50 06/08/20 22 06/08/2022 BUPRE NORPH INE PT SCREE ISHMAEL amphetamines Positi ve NG/mL 1,000 abnormal Elect solitario rodrigues d by LESTER KEMP NA-WE ISS Not Available [place] [address] [place], [address], 06/10/2022 11:14:53 06/08/20 22 06/08/2022 BUPRE NORPH INE PT SCREE ISHMAEL benzodiazapi everton Negati ve NG/mL [address] [facility] [place], [address], 06/10/2022 11:14:53 06/08/20 22 06/08/2022 BUPRE NORPH INE PT SCREE ISHMAEL buprenorphin e Positi ve NG/mL [address] [facility] [place], [address], 06/10/2022 11:14:53 06/08/20 22 06/08/2022 BUPRE NORPH INE PT SCREE ISHMAEL cocaine metabolite Negati ve NG/mL [address] [facility] [place], [address], 06/10/2022 11:14:53 06/08/20 22 06/08/2022 BUPRE NORPH INE PT SCREE ISHMAEL opiates Negati ve NG/mL [address] [facility] [place], [address], 06/10/2022 11:14:53 06/08/20 22 06/08/2022 BUPRE NORPH INE PT SCREE ISHMAEL oxycodone Negati ve NG/mL [address] [facility] [place], [address], 06/10/2022 11:14:53 06/08/20 22 06/08/2022 BUPRE NORPH INE PT SCREE ISHMAEL fentanyl Negati ve NG/mL [address] [facility] [place], [address], 06/10/2022 11:14:53 06/08/20 22 06/08/2022 BUPRE NORPH INE PT SCREE ISHMAEL ethyl alcohol Negati ve mg/dL [address] [facility] [place], [address], 06/10/2022 11:14:53 06/08/20 22 06/08/2022 BUPRE NORPH INE PT SCREE ISHMAEL methadone metabolite Negati ve NG/mL [address] [facility] [address] [place], [address], 06/10/2022 11:14:53 06/08/20 22 06/08/2022 BUPRE NORPH INE PT SCREE ISHMAEL cannabinoids (THC) Negati ve NG/mL [address] [facility] [address], [address], 06/10/2022 11:14:53 06/08/20 22 06/08/2022 BUPRE NORPH INE PT SCREE ISHMAEL urine creatinine 284.9 mg/dL >20 Not Available [place] [address] [address] [place], [address], 06/10/2022 11:14:53 06/08/20 22 06/08/2022 BUPRE NORPH INE PT SCREE ISHMAEL urine pH 6.70 4.5-9. 0 Not Available [place] [address] [address] [place], [address], 06/10/2022 11:14:53 06/08/20 22 06/08/2022 BUPRE NORPH INE PT SCREE ISHMAEL specific gravity 1.035 1.003- 1.035 Not Available [place] [address] [address], [address], 06/10/2022 11:14:53 06/08/20 22 06/08/2022 PRESC RIBED DRUG CONFI RMATI ON BUPRE NORPH INE 1, QN, U buprenorphin e 333.9 NG/mL 10 Tatianna brown by LESTER PERSON Not Available [place] [address] [place], [address], 06/14/2022 08:11:13 06/08/20 22 06/08/2022 PRESC RIBED DRUG CONFI RMATI ON BUPRE NORPH INE 1, QN, U norbuprenorp liliane 383.6 NG/mL 10 Not Available [place] [address] [place], [address], 06/14/2022 08:11:13 06/08/20 22 06/08/2022 PRES RIBED DRUG CONFI RMATI ON BUPRE NORPH INE 1, QN, U legend Abbrev iation s LOW - Detec courtney but unqua ntifi able OLR - Outsi de of linea r range ATR - Addit ional Testi ng Requi red Not Available [place] [address] [place], [address], 06/14/2022 08:11:13 06/08/20 22 06/08/2022 [facility] RIBED DRUG CONFI RMATI ON BUPRE NORPH INE 1, QN, U billing only ([id number]) Billin g Only Not Available [place] [address] [place], [address], 06/14/2022 08:11:13 06/08/20 22 06/08/2022 AMPHE TAMIN ES, QN, U amphetamine Negati ve NG/mL 250 Elect solitario rodrigues d by LESTER KEMP NA-WE ISS Not Available [place] [address] [place], [address], 06/14/2022 08:11:13 06/08/20 22 06/08/2022 AMPHE TAMIN ES, QN, U methamphetam ine Negati ve NG/mL [address] [facility] [place], [address], 06/14/2022 08:11:13 06/08/20 22 06/08/2022 AMPHE TAMIN ES, QN, U mda Negati ve NG/mL [address] [facility] [place], [address], 06/14/2022 08:11:13 06/08/20 22 06/08/2022 AMPHE TAMIN ES, QN, U legend Abbrev iation s OLR - Outsi de of linea r range Not Available [place] [address] [place], [address], 06/14/2022 08:11:13 06/10/20 22 06/10/2022 pregn vasquez test, urine HCG negati ve Not Available [facility] [address], [address], 06/08/2022 15:48:34 07/07/19 23 07/07/2022 BUPRE NORPH INE PT SCREE ISHMAEL amphetamines Negati ve NG/mL 1,000 Elect solitario rodrigues d by LESTER KEMP NA-WE ISS Not Available [place] [address] [place], [address], 07/09/2022 13:11:53 07/07/19 23 07/07/2022 BUPRE NORPH INE PT SCREE ISHMAEL benzodiazapi everton Negati ve NG/mL [address] [facility] [place], [address], 07/09/2022 13:11:53 07/07/19 23 07/07/2022 BUPRE NORPH INE PT SCREE ISHMAEL buprenorphin e Positi ve NG/mL [address] [facility] [place], [address], 07/09/2022 13:11:53 07/07/19 23 07/07/2022 BUPRE NORPH INE PT SCREE ISHMAEL cocaine metabolite Negati ve NG/mL [address] [facility] [place], [address], 07/09/2022 13:11:53 07/07/19 23 07/07/2022 BUPRE NORPH INE PT SCREE ISHMAEL opiates Negati ve NG/mL [address] [facility] [place], [address], 07/09/2022 13:11:53 07/07/19 23 07/07/2022 BUPRE NORPH INE PT SCREE ISHMAEL oxycodone Negati ve NG/mL 300 Not Available [place] [address] [place], [address], 07/09/2022 13:11:53 07/07/19 23 07/07/2022 BUPRE NORPH INE PT SCREE ISHMAEL fentanyl Negati ve NG/mL 2 Not Available [place] [address] [place], [address], 07/09/2022 13:11:53 07/07/19 23 07/07/2022 BUPRE NORPH INE PT SCREE ISHMAEL ethyl alcohol Negati ve mg/dL 10 Not Available [place] [address] [place], [address], 07/09/2022 13:11:53 07/07/19 23 07/07/2022 BUPRE NORPH INE PT SCREE ISHMAEL methadone metabolite Negati ve NG/mL 300 Not Available [place] [address] [place], [address], 07/09/2022 13:11:53 07/07/19 23 07/07/2022 BUPRE NORPH INE PT SCREE ISHMAEL cannabinoids (THC) Positi ve NG/mL 50 abnormal Not Available [place] [address] [place], [address], 07/09/2022 13:11:53 07/07/19 23 07/07/2022 BUPRE NORPH INE PT SCREE ISHMAEL urine creatinine 213.0 mg/dL >20 Not Available [place] [address] [place], [address], 07/09/2022 13:11:53 07/07/19 23 07/07/2022 BUPRE NORPH INE PT SCREE ISHMAEL urine pH 6.20 4.5-9. 0 Not Available [place] [address] [place], [address], 07/09/2022 13:11:53 07/07/19 23 07/07/2022 BUPRE NORPH INE PT RHEA QUIÑONES specific gravity 1.036 1.003- 1.035 high Not Available [place] [address] [place], [address], 07/09/2022 13:11:53 07/07/19 23 07/07/2022 PRESC RIBED DRUG CONFI RMATI ON BUPRE NORPH INE 1, QN, U buprenorphin e 156.3 NG/mL 10 Elect solitario rodrigues d by LESTER KEMP NA-WE ISS Not Available [place] [address] [place], [address], 07/13/2022 10:49:19 07/07/19 23 07/07/2022 PRESC RIBED DRUG CONFI RMATI ON BUPRE NORPH INE 1, QN, U norbuprenorp liliane 160.8 NG/mL 10 Not Available [place] [address] [place], [address], 07/13/2022 10:49:19 07/07/19 23 07/07/2022 PRESC RIBED DRUG CONFI RMATI ON BUPRE NORPH INE 1, QN, U legend Abbrev iation s LOW - Detec courtney but unqua ntifi able OLR - Outsi de of linea r range ATR - Addit ional Testi ng Requi red Not Available [place] [address] [place], [address], 07/13/2022 10:49:19 07/07/19 23 07/07/2022 PRESC RIBED DRUG CONFI RMATI ON BUPRE NORPH INE 1, QN, U billing only (g0480) Billin g Only Not Available [place] [address] [place], [address], 07/13/2022 10:49:19 07/07/19 23 07/07/2022 pregn vasquez test, urine HCG negati ve Not Available [facility] [address], [place], [address], 07/07/2022 14:23:58 08/05/19 23 08/05/2022 BUPRE NORPH INE PT SCREE ISHMAEL amphetamines Positi ve NG/mL 1,000 abnormal Elect solitario rodrigues d by LESTER KEMP NA-WE ISS Not Available [place] [address] [place], [address], 08/10/2022 05:45:06 08/05/19 23 08/05/2022 BUPRE NORPH INE PT SCREE ISHMAEL benzodiazapi everton Positi ve NG/mL 200 abnormal Not Available [place] [address] [place], [address], 08/10/2022 05:45:06 08/05/19 23 08/05/2022 BUPRE NORPH INE PT SCREE ISHMAEL buprenorphin e Positi ve NG/mL 5 Not Available [place] [address] [place], [address], 08/10/2022 05:45:06 08/05/19 23 08/05/2022 BUPRE NORPH INE PT SCREE ISHMAEL cocaine metabolite Negati ve NG/mL 150 Not Available [place] [address] [place], [address], 08/10/2022 05:45:06 08/05/19 23 08/05/2022 BUPRE NORPH INE PT SCREE ISHMAEL opiates Negati ve NG/mL 300 Not Available [place] [address] [place], [address], 08/10/2022 05:45:06 08/05/19 23 08/05/2022 BUPRE NORPH INE PT SCREE ISHMAEL oxycodone Negati ve NG/mL 300 Not Available [place] [address] [place], [address], 08/10/2022 05:45:06 08/05/19 23 08/05/2022 BUPRE NORPH INE PT SCREE ISHMAEL fentanyl Negati ve NG/mL 2 Not Available [place] [address] [place], [address], 08/10/2022 05:45:06 08/05/19 23 08/05/2022 BUPRE NORPH INE PT SCREE ISHMAEL ethyl alcohol Negati ve mg/dL 10 Not Available [place] [address] [place], [address], 08/10/2022 05:45:06 08/05/19 23 08/05/2022 BUPRE NORPH INE PT SCREE ISHMAEL methadone metabolite Negati ve NG/mL 300 Not Available [place] [address] [place], [address], 08/10/2022 05:45:06 08/05/19 23 08/05/2022 BUPRE NORPH INE PT SCREE ISHMAEL cannabinoids (THC) Positi ve NG/mL 50 abnormal Not Available [place] [address] [place], [address], 08/10/2022 05:45:06 08/05/19 23 08/05/2022 BUPRE NORPH INE PT SCREE ISHMAEL urine creatinine 204.1 mg/dL >20 Not Available [place] [address] [place], [address], 08/10/2022 05:45:06 08/05/19 23 08/05/2022 BUPRE NORPH INE PT SCREE ISHMAEL urine pH 5.70 4.5-9. 0 Not Available [address] [address] [place], [address], 08/10/2022 05:45:06 08/05/19 23 08/05/2022 BUPRE NORPH INE PT SCREE ISHMAEL specific gravity 1.032 1.003- 1.035 Not Available [place] [address] [place], [address], 08/10/2022 05:45:06 08/05/19 23 08/05/2022 AMPHE TAMIN ES, QN, U amphetamine Negati ve NG/mL 250 Elect solitario rodrigues d by LESTER KEMP NA-WE ISS Not Available [place] [address] [place], [address], 08/12/2022 09:42:11 08/05/19 23 08/05/2022 AMPHE TAMIN ES, QN, U methamphetam ine Negati ve NG/mL [address] [facility] [place], [address], 08/12/2022 09:42:11 08/05/19 23 08/05/2022 AMPHE RENETTAIN ES, QN, U mda Negati ve NG/mL [address] [facility] [place], [address], 08/12/2022 09:42:11 08/05/19 23 08/05/2022 AMPHE TAMIN ES, QN, U legend Abbrev iation s OLR - Outsi de of linea r range Not Available [place] [address] [place], [address], 08/12/2022 09:42:11 08/05/19 23 08/05/2022 AMPHE TAMIN ES, QN, U billing only (g0480) Billin g Only Not Available [facility] [place], [address], 08/12/2022 09:42:11 08/05/19 23 08/05/2022 BENZO DIAZE PINES , QN, U alpha-hydrox yalprazolam Negati ve NG/mL 25 Elect solitario rodrigues d by LESTER KEMP NA-WE ISS Not Available [place] [address] [place], [address], 08/12/2022 09:42:11 08/05/19 23 08/05/2022 BENZO DIAZE PINES , QN, U 7-aminoclona zepam 1619.1 NG/mL 40 high Not Available [place] [address] [address] [place], [id number], 08/12/2022 09:42:11 08/05/19 23 08/05/2022 BENZO DIAZE PINES , QN, U lorazepam Negati ve NG/mL 50 Not Available [place] [address] [place], [id number], 08/12/2022 09:42:11 08/05/19 23 08/05/2022 BENZO DIAZE PINES , QN, U nordiazepam Negati ve NG/mL 50 Not Available [place] [address] [place], [address], 08/12/2022 09:42:11 08/05/19 23 08/05/2022 BENZO DIAZE PINES , QN, U temazepam Negati ve NG/mL [address] [facility] [place], [address], 08/12/2022 09:42:11 08/05/19 23 08/05/2022 BENZO DIAZE PINES , QN, U legend Abbrev iation s OLR - Outsi de of linea r range Not Available [place] [address] [place], [address], 08/12/2022 09:42:11 08/05/19 23 08/05/2022 PRESC RIBED DRUG CONFI RMATI ON BUPRE NORPH INE 1, QN, U buprenorphin e 92.2 NG/mL 10 Elect solitario rodrigues d by LESTER KEMP NA-WE ISS Not Available [place] [address] [place], [address], 08/12/2022 09:42:12 08/05/19 23 08/05/2022 PRESC RIBED DRUG CONFI RMATI ON BUPRE NORPH INE 1, QN, U norbuprenorp liliane 114.0 NG/mL 10 Not Available [place] [address] [place], [address], 08/12/2022 09:42:12 08/05/19 23 08/05/2022 PRESC RIBED DRUG CONFI RMATI ON BUPRE NORPH INE 1, QN, U legend Abbrev iation s LOW - Detec courtney but unqua ntifi able OLR - Outsi de of linea r range ATR - Addit ional Testi ng Requi red Not Available [place] [address] [place], [address], 08/12/2022 09:42:12 08/05/19 23 08/05/2022 pregn vaqsuez test, urine HCG negati ve Not Available [facility] [address], [address], 08/05/2022 15:24:01 09/02/19 23 09/01/2022 BUPRE NORPH INE PT SCREE ISHMAEL amphetamines Positi ve NG/mL 1,000 abnormal Elect solitario rodrigues d by LESTER KEMP NA-WE ISS Not Available [place] [address] [place], [address], 09/02/2022 10:56:04 09/02/19 23 09/01/2022 BUPRE NORPH INE PT SCREE ISHMAEL benzodiazapi everton Positi ve NG/mL [address] [facility] [place], [address], 09/02/2022 10:56:04 09/02/19 23 09/01/2022 BUPRE NORPH INE PT SCREE ISHMAEL buprenorphin e Positi ve NG/mL [address] [facility] [place], [address], 09/02/2022 10:56:04 09/02/19 23 09/01/2022 BUPRE NORPH INE PT SCREE ISHMAEL cocaine metabolite Negati ve NG/mL [address] [facility] [place], [address], 09/02/2022 10:56:04 09/02/19 23 09/01/2022 BUPRE NORPH INE PT SCREE ISHMAEL opiates Negati ve NG/mL 300 Not Available [place] [address] [place], [address], 09/02/2022 10:56:04 09/02/19 23 09/01/2022 BUPRE NORPH INE PT SCREE ISHMAEL oxycodone Negati ve NG/mL 300 Not Available [place] [address] [place], [address], 09/02/2022 10:56:04 09/02/19 23 09/01/2022 BUPRE NORPH INE PT SCREE ISHMAEL fentanyl Negati ve NG/mL 2 Not Available [place] [address] [place], [address], 09/02/2022 10:56:04 09/02/19 23 09/01/2022 BUPRE NORPH INE PT SCREE ISHMAEL ethyl alcohol Negati ve mg/dL 10 Not Available [address] [place] [address] [place], [address], 09/02/2022 10:56:04 09/02/19 23 09/01/2022 BUPRE NORPH INE PT SCREE ISHMAEL methadone metabolite Negati ve NG/mL 300 Not Available [address] [address] [place], [address], 09/02/2022 10:56:04 09/02/19 23 09/01/2022 BUPRE NORPH INE PT SCREE ISHMAEL cannabinoids (THC) Positi ve NG/mL 50 abnormal Not Available [address] [address] [place], [address], 09/02/2022 10:56:04 09/02/19 23 09/01/2022 BUPRE NORPH INE PT SCREE ISHMAEL urine creatinine 216.0 mg/dL >20 Not Available [place] [address] [place], [address], 09/02/2022 10:56:04 09/02/19 23 09/01/2022 BUPRE NORPH INE PT SCREE ISHMAEL urine pH 5.90 4.5-9. 0 Not Available [address] [address] [place], [address], 09/02/2022 10:56:04 09/02/19 23 09/01/2022 BUPRE NORPH INE PT SCREE ISHMAEL specific gravity 1.029 1.003- 1.035 Not Available [address] [address] [place], [address], 09/02/2022 10:56:04 09/02/19 23 09/01/2022 AMPHE TAMIN ES, QN, U amphetamine Negati ve NG/mL 250 Elect solitario rodrigues d by LESTER KEMP NA-WE ISS Not Available [address] [address] [place], [address], 09/07/2022 07:12:38 09/02/19 23 09/01/2022 AMPHE TAMIN ES, QN, U methamphetam ine Negati ve NG/mL [address] [facility] [place], [address], 09/07/2022 07:12:38 09/02/19 23 09/01/2022 AMPHE TAMIN ES, QN, U mda Negati ve NG/mL [address] [facility] [place], [address], 09/07/2022 07:12:38 09/02/19 23 09/01/2022 AMPHE TAMIN ES, QN, U legend Abbrev iation s OLR - Outsi de of linea r range Not Available [address] [address] [place], [address], 09/07/2022 07:12:38 09/02/19 23 09/01/2022 AMPHE TAMIN ES, QN, U billing only ([id number]) Billin g Only Not Available [place] [address] [place], [address], 09/07/2022 07:12:38 09/02/19 23 09/01/2022 PRESC RIBED DRUG CONFI RMATI ON BUPRE NORPH INE 1, QN, U buprenorphin e 91.2 NG/mL 10 Elect solitario rodrigues d by LESTER KEMP NA-WE ISS Not Available [address] [address] [place], [address], 09/07/2022 07:12:38 09/02/19 23 09/01/2022 PRESC RIBED DRUG CONFI RMATI ON BUPRE NORPH INE 1, QN, U norbuprenorp liliane 95.9 NG/mL 10 Not Available [address] [address] [place], [address], 09/07/2022 07:12:38 09/02/19 23 09/01/2022 PRESC RIBED DRUG CONFI RMATI ON BUPRE NORPH INE 1, QN, U legend Abbrev iation s LOW - Detec courtney but unqua ntifi able OLR - Outsi de of linea r range ATR - Addit ional Testi ng Requi red Not Available [place] [address] [place], [address], 09/07/2022 07:12:38 09/02/19 23 09/01/2022 BENZO DIAZE PINES , QN, U alpha-hydrox yalprazolam Negati ve NG/mL 25 Elect solitario [place] lilia d by LESTER KEMP NA-WE ISS Not Available [address] [address] [place], [address], 09/07/2022 07:12:39 09/02/19 23 09/01/2022 BENZO DIAZE [place]ES , QN, U 7-aminoclona zepam 662.7 NG/mL 40 high Not Available [address] [address] [address] [place], [address], 09/07/2022 07:12:39 09/02/19 23 09/01/2022 BENZO DIAZE [place] , QN, U lorazepam Negati ve NG/mL [address] [facility] [place], [address], 09/07/2022 07:12:39 09/02/19 23 09/01/2022 BENZO DIAZE [place] , QN, U nordiazepam Negati ve NG/mL [address] [facility] [place], [address], 09/07/2022 07:12:39 09/02/19 23 09/01/2022 BENZO DIAZE [place] , QN, U temazepam Negati ve NG/mL [address] [facility] [place], [address], 09/07/2022 07:12:39 09/02/19 23 09/01/2022 BENZO DIAZE [place]ES , QN, U legend Abbrev iation s OLR - Outsi de of linea r range Not Available [address] [address] [place], [address], 09/07/2022 07:12:39 09/02/19 23 09/01/2022 pregn vasquez test, urine HCG negati ve Not Available [facility] [address], [address], 09/01/2022 14:30:05 Result Notes None recorded. Problems Name Problem SNOMED Code Status Onset Date Resolution Date Notes Provider Name and Address Organization Details Recorded Time Insomnia 876896357 Active 2019 Not Available [facility] 1 10:09:00 Migraine 08591007 Active 2019 Not Available [facility] 1 10:09:00 Anxiety 68606048 Active 2019 Not Available [facility] 1 10:09:00 Opioid dependence 03059351 Active 2019 Not Available [facility] 1 10:09:00 Problem Notes None recorded. Procedures Surgical History Date Name Laterality Status Provider Name and Address Organization Details Recorded Time 09/01/2022 49445, G0480, G0481 completed [facility] Carmen [facility] 09/01/2022 14:24:21 08/05/2022 21792, G0480, G0481 completed Yeleila Escobartron [facility] 08/05/2022 15:19:14 07/07/2022 19853, G0480, G0481 completed Betty Carmen [facility] 07/07/2022 14:18:49 06/08/2022 52021, G0480, G0481 completed Betty Carmen [place] [facility] 06/08/2022 15:37:43 05/10/2022 50441, G0480, G0481 completed [facility]la [facility] [place] [facility] 05/10/2022 15:55:35 04/12/2022 14954, G0480, G0481 completed Betyt Carmen [place] - [facility] 04/12/2022 15:53:06 03/15/2022 62422, G0480, G0481 completed Betty Carmen [place] - [facility] 03/15/2022 15:23:47 02/11/2022 94543, G0480, G0481 completed Betty Carmne [place] - [facility] 02/11/2022 15:04:07 01/14/2022 81754, G0480, G0481 completed Betty Carmen [place] - [facility] 01/14/2022 15:04:41 12/17/2021 86202, G0480, G0481 completed Agbby Sharmin [facility] 12/17/2021 13:08:22 12/03/2021 95225, G0480, G0481 completed Betty Carmen [place] - [facility] 12/03/2021 14:22:57 11/19/2021 16613, G0480, G0481 completed Emmanuelle Ann CNP [address] [place], [address], [facility] 11/19/2021 09:55:23 11/03/2021 44516, G0480, G04[address] [facility] 11/03/2021 15:38:04 10/20/2021 27529, G0480, G04[address] [facility] 10/20/2021 15:28:52 10/09/2021 26022, G0480, G0481 completed Doroteo Galvano [facility] 10/09/2021 14:36:25 09/23/2021 24399, G0480, G04[address] [facility] 09/23/2021 14:54:59 09/08/2021 32626, G0480, G0481 [facility]/08/[facility] 14:57:18 09/01/2021 02959, G0480, G04[address] [facility] 09/01/2021 14:40:04 08/25/2021 57868, G0480, G0481 completed Tanika Colon [facility] 08/25/2021 15:42:53 08/10/2021 01971, G0480, G0481 completed Emmanuelle Ann, [address] [place], [address], [facility] 08/10/2021 13:28:19 08/03/2021 15559, G0480, G0481 completed Gabby Sharmin [facility] 08/03/2021 13:26:53 Imaging Results None recorded. Procedure Notes None recorded. Medical Equipment None Reported. Allergies Allergen ID Allergen Name Allergen Category Reaction Reaction Severity Criticality Documentation Date Start Date Code Code System Note Provider Name and Address Organization Details Recorded Time 4661 amoxicill in medicatio n Not available Not available Not available 07/03/2021 723 RxNorm [facility] Available [facility] 10:33:24 6583 Suboxone medicatio n headache nausea palpitati ons tachycard ia Not available Not available Not available Not available Not available 08/03/2021 04809 0 RxNorm Emmanuelle Valenzuela eiss, [address] [facility] [place], [address], [facility] - [employer] 13:50:24 Medications Name Sig Start Date [...] % 99 % 98 [degF] Shayla Elena [facility] 16:05:33 Date Recorded Heart rate Oxygen saturation Oxygen saturation in Arterial blood by Pulse oximetry Provider Name and Address Organization Details Last Updated DateTime 07/07/2022 82 /min 98 % 98 % Betty Morales [facility] 07/07/2022 14:24:53 Date Recorded Heart rate Oxygen saturation Oxygen saturation in Arterial blood by Pulse oximetry Body temperature Provider Name and Address Organization Details Last Updated DateTime 08/05/2022 98 /min 98 % 98 % 97.6 [degF] Stas Bull [facility] 3 15:30:04 Social History Question Answer Notes LastModified by Organizat ion Details LastModified Time *Housing Stable - Safe Information not available 08/03/2021 *Employment Employed Self Empployed Information not available 08/03/2021 *Food Adequate Information no t available 08/03/2021 * Not A [employer] Information not available 08/03/2021 *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 [...] SNOMED-CT Code Diagnosis ICD10 Code Diagnosis Note [id number] PATIENT IMPORT [facility] [address] [place] [address], [place] [address] 01/11/2020 00:00:00 01/19/2020 11:22:57 [id number] PATIENT IMPORT [facility] [address] [place] [address] 01/16/2020 00:00:00 01/17/2020 08:23:35 [id number] Jessi Ruvalcaba NP [facility] [place] [address] 08/03/2021 13:03:32 08/03/2021 14:08:09 Opioid dependence 91548351 F11.20 unstable [id number] Jessi Ruvalcaba NP [facility] [address] [place] [address] 08/10/2021 13:20:15 08/10/2021 16:40:07 Opioid dependence 53422452 F11.20 unstable [id number] Jessi Ruvalcaba NP [facility] [address] [place] [address] 08/25/2021 15:42:12 08/25/2021 16:54:25 Opioid dependence 15026158 F11.20 unstable Injection given 74298800 2 Z98.890 Stable [id number] Jessi Ruvalcaba NP [facility] [place] [address] 09/01/2021 14:38:50 09/01/2021 16:28:07 Opioid dependence 56811724 F11.20 unstable [id number] Jessi Ruvalcaba, CONTRACT CLERK [facility] [address] [place] [address] 09/08/2021 14:52:38 09/08/2021 16:53:09 Opioid dependence 86521976 F11.20 unstable [id number] Jessi Ruvalcaba, CONTRACT CLERK [facility] [address] [place] [address] 09/23/2021 14:47:37 09/23/2021 16:04:39 Opioid dependence 62370435 F11.20 stable Anxiety 63942724 F41.9 Stable Injection given 67253759 2 Z98.890 Stable [id number] Mendez Cantu DO [facility] [address] [place] [address] 10/09/2021 14:34:31 10/09/2021 15:13:25 Opioid dependence 21099994 F11.20 STABLE [id number] Jessi Ruvalcaba, CONTRACT CLERK [facility] [address] [place] [address] 10/20/2021 15:17:33 10/20/2021 15:39:02 Opioid dependence 65235104 F11.20 stable Anxiety 68782189 F41.9 Stable Injection given 54936927 2 Z98.890 Stable [id number] Jessi Ruvalcaba, CONTRACT CLERK [facility] [address] [place] [address] 11/03/2021 15:33:38 11/03/2021 16:25:13 Opioid dependence 92178246 F11.20 stable [id number] Jessi Ruvalcaba, CONTRACT CLERK [facility] [address] [place] [address], [place] [address] 11/19/2021 09:49:28 11/19/2021 11:06:05 Opioid dependence 10163118 F11.20 stable Injection given 78500432 2 Z98.890 Stable [id number] Jessi Ruvalcaba, CONTRACT CLERK [facility] [address] [place] [address] 12/03/2021 14:22:00 12/03/2021 14:36:00 Opioid dependence 56248106 F11.20 stable [id number] Jessi Ruvalcaba, VIET [facility] [address] [place] [address], [place] [address] 12/17/2021 13:00:08 12/17/2021 13:35:03 Opioid dependence 98958602 F11.20 stable Injection given 77882403 2 Z98.890 Stable [id number] Jessi Ruvalcaba, VIET [facility] [address] [place] [address] 01/14/2022 15:02:05 01/14/2022 15:31:24 Opioid dependence 92097522 F11.20 stable Injection given 19823007 2 Z98.890 Stable [id number] Jessi Ruvalcaba NP [facility] [address] [place] [address], [place] [address] 02/11/2022 15:00:34 02/11/2022 16:15:24 Opioid dependence 52723881 F11.20 stable Injection given 91444981 2 Z98.890 Stable [id number] Jessi Ruvalcaba, VI[facility] [address] [place] [address], [place] [address] 03/15/2022 15:16:13 03/15/2022 15:58:08 Opioid dependence 60389023 F11.20 stable Injection given 88877866 2 Z98.890 Stable [id number] Jessi Ruvalcaba, VIET [facility] [address] [place] [address], [place] [address] 04/12/2022 15:47:56 04/12/2022 16:15:19 Opioid dependence 23687576 F11.20 stable Injection given 09470587 2 Z98.890 Stable Medication dose decreased by tapering 0037086673 32424 Z76.89 Stable [id number] Jessi Ruvalcaba, VIET [facility] [address] [place] [address] 05/10/2022 15:51:12 2022 12:11:13 Opioid dependence 44574762 F11.20 stable Injection given 46947769 2 Z98.890 Stable Medication dose decreased by tapering 0843201758 97854 Z76.89 Stable [id number] Jessi Ruvalcaba, CONTRACT CLERK [facility] [address] [place] [address] 06/08/2022 15:35:19 06/08/2022 16:47:05 Opioid dependence 61381055 F11.20 stable Injection given 28576399 2 Z98.890 Stable Medication dose decreased by tapering 0809677117 94705 Z76.89 Stable [id number] Jessi Ruvalcaba, VIET [facility] [address] [place] [address] 07/07/2022 14:14:30 07/07/2022 14:45:17 Opioid dependence 22184455 F11.20 stable [id number] Jessi Ruvalcaba, CONTRACT CLERK [facility] [address] [place] [address] 08/05/2022 15:18:13 08/06/2022 17:14:01 Opioid dependence 00341119 F11.20 stable [id number] Jessi Ruvalcaba, CONTRACT CLERK [facility] [address] [place] [address] 09/01/2022 14:18:47 09/01/2022 14:43:39 Opioid dependence 76719788 F11.20 stable Health Concerns Section Related Observation LastModified by Organization Detai ls LastModified Time None Recorded Concern Status LastModified by Organization Details LastModified Time None Recorded Advance Directives Directive None Recorded Payers Encounter Date Sequence Insurance Name Policy Number Policy Lemon Covered Member ID Lemon Member ID Guarantor Name 05/10/2022 1 [facility] PLAN (MEDICAID HMO) [id number] Eugenia Hightower [id number] Eugenia Hightower 06/08/2022 1 [facility] PLAN (MEDICAID HMO) [id number] Eugenia Lopardo [id number] Eugenia Lopardo 07/07/2022 1 [facility] PLAN (MEDICAID HMO) [id number] Eugenia Lopardo [id number] Eugenia Lopardo 08/05/2022 1 [facility] PLAN (MEDICAID HMO) [id number] Eugenia Lopardo [id number] Eugenia Lopardo 09/01/2022 1 [facility] PLAN (MEDICAID HMO) [id number] Eugenia Lopardo [id number] Eugenia Lopardo Notes Date Note Type Note Provider Name and Address Organization Details Recorded Time 05/10/2022 text/html This patient is being treated for their OUD with Sublocade Injection. They are here today for their injection visit. PLEASE SEE A & P SECTION FOR FULL VISIT NOTE Emmanuelle Ann, [address] [place], [address], [facility] [employer] [facility] 05/10/2022 16:20:28 06/08/2022 text/html This patient is being treated for their OUD with Sublocade Injection. They are here today for their injection visit. PLEASE SEE A & P SECTION FOR FULL VISIT NOTE Emmanuelle Ann, [address] [place], [address], [facility] [employer] [facility] 06/08/2022 16:57:07 07/07/2022 text/html This patient [...] SECTION FOR FULL VISIT NOTE Emmanuelle Ann, [address] [place], [address], [facility] [employer] [facility] 07/07/2022 14:54:07 08/05/2022 text/html This patient is here today for their follow-up MAT visit. They are being treated for OUD with buprenorphine. PLEASE SEE A & P SECTION FOR FULL VISIT NOTE Emmanuelle Ann, [address] [place], [address], [facility] 08/05/2022 15:39:37 09/01/2022 text/html This patient is here today for their follow-up MAT visit. They are being treated for OUD with buprenorphine. PLEASE SEE A & P SECTION FOR FULL VISIT NOTE Emmanuelle Ann, [address] [place], [address], [facility] 09/01/2022 14:44:27 OBGyn Episode No OBEpisode recorded.
--- OUTSIDE RECORDS SUMMARY | 2024-10-31 13:47 | XMS_ITS | Patient Health Record ---
Author Organization [facility] Address [address] [place] [address] Care Team Providers Care Fraud Analyst Name Role Phone SHELLY DUKES Primary Care Provider Jesus Abbasi Unavailable [phone] Katie Blancas Unavailable [phone] Allergies Allergen (clinical drug ingredient) Drug/Non Drug Allergy documented on EMR Reaction Allergy Type Onset Date Status amoxicillin Amoxicillin hives Drug Allergy Act poncho Reason For Referral Reason please evaluate and treat Please evaluate and treat Diagnosis 1 Tinea unguium (B35.1 ) Referral Organization [facility] Referring Provider First Name Katie Referring Provider Last Name Yonny Referred Provider Specialty Podiatry General Notes Please call the [facility] ent to schedule the appointment, [facility] contact them at [phone], Elvie Landers 10/26/2024 04:33:01 PM > Referral Priority Routine Reason the right intercosta l pain Referral Organization [facility] Referring Provider First Name SHELLY Referring Provider Last Name ROSELINE Referring Provider Speciality Internal M edicine Referred Provider Specialty Pain Medicin e Referral Priority Routine Medications Medication SIG (Take, Route, Frequency, Duration) Notes Start Date End Date Status Benzonatate 100 MG 1 capsule as needed Orally Three times a day for 7 days 08/27/2024 Not-Taking SUMAtriptan Succinate 25 MG as directed Orally daily for 7 days As needed 08/27/2024 Active Ventolin HFA 108 (90 Base) MCG/ACT INHALE 1 PUFF PRN INTO THE LUNGS EVERY 4 HOURS for 30 days Active Fluticasone Propionate 50 MCG/ACT 1 spray in each nostril Nasally Twice a day for 30 days 09/03/2024 Not-Taking Diclofenac Sodium 3 % as directed Externally three times a day for 7 days applied to the right thumb 08/27/2024 Active Acetaminophen-Codeine 300-30 MG 1 tablet as needed Orally 3 times a day for 5 days 10/30/2024 Active clonazePAM 1 MG 1 tablet at bedtime Orally Active tiZANidine HCl 4 MG 1 tablet at bedtime as needed Orally Once a day for 14 days 09/03/2024 Not-Taking Biotin Active Azithromycin 250 MG as directed Orally 2 tablets on the first day, then 1 tablet daily for 5 days 09/03/2024 Not-Taking Levocetirizine Dihydrochloride 5 MG TAKE 1 TABLET BY MOUTH EVERY DAY IN THE EVENING FOR 30 DAYS for 90 Active Vitamin D 25 MCG (1000 UT) 1 tablet Orally Once a day Active Doxycycline Hyclate 100 MG 1 capsule Orally Twice a day for 7 days 08/27/2024 Not-Taking cloNIDine HCl 0.1 MG 1 tablet Orally Once a day Active traZODone HCl 150 MG 1 tablet at bedtime Orally Once at night Active Gabapentin 600 MG 1 capsule Orally 3 TIMES A DAY 06/02/2023 Active oxyCODONE HCl 5 MG 1 tablet as needed Orally every 8 hrs for 3 days Partial Fill upon Patient Request 10/28/2024 Active hydrOXYzine HCl 50 MG 1 tablet as needed Orally Once a day Active Fluticasone Propionate 50 MCG/ACT SPRAY 1 SPRAY INTO EACH NOSTRIL EVERY DAY FOR 30 DAYS Twice a day for 90 days Not-Taking Social History Tobacco Use: Social History Observation Description Date Details (start date - stop date) Never Smoker NA - NA Tobacco Use/Smoking Question Answer Notes Are you a nonsmoker Problems Problem Type SNOMED Code ICD Code Onset Dates Problem Status W/U Status Risk Notes Problem Thyrotoxicosis (64840808) Thyrotoxicosis, unspecified without thyrotoxic crisis or storm (E05.90) Active confirmed Problem Vitamin D deficiency (05509147) Vitamin D deficiency, unspecified (E55.9) Active confirmed Problem Opioid dependence (16531305) Opioid dependence, uncomplicated (F11.20) Active confirmed Problem Generalized anxiety disorder (60799676) Generalized anxiety disorder (F41.1) Active confirmed Problem Chronic migraine without aura, non-refractory (disorder) (560637565107882) Migraine without aura, not intractable, without status migrainosus (G43.009) Active confirmed Problem Refractory migraine with aura (251817930) Migraine with aura, intractable, without status migrainosus (G43.119) Active confirmed Problem Chronic sinusitis (29132474) Chronic sinusitis, unspecified (J32.9) Active confirmed Vital Signs Heart Rate 85 /min 10/30/2024 Temperature 97.7 degrees Fahrenheit 10/30/2024 Blood pressure diastolic 70 mm Hg 10/30/2024 Oximetry 98 % 10/30/2024 Height 64 in 10/30/2024 Blood pressure systolic 112 mm Hg 10/30/2024 Weight 121 lbs 10/30/2024 BMI 20.77 kg/m2 10/30/2024 Encounters Encounter Location Date Provider Diagnosis [address] [place] [address] 09/12/[address] [place] [address] 06/04/2024 BRAVO Angelica [address] [place] [address] 08/27/2024 [place] Acute sinusitis, unspecified J01.90 and Migraine with aura, intractable, without status migrainosus G43.[address] [place] [address] 09/03/2024 BRAVO GUL Cough, unspecified R05.9 and Intercostal pain R07.[address] [place] [address] 10/24/2024 Ghadeer Mazloum Chronic sinusitis, unspecified J32.9 ; Abdominal pain in female R10.9 and Tinea unguium B35.[address] [place] [address] 10/30/2024 BRAVO GUL Abdominal pain R10.[address] [place] [address] 12/20/2023 BRAVO MAVISL [address] [place] [address] 08/27/2024 [facility] [address] [place] [address] 08/30/2024 [place] Migraine with aura, intractable, without status migrainosus G43.119 [facility] [address] [place] [address] 09/03/2024 [facility] [address] [place] [address] 09/12/[address] [place] [address] 10/08/2024 Katie Ellisum Acute pancreatitis without necrosis or infection, unspecified K85.90 [facility] [address] [place] [address] 10/15/[address] [place] [address] 10/24/[address] [place] [address] 10/26/[address] [place] [address] 10/28/2024 [facility] Acute pancreatitis without necrosis or infection, unspecified K85.[address] [place] [address] 10/28/2024 BRAVO GUL Acute pancreatitis without necrosis or infection, unspecified K85.[address] [place] [address] 10/29/2024 SHELLY DUKES Assessments Encounter Date Diagnosis (ICD Code) Assessment Notes Treatment Notes Treatment Clinical Notes Section Notes 08/27/2024 Acute sinusitis, unspecified (ICD-10 - J01.90) 29 years old young lady with history of opioid disorder, migraine headaches followed by a neurologist, anxiety disorder came in with upper respiratory tract infection plan as following Acute bacterial sinusitis frontal and maxillary sinuses are tender on exam. She has reported allergy to amoxicillin, will give her doxycycline 100 mg twice a day she is also having severe cough we will give her Tessalon drops. We will check for influenza A and covid infection. she will continue with steam therapy Addendum, influenza a and covid t testing was negative Acute headaches severe complex migraine. Patient carries a history of migraine and is followed by a neurologist she is currently ran out of her trip plans we will give her Imitrex 25 mg total of 7 tablets she has to follow up with her neurologist for her prescription. Right thumb injury patient was lifting something and sprained her right thumb she is able to flex and range of motion is slightly restricted we would recommend taking NSAID therapy, and apply Voltaren cream. 08/30/2024 Migraine with aura, intractable, without status migrainosus (ICD-10 - G43.119) 09/03/2024 Intercostal pain (ICD-10 - R07.82) Eugenia is 29 years old lady with generalized anxiety disorder, migraine headaches, opioid dependence in the past is here for cough and wheeze. Plan is as follows Cough. Mild wheeze in the left lower lung base. Differential is atypical pneumonia/viral pneumonia. At this point we will treat with Z-Ariel, continue Tessalon Perles, continue albuterol inhaler as needed and she is given Flonase nasal spray. Stay hydrated take Tylenol 500 mg 1 tablet 3 times a day for the next 3-4 days Intercostal muscle pain and discomfort. Because of his aggressive coughing. She is given tizanidine 4 mg 1 tablet at bedtime and she can take NSAIDs/Tylenol and use topical NSAID gel and cold compresses. 09/03/2024 Cough, unspecified (ICD-10 - R05.9) Eugenia is 29 years old lady with generalized anxiety disorder, migraine headaches, opioid dependence in the past is here for cough and wheeze. Plan is as follows Cough. Mild wheeze in the left lower lung base. Differential is atypical pneumonia/viral pneumonia. At this point we will treat with Z-Ariel, continue Tessalon Perles, continue albuterol inhaler as needed and she is given Flonase nasal spray. Stay hydrated take Tylenol 500 mg 1 tablet 3 times a day for the next 3-4 days Intercostal muscle pain and discomfort. Because of his aggressive coughing. She is given tizanidine 4 mg 1 tablet at bedtime and she can take NSAIDs/Tylenol and use topical NSAID gel and cold compresses. 10/08/2024 Acute pancreatitis without necrosis or infection, unspecified (ICD-10 - K85.90) 08/27/2024 Migraine with aura, intractable, without status migrainosus (ICD-10 - G43.119) 29 years old young lady with history of opioid disorder, migraine headaches followed by a neurologist, anxiety disorder came in with upper respiratory tract infection plan as following Acute bacterial sinusitis frontal and maxillary sinuses are tender on exam. She has reported allergy to amoxicillin, will give her doxycycline 100 mg twice a day she is also having severe cough we will give her Tessalon drops. We will check for influenza A and covid infection. she will continue with steam therapy Addendum, influenza a and covid t testing was negative Acute headaches severe complex migraine. Patient carries a history of migraine and is followed by a neurologist she is currently ran out of her trip plans we will give her Imitrex 25 mg total of 7 tablets she has to follow up with her neurologist for her prescription. Right thumb injury patient was lifting something and sprained her right thumb she is able to flex and range of motion is slightly restricted we would recommend taking NSAID therapy, and apply Voltaren cream. 10/24/2024 Chronic sinusitis, unspecified (ICD-10 - J32.9) Ms. Hightower is a 29 year old lady with vitamin D deficiency, migraine headaches, mood disorder/anxiety disorder, insomnia and opioid use disorder is here today for For follow-up on her recent discharge from [facility]. Patient was seen in the ER for abdominal pain. Plan as follows Abdominal pain - Patient was advised to continue on pantoprazole 20 mg. She can also take Tylenol as needed for pain. However reassurance is given as her recent CAT scan that was done at the hospital did not show any pancreatitis also her lipase Level was within normal limits. CAT scan it did show questionable ileus however the main treatment for that will be clear liquids and a bland diet. She mentions that she had comprehensive workup by the GI before with unremarkable findings. Advised patient to follow with the GI specialist on ongoing symptoms of right upper quadrant abdominal pain. We will obtain records from [facility] for review Chronic sinusitis - We will obtain CAT scan of the face, advised patient on continual to take Flonase twice a day she can also alternate with normal saline as she can also consider Claritin. Advised on following up with her ENT General concerns have been discussed I have rendered the services for this patient under direct supervision of Dr. Dukes, who did not see the patient but was available upon request 10/24/2024 Abdominal pain in female (ICD-10 - R10.9) Ms. Hightower is a 29 year old lady with vitamin D deficiency, migraine headaches, mood disorder/anxiety disorder, insomnia and opioid use disorder is here today for For follow-up on her recent discharge from [facility] ER. Patient was seen in the ER for abdominal pain. Plan as follows Abdominal pain - Patient was advised to continue on pantoprazole 20 mg. She can also take Tylenol as needed for pain. However reassurance is given as her recent CAT scan that was done at the hospital did not show any pancreatitis also her lipase Level was within normal limits. CAT scan it did show questionable ileus however the main treatment for that will be clear liquids and a bland diet. She mentions that she had comprehensive workup by the GI before with unremarkable findings. Advised patient to follow with the GI specialist on ongoing symptoms of right upper quadrant abdominal pain. We will obtain records from [facility] for review Chronic sinusitis - We will obtain CAT scan of the face, advised patient on continual to take Flonase twice a day she can also alternate with normal saline as she can also consider Claritin. Advised on following up with her ENT General concerns have been discussed I have rendered the services for this patient under direct supervision of Dr. Dukes, who did not see the patient but was available upon request 10/28/2024 Acute pancreatitis without necrosis or infection, unspecified (ICD-10 - K85.90) 10/28/2024 Acute pancreatitis without necrosis or infection, unspecified (ICD-10 - K85.90) 10/30/2024 Abdominal pain (ICD-10 - R10.9) Eugenia is 29 years old lady with generalized anxiety disorder and follows up with psychiatrist, migraine headaches and opioid dependence in the past and has been sober for the past 6 years is here today for recurrent abdominal pain. She went to [facility] emergency room and then recently she went to [facility] emergency room and she had CT scan of the abdomen and pelvis with contrast with no significant finding except for mild right pleural effusion, mild pericardial effusion and no signs of acute pancreatitis but she has pancreatic devisum and history of pancreatitis in [place] a few months ago. Her lipase and [...] Hospital discharge paperwork reviewed and questions answered 10/24/2024 Yash tsai (ICD-10 - B35.1) Ms. Hightower is a 29 year old lady with vitamin D deficiency, migraine headaches, mood disorder/anxiety disorder, insomnia and opioid use disorder is here today for For follow-up on her recent discharge from [facility] ER. Patient was seen in the ER for abdominal pain. Plan as follows Abdominal pain - Patient was advised to continue on pantoprazole 20 mg. She can also take Tylenol as needed for pain. However reassurance is given as her recent CAT scan that was done at the hospital did not show any pancreatitis also her lipase Level was within normal limits. CAT scan it did show questionable ileus however the main treatment for that will be clear liquids and a bland diet. She mentions that she had comprehensive workup by the GI before with unremarkable findings. Advised patient to follow with the GI specialist on ongoing symptoms of right upper quadrant abdominal pain. We will obtain records from [facility] for review Chronic sinusitis - We will obtain CAT scan of the face, advised patient on continual to take Flonase twice a day she can also alternate with normal saline as she can also consider Claritin. Advised on following up with her ENT General concerns have been discussed I have rendered the services for this patient under direct supervision of Dr. Dukes, who did not see the patient but was available upon request Plan Of Treatment Pending Test Test Name Order Date RESPIRATORY PATHOGEN PANEL, PCR 07/15/[address] Maxillofacial WO 10/24/2024 Future Test Test Name Order Date 25OH VITAMIN D 01/10/2020 CBC (COMPLETE BLOOD COUNT) 01/10/2020 COMPREHENSIVE METABOLIC PANEL 01/10/2020 LIPID PANEL 01/10/2020 TSH WITH REFLEX TO FT4 01/10/2020 25OH VITAMIN D 06/02/2022 ANTI-NUCLEAR ANTIBODY SCREEN, REFLEX TO TITER 06/02/2022 CBC (COMPLETE BLOOD COUNT) 06/02/2022 CITRULLINE PEPTIDE ANTIBODY 06/02/2022 COMPREHENSIVE METABOLIC PANEL 06/02/2022 C-REACTIVE PROTEIN 06/02/2022 DNA (DOUBLE-STRANDED, [place]) ANTIBODY 1 08/02/2021 LIPID PANEL 06/02/2022 RHEUMATOID [...] Insured Coverage Start Date Coverage End Date [facility] [address] [address] [place] [address] [id number] Eugenia Hightower Self - patient is the insured Medical (General) History Medical History History ICD Code hypertension hyperthyroidism insomnia Opioid use disorder Generalized anxiety disorder/mood disord er, Dr. Saldana Chronic insomnia Migraine headaches Vitamin D deficiency Personal history of COVID-19
--- OUTSIDE RECORDS SUMMARY | 2024-10-31 13:48 | XMS_ITS | Clinical Summary ---
Author Organization [facility] Address [address] [place] [address] Phone Care Team Providers Care Inside Sales Specialist Name Role Phone Dick Rene MD Primary Care Provider [phone] Allergies Active Allergy Reactions Criticality Noted Date Comments Amoxicillin Rash 12/13/2006 Medications promethazine (PHENERGAN) 12.5 mg tablet Take 1 tablet (12.5 mg total) by mouth every 4 (four) hours if needed. 10/08/2024 Active Active Problems No known active problems Encounters Date Type Department Care Team Description 10/27/2024 2:38 PM EDT - 10/27/2024 7:14 PM EDT Emergency [facility] Emergency [address] [place] [phone] Abdominal pain, epigastric (Primary Dx); Pericardial effusion Discharge Disposition: Home or Self Care 09/08/2024 1:17 PM EST - 09/08/2024 5:06 PM EST Emergency [facility] Emergency [address] [place] [phone] Acute recurrent frontal sinusitis (Primary Dx) Discharge Disposition: Home or Self Care from Last 3 Months Surgical History Surgery Date Site/Laterality Comments OTHER [...] not to disclose 2024 2:00 PM EST Obstetrics History Last Filed Vital Signs Vital Sign Reading [...] Mass Index 21.26 10/27/2024 2:00 PM EDT Plan of Treatment Health Maintenance Due Date Last Done Comments Hepatitis A Vaccines (1 of 2 - Risk 2-dose series) 2013 Cervical Cancer Screening: Pap Smear 2015 DTaP,Tdap,and Td Vaccines (7 - Td or Tdap) 08/09/2016 08/09/2006, 02/26/2000, 11/02/1995, Additional history exists COVID-19 Vaccine ( season) 2024 Depression Screening 09/08/2024 HIV Screening 09/08/2024 Hepatitis C Screening 09/08/2024 Social Influencers of Health Screening 09/08/2024 Influenza Vaccine (Season Ended) 2025 Hepatitis B Vaccines Completed 05/04/1995, 1994, 1994 HIB Vaccines Completed 08/15/1995, 02/1995, 1994, Additional history exists MMR Vaccines Completed 12/02/1998, 08/15/1995 IPV Vaccines Completed 02/26/2000, 08/04, 1994, Additional history exists HPV Vaccines Completed 02/09/2007, 03/2007, 08/09/2006 Varicella Vaccines Completed 07/31/2009, 08/15/1995 Meningococcal ACWY Vaccine Completed 08/04/2012 Meningococcal B Vaccine Aged Out No l onger eligible based on patient's age to complete this topic Pneumococcal Vaccine: Pediatrics (0 to 5 Years) and At-Risk Patients (6 to 64 Years) Aged Out No longer eligible based on patient's age to complete this topic RSV Immunization Patients Under 20 months Aged Out No longer eligible based on patient's age to complete this topic Procedures Procedure Name Priority Date/Time Associated Diagnosis Comments ECG ANNOTATED 10/29/2024 CT ABDOMEN PELVIS W CONTRAST STAT 10/27/2024 4:59 PM EDT ECG 12-LEAD STAT 10/27/2024 4:20 PM EDT [facility] URINE CULTURE TUBE STAT 10/27/2024 4:08 PM EDT URINALYSIS WITH REFLEX MICROSCOPIC AND CULTURE STAT 10/27/2024 4:08 PM EDT URINALYSIS WITH REFLEX MICROSCOPIC AND CULTURE STAT 10/27/2024 4:08 PM EDT POC , URINE DIAGNOSTIC STAT 10/27/2024 4:07 PM EDT CBC WITH AUTO DIFFERENTIAL STAT 10/27/2024 1:59 PM EDT LIPASE STAT 10/27/2024 1:59 PM EDT COMPREHENSIVE METABOLIC PANEL STAT 10/27/2024 1:59 PM EDT CBC AND DIFFERENTIAL STAT 10/27/2024 1:59 PM EDT XR CHEST 2 VIEWS STAT 09/08/2024 1:21 PM EST CULTURE THROAT STAT 09/08/2024 1:10 PM EST RESPIRATORY VIRUS PANEL MOLECULAR STUDY STAT 09/08/2024 1:10 PM EST RAPID STREP A SCREEN STAT 09/08/2024 1:10 PM EST from Last 3 Months Results * ECG-Annotated (10/29/2024) us Provider Onbase ECG ORDERABLES Final Result * CT Abdomen [...] by: Umberto Blevins MD on 10/27/2024 17:13:03 Yotam Block PA IM CT PROCEDURES Final Result * ECG 12 lead (10/27/2024 4:20 PM EDT) Ventricular Rate ECG 70 BPM GEMUSE Atrial Rate 70 BPM GEMUSE P-R Interval 120 ms GEMUSE QRS Duration 74 ms GEMUSE Q-T Interval 424 ms GEMUSE QTc 457 ms GEMUSE P Wave [place] 40 degrees GEMUSE R [place] 71 degrees GEMUSE T [place] 45 degrees GEMUSE ECG Interpretation Normal sinus rhythm with sinus arrhythmia Normal ECG When compared with ECG of 23-AUG-2017 21:54, QT has lengthened Confirmed by MD Domingo, Dexter ([id number]) on 10/28/2024 12:15:21 AM GEMUSE 10/27/2024 4:20 PM EDT 10/28/2024 12:15 AM EDT Blair OJEDA ECG ORDERABLES Final Result GEMUSE * Urinalysis with reflex microscopic and culture (10/27/2024 4:08 PM EDT) Specific [place] Urine 1.017 1.003 - 1.030 LAB URINALYSIS - AUTOMATED METHOD 10/27/2024 4:38 PM EDT [facility] pH, Urine 7.0 5.0 - 8.0 pH LAB URINALYSIS - AUTOMATED METHOD 10/27/2024 4:38 PM [facility] Leukocytes, Urine Negative Negative LAB URINALYSIS - AUTOMATED METHOD 10/27/2024 4:38 PM [facility] Nitrite, Urine Negative Negative LAB URINALYSIS - AUTOMATED METHOD 10/27/2024 4:38 PM [facility] Protein, Urine Negative <=Trace mg/dL LAB URINALYSIS - AUTOMATED METHOD 10/27/2024 4:38 PM [facility] Glucose, Urine Negative Negative mg/dL LAB URINALYSIS - AUTOMATED METHOD 10/27/2024 4:38 PM [facility] Ketones, Urine Negative Negative mg/dL LAB URINALYSIS - AUTOMATED METHOD 10/27/2024 4:38 PM [facility] Urobilinogen, Urine 0.2 0.2 - 1.0 mg/dL LAB URINALYSIS - AUTOMATED METHOD 10/27/2024 4:38 PM [facility] Bilirubin, Urine Negative Negative LAB URINALYSIS - AUTOMATED METHOD 10/27/2024 4:38 PM [facility] Blood, Urine Negative Negative LAB URINALYSIS - AUTOMATED METHOD 10/27/2024 4:38 PM [facility] Urine Urine specimen obtained by clean catch procedure / Unknown Non-blood Collection / Unknown 10/27/2024 4:08 PM EDT 10/27/2024 4:15 PM EDT [facility] LAB URINE ORDERABLES Final Resul t Performing Organization Address [facility] [place] [facility]/ZIP Co de Phone Number [facility] [address] [place] [address], [place] [phone] * Schmitz urine culture tube (10/27/2024 4:08 PM EDT) Pathologist [facility] Extra Tube Hold for add-ons. 10/27/2024 6:01 PM EDT [facility] Comment:Auto resulted. Urine Urine specimen obtained by clean catch procedure / Unknown Non-blood Collection / Unknown 10/27/2024 4:08 PM EDT 10/27/2024 4:15 PM EDT [facility] LAB URINE ORDERABLES Final Resul t Performing Organization Address [facility] [place] [facility] Co de Phone Number [facility] [address] [place] [address], [place] [phone] * POC , urine manually resulted (10/27/2024 4:07 PM EDT) Pathologist [facility] HCG, Ur POC Negative Negative POC hCG Int QC Pass? Yes Yes Urine Urine specimen obtained by clean catch procedure / Unknown 10/27/2024 4:07 PM EDT De Moody MD POINT OF CARE TEST ENTER/ED IT ORDERABLES Final Result * (ABNORMAL) CBC auto differential (10/27/2024 1:59 PM EDT) WBC 5.7 4.8 - 10.8 K/[facility] LAB HEMETOLOGY METHOD 10/27/2024 2:23 PM EDT [facility] RBC 3.90 3.80 - 4.80 M/mcL LAB HEMETOLOGY METHOD 10/27/2024 2:23 PM EDT [facility] Hemoglobin 11.0(L) 11.5 - 16.0 g/dL LAB HEMETOLOGY METHOD 10/27/2024 2:23 PM EDT [facility] Hematocrit 33.4(L) 35.0 - 47.0 % LAB HEMETOLOGY METHOD 10/27/2024 2:23 PM EDT [facility] MCV 84.8 79.0 - 98.0 FL LAB HEMETOLOGY METHOD 10/27/2024 2:23 PM EDT [facility] MCH 27.9 27.0 - 32.0 pcg LAB HEMETOLOGY METHOD 10/[facility]24 [facility] MCHC 32.9 32.0 - 37.0 g/dL LAB HEMETOLOGY METHOD 10/27[facility]2024 [facility] RDW 11.6 11.0 - 15.0 % LAB HEMETOLOGY METHOD 10/27/2024 2:23 PM EDT [facility] Platelets 254 130 - 400 K/mcL LAB HEMETOLOGY METHOD 10/27/2024 2:[facility] MPV 9.6 7.0 - 11.0 FL LAB HEMETOLOGY METHOD 10/27/2024 2:[facility] NRBC 0.0 <1.0 % LAB HEMETOLOGY METHOD 10/27/2024 2:23 PM EDT [facility] NRBC Absolute 0.00 <0.10 K/mcL LAB HEMETOLOGY METHOD 10/27/2024 2:[facility] Neutrophils Relative 55.3 % LAB HEMETOLOGY METHOD 10/27/2024 2:[facility] Lymphocytes Relative 36.8 % LAB HEMETOLOGY METHOD 10/27/2024 2:23 PM EDT [facility] Monocytes Relative 5.7 % LAB HEMETOLOGY METHOD 10/27/2024 2:23 PM EDT [facility] Eosinophils Relative 0.9 % LAB HEMETOLOGY METHOD 10/27/2024 2:23 PM EDT [facility] Basophils Relative 0.9 % LAB HEMETOLOGY METHOD 10/27/2024 2:23 PM EDT [facility] Immature Granulocytes Relative 0.4 % LAB HEMETOLOGY METHOD 10/27/2024 2:23 PM EDT [facility] Neutrophils Absolute 3.13 1.50 - 7.00 K/mcL LAB HEMETOLOGY METHOD 10/27/2024 2:23 PM EDT [facility] Lymphocytes Absolute 2.08 1.00 - 5.00 K/mcL LAB HEMETOLOGY METHOD 10/27/2024 2:23 PM EDT [facility] Monocytes Absolute 0.32 0.20 - 1.00 K/mcL LAB HEMETOLOGY METHOD 10/27/2024 2:23 PM EDT [facility] Eosinophils Absolute 0.05 0.00 - 0.50 K/mcL LAB HEMETOLOGY METHOD 10/27/2024 2:23 PM [facility] Basophils Absolute 0.05 0.00 - 0.20 K/mcL LAB HEMETOLOGY METHOD 10/27/2024 2:23 PM EDT [facility] Immature Granulocytes Absolute 0.02 0.00 - 0.03 K/mcL LAB HEMETOLOGY METHOD 10/27/2024 2:23 PM [facility] Blood Venous blood specimen / Unknown Venipuncture / Unknown 10/27/2024 1:59 PM EDT 10/27/2024 2:17 PM EDT De Moody MD LAB BLOOD ORDERABLES Final Result [facility] [address] [place] [address], [place] [phone] * Lipase (10/27/2024 1:59 PM EDT) Pathologist [facility] Lipase 17 13 - 75 unit/L LAB CHEMISTRY METHOD 10/27/2024 2:47 PM EDT [facility] Blood Venous blood specimen / Unknown Venipuncture / Unknown 10/27/2024 1:59 PM EDT 10/27/2024 2:17 PM EDT De Moody MD LAB BLOOD ORDERABLES Final Result Performing Organization Address [facility] [place] [facility] Co de Phone Number [facility] [address] [place] [address], [place] [phone] * Comprehensive metabolic panel (10/27/2024 1:59 PM EDT) [facility] Sodium 136 133 - 145 mmol/L LAB CHEMISTRY METHOD 10/27/2024 2:47 PM [facility] Potassium 4.3 3.5 - 5.5 mmol/L LAB CHEMISTRY METHOD 10/27/2024 2:47 PM [facility] Chloride 102 96 - 110 mmol/L LAB CHEMISTRY METHOD 10/27/2024 2:47 PM [facility] CO2 27 21 - 32 mmol/L LAB CHEMISTRY METHOD 10/27/2024 2:47 PM [facility] Anion Gap 7 3 - 11 LAB CHEMISTRY METHOD 10/27/2024 2:47 PM [facility] Glucose 95 70 - 100 mg/dL LAB CHEMISTRY METHOD 10/27/2024 2:47 PM [facility] BUN 11 5 - 25 mg/dL LAB CHEMISTRY METHOD 10/27/2024 2:47 PM [facility] Creatinine 0.57 0.50 - 1.10 mg/dL LAB CHEMISTRY METHOD 10/27/2024 2:47 PM T [facility] eGFR 126 >=60 mL/min/1. 73m2 LAB CHEMISTRY METHOD 10/27/2024 2:47 PM T [facility] Comment:Calculation based on the??Chronic Kidney Disease Epidemiology Collaboration (CKD-EPI) equation refit??without adjustment for race. BUN/Creatinine Ratio 19.3 LAB CHEMISTRY METHOD 10/27/2024 2:47 PM T [facility] Calcium 9.3 8.5 - 10.5 mg/dL LAB CHEMISTRY METHOD 10/27/2024 2:47 PM [facility] AST (SGOT) 11 10 - 42 unit/L LAB CHEMISTRY METHOD 10/27/2024 2:47 PM [facility] ALT (SGPT) 13 10 - 60 unit/L LAB CHEMISTRY METHOD 10/27/2024 2:47 PM [facility] Alkaline Phosphatase 63 42 - 121 unit/L LAB CHEMISTRY METHOD 10/27/2024 2:47 PM [facility] Total Protein 7.5 6.0 - 8.0 g/dL LAB CHEMISTRY METHOD 10/27/2024 2:47 PM [facility] Albumin 4.1 3.2 - 5.0 g/dL LAB CHEMISTRY METHOD 10/27/2024 2:47 PM [facility] Total Bilirubin 0.3 0.0 - 1.4 mg/dL LAB CHEMISTRY METHOD 10/27/2024 2:47 PM [facility] Blood Venous blood specimen / Unknown Venipuncture / Unknown 10/27/2024 1:59 PM EDT 10/27/2024 2:17 PM EDT us De Moody MD LAB BLOOD ORDERABLES Final Result [facility] [address] [place] [address], [place] [phone] * XR Chest 2 Views (09/08/2024 1:21 PM EST) Anatomical Region Laterality Modality Body Radiographic Yasmin ging 09/08/2024 1:50 PM EST Impressions 09/08/2024 1:51 PM EST No acute chest disease -------- FINAL REPORT -------- Dictated By: Geoffrey Acosta Dictated Date: 09/08/2024 13:50 ET Assigned Physician: Geoffrey Acosta Reviewed and Electronically Signed By: Geoffrey Acosta Signed Date: 09/08/2024 13:51 ET Workstation ID: [id number] Transcribed By: Self Edit Transcribed Date: 09/08/2024 13:50 ET Narrative 09/08/2024 1:51 PM EST EXAMINATION: CHEST CLINICAL INFORMATION: Cough, congestion. Symptoms for 2 weeks COMPARISON: None. TECHNIQUE: 2 views of the chest FINDINGS: The cardiac silhouette is top normal with prominence of the pulmonary outflow. This can be a normal variant in this age and sex. No definite mediastinal or hilar mass. The vasculature, lungs and visualized pleural margins are within normal limits. No suspicious focal bony lesion Procedure Note Geoffrey Acosta MD - 09/08/2024 EXAMINATION: CHEST CLINICAL INFORMATION: Cough, congestion. Symptoms for 2 weeks COMPARISON: None. TECHNIQUE: 2 views of the chest FINDINGS: The cardiac silhouette is top normal with prominence of the pulmonaryoutflow. This can be a normal variant in this age and sex. No definite mediastinal or hilar mass. The vasculature, lungs andvisualized pleural margins are within normal limits. No suspicious focal bony lesion IMPRESSION: No acute chest disease -------- FINAL REPORT -------- Dictated By: Geoffrey Acosta Dictated Date: 09/08/2024 13:50 ET Assigned Physician: Geoffrey Acosta Reviewed and Electronically Signed By: Geoffrey Acosta Signed Date: 09/08/2024 13:51 ET Workstation ID: [id number] Transcribed By: Self Edit Transcribed Date: 09/08/2024 13:50 ET Zion Moss MD IMG XR PROCEDURES Final Resul t * Respiratory virus panel molecular study (09/08/2024 1:10 PM EST) Adenovirus Detection by PCR Not Detected Not Detected LAB MICROBIOLOGY METHOD 09/08/2024 2:31 PM [facility] Influenza A PCR Not Detected Not Detected LAB MICROBIOLOGY METHOD 09/08/2024 2:31 PM [facility] Influenza B PCR Not Detected Not Detected LAB MICROBIOLOGY METHOD 09/08/2024 2:31 PM [facility] Coronavirus 229E Not Detected Not Detected LAB MICROBIOLOGY METHOD 09/08/2024 2:31 PM [facility] Coronavirus HKU1 Not Detected Not Detected LAB MICROBIOLOGY METHOD 09/08/2024 2:31 PM [facility] Coronavirus OC43 Not Detected Not Detected LAB MICROBIOLOGY METHOD 09/08/2024 2:31 PM [facility] Coronavirus NL63 Not Detected Not Detected LAB MICROBIOLOGY METHOD 09/08/2024 2:31 PM [facility] Parainfluenza Virus 1 Not Detected Not Detected LAB MICROBIOLOGY METHOD 09/08/2024 2:31 PM [facility] Parainfluenza Virus 2 Not Detected Not Detected LAB MICROBIOLOGY METHOD 09/08/2024 2:31 PM [facility] Parainfluenza Virus 3 Not Detected Not Detected LAB MICROBIOLOGY METHOD 09/08/2024 2:31 PM [facility] Parainfluenza Virus 4 Not Detected Not Detected LAB MICROBIOLOGY METHOD 09/08/2024 2:31 PM [facility] RSV PCR Not Detected Not Detected LAB MICROBIOLOGY METHOD 09/08/2024 2:31 PM [facility] Human Metapneumovirus A and B Not Detected Not Detected LAB MICROBIOLOGY METHOD 09/08/2024 2:31 PM [facility] Rhinovirus/Entero virus Not Detected Not Detected LAB MICROBIOLOGY METHOD 09/08/2024 2:31 PM EST [facility] Bordetella pertussis Not Detected Not Detected LAB MICROBIOLOGY METHOD 09/08/2024 2:31 PM EST [facility] Bordetella parapertussis Not Detected Not Detected LAB MICROBIOLOGY METHOD 09/08/2024 2:31 PM EST [facility] Mycoplasma pneumo by PCR Not Detected Not Detected LAB MICROBIOLOGY METHOD 09/08/2024 2:31 PM EST [facility] Chlamydia pneumoniae Not Detected Not Detected LAB MICROBIOLOGY METHOD 09/08/2024 2:31 PM EST [facility] SARS COV-2 Not Detected Not Detected LAB MICROBIOLOGY METHOD 09/08/2024 2:31 PM EST [facility] Swab Both anterior nares / Unknown Non-blood Collection / Unknown 09/08/2024 1:10 PM EST 09/08/2024 1:19 PM EST Narrative [facility] - 09/08/2024 2:31 PM EST Testing was performed using the [employer] Respiratory Pathogen PCR Assay. All results must be correlated with the clinical findings. Results should not be used as the sole basis for diagnosis. False Negative results may occur from the presence of sequence variants in the region targeted by the assay or the presence of inhibitors. Results may be affected by concurrent antiviral/antimicrobial therapy or levels of organisms that are below the limit of detection. us Zion Moss MD LAB MICROBIOLOGY - GENERAL OR DERABLES Final Result [facility] [address] [place] [address], * Rapid strep A screen (09/08/2024 1:10 PM EST) Strep A Ag Negative Negative, Invalid 09/08/2024 1:53 PM EST [facility] Comment:Refer to Throat Cult ure. Swab Structure of anterior portion of neck / Unknown Non-blood Collection / Unknown 09/08/2024 1:10 PM EST 09/08/2024 1:18 PM EST Zion Moss MD LAB MICROBIOLOGY - GENERAL OR DERABLES Final Result Performing Organization Address [facility] de Phone Number [facility] [address] [place] [address], * (ABNORMAL) Culture throat (09/08/2024 1:10 PM EST) Culture, Throat Streptococcus beta-hemolytic Group C(A) 09/10/2024 12:32 PM EDT [facility] Comment: Susceptibility testing is not routinely performed for Beta Streptococcus isolates since these organisms are predictably sensitive to Penicillin. If the Patient is not responding, is allergic to Penicillin, or further therapeutic information is requir ed, please consult an Infectious Disease Specialist. The organism value for this result has been updated. These results have been appended to the previously preliminary verified report. Swab Structure of anterior portion of neck / Unknown Non-blood Collection / Unknown 09/08/2024 1:10 PM EST 09/08/2024 1:18 PM EST Zion Moss MD LAB MICROBIOLOGY - GENERAL OR DERABLES Final Result Performing Organization Address [facility] de Phone Number [facility] [address] [place] [address], from Last 3 Months Insurance [facility] [employer] Care Teams Inside Sales Specialist Relationship Specialty Start Date End Date Dick Rene MD [address] [place] [phone] PCP - General Internal Medicine 09/08/24
== END 2024-10-31 13:53 | disposition home or self-care (01) ==
LOC: HO.RHES 12:29
PROVIDERS: PCP Hospitalist; Visit Provider Internal Medicine Rheumatology
DX: M79.10 Myalgia, unspecified site (principal); M25.50 Pain in unspecified joint; R53.82 Chronic fatigue, unspecified; R68.2 Dry mouth, unspecified; H04.123 Dry eye syndrome of bilateral lacrimal glands; K85.90 Acute pancreatitis without necrosis or infection, unspecified; R21 Rash and other nonspecific skin eruption
CPT/HCPCS: 99215; G2211

== ENCOUNTER 2024-11-08 15:19 | Outpatient (AMB) | payer OTHER, SELFPAY ==
--- NOTE | 2024-11-08 15:32 | A.OFFVIS_ITS ---
Vital Signs 11/08/24 15:33 Height 5 ft 4 in Weight 119 lb 11.376 oz BMI 20.5 BP 100/70 Blood Pressure Location Lt brachial Position Sitting Pulse 90 Pulse Source Pulse Oximeter Pulse Oximetry (%) 96 Oxygen Delivery Method Room Air Intake Visit Reasons: Other specified abnormal immunological findings se Intake Note: Patient present today for other specified abnormal immunological findings. Sheet Rocker Required: No Accompanied by: Self / Same As Patient Allergies amoxicillin Allergy (Unknown, Verified 11/08/24 15:37) Hives Medication List - Last Reconciled 11/08/24 by Cindy Peterson MD albuterol sulfate 90 mcg/actuation (Ventolin HFA) 1 puff inhalation Q4H PRN clonazepam 1 mg PO BEDTIME PRN clonidine HCl 0.1 mg PO BID fluticasone propionate 50 mcg/actuation 1 spray intranasal BID gabapentin 600 mg PO TID galcanezumab-gnlm (Emgality Pen) 120 mg subcut ONCE 30 days hydrocortisone 2.5% topical hydroxyzine HCl 50 mg PO BID levocetirizine 5 mg PO DAILY multivitamin 1 tab PO DAILY norgestimate-ethinyl estradiol 0.25-0.035 mg 1 tab PO DAILY riboflavin (vitamin B2) (Vitamin B-2) 200 mg PO BID rizatriptan 5 - 10 mg (0.5 - 1 x 10 mg) PO Q2H PRN 90 days trazodone 100 mg (2 x 50 mg) PO BEDTIME PRN 30 days zolmitriptan (Zomig) take 1 tab at onset of headache; if no relief, may repeat 1 tab after at least 2 hrs; max = 2 tabs/24 hrs orally PRN; 90 days HPI Comments Details: 29-year-old female here today for elevated TPO antibodies. Blood work from October 2023 showed elevated TPO antibodies of 260. Blood work most recently done in July 2024 showed normal thyroid function with normal TSH and free T4. Patient currently denies, diarrhea or constipation, changes in appearance of eyes or vision changes, tremors, increased diaphoresis Complains of tiredness. Muscles aches. Reports heat intolerance. some intermittent palpitations. Has some anxiety and depression. Gained some weight over the past year , now losing weight Reports dry skin and hair LMP: 3 weeks ago, regular periods ,not sexually active .not planning any . Patient denies pain on swallowing or voice changes or difficulty breathing. Some intermittent difficulty swallowing. sleep midnight to 9 am. wakes up 1-2 times at night, says sleep has never been good . Patient denies any history of childhood neck radiation. Denies having ever used lithium, amiodarone or biotin supplements. Patient denies any family history of thyroid cancer . Aunt has some thyroid disease. Physical exam General: sitting comfortably in no acute distress HEENT: normocephalic/atraumatic, EOM intact, moist oral mucosa Neck: supple, palpable 1 cm right-sided nodule Cardiac: normal heart sounds Pulm: normal breath sounds B/L, no added breath sounds Abd: not distended, no tenderness Extremities: no edema, no signs of myxedema Neuro: AAO x3, Speech: normal, no facial droop, moving all 4 extremities Laboratory Tests 10/17/23 08/01/24 15:53 12:31 TSH 2.71 Free T4 0.99 Free T3 3.5 Total T3 101 Thyroglobulin Antibody 1 Thyroid Peroxidase Ab 260 H [facility] Medical History (Updated 11/08/24 @ 15:55 by Cindy Peterson MD) Thyromegaly Anti-TPO antibodies present Pericardial effusion Pleural effusion Acute pancreatitis 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 Pain in joint involving multiple sites POTS (postural orthostatic tachycardia syndrome) Anxiety Hair loss Surgical History History of nasal surgery Family History Father HTN (hypertension) Mother Asthma FH: mental illness Paternal Grandfather Fibromyalgia Social History Household Members: Family Alcohol intake: never Patient Tobacco Use Status: Never used Tobacco Current occupational status: employed 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 Normal thyroid function from July 2024. Explained to the patient that TPO antibodies can be present in 10-20% of the general population. There is no certainty whether she will develop thyroid dysfunction or not, however given she has a lot of nonspecific symptoms we will plan to repeat her thyroid function at this time. Plan: -ordered TSH, free T4 to be done now (2) Thyromegaly: Code(s): E01.0 - Iodine-deficiency related diffuse (endemic) goiter Category: Medical Plan: On my exam I do feel a 1 cm right-sided thyroid nodule, I would like to obtain a thyroid ultrasound. Plan: -ordered ultrasound of the thyroid -follow up in 6 weeks to discuss results Plan See above Orders: Orders Free T4 (Free Thyroxine) Today R76.8 - Other specified abnormal immunological findings in serum US thyroid Today E01.0 - Iodine-deficiency related diffuse (endemic) goiter Thyroid Stimulating Hormone Today R76.8 - Other specified abnormal immunological findings in serum Coding Level of Care Code New Pt Level 4 (96881) Diagnoses Anti-TPO antibodies present R76.8 Thyromegaly E01.0
[2024-11-08 15:33] VITALS: BP 100/70; PULSE 90; O2SAT 96; BMI 20.5
--- OUTSIDE RECORDS SUMMARY | 2024-11-08 15:53 | XMS_ITS | Data Portability ---
Author Organization [place] [facility], , [place] Address [address] [place] [address] Assessment Encounter Date Assessment Date Assessment LastModified by Organization Details LastModified Time 01/11/2020 01/11/2020 - PRESENTS TOODA Y FOR INITIAL BUP ASSMT - PMH: OPIATE (VICODIN) PILL ABUSE. PRESCRIBE FOR MIGRAINES. ONCE D/'C'D SOUGHT illicit OXYCODONE--ENROLLE D IN [facility] BUP [place] PROG 07/2019. 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 [email or web address] Not available 01/19/2020 11:22:47 01/16/2020 01/16/2020 - INITIAL BUP 01/10. PMX: TREATED FR MIGRAINES W/ VICODIN, ONCE D/C'D ABUSE OF ILLICIT OXYCODONE. ENTERED [facility] WITH SUBOXONE 6 MG/DAILY ( DIV TID DOSES) - PRESENTS TO TODAY INFORMING SHE WILL OBTAIN MAT SERVICES AT [facility] WITH MAIRA GREENWOOD BEGINNING 01/23 - REPORTS [...] None recorded. Lab drug screen, urine 2019 [facility], [address] [place], [address], 0 11:39:43 test, urine 2019 [email or web address] Not available 0 17:23:17 drug screen, urine 2019 [facility], [address] [place], [address], 0 12:38:05 Referral None recorded. Procedures None recorded. Surgeries None recorded. Imaging None recorded. Medication Orders None recorded. Patient TargetsNo targets recorded. Patient Instructions Encounter Date Encounter Id Patient Instructions Last Modified By Organization Details Last Modified Time 01/11/2020 [id number] Abstain from opiates for 24 hours unless [...] Agree to not falsify your urine specimens. [email or web address] Not available 01/11/2020 14:25:40 Education provid [...] & Drop out prevention in early recovery. [email or web address] [id number] Not available 01/11/2020 14:25:40 01/16/2020 [id number] As part of your individualized treatment plan and program requirement, you will need to bring your correct prescription bottle and all used and unused medication and counseling verification to each appointment; > Agree to participate in counseling and bring counseling verification to each appointment; > Agree to present for random visits; > Agree to not falsify your urine specimens. [email or web address] 9 Not available 01/16/2020 15:21:56 Education provid [...] & Drop out prevention in early recovery. [email or web address] [id number] Not available 01/16/2020 15:21:56 Reason for Referral None Reported. Results Created Date Observation Date Name Description Value Unit Range Abnormal Flag Note LastModifiedBy Organization Detail LastModifiedTime 01/11/20 20 01/11/2020 drug scree n, urine amphetamine NEGATI VE 100 Elect solitario rodrigues d by IRENE LOPEZ Not Available [employer] [place] [address] [place], [address], 01/14/2020 12:38:05 01/11/2001/11/2020 drug scree n, urine benzodiazepi ne NEGATI VE 100 Not Available [employer] [facility] [place], [address], 01/14/2020 12:38:05 01/11/2001/11/2020 drug scree n, urine buprenorphin e POSITI VE 100 Not Available [employer] [facility], [address], 01/14/2020 12:38:05 01/11/20 20 01/11/2020 drug scree n, urine cannabinoid NEGATI VE 100 Not Available [place] [address] [place], [address], 01/14/2020 12:38:05 01/11/20 20 01/11/2020 drug scree n, urine cocaine metab. NEGATI VE 100 Not Available [place] [address] [place], [address], 01/14/2020 12:38:05 01/11/20 20 01/11/2020 drug scree n, urine methadone NEGATI VE 100 Not Available [place] [address] [place], [address], 01/14/2020 12:38:05 01/11/20 20 01/11/2020 drug scree n, urine opiates NEGATI VE 100 Not Available [place] [address] [place], [address], 01/14/2020 12:38:05 01/11/20 20 01/11/2020 drug scree n, urine oxycodone NEGATI VE 100 Not Available [place] [address] [place], [address], 01/14/2020 12:38:05 01/11/20 20 01/11/2020 drug scree n, urine ethanol <10, <10 mg/dL <10 Not Available [place] [address] [place], [address], 01/14/2020 12:38:05 01/11/20 20 01/11/2020 drug scree n, urine fentanyl NEGATI VE 100 Not Available [place] [address] [place], [address], 01/14/2020 12:38:05 01/11/20 20 01/11/2020 drug scree n, urine creatinine 203.2 mg/dL >20 Not Available [place] [address] [place], [address], 01/14/2020 12:38:05 01/11/20 20 01/11/2020 drug scree n, urine specific gravity 1.024 1.003- 1.035 Not Available [place] [address] [address] [place], [address], 01/14/2020 12:38:05 01/11/20 20 01/11/2020 drug scree n, urine pH 7.00 4.5-9. 0 Not Available [place] [address] [address] [place], [address], 01/14/2020 12:38:05 01/11/20 20 01/11/2020 pregn vasquez test, urine HCG negati ve Not Available [facility] [address], [address], 01/11/2020 14:25:45 01/16/20 20 01/16/2020 drug scree n, urine amphetamine Negati ve 100 Elect solitario rodrigues d by IRENE OLPEZ Not Available [place] [address] [place], [address], 01/17/2020 11:39:43 01/16/20 20 01/16/2020 drug scree n, urine benzodiazepi ne Negati ve 100 Not Available [place] [address] [place], [address], 01/17/2020 11:39:43 01/16/20 20 01/16/2020 drug scree n, urine buprenorphin e Positi ve 100 Not Available [place] [address] [place], [address], 01/17/2020 11:39:43 01/16/20 20 01/16/2020 drug scree n, urine cocaine metab. Negati ve 100 Not Available [place] [address] [place], [address], 01/17/2020 11:39:43 01/16/20 20 01/16/2020 drug scree n, urine methadone Negati ve 100 Not Available [place] [address] [place], [address], 01/17/2020 11:39:43 01/16/20 20 01/16/2020 drug scree n, urine opiates Negati ve 100 Not Available [place] [address] [place], [address], 01/17/2020 11:39:43 01/16/20 20 01/16/2020 drug scree n, urine oxycodone Negati ve 100 Not Available [place] [address] [place], [address], 01/17/2020 11:39:43 01/16/20 20 01/16/2020 drug scree n, urine fentanyl Negati ve 100 Not Available [place] [address] [place], [address], 01/17/2020 11:39:43 01/16/20 20 01/16/2020 drug scree n, urine creatinine 112.9 mg/dL >20 Not Available [place] [address] [place], [address], 01/17/2020 11:39:43 01/16/20 20 01/16/2020 drug scree n, urine specific gravity 1.021 1.003- 1.035 Not Available [place] [address] [place], [address], 01/17/2020 11:39:43 01/16/20 20 01/16/2020 drug scree n, urine pH 7.10 4.5-9. 0 Not Available [place] [address] [place], [address], 01/17/2020 11:39:43 Result Notes None recorded. Problems Name Problem SNOMED Code Status Onset Date Resolution Date Notes Provider Name and Address Organization Details Recorded Time Opioid dependence 99888771 Active 020 IRENE LOPEZ NP [address] [place] [address] [place], [address], [facility], 0 07:03:19 Anxiety 49864698 Active 020 IRENE LOPEZ NP [address] [place], [address], [facility] [employer] [facility], 0 07:03:28 Migraine 98577044 Active 020 IRENE LOPEZ NP [address] [place], [address], [facility] [employer] [facility], 0 07:03:35 Insomnia 558535650 Active 020 IRENE LOPEZ, [address] [place], [address], [facility] [employer] [facility], 0 07:04:01 Problem Notes None recorded. Procedures Surgical History Date Name Laterality Status Provider Name and Address Organization Details Recorded Time 01/16/2020 78591, G0480, G0481 completed [facility] [employer] [facility], 01/16/2020 15:21:56 01/11/2020 90693, G0480, G0481 completed [facility] [employer] [facility], 01/11/2020 14:25:41 Imaging Results None recorded. Procedure Notes None recorded. Medical Equipment None Reported. Allergies Allergen ID Allergen Name Allergen Category Reaction Reaction Severity Criticality Documentation Date Start Date Code Code System Note Provider Name and Address Organization Details Recorded Time 4119 amoxicill in medicatio n Not available Not available Not available 01/12/2020 723 RxNorm IRENE LOPEZ NP [address] [place] [address], [place], [address], [facility] [employer] [facility], 0 06:58:39 Medications Name Sig Start Date Stop Date Status Note LastModified by Organization Details LastModified Time Suboxone 4 mg-[address] 1 film twice a day by sublingual route. 2019 active Not Available Not Available Not Avai lable Vitals Date Recorded Body temperature Provider Name a nd Address Organization Details Last Updated DateTime 01/11/2020 98.5 [degF] Tanika Colon [facility] [employer] [facility], 01/11/2020 14:21:38 Date Recorded Body temperature Provider Name a nd Address Organization Details Last Updated DateTime 01/16/2020 98.7 [degF] Tanika Hollingsworth [facility], 01/16/2020 15:17:28 Date Recorded Oxygen saturation Oxygen saturation in Arterial blood by Pulse oximetry Heart rate Provider Name and Address Organization Details Last Updated DateTime 01/16/2020 98 % 98 % 130 /min Nasreen Yoder [facility], 01/16/2020 15:31:42 Social History None recorded. Functional Status None recorded. Mental Status None recorded. Family History Nothing Reported Notes:NICOTINE ADDICTION Medical History No medical history recorded. Gynecological HistoryNo gynecological history recorded. Obstetrics History GPAL:G 0 P 0 0 0 0 Past Encounters Encounter ID Performer Location Encounter Start Date Encounter Closed Date Diagnosis/Indication Diagnosis SNOMED-CT Code Diagnosis ICD10 Code Diagnosis Note [id number] Ashely Sharp MD [facility] [place] [address] [facility] [place] [address] 01/11/2020 14:19:16 01/11/2020 15:58:59 Opioid dependence 45077777 F11.20 Anxiety 42845835 F41.9 [id number] Ashely Sharp MD [facility] [address] [facility] [place] [address] 01/16/2020 15:17:05 01/16/2020 16:24:54 Opioid dependence 29962902 F11.20 Health Concerns Section Related Observation LastModified by Organization Detai ls LastModified Time None Recorded Concern Status LastModified by Organization Details LastModified Time None Recorded Advance Directives Directive None Recorded Payers Encounter Date Sequence Insurance Name Policy Number Policy Lemon Covered Member ID Lemon Member ID Guarantor Name 01/11/2020 1 [facility] [employer] (MEDICAID HMO) [id number] Eugenia Davispardo [id number] Eugenia Hightower 01/16/2020 1 [facility] [employer] (MEDICAID HMO) [id number] Eugenia Davispardo [id number] Eugenia Davispar Notes Date Note Type [...] CLICK TO FREE TEXT}}. IRENE LOPEZ NP [address] [place] [address], [phone], [facility] [employer], 01/19/2020 11:22:57 01/16/2020 text/html The patient repo [...] TEXT OR DELETE LINE}} IRENE LOPEZ NP [address] [place] [address], [phone], [facility] [employer] [facility], 01/17/2020 08:23:35 OBGyn Episode No OBEpisode recorded.
--- OUTSIDE RECORDS SUMMARY | 2024-11-08 15:53 | XMS_ITS ---
Author Organization [facility] Address [address] [place] [address] Care Team Providers Care Equipment Analyst Name Role Phone SHLELY DUKES Primary Care Provider REASON FOR VISIT RE:Meds Encounters Encounter Location Date Provider Diagnosis [facility] [address] [place] [address] 11/02/2024 SHELLY DUKES Plan Of Treatment No Information Progress Notes * Eugenia LEACHDOB: 4 (29 yo F)Acc No.[id number]:11/02/2024 Patient:?CHRISTINASHEKHARBhupendraEugenia :1995???Age:29 Y???Sex:Female Address:[address] [place] [phone] * true * Date:? Generated for Mark ferrer/Elias/eTransmitting on:?11/08/2024 03:53 PM EDT
--- OUTSIDE RECORDS SUMMARY | 2024-11-08 15:53 | XMS_ITS | Data Portability ---
Author Organization [employer], [place]_[facility] Address [address] [place] [address] Assessment Encounter Date Assessment Date Assessment LastModified [...] UDS NEG Seeing mental health prescriber @ [facility] - stable on current medications per patient. 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 - Site: [facility] - Lot #: [id number] - Exp. Date: 07/02/23 Sublocade dose 25 [...] of amphetamine Seeing mental health prescriber @ [facility] - stable on current medications per patient. 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 - Site: [facility] - Lot #: [id number] - Exp. Date: 06/02/23 PLAN (narrative, if [...] of amphetamine Seeing mental health prescriber @ [facility] - stable on current medications per patient. 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 Lab drug screen, urine 2022 023 [facility], [address] [place] [address], [address], 3 10:56:05 test, urine 2022 023 [email or web address], [address], 3 14:43:59 drug screen, urine 2022 023 [facility], [address] [place] [address], [address], 3 05:45:06 test, urine 2022 0[email or web address], [address], 3 15:37:12 drug screen, urine 2022 023 [facility], [address] [place] [address], [address], 3 13:11:53 test, urine 2022 [email or web address], [address], 3 14:40:45 drug screen, urine 2021 022 [facility], [address] [place], [address], 2 11:14:53 test, urine 2021 022 [facility], [address] [place] [address], [phone], 2 11:13:49 drug screen, urine 2021 022 [facility], [address] [place], [address], 2 09:31:40 test, urine 2021 022 [email or web address] alcaraz [employer], [address] [place] [address], [phone], 16:20:30 Referral None recorded. Procedures None recorded. Surgeries None recorded. Imaging None recorded. Medication Orders None recorded. Patient TargetsNo targets recorded. Patient Instructions Encounter Date Encounter Id Patient Instructions Last Modified By Organization Details Last Modified Time 05/10/2022 [id number] Education provid ed at today's visit included: [...] counseling and coordinating care. Education provided at [facility]'s visit included: Review of patient's individualized [...] [email or web address] Not available 05/10/2022 16:07:51 06/08/2022 [id number] Education provid ed at today's visit included: [...] [email or web address] Not available 06/08/2022 15:51:30 07/07/2022 [id number] Education provid ed at today's visit included: [...] alissa s2 Not available 07/07/2022 14:29:46 08/05/2022 [id number] Education provid ed at today's visit included: [...] [email or web address] Not available 08/05/2022 15:32:15 09/01/2022 [id number] Education provid ed at today's visit included: [...] by LESTER KEMP NA-WE ISS Not Available [place] [address] [place], [address], 04/14/2022 09:05:52 04/12/20 22 04/12/2022 BUPRE NORPH INE PT SCREE ISHMAEL benzodiazapi everton Negati ve NG/mL 200 Not Available [facility] [place], [address], 04/14/2022 09:05:52 04/12/20 22 04/12/2022 BUPRE NORPH INE PT SCREE ISHMAEL buprenorphin e Positi ve NG/mL 5 Not Available [place] [address] [place], [address], 04/14/2022 09:05:52 04/12/20 22 04/12/2022 BUPRE NORPH INE PT SCREE ISHMAEL cocaine metabolite Negati ve NG/mL 150 Not Available [place] [address] [place], [address], 04/14/2022 09:05:52 04/12/20 22 04/12/2022 BUPRE NORPH INE PT SCREE ISHMAEL opiates Negati ve NG/mL 300 Not Available [place] [address] [place], [address], 04/14/2022 09:05:52 04/12/20 22 04/12/2022 BUPRE NORPH INE PT SCREE ISHMAEL oxycodone Negati ve NG/mL 300 Not Available [place] [address] [place], [address], 04/14/2022 09:05:52 04/12/20 22 04/12/2022 BUPRE NORPH INE PT SCREE ISHMAEL fentanyl Negati ve NG/mL 2 Not Available [place] [address] [place], [address], 04/14/2022 09:05:52 04/12/20 22 04/12/2022 BUPRE NORPH INE PT SCREE ISHMAEL ethyl alcohol Negati ve mg/dL 10 Not Available [place] [address] [place], [address], 04/14/2022 09:05:52 04/12/20 22 04/12/2022 BUPRE NORPH INE PT SCREE ISHMAEL methadone metabolite Negati ve NG/mL 300 Not Available [place] [address] [place], [address], 04/14/2022 09:05:52 04/12/20 22 04/12/2022 BUPRE NORPH INE PT SCREE ISHMAEL cannabinoids (THC) Negati ve NG/mL 50 Not Available [place] [address] [place], [address], 04/14/2022 09:05:52 04/12/20 22 04/12/2022 BUPRE NORPH INE PT SCREE ISHMAEL urine creatinine 287.3 mg/dL >20 Not Available [place] [address] [place], [address], 04/14/2022 09:05:52 04/12/20 22 04/12/2022 BUPRE NORPH INE PT SCREE ISHMAEL urine pH 6.10 4.5-9. 0 Not Available [place] [address] [place], [address], 04/14/2022 09:05:52 04/12/20 22 04/12/2022 BUPRE NORPH INE PT SCREE ISHMAEL specific gravity 1.034 1.003- 1.035 Not Available [place] [address] [place], [address], 04/14/2022 09:05:52 04/12/20 22 04/12/2022 PRESC RIBED DRUG CONFI RMATI ON BUPRE NORPH INE 1, QN, U buprenorphin e 225.6 NG/mL 10 Elect solitario rodrigues d by LESTER KEMP NA-WE ISS Not Available [place] [address] [place], [address], 04/15/2022 06:09:06 04/12/20 22 04/12/2022 PRESC RIBED DRUG CONFI RMATI ON BUPRE NORPH INE 1, QN, U norbuprenorp liliane 103.7 NG/mL 10 Not Available [place] [address] [place], [address], 04/15/2022 06:09:06 04/12/20 22 04/12/2022 PRESC RIBED DRUG CONFI RMATI ON BUPRE NORPH INE 1, QN, U legend Abbrev iation s LOW - Detec courtney but unqua ntifi able OLR - Outsi de of linea r range ATR - Addit ional Testi ng Requi red Not Available [place] [address] [address] [place] Mccain, [address], 04/15/2022 06:09:06 04/12/20 22 04/12/2022 PRESC RIBED DRUG CONFI RMATI ON BUPRE NORPH INE 1, QN, U billing only ([id number]) Billin g Only Not Available [facility] [place], [address], 04/15/2022 06:09:06 05/10/20 22 05/10/2022 BUPRE NORPH INE PT SCREE ISHMAEL amphetamines Positi ve NG/mL 1,000 abnormal Elect solitario rodrigues d by LESTER KEMP NA-WE ISS Not Available [place] [address] [place], [address], 05/12/2022 09:31:40 05/10/20 22 05/10/2022 BUPRE NORPH INE PT SCREE ISHMAEL benzodiazapi everton Negati ve NG/mL 200 Not Available [facility] [place], [address], 05/12/2022 09:31:40 05/10/20 22 05/10/2022 BUPRE NORPH INE PT SCREE ISHMAEL buprenorphin e Positi ve NG/mL 5 Not Available [facility] [place], [address], 05/12/2022 09:31:40 05/10/20 22 05/10/2022 BUPRE NORPH INE PT SCREE ISHMAEL cocaine metabolite Negati ve NG/mL 150 Not Available [facility] [place], [address], 05/12/2022 09:31:40 05/10/20 22 05/10/2022 BUPRE NORPH INE PT SCREE ISHMAEL opiates Negati ve NG/mL 300 Not Available [place] [address] [place], [address], 05/12/2022 09:31:40 05/10/20 22 05/10/2022 BUPRE NORPH INE PT SCREE ISHMAEL oxycodone Negati ve NG/mL 300 Not Available [place] [address] [place], [address], 05/12/2022 09:31:40 05/10/20 22 05/10/2022 BUPRE NORPH INE PT SCREE ISHMAEL fentanyl Negati ve NG/mL 2 Not Available [place] [address] [place], [address], 05/12/2022 09:31:40 05/10/20 22 05/10/2022 BUPRE NORPH INE PT SCREE ISHMAEL ethyl alcohol Negati ve mg/dL 10 Not Available [place] [address] [place], [address], 05/12/2022 09:31:40 05/10/20 22 05/10/2022 BUPRE NORPH INE PT SCREE ISHMAEL methadone metabolite Negati ve NG/mL 300 Not Available [place] [address] [place], [address], 05/12/2022 09:31:40 05/10/20 22 05/10/2022 BUPRE NORPH INE PT SCREE ISHMAEL cannabinoids (THC) Negati ve NG/mL 50 Not Available [place] [address] [place], [address], 05/12/2022 09:31:40 05/10/20 22 05/10/2022 BUPRE NORPH INE PT SCREE ISHMAEL urine creatinine 357.1 mg/dL >20 Not Available [place] [address] [place], [address], 05/12/2022 09:31:40 05/10/20 22 05/10/2022 BUPRE NORPH INE PT SCREE ISHMAEL urine pH 5.90 4.5-9. 0 Not Available [place] [address] [place], [address], 05/12/2022 09:31:40 05/10/20 22 05/10/2022 BUPRE NORPH INE PT SCREE ISHMAEL specific gravity 1.036 1.003- 1.035 high Not Available [place] [address] [place], [address], 05/12/2022 09:31:40 05/10/20 22 05/10/2022 AMPHE TAMIN ES, QN, U amphetamine Negati ve NG/mL 250 Elect solitario brown by LESTER KEMP NA-WE ISS Not Available [place] [address] [place], [address], 05/14/2022 07:28:01 05/10/20 22 05/10/2022 AMPHE TAMIN ES, QN, U methamphetam ine Negati ve NG/mL 250 Not Available [facility] [place], [address], 05/14/2022 07:28:01 05/10/20 22 05/10/2022 AMPHE TAMIN ES, QN, U mda Negati ve NG/mL 250 Not Available [facility] [address] [place] MIRIAM, [address], 05/14/2022 07:28:01 05/10/20 22 05/10/2022 AMPHE TAMIN ES, QN, U legend Abbrev iation s OLR - Outsi de of linea r range Not Available [place] [address] [place] [place], [address], 05/14/2022 07:28:01 05/10/20 22 05/10/2022 AMPHE TAMIN ES, QN, U billing only ([id number]) Billin g Only Not Available [facility] Debbie [place]ope[place], [address], 05/14/2022 07:28:01 05/10/20 22 05/10/2022 PRESC RIBED DRUG CONFI RMATI ON BUPRE NORPH INE 1, QN, U buprenorphin e 428.5 NG/mL 10 Elect solitario rodrigues d by LESTER KEMP NA-WE ISS Not Available [place] [address] [place], [address], 05/14/2022 07:28:02 05/10/20 22 05/10/2022 PRESC RIBED DRUG CONFI RMATI ON BUPRE NORPH INE 1, QN, U norbuprenorp liliane 261.3 NG/mL 10 Not Available [place] [address] [place], [address], 05/14/2022 07:28:02 05/10/20 22 05/10/2022 PRESC RIBED DRUG CONFI RMATI ON BUPRE NORPH INE 1, QN, U legend Abbrev iation s LOW - Detec courtney but unqua ntifi able OLR - Outsi de of linea r range ATR - Addit ional Testi ng Requi red Not Available [place] [address] [place], [address], 05/14/2022 07:28:02 05/10/20 22 05/10/2022 pregn vasquez test, urine HCG negati ve Not Available [facility] [address], [address], 05/10/2022 16:05:50 06/08/20 22 06/08/2022 BUPRE NORPH INE PT SCREE ISHMAEL amphetamines Positi ve NG/mL 1,000 abnormal Elect solitario rodrigues d by LESTER KEMP NA-WE ISS Not Available [place] [address] [place], [address], 06/10/2022 11:14:53 06/08/20 22 06/08/2022 BUPRE NORPH INE PT SCREE ISHMAEL benzodiazapi everton Negati ve NG/mL 200 Not Available [facility] [place], [address], 06/10/2022 11:14:53 06/08/20 22 06/08/2022 BUPRE NORPH INE PT SCREE ISHMAEL buprenorphin e Positi ve NG/mL 5 Not Available [facility] [place], [address], 06/10/2022 11:14:53 06/08/20 22 06/08/2022 BUPRE NORPH INE PT SCREE ISHMAEL cocaine metabolite Negati ve NG/mL 150 Not Available [facility] [place], [address], 06/10/2022 11:14:53 06/08/20 22 06/08/2022 BUPRE NORPH INE PT SCREE ISHMAEL opiates Negati ve NG/mL 300 Not Available [facility] [place], [address], 06/10/2022 11:14:53 06/08/20 22 06/08/2022 BUPRE NORPH INE PT SCREE ISHMAEL oxycodone Negati ve NG/mL 300 Not Available [facility] [place], [address], 06/10/2022 11:14:53 06/08/20 22 06/08/2022 BUPRE NORPH INE PT SCREE ISHMAEL fentanyl Negati ve NG/mL 2 Not Available [facility] [place], [address], 06/10/2022 11:14:53 06/08/20 22 06/08/2022 BUPRE NORPH INE PT SCREE ISHMAEL ethyl alcohol Negati ve mg/dL 10 Not Available [facility] [place], [address], 06/10/2022 11:14:53 06/08/20 22 06/08/2022 BUPRE NORPH INE PT SCREE ISHMAEL methadone metabolite Negati ve NG/mL 300 Not Available [facility] [address] [place], [address], 06/10/2022 11:14:53 06/08/20 22 06/08/2022 BUPRE NORPH INE PT SCREE ISHMAEL cannabinoids (THC) Negati ve NG/mL 50 Not Available [facility] [address], [address], 06/10/2022 11:14:53 06/08/20 22 06/08/2022 BUPRE NORPH INE PT SCREE ISHMAEL urine creatinine 284.9 mg/dL >20 Not Available [place] [address] [address] [place], [address], 06/10/2022 11:14:53 06/08/20 22 06/08/2022 BUPRE NORPH INE PT SCREE ISHMAEL urine pH 6.70 4.5-9. 0 Not Available [place] [address] SeanDeb[address] Cummings[place]IRIAM mur[place], [address], 06/10/2022 11:14:53 06/08/20 22 06/08/2022 BUPRE NORPH INE PT SCREE ISHMAEL specific gravity 1.035 1.003- 1.035 Not Available [place] [address] [address] [place], [address], 06/10/2022 11:14:53 06/08/20 22 06/08/2022 PRESC RIBED DRUG CONFI RMATI ON BUPRE NORPH INE 1, QN, U buprenorphin e 333.9 NG/mL 10 Tatianna brown by LESTER PERSON Not Available [place] [address] [place], [address], 06/14/2022 08:11:13 06/08/20 22 06/08/2022 PRESC RIBED DRUG CONFI RMATI ON BUPRE NORPH INE 1, QN, U norbuprenorp liliane 383.6 NG/mL 10 Not Available [place] [address] [place], [address], 06/14/2022 08:11:13 06/08/20 22 06/08/2022 PRES RIBED DRUG CONFI RMATI ON BUPRE NORPH INE 1, QN, U legend Abbrev iation s LOW - Detec courtney but unqua ntifi able OLR - Outsi de of linea r range ATR - Addit ional Testi ng Requi red Not Available [place] [address] [place], [address], 06/14/2022 08:11:13 06/08/20 22 06/08/2022 [facility] RIBED DRUG CONFI RMATI ON BUPRE NORPH INE 1, QN, U billing only ([id number]) Billin g Only Not Available [place] [address] [place], [address], 06/14/2022 08:11:13 06/08/20 22 06/08/2022 AMPHE TAMIN ES, QN, U amphetamine Negati ve NG/mL 250 Elect solitario rodrigues d by LESTER KEMP NA-WE ISS Not Available [place] [address] [place], [address], 06/14/2022 08:11:13 06/08/20 22 06/08/2022 AMPHE TAMIN ES, QN, U methamphetam ine Negati ve NG/mL 250 Not Available [facility] [place], [address], 06/14/2022 08:11:13 06/08/20 22 06/08/2022 AMPHE TAMIN ES, QN, U mda Negati ve NG/mL 250 Not Available [facility] [place], [address], 06/14/2022 08:11:13 06/08/20 22 06/08/2022 AMPHE TAMIN ES, QN, U legend Abbrev iation s OLR - Outsi de of linea r range Not Available [place] [address] [place], [address], 06/14/2022 08:11:13 06/10/20 22 06/10/2022 pregn vasquez test, urine HCG negati ve Not Available [facility] [address], [address], 06/08/2022 15:48:34 07/07/19 23 07/07/2022 BUPRE NORPH INE PT SCREE ISHMAEL amphetamines Negati ve NG/mL 1,000 Elect solitario rodrigues d by LESTER KEMP NA-WE ISS Not Available [place] [address] [place], [address], 07/09/2022 13:11:53 07/07/19 23 07/07/2022 BUPRE NORPH INE PT SCREE ISHMAEL benzodiazapi everton Negati ve NG/mL 200 Not Available [facility] [place], [address], 07/09/2022 13:11:53 07/07/19 23 07/07/2022 BUPRE NORPH INE PT SCREE ISHMAEL buprenorphin e Positi ve NG/mL 5 Not Available [facility] [place], [address], 07/09/2022 13:11:53 07/07/19 23 07/07/2022 BUPRE NORPH INE PT SCREE ISHMAEL cocaine metabolite Negati ve NG/mL 150 Not Available [facility] [place], [address], 07/09/2022 13:11:53 07/07/19 23 07/07/2022 BUPRE NORPH INE PT SCREE ISHMAEL opiates Negati ve NG/mL 300 Not Available [facility] [place], [address], 07/09/2022 13:11:53 07/07/19 23 07/07/2022 BUPRE NORPH INE PT SCREE ISHMAEL oxycodone Negati ve NG/mL 300 Not Available [place] [address] [place], [address], 07/09/2022 13:11:53 07/07/19 23 07/07/2022 BUPRE NORPH INE PT SCREE ISHMAEL fentanyl Negati ve NG/mL 2 Not Available [place] [address] [place], [address], 07/09/2022 13:11:53 07/07/19 23 07/07/2022 BUPRE NORPH INE PT SCREE ISHMAEL ethyl alcohol Negati ve mg/dL 10 Not Available [place] [address] [place], [address], 07/09/2022 13:11:53 07/07/19 23 07/07/2022 BUPRE NORPH INE PT SCREE ISHMAEL methadone metabolite Negati ve NG/mL 300 Not Available [place] [address] [place], [address], 07/09/2022 13:11:53 07/07/19 23 07/07/2022 BUPRE NORPH INE PT SCREE ISHMAEL cannabinoids (THC) Positi ve NG/mL 50 abnormal Not Available [place] [address] [place], [address], 07/09/2022 13:11:53 07/07/19 23 07/07/2022 BUPRE NORPH INE PT SCREE ISHMAEL urine creatinine 213.0 mg/dL >20 Not Available [place] [address] [place], [address], 07/09/2022 13:11:53 07/07/19 23 07/07/2022 BUPRE NORPH INE PT SCREE ISHMAEL urine pH 6.20 4.5-9. 0 Not Available [place] [address] [place], [address], 07/09/2022 13:11:53 07/07/19 23 07/07/2022 BUPRE NORPH INE PT RHEA QUIÑONES specific gravity 1.036 1.003- 1.035 high Not Available [place] [address] [place], [address], 07/09/2022 13:11:53 07/07/19 23 07/07/2022 PRESC RIBED DRUG CONFI RMATI ON BUPRE NORPH INE 1, QN, U buprenorphin e 156.3 NG/mL 10 Elect solitario rodrigues d by LESTER KEMP NA-WE ISS Not Available [place] [address] [place], [address], 07/13/2022 10:49:19 07/07/19 23 07/07/2022 PRESC RIBED DRUG CONFI RMATI ON BUPRE NORPH INE 1, QN, U norbuprenorp liliane 160.8 NG/mL 10 Not Available [place] [address] [place], [address], 07/13/2022 10:49:19 07/07/19 23 07/07/2022 PRESC RIBED DRUG CONFI RMATI ON BUPRE NORPH INE 1, QN, U legend Abbrev iation s LOW - Detec courtney but unqua ntifi able OLR - Outsi de of linea r range ATR - Addit ional Testi ng Requi red Not Available [place] [address] [place], [address], 07/13/2022 10:49:19 07/07/19 23 07/07/2022 PRESC RIBED DRUG CONFI RMATI ON BUPRE NORPH INE 1, QN, U billing only (g0480) Billin g Only Not Available [place] [address] [place], [address], 07/13/2022 10:49:19 07/07/19 23 07/07/2022 pregn vasquez test, urine HCG negati ve Not Available [facility] [address], [place], [address], 07/07/2022 14:23:58 08/05/19 23 08/05/2022 BUPRE NORPH INE PT SCREE ISHMAEL amphetamines Positi ve NG/mL 1,000 abnormal Elect solitario rodrigues d by LESTER KEMP NA-WE ISS Not Available [place] [address] [place], [address], 08/10/2022 05:45:06 08/05/19 23 08/05/2022 BUPRE NORPH INE PT SCREE ISHMAEL benzodiazapi everton Positi ve NG/mL 200 abnormal Not Available [place] [address] [place], [address], 08/10/2022 05:45:06 08/05/19 23 08/05/2022 BUPRE NORPH INE PT SCREE ISHMAEL buprenorphin e Positi ve NG/mL 5 Not Available [place] [address] [place], [address], 08/10/2022 05:45:06 08/05/19 23 08/05/2022 BUPRE NORPH INE PT SCREE ISHMAEL cocaine metabolite Negati ve NG/mL 150 Not Available [place] [address] [place], [address], 08/10/2022 05:45:06 08/05/19 23 08/05/2022 BUPRE NORPH INE PT SCREE ISHMAEL opiates Negati ve NG/mL 300 Not Available [place] [address] [place], [address], 08/10/2022 05:45:06 08/05/19 23 08/05/2022 BUPRE NORPH INE PT SCREE ISHMAEL oxycodone Negati ve NG/mL 300 Not Available [place] [address] [place], [address], 08/10/2022 05:45:06 08/05/19 23 08/05/2022 BUPRE NORPH INE PT SCREE ISHMAEL fentanyl Negati ve NG/mL 2 Not Available [place] [address] [place], [address], 08/10/2022 05:45:06 08/05/19 23 08/05/2022 BUPRE NORPH INE PT SCREE ISHMAEL ethyl alcohol Negati ve mg/dL 10 Not Available [place] [address] [place], [address], 08/10/2022 05:45:06 08/05/19 23 08/05/2022 BUPRE NORPH INE PT SCREE ISHMAEL methadone metabolite Negati ve NG/mL 300 Not Available [place] [address] [place], [address], 08/10/2022 05:45:06 08/05/19 23 08/05/2022 BUPRE NORPH INE PT SCREE ISHMAEL cannabinoids (THC) Positi ve NG/mL 50 abnormal Not Available [place] [address] [place], [address], 08/10/2022 05:45:06 08/05/19 23 08/05/2022 BUPRE NORPH INE PT SCREE ISHMAEL urine creatinine 204.1 mg/dL >20 Not Available [place] [address] [place], [address], 08/10/2022 05:45:06 08/05/19 23 08/05/2022 BUPRE NORPH INE PT SCREE ISHMAEL urine pH 5.70 4.5-9. 0 Not Available [place] [address] [place], [address], 08/10/2022 05:45:06 08/05/19 23 08/05/2022 BUPRE NORPH INE PT SCREE ISHMAEL specific gravity 1.032 1.003- 1.035 Not Available [place] [address] [place], [address], 08/10/2022 05:45:06 08/05/19 23 08/05/2022 AMPHE TAMIN ES, QN, U amphetamine Negati ve NG/mL 250 Elect solitario rodrigues d by LESTER KEMP NA-WE ISS Not Available [place] [address] [place], [address], 08/12/2022 09:42:11 08/05/19 23 08/05/2022 AMPHE TAMIN ES, QN, U methamphetam ine Negati ve NG/mL 250 Not Available [facility] [place], [address], 08/12/2022 09:42:11 08/05/19 23 08/05/2022 AMPHE RENETTAIN ES, QN, U mda Negati ve NG/mL 250 Not Available [facility] [place], [address], 08/12/2022 09:42:11 08/05/19 23 08/05/2022 AMPHE TAMIN ES, QN, U legend Abbrev iation s OLR - Outsi de of linea r range Not Available [place] [address] [place], [address], 08/12/2022 09:42:11 08/05/19 23 08/05/2022 AMPHE TAMIN ES, QN, U billing only ([id number]) Billin g Only Not Available [facility] [place], [address], 08/12/2022 09:42:11 08/05/19 23 08/05/2022 [place]ENZO [place] , QN, U alpha-hydrox yalprazolam Negati ve NG/mL 25 Elect solitario rodrigues d by LESTER KEMP NA-WE ISS Not Available [place] [address] [place], [address], 08/12/2022 09:42:11 08/05/19 23 08/05/2022 BENZO [place] , QN, U 7-aminoclona zepam 1619.1 NG/mL 40 high Not Available [place] [address] [address] [place], [id number], 08/12/2022 09:42:11 08/05/19 23 08/05/2022 BENZO D[place]ES , QN, U lorazepam Negati ve NG/mL 50 Not Available [place] [address] [place], [id number], 08/12/2022 09:42:11 08/05/19 23 08/05/2022 BENZO [place] , QN, U nordiazepam Negati ve NG/mL 50 Not Available [place] [address] [place], [id number], 08/12/2022 09:42:11 08/05/19 23 08/05/2022 BENZO [place] , QN, U temazepam Negati ve NG/mL 50 Not Available [facility] [place], [id number], 08/12/2022 09:42:11 08/05/19 23 08/05/2022 BENZO DIA[place]ES , QN, U legend Abbrev iation s OLR - Outsi de of linea r range Not Available [place] [address] [place], [id number], 08/12/2022 09:42:11 08/05/19 23 08/05/2022 PRESC RIBED DRUG CONFI RMATI ON BUPRE NORPH INE 1, QN, U buprenorphin e 92.2 NG/mL 10 Elect solitario rodrigues d by LESTER KEMP NA-WE ISS Not Available [place] [address] [place], [id number], 08/12/2022 09:42:12 08/05/19 23 08/05/2022 PRESC RIBED DRUG CONFI RMATI ON BUPRE NORPH INE 1, QN, U norbuprenorp liliane 114.0 NG/mL 10 Not Available [place] [address] [place], [id number], 08/12/2022 09:42:12 08/05/19 23 08/05/2022 PRESC RIBED DRUG CONFI RMATI ON BUPRE NORPH INE 1, QN, U legend Abbrev iation s LOW - Detec courtney but unqua ntifi able OLR - Outsi de of linea r range ATR - Addit ional Testi ng Requi red Not Available [place] [address] [place], [id number], 08/12/2022 09:42:12 08/05/19 23 08/05/2022 pregn vasquez test, urine HCG negati ve Not Available [facility] [address], [address], 08/05/2022 15:24:01 09/02/19 23 09/01/2022 BUPRE NORPH INE PT SCREE ISHMAEL amphetamines Positi ve NG/mL 1,000 abnormal Elect solitario rodrigues d by LESTER KEMP NA-WE ISS Not Available [place] [address] [place], [address], 09/02/2022 10:56:04 09/02/19 23 09/01/2022 BUPRE NORPH INE PT SCREE ISHMAEL benzodiazapi everton Positi ve NG/mL 200 abnormal Not Available [facility] [place], [address], 09/02/2022 10:56:04 09/02/19 23 09/01/2022 BUPRE NORPH INE PT SCREE ISHMAEL buprenorphin e Positi ve NG/mL 5 Not Available [facility] [place], [address], 09/02/2022 10:56:04 09/02/19 23 09/01/2022 BUPRE NORPH INE PT SCREE ISHMAEL cocaine metabolite Negati ve NG/mL 150 Not Available [facility] [place], [address], 09/02/2022 10:56:04 09/02/19 23 09/01/2022 BUPRE NORPH INE PT SCREE ISHMAEL opiates Negati ve NG/mL 300 Not Available [place] [address] [place], [address], 09/02/2022 10:56:04 09/02/19 23 09/01/2022 BUPRE NORPH INE PT SCREE ISHMAEL oxycodone Negati ve NG/mL 300 Not Available [address] [address] [place], [address], 09/02/2022 10:56:04 09/02/19 23 09/01/2022 BUPRE NORPH INE PT SCREE ISHMAEL fentanyl Negati ve NG/mL 2 Not Available [address] [address] [place], [address], 09/02/2022 10:56:04 09/02/19 23 09/01/2022 BUPRE NORPH INE PT SCREE ISHMAEL ethyl alcohol Negati ve mg/dL 10 Not Available [address] [address] [place], [address], 09/02/2022 10:56:04 09/02/19 23 09/01/2022 BUPRE NORPH INE PT SCREE ISHMAEL methadone metabolite Negati ve NG/mL 300 Not Available [address] [address] [place], [address], 09/02/2022 10:56:04 09/02/19 23 09/01/2022 BUPRE NORPH INE PT SCREE ISHMAEL cannabinoids (THC) Positi ve NG/mL 50 abnormal Not Available [address] [address] [place], [address], 09/02/2022 10:56:04 09/02/19 23 09/01/2022 BUPRE NORPH INE PT SCREE ISHMAEL urine creatinine 216.0 mg/dL >20 Not Available [address] [place] [address] [place], [address], 09/02/2022 10:56:04 09/02/19 23 09/01/2022 BUPRE NORPH INE PT SCREE ISHMAEL urine pH 5.90 4.5-9. 0 Not Available [address] [address] [place], [address], 09/02/2022 10:56:04 09/02/19 23 09/01/2022 BUPRE NORPH INE PT SCREE ISHMAEL specific gravity 1.029 1.003- 1.035 Not Available [address] [address] [place], [address], 09/02/2022 10:56:04 09/02/19 23 09/01/2022 AMPHE TAMIN ES, QN, U amphetamine Negati ve NG/mL 250 Elect solitario rodrigues d by LESTER KEMP NA-WE ISS Not Available [address] [address] [place], [address], 09/07/2022 07:12:38 09/02/19 23 09/01/2022 AMPHE TAMIN ES, QN, U methamphetam ine Negati ve NG/mL 250 Not Available [facility] [place], [address], 09/07/2022 07:12:38 09/02/19 23 09/01/2022 AMPHE TAMIN ES, QN, U mda Negati ve NG/mL 250 Not Available [facility] [place], [address], 09/07/2022 07:12:38 09/02/19 23 09/01/2022 AMPHE TAMIN ES, QN, U legend Abbrev iation s OLR - Outsi de of linea r range Not Available [address] [address] [place], [address], 09/07/2022 07:12:38 09/02/19 23 09/01/2022 AMPHE TAMIN ES, QN, U billing only ([id number]) Billin g Only Not Available [address] [address] [place], [address], 09/07/2022 07:12:38 09/02/19 23 09/01/2022 PRESC RIBED DRUG CONFI RMATI ON BUPRE NORPH INE 1, QN, U buprenorphin e 91.2 NG/mL 10 Elect solitario rodrigues d by LESTER KEMP NA-WE ISS Not Available [address] [address] [place], [address], 09/07/2022 07:12:38 09/02/19 23 09/01/2022 PRESC RIBED DRUG CONFI RMATI ON BUPRE NORPH INE 1, QN, U norbuprenorp liliane 95.9 NG/mL 10 Not Available [address] [address] [place], [address], 09/07/2022 07:12:38 09/02/19 23 09/01/2022 PRESC RIBED DRUG CONFI RMATI ON BUPRE NORPH INE 1, QN, U legend Abbrev iation s LOW - Detec courtney but unqua ntifi able OLR - Outsi de of linea r range ATR - Addit ional Testi ng Requi red Not Available [address] [address] [place], [address], 09/07/2022 07:12:38 09/02/19 23 09/01/2022 BENZO DIAZE PINES , QN, U alpha-hydrox yalprazolam Negati ve NG/mL 25 Elect solitario [place] lilia d by LESTER KEMP NA-WE ISS Not Available [address] [address] [place], [address], 09/07/2022 07:12:39 09/02/19 23 09/01/2022 BENZO DIAZE PINES , QN, U 7-aminoclona zepam 662.7 NG/mL 40 high Not Available [address] [address] [place], [address], 09/07/2022 07:12:39 09/02/19 23 09/01/2022 BENZO DIAZE [place]ES , QN, U lorazepam Negati ve NG/mL 50 Not Available [facility] [place], [address], 09/07/2022 07:12:39 09/02/19 23 09/01/2022 BENZO DIAZE [place]ES , QN, U nordiazepam Negati ve NG/mL 50 Not Available [facility] [place], [address], 09/07/2022 07:12:39 09/02/19 23 09/01/2022 BENZO DIAZE PINES , QN, U temazepam Negati ve NG/mL 50 Not Available [facility] [place], [address], 09/07/2022 07:12:39 09/02/19 23 09/01/2022 BENZO DIAZE PINES , QN, U legend Abbrev iation s OLR - Outsi de of linea r range Not Available [address] [address] [place], [address], 09/07/2022 07:12:39 09/02/19 23 09/01/2022 pregn vasquez test, urine HCG negati ve Not Available [facility] [address], [address], 09/01/2022 14:30:05 Result Notes None recorded. Problems Name Problem SNOMED Code Status Onset Date Resolution Date Notes Provider Name and Address Organization Details Recorded Time Insomnia 647380806 Active 2019 Not Available [facility] 1 10:09:00 Migraine 33072742 Active 2019 Not Available [facility] 1 10:09:00 Anxiety 54464575 Active 2019 Not Available [facility] 1 10:09:00 Opioid dependence 04012984 Active 2019 Not Available [facility] 1 10:09:00 Problem Notes None recorded. Procedures Surgical History Date Name Laterality Status Provider Name and Address Organization Details Recorded Time 09/01/2022 83633, G0480, G0481 completed [facility] 09/01/2022 14:24:21 08/05/2022 05447, G0480, G0481 completed Yeleila Escobartron [facility] 08/05/2022 15:19:14 07/07/2022 98683, G0480, G0481 completed [facility] Carm[facility] 07/07/2022 14:18:49 06/08/2022 42457, G0480, G0481 completed Betty Carmen [place] [facility] 06/08/2022 15:37:43 05/10/2022 27424, G0480, G0481 completed [facility]la [facility] [place] [facility] 05/10/2022 15:55:35 04/12/2022 41360, G0480, G0481 completed Betty Carmen [place] - [facility] 04/12/2022 15:53:06 03/15/2022 89574, G0480, G0481 completed Betty Carmen [place] - [facility] 03/15/2022 15:23:47 02/11/2022 70784, G0480, G0481 completed Betty Carmen [place] - [facility] 02/11/2022 15:04:07 01/14/2022 95455, G0480, G0481 completed Betty Carmen [place] - [facility] 01/14/2022 15:04:41 12/17/2021 97436, G0480, G0481 completed Gabby Sharmin [facility] 12/17/2021 13:08:22 12/03/2021 79150, G0480, G0481 completed Betty Carmen [place] - [facility] 12/03/2021 14:22:57 11/19/2021 56834, G0480, G0481 completed Emmanuelle Ann CNP [address] [place], [address], [facility] 11/19/2021 09:55:23 11/03/2021 40303, G0480, G0481 completed [facility] 11/03/2021 15:38:04 10/20/2021 84190, G0480, G0481 completed [facility] 10/20/2021 15:28:52 10/09/2021 14133, G0480, G0481 completed Doroteo Galvano [facility] 10/09/2021 14:36:25 09/23/2021 12614, G0480, G0481 completed [facility] 09/23/2021 14:54:59 09/08/2021 55426, G0480, G0481 [facility]/08/[facility] 14:57:18 09/01/2021 09301, G0480, G0481 completed [facility] 09/01/2021 14:40:04 08/25/2021 41281, G0480, G0481 completed Tanika Colon [facility] 08/25/2021 15:42:53 08/10/2021 74404, G0480, G0481 completed Emmanuelle Ann, BELLMAKER [address] [place], [address], [facility] 08/10/2021 13:28:19 08/03/2021 81315, G0480, G0481 completed Gabby Sharmin [facility] 08/03/2021 13:26:53 Imaging Results None recorded. Procedure Notes None recorded. Medical Equipment None Reported. Allergies Allergen ID Allergen Name Allergen Category Reaction Reaction Severity Criticality Documentation Date Start Date Code Code System Note Provider Name and Address Organization Details Recorded Time 4661 amoxicill in medicatio n Not available Not available Not available 07/03/2021 723 RxNorm Not Available [facility] 10:33:24 6583 Suboxone medicatio n headache nausea palpitati ons tachycard ia Not available Not available Not available Not available Not available 08/03/2021 87050 0 RxNorm Emmanuelle Valenzuela eiss, BELLMAKER [address] [facility] [place], [address], [facility] [employer] [facility] 13:50:24 Medications Name Sig Start Date [...] % 99 % 98 [degF] Shayla Elena [facility] 2 16:05:33 Date Recorded Heart rate Oxygen saturation Oxygen saturation in Arterial blood by Pulse oximetry Provider Name and Address Organization Details Last Updated DateTime 07/07/2022 82 /min 98 % 98 % Betty Morales [facility] 07/07/2022 14:24:53 Date Recorded Heart rate Oxygen saturation Oxygen saturation in Arterial blood by Pulse oximetry Body temperature Provider Name and Address Organization Details Last Updated DateTime 08/05/2022 98 /min 98 % 98 % 97.6 [degF] Stas Bull [facility] 3 15:30:04 Social History Question Answer Notes LastModified by Organizat ion Details LastModified Time *Housing Stable - Safe Information not available 08/03/2021 *Employment Employed Self Empployed Information not available 08/03/2021 *Food Adequate Information no t available 08/03/2021 * Not A [place] Information not available 08/03/2021 *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 [...] SNOMED-CT Code Diagnosis ICD10 Code Diagnosis Note [id number] PATIENT IMPORT [facility] [address] [place] [address], [place] [address] 01/11/2020 00:00:00 01/19/2020 11:22:57 [id number] PATIENT IMPORT [facility] [address] [place] [address] 01/16/2020 00:00:00 01/17/2020 08:23:35 [id number] Jessi Ruvalcaba NP [facility] [place] [address] 08/03/2021 13:03:32 08/03/2021 14:08:09 Opioid dependence 15173346 F11.20 unstable [id number] Jessi Ruvalcaba NP [facility] [address] [place] [address] 08/10/2021 13:20:15 08/10/2021 16:40:07 Opioid dependence 49817816 F11.20 unstable [id number] Jessi Ruvalcaba NP [facility] [address] [place] [address] 08/25/2021 15:42:12 08/25/2021 16:54:25 Opioid dependence 32278005 F11.20 unstable Injection given 58702507 2 Z98.890 Stable [id number] Jessi Ruvalcaba NP [facility] [place] [address] 09/01/2021 14:38:50 09/01/2021 16:28:07 Opioid dependence 67988456 F11.20 unstable [id number] Jessi Ruvalcaba, FERTILIZER SUPERVISOR [facility] [address] [place] [address] 09/08/2021 14:52:38 09/08/2021 16:53:09 Opioid dependence 99778977 F11.20 unstable [id number] Jessi Ruvalcaba, FERTILIZER SUPERVISOR [facility] [address] [place] [address] 09/23/2021 14:47:37 09/23/2021 16:04:39 Opioid dependence 47744838 F11.20 stable Anxiety 46981368 F41.9 Stable Injection given 14499855 2 Z98.890 Stable [id number] Mendez Cantu DO [facility] [address] [place] [address] 10/09/2021 14:34:31 10/09/2021 15:13:25 Opioid dependence 32310351 F11.20 STABLE [id number] Jessi Ruvalcaba, FERTILIZER SUPERVISOR [facility] [address] [place] [address] 10/20/2021 15:17:33 10/20/2021 15:39:02 Opioid dependence 92179505 F11.20 stable Anxiety 44903696 F41.9 Stable Injection given 82243926 2 Z98.890 Stable [id number] Jessi Ruvalcaba, FERTILIZER SUPERVISOR [facility] [address] [place] [address] 11/03/2021 15:33:38 11/03/2021 16:25:13 Opioid dependence 24519292 F11.20 stable [id number] Jessi Ruvalcaba, FERTILIZER SUPERVISOR [facility] [address] [place] [address], [place] [address] 11/19/2021 09:49:28 11/19/2021 11:06:05 Opioid dependence 80183213 F11.20 stable Injection given 79818710 2 Z98.890 Stable [id number] Jessi Ruvalcaba, FERTILIZER SUPERVISOR [facility] [address] [place] [address] 12/03/2021 14:22:00 12/03/2021 14:36:00 Opioid dependence 70753340 F11.20 stable [id number] Jessi Ruvalcaba, VIET [facility] [address] [place] [address], [place] [address] 12/17/2021 13:00:08 12/17/2021 13:35:03 Opioid dependence 32573149 F11.20 stable Injection given 18680904 2 Z98.890 Stable [id number] Jessi Ruvalcaba, VIET [facility] [address] [place] [address] 01/14/2022 15:02:05 01/14/2022 15:31:24 Opioid dependence 34820133 F11.20 stable Injection given 73605965 2 Z98.890 Stable [id number] Jessi Ruvalcaba NP [facility] [address] [place] [address], [place] [address] 02/11/2022 15:00:34 02/11/2022 16:15:24 Opioid dependence 44257670 F11.20 stable Injection given 91250076 2 Z98.890 Stable [id number] Jessi Ruvalcaba, VIET [facility] [address] [place] [address], [place] [address] 03/15/2022 15:16:13 03/15/2022 15:58:08 Opioid dependence 41954372 F11.20 stable Injection given 36476139 2 Z98.890 Stable [id number] Jessi Ruvalcaba, VIET [facility] [address] [place] [address], [place] [address] 04/12/2022 15:47:56 04/12/2022 16:15:19 Opioid dependence 36055423 F11.20 stable Injection given 36050887 2 Z98.890 Stable Medication dose decreased by tapering 1989538886 65732 Z76.89 Stable [id number] Jessi Ruvalcaba, VIET [facility] [address] [place] [address] 05/10/2022 15:51:12 2022 12:11:13 Opioid dependence 45977374 F11.20 stable Injection given 84732844 2 Z98.890 Stable Medication dose decreased by tapering 0840416599 30769 Z76.89 Stable [id number] Jessi Ruvalcaba, FERTILIZER SUPERVISOR [facility] [address] [place] [address] 06/08/2022 15:35:19 06/08/2022 16:47:05 Opioid dependence 41232624 F11.20 stable Injection given 46530703 2 Z98.890 Stable Medication dose decreased by tapering 4008280467 83905 Z76.89 Stable [id number] Jessi Ruvalcaba, VIET [facility]ED[facility] [address] [place] [address] 07/07/2022 14:14:30 07/07/2022 14:45:17 Opioid dependence 09741802 F11.20 stable [id number] Jessi Ruvalcaba, FERTILIZER SUPERVISOR [facility] [address] [place] [address] 08/05/2022 15:18:13 08/06/2022 17:14:01 Opioid dependence 87898559 F11.20 stable [id number] Jessi Ruvalcaba, FERTILIZER SUPERVISOR [facility] [address] [place] [address] 09/01/2022 14:18:47 09/01/2022 14:43:39 Opioid dependence 10363274 F11.20 stable Health Concerns Section Related Observation LastModified by Organization Detai ls LastModified Time None Recorded Concern Status LastModified by Organization Details LastModified Time None Recorded Advance Directives Directive None Recorded Payers Encounter Date Sequence Insurance Name Policy Number Policy Lemon Covered Member ID Lemon Member ID Guarantor Name 05/10/2022 1 [facility] PL[facility] (MEDICAID HMO) [id number] Eugenia Hightower [id number] Eugenia Hightower 06/08/2022 1 [facility] PLAN (MEDICAID HMO) [id number] Eugenia Lopardo [id number] Eugenia Lopardo 07/07/2022 1 [facility] PLAN (MEDICAID HMO) [id number] Eugenia Lopardo [id number] Eugenia Lopardo 08/05/2022 1 [facility] PLAN (MEDICAID HMO) [id number] Eugenia Lopardo [id number] Eugenia Lopardo 09/01/2022 1 [facility] PLAN (MEDICAID HMO) [id number] Eugenia Lopardo [id number] Eugenia Lopardo Notes Date Note Type Note Provider Name and Address Organization Details Recorded Time 05/10/2022 text/html This patient is being treated for their OUD with Sublocade Injection. They are here today for their injection visit. PLEASE SEE A & P SECTION FOR FULL VISIT NOTE Emmanuelle Ann, BELLMAKER [address] [place], [address], [facility] [employer] [facility] 05/10/2022 16:20:28 06/08/2022 text/html This patient is being treated for their OUD with Sublocade Injection. They are here today for their injection visit. PLEASE SEE A & P SECTION FOR FULL VISIT NOTE Emmanuelle Ann, BELLMAKER [address] [place], [address], [facility] [employer] [facility] 06/08/2022 16:57:07 07/07/2022 text/html This patient [...] SECTION FOR FULL VISIT NOTE Emmanuelle Ann, BELLMAKER [address] [place], [address], [facility] [employer] [facility] 07/07/2022 14:54:07 08/05/2022 text/html This patient is here today for their follow-up MAT visit. They are being treated for OUD with buprenorphine. PLEASE SEE A & P SECTION FOR FULL VISIT NOTE Emmanuelle Ann, BELLMAKER [address] [place], [address], [employer] 08/05/2022 15:39:37 09/01/2022 text/html This patient is here today for their follow-up MAT visit. They are being treated for OUD with buprenorphine. PLEASE SEE A & P SECTION FOR FULL VISIT NOTE Emmanuelle Ann, BELLMAKER [address] [place], [address], [employer] 09/01/2022 14:44:27 OBGyn Episode No OBEpisode recorded.
--- OUTSIDE RECORDS SUMMARY | 2024-11-08 15:53 | XMS_ITS | Patient Health Record ---
Author Organization [employer] [facility] Address [address] [place] [address] Care Team Providers Care Business Line Controller Name Role Phone SHELLY DUKES Primary Care Provider [phone] Jesus Abbasi Unavailable [phone] Katie Blancas Unavailable [phone] Allergies Allergen (clinical drug ingredient) Drug/Non Drug Allergy documented on EMR Reaction Allergy Type Onset Date Status amoxicillin Amoxicillin hives Drug Allergy Act poncho Reason For Referral Reason please evaluate and treat Please evaluate and treat Diagnosis 1 Tinea unguium (B35.1 ) Referral Organization [facility] Referring Provider First Name Katie Referring Provider Last Name Yonny Referred Provider Specialty Podiatry General Notes Please call the vincent ent to schedule the appointment, [facility] contact them at [phone], Elvie Landers 10/26/2024 04:33:01 PM > Referral Priority Routine Reason the right intercosta l pain Please evaluate and treat Diagnosis 1 Intercostal pain (R0 7.82) Referral Organization [facility] Referring Provider First Name SHELLY Referring Provider Last Name ROSELINE Referring Provider Speciality Internal M edicine Referred Provider Specialty Pain Medicin e General Notes Please call the vincent ent to schedule the appointment, [facility] - [phone] Referral Priority Routine Medications Medication SIG (Take, Route, Frequency, Duration) Notes Start Date End Date Status oxyCODONE HCl 5 MG 1 tablet as needed Orally every 8 hrs for 3 days Partial Fill upon Patient Request 11/02/2024 Active Benzonatate 100 MG 1 capsule as needed [...] applied to the right thumb 08/27/2024 Active clonazePAM 1 MG 1 tablet at [...] Orally 3 TIMES A DAY 06/02/2023 Active Acetaminophen-Codeine 300-30 MG 1 tablet as needed Orally 3 times a day for 5 days 11/02/2024 Active hydrOXYzine HCl 50 MG 1 tablet [...] Status W/U Status Risk Notes Problem Thyrotoxicosis (62034849) Thyrotoxicosis, unspecified without thyrotoxic crisis or storm (E05.90) Active confirmed Problem Vitamin D deficiency (58486688) Vitamin D deficiency, unspecified (E55.9) Active confirmed Problem Opioid dependence (07238135) Opioid dependence, uncomplicated (F11.20) Active confirmed Problem Generalized anxiety disorder (11149314) Generalized anxiety disorder (F41.1) Active confirmed Problem Chronic migraine without aura, non-refractory (disorder) (332728283794258) Migraine without aura, not intractable, without status migrainosus (G43.009) Active confirmed Problem Refractory migraine with aura (408036444) Migraine with aura, intractable, without status migrainosus (G43.119) Active confirmed Problem Chronic sinusitis (82144519) Chronic sinusitis, unspecified (J32.9) Active confirmed Vital Signs Heart Rate 85 /min 10/30/2024 Temperature 97.7 degrees Fahrenheit 10/30/2024 Blood pressure diastolic 70 mm Hg 10/30/2024 Oximetry 98 % 10/30/2024 Height 64 in 10/30/2024 Blood pressure systolic 112 mm Hg 10/30/2024 Weight 121 lbs 10/30/2024 BMI 20.77 kg/m2 10/30/2024 Encounters Encounter Location Date Provider Diagnosis [address] [place] [address] 09/12/2024 [facility] [facility] [address] [place] [address] 06/04/2024 BRAVO GUL [address] [place] [address] 08/27/2024 [facility] Acute sinusitis, unspecified J01.90 and Migraine with aura, intractable, without status migrainosus G43.[address] [place] [address] 09/03/2024 BRAVO GUL Cough, unspecified R05.9 and Intercostal pain R07.[address] [place] [address] 10/24/2024 Ghadeer Mazloum Chronic sinusitis, unspecified J32.9 ; Abdominal pain in female R10.9 and Tinea unguium B35.[address] [place] [address] 10/30/2024 BRAVO GUL Abdominal pain R10.[address] [place] [address] 12/20/2023 [facility] [address] [place] [address] 08/27/2024 [facility] [address] [place] [address] 08/30/2024 [place] [facility]am Migraine with aura, intractable, without status migrainosus G43.119 [facility] [address] [place] [address] 09/03/2024 [facility] [address] [place] [address] 09/12/2024 [facility] [address] [place] [address] 10/08/2024 [facility] Acute pancreatitis without necrosis or infection, unspecified K85.90 [facility] [address] [place] [address] 10/15/2024 [facility] [address] [place] [address] 10/24/2024 [facility] [address] [place] [address] 10/26/2024 [facility] [address] [place] [address] 10/28/2024 [facility] GUL Acute pancreatitis without necrosis or infection, unspecified K85.90 [facility] [address] [place] [address] 10/28/2024 BRAVO GUL Acute pancreatitis without necrosis or infection, unspecified K85.90 [facility] [address] [place] [address] 10/29/2024 [facility] [address] [place] [address] 11/01/2024 BRAVO GUL [address] [place] [address] 11/02/2024 BRAVO MAVISL Abdominal pain R10.[address] [place] [address] 11/05/2024 BRAVO GUL [address] [place] [address] 11/02/2024 Ghadeer Mazloum Acute pancreatitis without necrosis or infection, unspecified K85.[address] [place] [address] 11/02/2024 BRAVO GUL Acute pancreatitis without necrosis or infection, unspecified K85.[address] [place] [address] 11/02/2024 BRAVO GUL Assessments Encounter Date Diagnosis (ICD [...] taking NSAID therapy, and apply Voltaren cream. 10/08/2024 Acute pancreatitis without necrosis or infection, unspecified (ICD-10 - K85.90) 10/24/2024 Chronic sinusitis, unspecified (ICD-10 - J32.9) Ms. Hightower is a 29 year old lady with vitamin D deficiency, migraine headaches, mood disorder/anxiety disorder, insomnia and opioid use disorder is here today for For follow-up on her recent discharge from [facility] ER. Patient was seen in the ER [...] abdominal pain. We will obtain records from [facility] for review Chronic sinusitis - We will [...] For follow-up on her recent discharge from [facility] ER. Patient was seen in the ER [...] abdominal pain. We will obtain records from [facility] for review Chronic sinusitis - We will [...] for recurrent abdominal pain. She went to [facility] emergency room and then recently she went to [facility] emergency room and she had CT scan of the abdomen and pelvis with contrast with no significant finding except for mild right pleural effusion, mild pericardial effusion and no signs of acute pancreatitis but she has pancreatic devisum and history of pancreatitis in [place] a few months ago. Her lipase and [...] Hospital discharge paperwork reviewed and questions answered 11/02/2024 Abdominal pain (ICD-10 - R10.9) 11/02/2024 Acute pancreatitis without necrosis or infection, unspecified (ICD-10 - K85.90) 11/02/2024 Acute pancreatitis without necrosis or infection, unspecified (ICD-10 - K85.90) 09/03/2024 Intercostal pain (ICD-10 - R07.82) Eugenia [...] use topical NSAID gel and cold compresses. 08/30/2024 Migraine with aura, intractable, without status migrainosus (ICD-10 - G43.119) 08/27/2024 Migraine with aura, intractable, without status [...] NSAID therapy, and apply Voltaren cream. 10/24/2024 Tinea unguium (ICD-10 - B35.1) Ms. Hightower is a 29 year old lady with vitamin D deficiency, migraine headaches, mood disorder/anxiety disorder, insomnia and opioid use disorder is here today for For follow-up on her recent discharge from [facility] ER. Patient was seen in the ER [...] abdominal pain. We will obtain records from [facility] for review Chronic sinusitis - We will [...] PANEL 06/02/2022 C-REACTIVE PROTEIN 06/02/2022 DNA (DOUBLE-STRANDED, JENA) ANTIBODY 1 08/02/2021 LIPID PANEL 06/02/2022 RHEUMATOID [...] Insured Coverage Start Date Coverage End Date [facility]) [address] [address] [place] [address] [id number] Eugenia Hightower Self - patient is the insured Medical (General) History Medical History History ICD Code hypertension hyperthyroidism insomnia Opioid use disorder Generalized anxiety disorder/mood disord er, Dr. Saldana Chronic insomnia Migraine headaches Vitamin D deficiency Personal history of COVID-19
--- OUTSIDE RECORDS SUMMARY | 2024-11-08 15:54 | XMS_ITS | Clinical Summary ---
Author Organization [facility] Address [address] [place] [address] Phone Care Team Providers Care Printer Technician Name Role Phone Dick Rene MD Primary Care Provider [phone] Allergies Active Allergy Reactions Criticality Noted Date Comments Amoxicillin Rash 12/13/2006 Medications promethazine (PHENERGAN) 12.5 mg tablet Take 1 tablet (12.5 mg total) by mouth every 4 (four) hours if needed. 10/08/2024 Active Active Problems No known active problems Encounters Date Type Department Care Team Description 10/27/2024 2:38 PM EDT - 10/27/2024 7:14 PM EDT Emergency [facility] [address] [place] [phone] Abdominal pain, epigastric (Primary Dx); Pericardial effusion Discharge Disposition: Home or Self Care 09/08/2024 1:17 PM EST - 09/08/2024 5:06 PM EST Emergency [facility] [address] [place] [phone] Acute recurrent frontal sinusitis (Primary Dx) Discharge [...] GEMUSE QTc 457 ms GEMUSE P Wave [place] 40 degrees GEMUSE R [place] 71 degrees GEMUSE T [place] 45 degrees GEMUSE ECG Interpretation Normal sinus rhythm with sinus arrhythmia Normal ECG When compared with ECG of 23-AUG-2017 21:54, QT has lengthened Confirmed by MD Domingo, Dexter ([id number]) on 10/28/2024 12:15:21 AM GEMUSE 10/27/2024 4:20 PM EDT 10/28/2024 12:15 AM EDT Blair OJEDA ECG ORDERABLES Final Result GEMUSE * Urinalysis with reflex microscopic and culture (10/27/2024 4:08 PM EDT) Specific [place] Urine 1.017 1.003 - 1.030 LAB URINALYSIS - AUTOMATED METHOD 10/27/2024 4:[address] [facility] pH, Urine 7.0 5.0 - 8.0 pH LAB URINALYSIS - AUTOMATED METHOD 10/27/2024 4:38 PM [facility] Leukocytes, Urine Negative Negative LAB URINALYSIS - AUTOMATED METHOD 10/27/2024 4:38 PM [facility] Nitrite, Urine Negative Negative LAB URINALYSIS - AUTOMATED METHOD 10/27/2024 4:38 PM [facility] Protein, Urine Negative <=Trace mg/dL LAB URINALYSIS - AUTOMATED METHOD 10/27/2024 4:38 PM [facility] Glucose, Urine Negative Negative mg/dL LAB URINALYSIS - AUTOMATED METHOD 10/27/2024 4:38 PM [facility] Ketones, Urine Negative Negative mg/dL LAB URINALYSIS - AUTOMATED METHOD 10/27/2024 4:38 PM [facility] Urobilinogen, Urine 0.2 0.2 - 1.0 mg/dL LAB URINALYSIS - AUTOMATED METHOD 10/27/2024 4:38 PM [facility] Bilirubin, Urine Negative Negative LAB URINALYSIS - AUTOMATED METHOD 10/27/2024 4:38 PM [facility] Blood, Urine Negative Negative LAB URINALYSIS - AUTOMATED METHOD 10/27/2024 4:38 PM [facility] Urine Urine specimen obtained by clean catch procedure / Unknown Non-blood Collection / Unknown 10/27/2024 4:08 PM EDT 10/27/2024 4:15 PM EDT [facility] URINE ORDERABLES Final Resul t Performing Organization Address [facility]/ZIP Co de Phone Number [facility] [address] [place] [address], [place] [phone] * Schmitz urine culture tube (10/27/2024 4:08 PM EDT) Pathologist [facility] Extra Tube Hold for add-ons. 10/27/2024 6:[address] [facility] Comment:Auto resulted. Urine Urine specimen obtained by clean catch procedure / Unknown Non-blood Collection / Unknown 10/27/2024 4:08 PM EDT 10/27/2024 4:15 PM EDT [facility] LAB URINE ORDERABLES Final Resul t Performing Organization Address [facility] Co de Phone Number [facility] [address] [place] [address], [place] [phone] * POC , urine manually resulted (10/27/2024 4:07 PM EDT) Pathologist [facility] HCG, Ur POC Negative Negative POC hCG Int QC Pass? Yes Yes Urine Urine specimen obtained by clean catch procedure / Unknown 10/27/2024 4:07 PM EDT De Moody MD POINT OF CARE TEST ENTER/ED IT ORDERABLES Final Result * (ABNORMAL) CBC auto differential (10/27/2024 1:59 PM EDT) WBC 5.7 4.8 - 10.8 K/[facility] LAB HEMETOLOGY METHOD 10/27/2024 2:23 PM EDT [...] pcg LAB HEMETOLOGY [facility] MCHC 32.9 32.0 - 37.0 g/dL LAB HEMETOLOGY METHOD 10/27[facility]2024 [facility] RDW 11.6 11.0 - 15.0 % LAB HEMETOLOGY METHOD 10/27/2024 2:[address] [facility] Platelets 254 130 - 400 K/mcL LAB HEMETOLOGY METHOD 10/27[facility]2024 [facility] MPV 9.6 7.0 - 11.0 FL LAB HEMETOLOGY METHOD 10/27/2024 2:[facility] NRBC 0.0 <1.0 % LAB HEMETOLOGY METHOD 10/27/2024 2:[address] [facility] NRBC Absolute 0.00 <0.10 K/mcL LAB HEMETOLOGY METHOD 10/27/2024 2:[facility] Neutrophils Relative 55.3 % LAB HEMETOLOGY METHOD 10/27/2024 2:23 [facility] Lymphocytes Relative 36.8 % [...] K/mcL LAB HEMETOLOGY METHOD 10/27/2024 2:23 PM [facility] Basophils Absolute 0.05 0.00 - 0.20 K/mcL LAB HEMETOLOGY METHOD 10/27/2024 2:[address] [facility] Immature Granulocytes Absolute 0.02 0.00 - 0.03 K/mcL LAB HEMETOLOGY METHOD 10/27/2024 2:23 PM [facility] Blood Venous blood specimen / Unknown Venipuncture / Unknown 10/27/2024 1:59 PM EDT 10/27/2024 2:17 PM EDT De Moody MD LAB BLOOD ORDERABLES Final Result [facility] [address] [place] [address], [place] [phone] * Lipase (10/27/2024 1:59 PM EDT) Pathologist [facility] Lipase 17 13 - 75 unit/L LAB CHEMISTRY METHOD 10/27/2024 2:[address] [facility] Blood Venous blood specimen / Unknown Venipuncture / Unknown 10/27/2024 1:59 PM EDT 10/27/2024 2:17 PM EDT De Moody MD LAB BLOOD ORDERABLES Final Result Performing Organization Address [facility] Co de Phone Number [facility] [address] [place] [address], [place] [phone] * Comprehensive metabolic panel (10/27/2024 1:59 PM EDT) [facility] Sodium 136 133 - 145 mmol/L LAB CHEMISTRY METHOD 10/27/2024 2:47 PM [facility] Potassium 4.3 3.5 - 5.5 mmol/L LAB CHEMISTRY METHOD 10/27/2024 2:47 PM [facility] Chloride 102 96 - 110 mmol/L LAB CHEMISTRY METHOD 10/27/2024 2:47 PM [facility] CO2 27 21 - 32 mmol/L LAB CHEMISTRY METHOD 10/27/2024 2:47 PM [facility] Anion Gap 7 3 - 11 LAB CHEMISTRY METHOD 10/27/2024 2:47 PM [facility] Glucose 95 70 - 100 mg/dL LAB CHEMISTRY METHOD 10/27/2024 2:47 PM [facility] BUN 11 5 - 25 mg/dL LAB CHEMISTRY METHOD 10/27/2024 2:47 PM [facility] Creatinine 0.57 0.50 - 1.10 [...] mg/dL LAB CHEMISTRY METHOD 10/27/2024 2:47 PM [facility] AST (SGOT) 11 10 - 42 unit/L LAB CHEMISTRY METHOD 10/27/2024 2:47 PM [facility] ALT (SGPT) 13 10 - 60 unit/L LAB CHEMISTRY METHOD 10/27/2024 2:47 PM [facility] Alkaline Phosphatase 63 42 - 121 unit/L LAB CHEMISTRY METHOD 10/27/2024 2:47 PM [facility] Total Protein 7.5 6.0 - 8.0 g/dL LAB CHEMISTRY METHOD 10/27/2024 2:47 PM [facility] Albumin 4.1 3.2 - 5.0 g/dL LAB CHEMISTRY METHOD 10/27/2024 2:47 PM [facility] Total Bilirubin 0.3 0.0 - 1.4 mg/dL LAB CHEMISTRY METHOD 10/27/2024 2:47 PM [facility] Blood Venous blood specimen / Unknown Venipuncture / Unknown 10/27/2024 1:59 PM EDT 10/27/2024 2:17 PM EDT us De Moody MD LAB BLOOD ORDERABLES Final Result [facility] [address] [place] [address], [place] [phone] * XR Chest 2 Views (09/08/2024 1:21 PM EST) Anatomical Region Laterality Modality Body Radiographic Yasmin ging 09/08/2024 1:50 PM EST Impressions 09/08/2024 1:51 PM EST No acute chest disease -------- FINAL REPORT -------- Dictated By: Geoffrey Acosta Dictated Date: 09/08/2024 13:50 ET Assigned Physician: Geoffrey Acosta Reviewed and Electronically Signed By: Geoffrey Acosta Signed Date: 09/08/2024 13:51 ET Workstation ID: [id number] Transcribed By: Self Edit Transcribed Date: 09/08/2024 [...] Signed Date: 09/08/2024 13:51 ET Workstation ID: [id number] Transcribed By: Self Edit Transcribed Date: 09/08/2024 13:50 ET Zion Moss MD IMG XR PROCEDURES Final Resul t * Respiratory virus panel molecular study (09/08/2024 1:10 PM EST) Adenovirus Detection by PCR Not Detected Not Detected LAB MICROBIOLOGY METHOD 09/08/2024 2:31 PM [facility] Influenza A PCR Not Detected Not Detected LAB MICROBIOLOGY METHOD 09/08/2024 2:31 PM [facility] Influenza B PCR Not Detected Not Detected LAB MICROBIOLOGY METHOD 09/08/2024 2:31 PM [facility] Coronavirus 229E Not Detected Not Detected LAB MICROBIOLOGY METHOD 09/08/2024 2:31 PM [facility] Coronavirus HKU1 Not Detected Not Detected LAB MICROBIOLOGY METHOD 09/08/2024 2:31 PM [facility] Coronavirus OC43 Not Detected Not Detected LAB MICROBIOLOGY METHOD 09/08/2024 2:31 PM [facility] Coronavirus NL63 Not Detected Not Detected LAB MICROBIOLOGY METHOD 09/08/2024 2:31 PM [facility] Parainfluenza Virus 1 Not Detected Not Detected LAB MICROBIOLOGY METHOD 09/08/2024 2:31 PM [facility] Parainfluenza Virus 2 Not Detected Not Detected LAB MICROBIOLOGY METHOD 09/08/2024 2:31 PM [facility] Parainfluenza Virus 3 Not Detected Not Detected LAB MICROBIOLOGY METHOD 09/08/2024 2:31 PM [facility] Parainfluenza Virus 4 Not Detected Not Detected LAB MICROBIOLOGY METHOD 09/08/2024 2:31 PM [facility] RSV PCR Not Detected Not Detected LAB MICROBIOLOGY METHOD 09/08/2024 2:31 PM [facility] Human Metapneumovirus A and B Not Detected Not Detected LAB MICROBIOLOGY METHOD 09/08/2024 2:31 PM [facility] Rhinovirus/Entero virus Not Detected Not [...] PM EST Testing was performed using the [employer] Respiratory Pathogen PCR Assay. All results must [...] Final Result [facility] [address] [place] [address], * Rapid strep A screen (09/08/2024 1:10 PM EST) Strep A Ag Negative Negative, Invalid 09/08/2024 1:[address] [facility] Comment:Refer to Throat Cult ure. Swab Structure of anterior portion of neck / Unknown Non-blood Collection / Unknown 09/08/2024 1:10 PM EST 09/08/2024 1:18 PM EST Zion Moss MD LAB MICROBIOLOGY - GENERAL OR DERABLES Final Result Performing Organization Address [facility] de Phone Number [facility] [address] [place] [address], * (ABNORMAL) Culture throat (09/08/2024 1:10 PM [...] OR DERABLES Final Result Performing Organization Address [facility] de Phone Number [facility] [address] [place] [address], from Last 3 Months Insurance [id number] [employer] [employer] Care Teams Printer Technician Relationship Specialty Start Date End Date Dick Rene MD [address] [place] [address] PCP - General Internal Medicine 09/08/24
--- OUTSIDE RECORDS SUMMARY | 2024-11-08 15:54 | XMS_ITS | Data Portability ---
Author Organization [place] - [facility], Allergy Address [address] [address] Assessment Encounter Date Assessment Date Assessment LastModified [...] in detail and all questions were answered. [email or web address] Not available 12/05/2023 16:05:20 Plan of Treatment [...] Organization Details Recorded Time Nasal congestio n [id number] Active 2022 Nasal congestio n; Note: Date Diagnosed : 11/02/2022 3:17 PM (R09.81) RHONDA WOOD MD 100 [facility],[address] [place], [address], [facility] - [facility] [place] 5 09:48:19 Deviated nasal septum 710299453 Active 2022 Deviated nasal septum; Note: Date Diagnosed : 11/02/2022 3:17 PM (J34.2) RHONDA WOOD MD 100 [facility], [address], [place], [address], [facility] - [facility] [place] 5 09:48:19 Posterior rhinorrhe a 39119218 Active 2022 Postnasal drip; Note: Date Diagnosed : 11/02/2022 3:17 PM (R09.82) RHONDA WOOD MD [address] [place] [address] [address] [facility], [place], [place], [address], [facility] - [facility] 5 09:48:19 Allergic rhinitis 75294966 Active 2023 Allergic rhinitis: Due to other allergen; Note: Date Diagnosed : 10/19/2023 3:04 PM (477.8) ; Start Date : 4 Other allergic rhinitis; Note: Date Diagnosed : 11/10/2023 2:40 PM (J30.89) RHONDA WOOD MD [address] [place] [address] [address] [facility], [place], [address], [facility] - [facility] 5 09:48:19 Impacted cerumen of bilateral ears [id number] 9108 Active 2023 Impacted cerumen, bilateral ; Note: Date Diagnosed : 09/23/2023 1:57 PM (H61.23) RHONDA WOOD MD [address] [place] [address], [address] [facility], [place], [address], [facility] - [facility] [place] 5 09:48:19 Problem Notes None recorded. Procedures Surgical History None recorded. Imaging Results Imaging Date Name Status LastModified by [facility] Details LastModified Time 10/18/2023 imaging/diag nostic result completed [email or web address] Information not available 02/22/2024 04:54:56 Procedure Notes None recorded. Medical Equipment None Reported. Allergies Allergen ID Allergen Name Allergen Category Reaction Reaction Severity Criticality Documentation Date Start Date Code Code System Note Provider Name and Address Organization Details Recorded Time 353617 amoxicill in medicatio n rash Not available Not available 02/03/20242006 723 RxNorm RHONDA WOOD MD [address] [place] [address], [phone], [facility] 5 09:47:00 Medications Name Sig Start Date [...] 0.035 mg tablet active Medicati on ID: [id number] B rand Name: norgesti mate-eth inyl estradio [...] extended release 12/04 completed Medicati on ID: [id number] B rand Name: bupropio n HCl Send Method: E-Prescr ibed Sub s Allowed: subs OK Medic ationGen ericName : bupropio n HCl Medi cation ID: [id number] B rand Name: bupropio n HCl Send [...] 400 mg tablet active Medicati on ID: [id number] B rand Name: riboflav in (vitamin B2) [...] % 100 % 160.02 cm 19.5 kg/m2 40228.1 6 g 101 /min 103 mm[Hg] 73 mm[Hg] [facility] 100 [facility] [address], [place], [address] [place], [place] - [facility] 4 15:22:30 Social History None recorded. Functional [...] Note 2514 SHANNON STERLING PA-C Allergy 100 [facility],[place] [address] [place] [address] 12/05/2023 15:06:46 12/06/2023 15:52:59 Deviated nasal septum [id number] J34.2 Nasal congestion [id number] 0 R09.81 Health Concerns Section Related Observation LastModified by Organization Rayshawn reyes LastModified Time None Recorded Concern Status LastModified by Organization Details LastModified Time None Recorded Advance Directives Directive None Recorded Payers Insurance Date Sequence Insurance Name Policy Number Policy Lemon Covered Member ID Lemon Member ID Guarantor Name 10/08/2024 1 [facility] - HEALTH NET PLAN (MEDICAID HMO) [id number] Eugenia Hightower [id number] Eugenia Hightower Notes Date Note Type Note Provider Name and Address Organization Details Recorded Time 12/05/2023 text/html 28-year-old female presents for SLIT initiation. She has brought her EpiPen. PEDRO GUERRA MD [address] [place] [address], [phone], [facility] - [facility] 12/05/2023 16:39:22 OBGyn Episode No OBEpisode recorded.
--- OUTSIDE RECORDS SUMMARY | 2024-11-08 15:54 | XMS_ITS ---
Author Organization [facility] Address [address] [place] [address] Care Team Providers Care Industrial Conveyor Belt Repairer Name Role Phone SHELLY DUKES Primary Care Provider REASON FOR VISIT Meds Medications Medication SIG (Take, Route, Frequency, Duration) Notes Start Date End Date Status Acetaminophen-Codeine 300-30 MG 1 tablet as needed Orally 3 times a day for 5 days 11/02/2024 Active Encounters Encounter Location Date Provider Diagnosis [address] [address] 11/02/2024 SHELLY DUKES Abdominal pain R10.9 Assessments Encounter Date Diagnosis (ICD Code) Assessment Notes Treatment Notes Treatment Clinical Notes Section Notes 11/02/2024 Abdominal pain (ICD-10 - R10.9) Plan Of Treatment Medication Medication Name Sig Start Date Stop Date Notes Acetaminophen-Codeine 300-30 MG 1 tablet as needed Orally 3 times a day for 5 days 11/02/2024 Progress Notes * Eugenia LEACHDOB: 4 (29 yo F)Acc No.[id number]:11/02/2024 Patient:?Eugenia LEACH :1995???Age:29 Y???Sex:Female Address:[address] [place] [phone] * Refills? Refill Acetaminophen-Codeine Tablet, 300-30 MG, Orally, 15 Tablet, 1 tablet as needed, 3 times a day, 5 days, Refills=0 * true * Date:? Generated for Mark ferrer/Elias/Jairsmitting on:?11/08/2024 03:53 PM EDT
--- OUTSIDE RECORDS SUMMARY | 2024-11-08 15:54 | XMS_ITS ---
Author Organization [facility] Address [address] [facility] [address] [place] [address] Care Team Providers Care Supervisor Cellars Name Role Phone SHELLY DUKES Primary Care Provider REASON FOR VISIT [facility] Con[facility] Encounters Encounter Location Date Provider Diagnosis [facility] [address] [facility] [address] [place] [address] 11/05/2024 SHELLY DUKES Plan Of Treatment No Information Progress Notes * Eugenia LEACHDOB: 4 (29 yo F)Acc No.[id number]:11/05/2024 Patient:?Eugenia LEACH :1995???Age:29 Y???Sex:Female Address:[address] [place] [phone] * true * Date:? Generated for Mark ferrer/Elias/eTransmitting on:?11/08/2024 03:53 PM EDT
== END 2024-11-08 15:57 | disposition home or self-care (01) ==
LOC: HO.ENCR 15:20
PROVIDERS: PCP Hospitalist; Visit Provider Student in an Organized Health Care Education/Training Program
DX: R76.8 Other specified abnormal immunological findings in serum (principal); E01.0 Iodine-deficiency related diffuse (endemic) goiter
CPT/HCPCS: 99204

== ENCOUNTER → 2024-11-08 15:19 | Outpatient (BNVA) | payer OTHER, SELFPAY | PROVIDERS: PCP Hospitalist; Visit Provider Student in an Organized Health Care Education/Training Program | DX: R76.8 Other specified abnormal immunological findings in serum (principal); E01.0 Iodine-deficiency related diffuse (endemic) goiter | CPT/HCPCS: 99202 ==

== ENCOUNTER 2024-11-15 14:38 | Outpatient (REF) | payer OTHER, SELFPAY ==
--- OUTSIDE RECORDS SUMMARY | 2024-11-15 15:18 | XMS_ITS | Data Portability ---
Author Organization [employer] ,[place], [place] Address [address] [place] [address] Assessment Encounter Date Assessment Date Assessment LastModified [...] UDS NEG Seeing mental health prescriber @ [facility] - stable on current medications per patient. 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 - Site: [facility] - Lot #: [id number] - Exp. Date: 07/02/23 Sublocade dose 25 [...] of amphetamine Seeing mental health prescriber @ [facility] - stable on current medications per patient. 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 - Site: [facility] - Lot #: [id number] - Exp. Date: 06/02/23 PLAN (narrative, if [...] of amphetamine Seeing mental health prescriber @ [facility] - stable on current medications per patient. 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 Lab drug screen, urine 2022 023 [facility], [address] [place] [address], [address], 3 10:56:05 test, urine 2022 [email or web address], [address], 3 14:43:59 drug screen, urine 2022 023 [facility], [address] [place] [address], [address], 3 05:45:06 test, urine 2022 023 [email or web address] [address], [address], 3 15:37:12 drug screen, urine 2022 023 [facility], [address] [place] [address], [address], 3 13:11:53 test, urine 2022 0[email or web address], [address], 3 14:40:45 drug screen, urine 2021 022 [facility], [address] [place], [address], 2 11:14:53 test, urine 2021 022 [facility], [address] [place] [address], [address], 2 11:13:49 drug screen, urine 2021 022 [facility], [address] [place], [address], 2 09:31:40 test, urine 2021 022 [email or web address] alcaraz [facility], [address] [place] [address], [phone], 16:20:30 Referral None recorded. Procedures None recorded. Surgeries None recorded. Imaging None recorded. Medication Orders None recorded. Patient TargetsNo targets recorded. Patient Instructions Encounter Date Encounter Id Patient Instructions Last Modified By Organization Details Last Modified Time 05/10/2022 [id number] Education provid ed at today's visit included: [...] counseling and coordinating care. Education provided at [facility]'s visit included: Review of patient's individualized [...] [email or web address] Not available 05/10/2022 16:07:51 06/08/2022 [id number] Education provid ed at today's visit included: [...] [email or web address] Not available 06/08/2022 15:51:30 07/07/2022 [id number] Education provid ed at today's visit included: [...] alissa s2 Not available 07/07/2022 14:29:46 08/05/2022 [id number] Education provid ed at today's visit included: [...] [email or web address] Not available 08/05/2022 15:32:15 09/01/2022 [id number] Education provid ed at today's visit included: [...] by LESTER KEMP NA-WE ISS Not Available [facility] [place] [address] [place], [address], 04/14/2022 09:05:52 04/12/20 22 04/12/2022 BUPRE NORPH INE PT SCREE ISHMAEL benzodiazapi everton Negati ve NG/mL 200 Not Available [facility], [address], 04/14/2022 09:05:52 04/12/20 22 04/12/2022 BUPRE NORPH INE PT SCREE ISHMAEL buprenorphin e Positi ve NG/mL 5 Not Available [place] [address] [place], [address], 04/14/2022 09:05:52 04/12/20 22 04/12/2022 BUPRE NORPH INE PT SCREE ISHMAEL cocaine metabolite Negati ve NG/mL 150 Not Available [place] [address] [place], [address], 04/14/2022 09:05:52 04/12/20 22 04/12/2022 BUPRE NORPH INE PT SCREE ISHMAEL opiates Negati ve NG/mL 300 Not Available [place] [address] [place], [address], 04/14/2022 09:05:52 04/12/20 22 04/12/2022 BUPRE NORPH INE PT SCREE ISHMAEL oxycodone Negati ve NG/mL 300 Not Available [place] [address] [place], [address], 04/14/2022 09:05:52 04/12/20 22 04/12/2022 BUPRE NORPH INE PT SCREE ISHMAEL fentanyl Negati ve NG/mL 2 Not Available [place] [address] [place], [address], 04/14/2022 09:05:52 04/12/20 22 04/12/2022 BUPRE NORPH INE PT SCREE ISHMAEL ethyl alcohol Negati ve mg/dL 10 Not Available [place] [address] [place], [address], 04/14/2022 09:05:52 04/12/20 22 04/12/2022 BUPRE NORPH INE PT SCREE ISHMAEL methadone metabolite Negati ve NG/mL 300 Not Available [place] [address] [place], [address], 04/14/2022 09:05:52 04/12/20 22 04/12/2022 BUPRE NORPH INE PT SCREE ISHMAEL cannabinoids (THC) Negati ve NG/mL 50 Not Available [place] [address] [place], [address], 04/14/2022 09:05:52 04/12/20 22 04/12/2022 BUPRE NORPH INE PT SCREE ISHMAEL urine creatinine 287.3 mg/dL >20 Not Available [place] [address] [place], [address], 04/14/2022 09:05:52 04/12/20 22 04/12/2022 BUPRE NORPH INE PT SCREE ISHMAEL urine pH 6.10 4.5-9. 0 Not Available [place] [address] [place], [address], 04/14/2022 09:05:52 04/12/20 22 04/12/2022 BUPRE NORPH INE PT SCREE ISHMAEL specific gravity 1.034 1.003- 1.035 Not Available [place] [address] [place], [address], 04/14/2022 09:05:52 04/12/20 22 04/12/2022 PRESC RIBED DRUG CONFI RMATI ON BUPRE NORPH INE 1, QN, U buprenorphin e 225.6 NG/mL 10 Elect solitario rodrigues d by LESTER KEMP NA-WE ISS Not Available [place] [address] [place], [address], 04/15/2022 06:09:06 04/12/20 22 04/12/2022 PRESC RIBED DRUG CONFI RMATI ON BUPRE NORPH INE 1, QN, U norbuprenorp liliane 103.7 NG/mL 10 Not Available [place] [address] [place], [address], 04/15/2022 06:09:06 04/12/20 22 04/12/2022 PRESC RIBED DRUG CONFI RMATI ON BUPRE NORPH INE 1, QN, U legend Abbrev iation s LOW - Detec courtney but unqua ntifi able OLR - Outsi de of linea r range ATR - Addit ional Testi ng Requi red Not Available [place] [address] [address] [place]ain, [address], 04/15/2022 06:09:06 04/12/20 22 04/12/2022 PRESC RIBED DRUG CONFI RMATI ON BUPRE NORPH INE 1, QN, U billing only (g0480) Billin g Only Not Available [facility] [place], [address], 04/15/2022 06:09:06 05/10/20 22 05/10/2022 BUPRE NORPH INE PT SCREE ISHMAEL amphetamines Positi ve NG/mL 1,000 abnormal Elect solitario rodrigues d by LESTER KEMP NA-WE ISS Not Available [place] [address] [place], [address], 05/12/2022 09:31:40 05/10/20 22 05/10/2022 BUPRE NORPH INE PT SCREE ISHMAEL benzodiazapi everton Negati ve NG/mL 200 Not Available [facility] [place], [address], 05/12/2022 09:31:40 05/10/20 22 05/10/2022 BUPRE NORPH INE PT SCREE ISHMAEL buprenorphin e Positi ve NG/mL 5 Not Available [facility], [address], 05/12/2022 09:31:40 05/10/20 22 05/10/2022 BUPRE NORPH INE PT SCREE ISHMAEL cocaine metabolite Negati ve NG/mL 150 Not Available [facility] [place], [address], 05/12/2022 09:31:40 05/10/20 22 05/10/2022 BUPRE NORPH INE PT SCREE ISHMAEL opiates Negati ve NG/mL 300 Not Available [place] [address] [place], [address], 05/12/2022 09:31:40 05/10/20 22 05/10/2022 BUPRE NORPH INE PT SCREE ISHMAEL oxycodone Negati ve NG/mL 300 Not Available [place] [address] [place], [address], 05/12/2022 09:31:40 05/10/20 22 05/10/2022 BUPRE NORPH INE PT SCREE ISHMAEL fentanyl Negati ve NG/mL 2 Not Available [place] [address] [place], [address], 05/12/2022 09:31:40 05/10/20 22 05/10/2022 BUPRE NORPH INE PT SCREE ISHMAEL ethyl alcohol Negati ve mg/dL 10 Not Available [place] [address] [place], [address], 05/12/2022 09:31:40 05/10/20 22 05/10/2022 BUPRE NORPH INE PT SCREE ISHMAEL methadone metabolite Negati ve NG/mL 300 Not Available [place] [address] [place], [address], 05/12/2022 09:31:40 05/10/20 22 05/10/2022 BUPRE NORPH INE PT SCREE ISHMAEL cannabinoids (THC) Negati ve NG/mL 50 Not Available [place] [address] [place], [address], 05/12/2022 09:31:40 05/10/20 22 05/10/2022 BUPRE NORPH INE PT SCREE ISHMAEL urine creatinine 357.1 mg/dL >20 Not Available [place] [address] [place], [address], 05/12/2022 09:31:40 05/10/20 22 05/10/2022 BUPRE NORPH INE PT SCREE ISHMAEL urine pH 5.90 4.5-9. 0 Not Available [place] [address] [place], [address], 05/12/2022 09:31:40 05/10/20 22 05/10/2022 BUPRE NORPH INE PT SCREE ISHMAEL specific gravity 1.036 1.003- 1.035 high Not Available [place] [address] [place], [address], 05/12/2022 09:31:40 05/10/20 22 05/10/2022 AMPHE TAMIN ES, QN, U amphetamine Negati ve NG/mL 250 Elect solitario brown by LESTER KEMP NA-WE ISS Not Available [place] [address] [place], [address], 05/14/2022 07:28:01 05/10/20 22 05/10/2022 AMPHE TAMIN ES, QN, U methamphetam ine Negati ve NG/mL 250 Not Available [facility] [place], [address], 05/14/2022 07:28:01 05/10/20 22 05/10/2022 AMPHE TAMIN ES, QN, U mda Negati ve NG/mL 250 Not Available [facility] [address] [place], [address], 05/14/2022 07:28:01 05/10/20 22 05/10/2022 AMPHE TAMIN ES, QN, U legend Abbrev iation s OLR - Outsi de of linea r range Not Available [place] [address] [place] [place], [address], 05/14/2022 07:28:01 05/10/20 22 05/10/2022 AMPHE TAMIN ES, QN, U billing only ([id number]) Billin g Only Not Available [facility] [address] [place], [address], 05/14/2022 07:28:01 05/10/20 22 05/10/2022 PRESC RIBED DRUG CONFI RMATI ON BUPRE NORPH INE 1, QN, U buprenorphin e 428.5 NG/mL 10 Elect solitario rodrigues d by LESTER KEMP NA-WE ISS Not Available [place] [address] [place], [address], 05/14/2022 07:28:02 05/10/20 22 05/10/2022 PRESC RIBED DRUG CONFI RMATI ON BUPRE NORPH INE 1, QN, U norbuprenorp liliane 261.3 NG/mL 10 Not Available [place] [address] [place], [address], 05/14/2022 07:28:02 05/10/20 22 05/10/2022 PRESC RIBED DRUG CONFI RMATI ON BUPRE NORPH INE 1, QN, U legend Abbrev iation s LOW - Detec courtney but unqua ntifi able OLR - Outsi de of linea r range ATR - Addit ional Testi ng Requi red Not Available [place] [address] [place], [address], 05/14/2022 07:28:02 05/10/20 22 05/10/2022 pregn vasquez test, urine HCG negati ve Not Available [facility] [address], [address], 05/10/2022 16:05:50 06/08/20 22 06/08/2022 BUPRE NORPH INE PT SCREE ISHMAEL amphetamines Positi ve NG/mL 1,000 abnormal Elect solitario rodrigues d by LESTER KEMP NA-WE ISS Not Available [place] [address] [place], [address], 06/10/2022 11:14:53 06/08/20 22 06/08/2022 BUPRE NORPH INE PT SCREE ISHMAEL benzodiazapi everton Negati ve NG/mL 200 Not Available [facility] [place], [address], 06/10/2022 11:14:53 06/08/20 22 06/08/2022 BUPRE NORPH INE PT SCREE ISHMAEL buprenorphin e Positi ve NG/mL 5 Not Available [facility] [place], [address], 06/10/2022 11:14:53 06/08/20 22 06/08/2022 BUPRE NORPH INE PT SCREE ISHMAEL cocaine metabolite Negati ve NG/mL 150 Not Available [facility] [place], [address], 06/10/2022 11:14:53 06/08/20 22 06/08/2022 BUPRE NORPH INE PT SCREE ISHMAEL opiates Negati ve NG/mL 300 Not Available [facility] [place], [address], 06/10/2022 11:14:53 06/08/20 22 06/08/2022 BUPRE NORPH INE PT SCREE ISHMAEL oxycodone Negati ve NG/mL 300 Not Available [facility] [place], [address], 06/10/2022 11:14:53 06/08/20 22 06/08/2022 BUPRE NORPH INE PT SCREE ISHMAEL fentanyl Negati ve NG/mL 2 Not Available [facility] [place], [address], 06/10/2022 11:14:53 06/08/20 22 06/08/2022 BUPRE NORPH INE PT SCREE ISHMAEL ethyl alcohol Negati ve mg/dL 10 Not Available [facility] [place], [address], 06/10/2022 11:14:53 06/08/20 22 06/08/2022 BUPRE NORPH INE PT SCREE ISHMAEL methadone metabolite Negati ve NG/mL 300 Not Available [facility] [address] [place], [address], 06/10/2022 11:14:53 06/08/20 22 06/08/2022 BUPRE NORPH INE PT SCREE ISHMAEL cannabinoids (THC) Negati ve NG/mL 50 Not Available [facility] [address], [address], 06/10/2022 11:14:53 06/08/20 22 06/08/2022 BUPRE NORPH INE PT SCREE ISHMAEL urine creatinine 284.9 mg/dL >20 Not Available [place] [address] [address] [place], [address], 06/10/2022 11:14:53 06/08/20 22 06/08/2022 BUPRE NORPH INE PT SCREE ISHMAEL urine pH 6.70 4.5-9. 0 Not Available [place] [address] [address] Cummings[place], [address], 06/10/2022 11:14:53 06/08/20 22 06/08/2022 BUPRE NORPH INE PT SCREE ISHMAEL specific gravity 1.035 1.003- 1.035 Not Available [place] [address] [address] [place], [address], 06/10/2022 11:14:53 06/08/20 22 06/08/2022 PRESC RIBED DRUG CONFI RMATI ON BUPRE NORPH INE 1, QN, U buprenorphin e 333.9 NG/mL 10 Tatianna brown by LESTER PERSON Not Available [place] [address] [place], [address], 06/14/2022 08:11:13 06/08/20 22 06/08/2022 PRESC RIBED DRUG CONFI RMATI ON BUPRE NORPH INE 1, QN, U norbuprenorp liliane 383.6 NG/mL 10 Not Available [place] [address] [place], [address], 06/14/2022 08:11:13 06/08/20 22 06/08/2022 PRES RIBED DRUG CONFI RMATI ON BUPRE NORPH INE 1, QN, U legend Abbrev iation s LOW - Detec courtney but unqua ntifi able OLR - Outsi de of linea r range ATR - Addit ional Testi ng Requi red Not Available [place] [address] [place], [address], 06/14/2022 08:11:13 06/08/20 22 06/08/2022 [facility] RIBED DRUG CONFI RMATI ON BUPRE NORPH INE 1, QN, U billing only ([id number]) Billin g Only Not Available [place] [address] [place], [address], 06/14/2022 08:11:13 06/08/20 22 06/08/2022 AMPHE TAMIN ES, QN, U amphetamine Negati ve NG/mL 250 Elect solitario rodrigues d by LESTER KEMP NA-WE ISS Not Available [place] [address] [place], [address], 06/14/2022 08:11:13 06/08/20 22 06/08/2022 AMPHE TAMIN ES, QN, U methamphetam ine Negati ve NG/mL 250 Not Available [facility] [place], [address], 06/14/2022 08:11:13 06/08/20 22 06/08/2022 AMPHE TAMIN ES, QN, U mda Negati ve NG/mL 250 Not Available [facility] [place], [address], 06/14/2022 08:11:13 06/08/20 22 06/08/2022 AMPHE TAMIN ES, QN, U legend Abbrev iation s OLR - Outsi de of linea r range Not Available [place] [address] [place], [address], 06/14/2022 08:11:13 06/10/20 22 06/10/2022 pregn vasquez test, urine HCG negati ve Not Available [facility] [address], [address], 06/08/2022 15:48:34 07/07/19 23 07/07/2022 BUPRE NORPH INE PT SCREE ISHMAEL amphetamines Negati ve NG/mL 1,000 Elect solitario rodrigues d by LESTER KEMP NA-WE ISS Not Available [place] [address] [place], [address], 07/09/2022 13:11:53 07/07/19 23 07/07/2022 BUPRE NORPH INE PT SCREE ISHMAEL benzodiazapi everton Negati ve NG/mL 200 Not Available [facility] [place], [address], 07/09/2022 13:11:53 07/07/19 23 07/07/2022 BUPRE NORPH INE PT SCREE ISHMAEL buprenorphin e Positi ve NG/mL 5 Not Available [facility] [place], [address], 07/09/2022 13:11:53 07/07/19 23 07/07/2022 BUPRE NORPH INE PT SCREE ISHMAEL cocaine metabolite Negati ve NG/mL 150 Not Available [facility], [address], 07/09/2022 13:11:53 07/07/19 23 07/07/2022 BUPRE NORPH INE PT SCREE ISHMAEL opiates Negati ve NG/mL 300 Not Available [facility] [place], [address], 07/09/2022 13:11:53 07/07/19 23 07/07/2022 BUPRE NORPH INE PT SCREE ISHMAEL oxycodone Negati ve NG/mL 300 Not Available [place] [address] [place], [address], 07/09/2022 13:11:53 07/07/19 23 07/07/2022 BUPRE NORPH INE PT SCREE ISHMAEL fentanyl Negati ve NG/mL 2 Not Available [place] [address] [place], [address], 07/09/2022 13:11:53 07/07/19 23 07/07/2022 BUPRE NORPH INE PT SCREE ISHMAEL ethyl alcohol Negati ve mg/dL 10 Not Available [place] [address] [place], [address], 07/09/2022 13:11:53 07/07/19 23 07/07/2022 BUPRE NORPH INE PT SCREE ISHMAEL methadone metabolite Negati ve NG/mL 300 Not Available [place] [address] [place], [address], 07/09/2022 13:11:53 07/07/19 23 07/07/2022 BUPRE NORPH INE PT SCREE ISHMAEL cannabinoids (THC) Positi ve NG/mL 50 abnormal Not Available [place] [address] [place], [address], 07/09/2022 13:11:53 07/07/19 23 07/07/2022 BUPRE NORPH INE PT SCREE ISHMAEL urine creatinine 213.0 mg/dL >20 Not Available [place] [address] [place], [address], 07/09/2022 13:11:53 07/07/19 23 07/07/2022 BUPRE NORPH INE PT SCREE ISHMAEL urine pH 6.20 4.5-9. 0 Not Available [place] [address] [place], [address], 07/09/2022 13:11:53 07/07/19 23 07/07/2022 BUPRE NORPH INE PT RHEA QUIÑONES specific gravity 1.036 1.003- 1.035 high Not Available [place] [address] [place], [address], 07/09/2022 13:11:53 07/07/19 23 07/07/2022 PRESC RIBED DRUG CONFI RMATI ON BUPRE NORPH INE 1, QN, U buprenorphin e 156.3 NG/mL 10 Elect solitario rodrigues d by LESTER KEMP NA-WE ISS Not Available [place] [address] [place], [address], 07/13/2022 10:49:19 07/07/19 23 07/07/2022 PRESC RIBED DRUG CONFI RMATI ON BUPRE NORPH INE 1, QN, U norbuprenorp liliane 160.8 NG/mL 10 Not Available [place] [address] [place], [address], 07/13/2022 10:49:19 07/07/19 23 07/07/2022 PRESC RIBED DRUG CONFI RMATI ON BUPRE NORPH INE 1, QN, U legend Abbrev iation s LOW - Detec courtney but unqua ntifi able OLR - Outsi de of linea r range ATR - Addit ional Testi ng Requi red Not Available [place] [address] [place], [address], 07/13/2022 10:49:19 07/07/19 23 07/07/2022 PRESC RIBED DRUG CONFI RMATI ON BUPRE NORPH INE 1, QN, U billing only (g0480) Billin g Only Not Available [place] [address] [place], [address], 07/13/2022 10:49:19 07/07/19 23 07/07/2022 pregn vasquez test, urine HCG negati ve Not Available [facility] [address], [place], [address], 07/07/2022 14:23:58 08/05/19 23 08/05/2022 BUPRE NORPH INE PT SCREE ISHMAEL amphetamines Positi ve NG/mL 1,000 abnormal Elect solitario rodrigues d by LESTER KEMP NA-WE ISS Not Available [place] [address] [place], [address], 08/10/2022 05:45:06 08/05/19 23 08/05/2022 BUPRE NORPH INE PT SCREE ISHMAEL benzodiazapi everton Positi ve NG/mL 200 abnormal Not Available [place] [address] [place], [address], 08/10/2022 05:45:06 08/05/19 23 08/05/2022 BUPRE NORPH INE PT SCREE ISHMAEL buprenorphin e Positi ve NG/mL 5 Not Available [place] [address] [place], [address], 08/10/2022 05:45:06 08/05/19 23 08/05/2022 BUPRE NORPH INE PT SCREE ISHMAEL cocaine metabolite Negati ve NG/mL 150 Not Available [address] [place] [address] [place], [address], 08/10/2022 05:45:06 08/05/19 23 08/05/2022 BUPRE NORPH INE PT SCREE ISHMAEL opiates Negati ve NG/mL 300 Not Available [place] [address] [place], [address], 08/10/2022 05:45:06 08/05/19 23 08/05/2022 BUPRE NORPH INE PT SCREE ISHMAEL oxycodone Negati ve NG/mL 300 Not Available [place] [address] [place], [address], 08/10/2022 05:45:06 08/05/19 23 08/05/2022 BUPRE NORPH INE PT SCREE ISHMAEL fentanyl Negati ve NG/mL 2 Not Available [address] [place] [address] [place], [address], 08/10/2022 05:45:06 08/05/19 23 08/05/2022 BUPRE NORPH INE PT SCREE ISHMAEL ethyl alcohol Negati ve mg/dL 10 Not Available [address] [address] [place], [address], 08/10/2022 05:45:06 08/05/19 23 08/05/2022 BUPRE NORPH INE PT SCREE ISHMAEL methadone metabolite Negati ve NG/mL 300 Not Available [address] [address] [place], [address], 08/10/2022 05:45:06 08/05/19 23 08/05/2022 BUPRE NORPH INE PT SCREE ISHMAEL cannabinoids (THC) Positi ve NG/mL 50 abnormal Not Available [address] [place] [address] [place], [address], 08/10/2022 05:45:06 08/05/19 23 08/05/2022 BUPRE NORPH INE PT SCREE ISHMAEL urine creatinine 204.1 mg/dL >20 Not Available [place] [address] [place], [address], 08/10/2022 05:45:06 08/05/19 23 08/05/2022 BUPRE NORPH INE PT SCREE ISHMAEL urine pH 5.70 4.5-9. 0 Not Available [place] [address] [place], [address], 08/10/2022 05:45:06 08/05/19 23 08/05/2022 BUPRE NORPH INE PT SCREE ISHMAEL specific gravity 1.032 1.003- 1.035 Not Available [place] [address] [place], [address], 08/10/2022 05:45:06 08/05/19 23 08/05/2022 AMPHE TAMIN ES, QN, U amphetamine Negati ve NG/mL 250 Elect solitario rodrigues d by LESTER KEMP NA-WE ISS Not Available [place] [address] [place], [address], 08/12/2022 09:42:11 08/05/19 23 08/05/2022 AMPHE TAMIN ES, QN, U methamphetam ine Negati ve NG/mL 250 Not Available [facility] [place], [address], 08/12/2022 09:42:11 08/05/19 23 08/05/2022 AMPHE RENETTAIN ES, QN, U mda Negati ve NG/mL 250 Not Available [facility] [place], [address], 08/12/2022 09:42:11 08/05/19 23 08/05/2022 AMPHE TAMIN ES, QN, U legend Abbrev iation s OLR - Outsi de of linea r range Not Available [place] [address] [place], [address], 08/12/2022 09:42:11 08/05/19 23 08/05/2022 AMPHE TAMIN ES, QN, U billing only (g0480) Billin g Only Not Available [facility] [place], [address], 08/12/2022 09:42:11 08/05/19 23 08/05/2022 BENZO DIA[place] , QN, U alpha-hydrox yalprazolam Negati ve NG/mL 25 Elect solitario rodrigues d by LESTER KEMP NA-WE ISS Not Available [place] [address] [place], [address], 08/12/2022 09:42:11 08/05/19 23 08/05/2022 BENZO DIAZE PINES , QN, U 7-aminoclona zepam 1619.1 NG/mL 40 high Not Available [place] [address] [place] [place] MIRIAM M[place], [id number], 08/12/2022 09:42:11 08/05/19 23 08/05/2022 BENZO DIAZE PINES , QN, U lorazepam Negati ve NG/mL 50 Not Available [place] [address] [place], [id number], 08/12/2022 09:42:11 08/05/19 23 08/05/2022 BENZO DIAZE PINES , QN, U nordiazepam Negati ve NG/mL 50 Not Available [place] [address] [place], [id number], 08/12/2022 09:42:11 08/05/19 23 08/05/2022 BENZO DIAZE PINES , QN, U temazepam Negati ve NG/mL 50 Not Available [facility], [id number], 08/12/2022 09:42:11 08/05/19 23 08/05/2022 BENZO DIAZE PINES , QN, U legend Abbrev iation s OLR - Outsi de of linea r range Not Available [place] [address] [place], [id number], 08/12/2022 09:42:11 08/05/19 23 08/05/2022 PRESC RIBED DRUG CONFI RMATI ON BUPRE NORPH INE 1, QN, U buprenorphin e 92.2 NG/mL 10 Elect sloitario rodrigues d by LESTER KEMP NA-WE ISS Not Available [place] [address] [place], [id number], 08/12/2022 09:42:12 08/05/19 23 08/05/2022 PRESC RIBED DRUG CONFI RMATI ON BUPRE NORPH INE 1, QN, U norbuprenorp liliane 114.0 NG/mL 10 Not Available [place] [address] [place], [id number], 08/12/2022 09:42:12 08/05/19 23 08/05/2022 PRESC RIBED DRUG CONFI RMATI ON BUPRE NORPH INE 1, QN, U legend Abbrev iation s LOW - Detec courtney but unqua ntifi able OLR - Outsi de of linea r range ATR - Addit ional Testi ng Requi red Not Available [place] [address] [place], [id number], 08/12/2022 09:42:12 08/05/19 23 08/05/2022 pregn vasquez test, urine HCG negati ve Not Available [facility] [address], [address], 08/05/2022 15:24:01 09/02/19 23 09/01/2022 BUPRE NORPH INE PT SCREE ISHMAEL amphetamines Positi ve NG/mL 1,000 abnormal Elect solitario rodrigues d by LESTER KEMP NA-WE ISS Not Available [place] [address] [place], [address], 09/02/2022 10:56:04 09/02/19 23 09/01/2022 BUPRE NORPH INE PT SCREE ISHMAEL benzodiazapi everton Positi ve NG/mL 200 abnormal Not Available [facility], [address], 09/02/2022 10:56:04 09/02/19 23 09/01/2022 BUPRE NORPH INE PT SCREE ISHMAEL buprenorphin e Positi ve NG/mL 5 Not Available [facility] [place], [address], 09/02/2022 10:56:04 09/02/19 23 09/01/2022 BUPRE NORPH INE PT SCREE ISHMAEL cocaine metabolite Negati ve NG/mL 150 Not Available [facility] [place], [address], 09/02/2022 10:56:04 09/02/19 23 09/01/2022 BUPRE NORPH INE PT SCREE ISHMAEL opiates Negati ve NG/mL 300 Not Available [place] [address] [place], [address], 09/02/2022 10:56:04 09/02/19 23 09/01/2022 BUPRE NORPH INE PT SCREE ISHMAEL oxycodone Negati ve NG/mL 300 Not Available [address] [place] [address] [place], [address], 09/02/2022 10:56:04 09/02/19 23 09/01/2022 BUPRE NORPH INE PT SCREE ISHMAEL fentanyl Negati ve NG/mL 2 Not Available [address] [address] [place], [address], 09/02/2022 10:56:04 09/02/19 23 09/01/2022 BUPRE NORPH INE PT SCREE ISHMAEL ethyl alcohol Negati ve mg/dL 10 Not Available [address] [address] [place], [address], 09/02/2022 10:56:04 09/02/19 23 09/01/2022 BUPRE NORPH INE PT SCREE ISHMAEL methadone metabolite Negati ve NG/mL 300 Not Available [address] [place] [address] [place], [address], 09/02/2022 10:56:04 09/02/19 23 09/01/2022 BUPRE NORPH INE PT SCREE ISHMAEL cannabinoids (THC) Positi ve NG/mL 50 abnormal Not Available [address] [place] [address] [place], [address], 09/02/2022 10:56:04 09/02/19 23 09/01/2022 BUPRE NORPH INE PT SCREE ISHMAEL urine creatinine 216.0 mg/dL >20 Not Available [place] [address] [place], [address], 09/02/2022 10:56:04 09/02/19 23 09/01/2022 BUPRE NORPH INE PT SCREE ISHMAEL urine pH 5.90 4.5-9. 0 Not Available [address] [place] [address] [place], [address], 09/02/2022 10:56:04 09/02/19 23 09/01/2022 BUPRE NORPH INE PT SCREE ISHMAEL specific gravity 1.029 1.003- 1.035 Not Available [place] [address] [place], [address], 09/02/2022 10:56:04 09/02/19 23 09/01/2022 AMPHE TAMIN ES, QN, U amphetamine Negati ve NG/mL 250 Elect solitario rodrigues d by LESTER KEMP NA-WE ISS Not Available [place] [address] [place], [address], 09/07/2022 07:12:38 09/02/19 23 09/01/2022 AMPHE TAMIN ES, QN, U methamphetam ine Negati ve NG/mL 250 Not Available [facility] [place], [address], 09/07/2022 07:12:38 09/02/19 23 09/01/2022 AMPHE TAMIN ES, QN, U mda Negati ve NG/mL 250 Not Available [facility] [place], [address], 09/07/2022 07:12:38 09/02/19 23 09/01/2022 AMPHE TAMIN ES, QN, U legend Abbrev iation s OLR - Outsi de of linea r range Not Available [place] [address] [place], [address], 09/07/2022 07:12:38 09/02/19 23 09/01/2022 AMPHE TAMIN ES, QN, U billing only ([id number]) Billin g Only Not Available [address] [place] [address] [place], [address], 09/07/2022 07:12:38 09/02/19 23 09/01/2022 PRESC RIBED DRUG CONFI RMATI ON BUPRE NORPH INE 1, QN, U buprenorphin e 91.2 NG/mL 10 Elect solitario rodrigues d by LESTER KEMP NA-WE ISS Not Available [place] [address] [place], [address], 09/07/2022 07:12:38 09/02/19 23 09/01/2022 PRESC RIBED DRUG CONFI RMATI ON BUPRE NORPH INE 1, QN, U norbuprenorp liliane 95.9 NG/mL 10 Not Available [place] [address] [place], [address], 09/07/2022 07:12:38 09/02/19 23 09/01/2022 PRESC RIBED DRUG CONFI RMATI ON BUPRE NORPH INE 1, QN, U legend Abbrev iation s LOW - Detec courtney but unqua ntifi able OLR - Outsi de of linea r range ATR - Addit ional Testi ng Requi red Not Available [place] [address] [place], [address], 09/07/2022 07:12:38 09/02/19 23 09/01/2022 BENZO DIAZE PINES , QN, U alpha-hydrox yalprazolam Negati ve NG/mL 25 Elect solitario [place] lilia d by LESTER KEMP NA-WE ISS Not Available [place] [address] [place], [address], 09/07/2022 07:12:39 09/02/19 23 09/01/2022 BENZO DIAZE PINES , QN, U 7-aminoclona zepam 662.7 NG/mL 40 high Not Available [place] [address] [place], [address], 09/07/2022 07:12:39 09/02/19 23 09/01/2022 BENZO DIAZE PINES , QN, U lorazepam Negati ve NG/mL 50 Not Available [facility] [place], [address], 09/07/2022 07:12:39 09/02/19 23 09/01/2022 BENZO DIAZE PINES , QN, U nordiazepam Negati ve NG/mL 50 Not Available [facility] [place], [address], 09/07/2022 07:12:39 09/02/19 23 09/01/2022 BENZO DIAZE PINES , QN, U temazepam Negati ve NG/mL 50 Not Available [facility] [place], [address], 09/07/2022 07:12:39 09/02/19 23 09/01/2022 BENZO DIAZE PINES , QN, U legend Abbrev iation s OLR - Outsi de of linea r range Not Available [place] [address] [place], [address], 09/07/2022 07:12:39 09/02/19 23 09/01/2022 pregn vasquez test, urine HCG negati ve Not Available [facility] [address], [address], 09/01/2022 14:30:05 Result Notes None recorded. Problems Name Problem SNOMED Code Status Onset Date Resolution Date Notes Provider Name and Address Organization Details Recorded Time Insomnia 828380576 Active 2019 Not Available [facility] 1 10:09:00 Migraine 35587003 Active 2019 Not Available [facility] 1 10:09:00 Anxiety 87027630 Active 2019 Not Available [facility] 1 10:09:00 Opioid dependence 68088278 Active 2019 Not Available [facility] 1 10:09:00 Problem Notes None recorded. Procedures Surgical History Date Name Laterality Status Provider Name and Address Organization Details Recorded Time 09/01/2022 46066, G0480, G0481 completed Betty Carmen [facility] 09/01/2022 14:24:21 08/05/2022 47966, G0480, G0481 completed Yeleila Escobartron [facility] 08/05/2022 15:19:14 07/07/2022 62772, G0480, G0481 completed Betty Carmen [facility] 07/07/2022 14:18:49 06/08/2022 04940, G0480, G0481 completed Betty Carmen [place] [facility] 06/08/2022 15:37:43 05/10/2022 56473, G0480, G0481 [facility] [place] [facility] 05/10/2022 15:55:35 04/12/2022 74400, G0480, G0481 completed Betty Carmen [place] - [facility] 04/12/2022 15:53:06 03/15/2022 03649, G0480, G0481 completed Betty Carmen [place] - [facility] 03/15/2022 15:23:47 02/11/2022 27893, G0480, G0481 completed Betty Carmen [place] - [facility] 02/11/2022 15:04:07 01/14/2022 12273, G0480, G0481 completed Betty Carmen [place] - [facility] 01/14/2022 15:04:41 12/17/2021 71895, G0480, G0481 completed Gabby Sharmin [facility] 12/17/2021 13:08:22 12/03/2021 64596, G0480, G0481 completed Betty Carmen [place] - [facility] 12/03/2021 14:22:57 11/19/2021 23220, G0480, G0481 completed Emmanuelle Ann CNP [address] [place], [address], [facility] 11/19/2021 09:55:23 11/03/2021 02818, G0480, G0481 completed [facility] 11/03/2021 15:38:04 10/20/2021 77979, G0480, G0481 completed [facility] 10/20/2021 15:28:52 10/09/2021 24108, G0480, G0481 completed Doroteo Galvano [facility] 10/09/2021 14:36:25 09/23/2021 38921, G0480, G0481 completed [facility] 09/23/2021 14:54:59 09/08/2021 97198, G0480, G0481 [facility] 09/08/2021 14:57:18 09/01/2021 66020, G0480, G0481 completed [facility] 09/01/2021 14:40:04 08/25/2021 52198, G0480, G0481 completed Tanika Colon [facility] 08/25/2021 15:42:53 08/10/2021 45372, G0480, G0481 completed Emmanuelle Ann, HYDROGEN CELL TENDER [address] [place], [address], [facility] 08/10/2021 13:28:19 08/03/2021 20731, G0480, G0481 completed Gabby Sharmin [facility] 08/03/2021 13:26:53 Imaging Results None recorded. Procedure Notes None recorded. Medical Equipment None Reported. Allergies Allergen ID Allergen Name Allergen Category Reaction Reaction Severity Criticality Documentation Date Start Date Code Code System Note Provider Name and Address Organization Details Recorded Time 4661 amoxicill in medicatio n Not available Not available Not available 07/03/2021 723 RxNorm Not Available [facility] 10:33:24 6583 Suboxone medicatio n headache nausea palpitati ons tachycard ia Not available Not available Not available Not available Not available 08/03/2021 04474 0 RxNorm Emmanuelle Valenzuela eiss, HYDROGEN CELL TENDER [address] [facility] [place], [address], [facility] [facility] 13:50:24 Medications Name Sig Start [...] % 99 % 98 [degF] Shayla Elena [facility] 2 16:05:33 Date Recorded Heart rate Oxygen saturation Oxygen saturation in Arterial blood by Pulse oximetry Provider Name and Address Organization Details Last Updated DateTime 07/07/2022 82 /min 98 % 98 % Betty Morales [facility] 07/07/2022 14:24:53 Date Recorded Heart rate Oxygen saturation Oxygen saturation in Arterial blood by Pulse oximetry Body temperature Provider Name and Address Organization Details Last Updated DateTime 08/05/2022 98 /min 98 % 98 % 97.6 [degF] Stas Bull [facility] 3 15:30:04 Social History Question Answer Notes LastModified by Organizat ion Details LastModified Time *Housing Stable - Safe Information not available 08/03/2021 *Employment Employed Self Empployed Information not available 08/03/2021 *Food Adequate Information no t available 08/03/2021 * Not A [place] Information not available 08/03/2021 *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 [...] SNOMED-CT Code Diagnosis ICD10 Code Diagnosis Note [id number] PATIENT IMPORT [facility] [address] [place] [address], [place] [address] 01/11/2020 00:00:00 01/19/2020 11:22:57 [id number] PATIENT IMPORT [facility] [address] [facility] [place] [address] 01/16/2020 00:00:00 01/17/2020 08:23:35 [id number] Jessi Ruvalcaba NP [facility] [address] [place] [address] 08/03/2021 13:03:32 08/03/2021 14:08:09 Opioid dependence 36593547 F11.20 unstable [id number] Jessi Ruvalcaba NP [facility] [address] [place] [address] 08/10/2021 13:20:15 08/10/2021 16:40:07 Opioid dependence 08393362 F11.20 unstable [id number] Jessi Ruvalcaba NP [facility] [address] [place] [address] 08/25/2021 15:42:12 08/25/2021 16:54:25 Opioid dependence 08222456 F11.20 unstable Injection given 18246073 2 Z98.890 Stable [id number] Jessi Ruvalcaba NP [facility] [place] [address] 09/01/2021 14:38:50 09/01/2021 16:28:07 Opioid dependence 51584116 F11.20 unstable [id number] Jessi Ruvalcaba, PERMIT AGENT [facility] [address] [facility] [place] [address] 09/08/2021 14:52:38 09/08/2021 16:53:09 Opioid dependence 62476031 F11.20 unstable [id number] Jessi Ruvalcaba, PERMIT AGENT [facility] [address] [facility] [place] [address] 09/23/2021 14:47:37 09/23/2021 16:04:39 Opioid dependence 40052920 F11.20 stable Anxiety 13173104 F41.9 Stable Injection given 71969178 2 Z98.890 Stable [id number] Mendez Cantu DO [facility] [address] [facility] [place] [address] 10/09/2021 14:34:31 10/09/2021 15:13:25 Opioid dependence 51693217 F11.20 STABLE [id number] Jessi Ruvalcaba, PERMIT AGENT [facility] [address] [facility] [place] [address] 10/20/2021 15:17:33 10/20/2021 15:39:02 Opioid dependence 11959684 F11.20 stable Anxiety 54739833 F41.9 Stable Injection given 57267393 2 Z98.890 Stable [id number] Jessi Ruvalcaba, PERMIT AGENT [facility] [address] [facility] [place] [address] 11/03/2021 15:33:38 11/03/2021 16:25:13 Opioid dependence 06961712 F11.20 stable [id number] Jessi Ruvalcaba, PERMIT AGENT [facility] [address] [place] [address], [place] [address] 11/19/2021 09:49:28 11/19/2021 11:06:05 Opioid dependence 80683952 F11.20 stable Injection given 41239479 2 Z98.890 Stable [id number] Jessi Ruvalcaba, PERMIT AGENT [facility] [address] [facility] [place] [address] 12/03/2021 14:22:00 12/03/2021 14:36:00 Opioid dependence 53700781 F11.20 stable [id number] Jessi Ruvalcaba, VIET [facility] [address] [place] [address], [place] [address] 12/17/2021 13:00:08 12/17/2021 13:35:03 Opioid dependence 88068864 F11.20 stable Injection given 87528498 2 Z98.890 Stable [id number] Jessi Ruvalcaba, VIET [facility] [address] [facility] [place] [address] 01/14/2022 15:02:05 01/14/2022 15:31:24 Opioid dependence 53642259 F11.20 stable Injection given 16839617 2 Z98.890 Stable [id number] Jessi Ruvalcaba NP [facility] [address] [place] [address], [place] [address] 02/11/2022 15:00:34 02/11/2022 16:15:24 Opioid dependence 43824034 F11.20 stable Injection given 19813112 2 Z98.890 Stable [id number] Jessi Ruvalcaba, VIET [facility] [address] [place] [address], [place] [address] 03/15/2022 15:16:13 03/15/2022 15:58:08 Opioid dependence 60323081 F11.20 stable Injection given 91114788 2 Z98.890 Stable [id number] Jessi Ruvalcaba, VIET [facility] [address] [place] [address], [place] [address] 04/12/2022 15:47:56 04/12/2022 16:15:19 Opioid dependence 91003115 F11.20 stable Injection given 40381581 2 Z98.890 Stable Medication dose decreased by tapering 8822425500 69172 Z76.89 Stable [id number] Jessi Ruvalcaba, VIET [facility] [address] [facility] [place] [address] 05/10/2022 15:51:12 2022 12:11:13 Opioid dependence 99876617 F11.20 stable Injection given 53458214 2 Z98.890 Stable Medication dose decreased by tapering 2152122426 50599 Z76.89 Stable [id number] Jessi Ruvalcaba, PERMIT AGENT [facility] [address] [facility] [address] 06/08/2022 15:35:19 06/08/2022 16:47:05 Opioid dependence 27055502 F11.20 stable Injection given 30736406 2 Z98.890 Stable Medication dose decreased by tapering 4030941080 78051 Z76.89 Stable [id number] Jessi Ruvalcaba, VIET [facility] [address] [facility] [address] 07/07/2022 14:14:30 07/07/2022 14:45:17 Opioid dependence 08671102 F11.20 stable [id number] Jessi Ruvalcaba, PERMIT AGENT [facility] [address] [facility] [address] 08/05/2022 15:18:13 08/06/2022 17:14:01 Opioid dependence 53143033 F11.20 stable [id number] Jessi Ruvalcaba, PERMIT AGENT [facility] [address] [place] [address] 09/01/2022 14:18:47 09/01/2022 14:43:39 Opioid dependence 58790193 F11.20 stable Health Concerns Section Related Observation LastModified by Organization Detai ls LastModified Time None Recorded Concern Status LastModified by Organization Details LastModified Time None Recorded Advance Directives Directive None Recorded Payers Encounter Date Sequence Insurance Name Policy Number Policy Lemon Covered Member ID Lemon Member ID Guarantor Name 05/10/2022 1 [facility] (MEDICAID HMO) [id number] Eugenia Hightower [id number] Eugenia Hightower 06/08/2022 1 [facility] HE[facility] PLAN (MEDICAID HMO) [id number] Eugenia Lopardo [id number] Eugenia Lopardo 07/07/2022 1 [facility] (MEDICAID HMO) [id number] Eugenia Lopardo [id number] Eugenia Lopardo 08/05/2022 1 [employer] [facility] [employer] (MEDICAID HMO) [id number] Eugenia Lopardo [id number] Eugenia Lopardo 09/01/2022 1 [employer] (MEDICAID HMO) [id number] Eugenia Lopardo [id number] Eugenia Lopardo Notes Date Note Type Note Provider Name and Address Organization Details Recorded Time 05/10/2022 text/html This patient is being treated for their OUD with Sublocade Injection. They are here today for their injection visit. PLEASE SEE A & P SECTION FOR FULL VISIT NOTE Emmanuelle Ann, HYDROGEN CELL TENDER [address] [place], [address], [facility] [employer] [facility] 05/10/2022 16:20:28 06/08/2022 text/html This patient is being treated for their OUD with Sublocade Injection. They are here today for their injection visit. PLEASE SEE A & P SECTION FOR FULL VISIT NOTE Emmanuelle Ann, HYDROGEN CELL TENDER [address] [place], [address], [facility] [employer] [facility] 06/08/2022 16:57:07 07/07/2022 text/html This [...] SECTION FOR FULL VISIT NOTE Emmanuelle Ann, HYDROGEN CELL TENDER [address] [place], [address], [facility] [employer] [facility] 07/07/2022 14:54:07 08/05/2022 text/html This patient is here today for their follow-up MAT visit. They are being treated for OUD with buprenorphine. PLEASE SEE A & P SECTION FOR FULL VISIT NOTE Emmanuelle Ann, HYDROGEN CELL TENDER [address] [place], [address], [employer] 08/05/2022 15:39:37 09/01/2022 text/html This patient is here today for their follow-up MAT visit. They are being treated for OUD with buprenorphine. PLEASE SEE A & P SECTION FOR FULL VISIT NOTE Emmanuelle Ann, HYDROGEN CELL TENDER [address] [place], [address], [employer] 09/01/2022 14:44:27 OBGyn Episode No OBEpisode recorded.
--- OUTSIDE RECORDS SUMMARY | 2024-11-15 15:18 | XMS_ITS | Data Portability ---
Author Organization [place] [facility], , [place] Address [address] [place] [address] Assessment Encounter Date Assessment Date Assessment LastModified by Organization Details LastModified Time 01/11/2020 01/11/2020 - PRESENTS TOODA Y FOR INITIAL BUP ASSMT - PMH: OPIATE (VICODIN) PILL ABUSE. PRESCRIBE FOR MIGRAINES. ONCE D/'C'D SOUGHT illicit OXYCODONE--ENROLLE D IN [facility] BUP [place] PROG 07/2019. RECIEVED SUBOXONE 6 MG/DAILY (DIV TID DOSES) - D/T INSUR ISSUES PT IS SEEKING SUBOXONE [facility] [employer] [facility] GRANDMOTHER, UNEMPLOYED - DISCUSSED [...] regarding any risk of combining sedating agents. [email or web address] Not available 01/19/2020 11:22:47 01/16/2020 01/16/2020 - INITIAL BUP 01/10. PMX: TREATED FR MIGRAINES W/ VICODIN, ONCE D/C'D ABUSE OF ILLICIT OXYCODONE. ENTERED [facility] WITH SUBOXONE 6 MG/DAILY ( DIV TID DOSES) - PRESENTS TO TODAY INFORMING SHE WILL OBTAIN MAT SERVICES AT [facility] WITH MAIRA GREENWOOD BEGINNING 01/23 - [...] None recorded. Lab drug screen, urine 2019 [facility], [address] [place], [address], 0 11:39:43 test, urine 2019 [email or web address] Not available 0 17:23:17 drug screen, urine 2019 [facility], [address] [place], [address], 0 12:38:05 Referral None recorded. Procedures None recorded. Surgeries None recorded. Imaging None recorded. Medication Orders None recorded. Patient TargetsNo targets recorded. Patient Instructions Encounter Date Encounter Id Patient Instructions Last Modified By Organization Details Last Modified Time 01/11/2020 [id number] Abstain from opiates for 24 hours unless [...] Agree to not falsify your urine specimens. [email or web address] Not available 01/11/2020 14:25:40 Education provid [...] & Drop out prevention in early recovery. [email or web address] 9 Not available 01/11/2020 14:25:40 01/16/2020 [id number] As part of your individualized treatment plan and program requirement, you will need to bring your correct prescription bottle and all used and unused medication and counseling verification to each appointment; > Agree to participate in counseling and bring counseling verification to each appointment; > Agree to present for random visits; > Agree to not falsify your urine specimens. [email or web address] 9 Not available 01/16/2020 15:21:56 Education provid [...] & Drop out prevention in early recovery. 9 Not available 01/16/2020 15:21:56 Reason for Referral None Reported. Results Created Date Observation Date Name Description Value Unit Range Abnormal Flag Note LastModifiedBy Organization Detail LastModifiedTime 01/11/20 20 01/11/2020 drug scree n, urine amphetamine NEGATI VE 100 Elect solitario rodrigues d by IRENE LOPEZ Not Available [employer] [place] [address] [place], [address], 01/14/2020 12:38:05 01/11/2001/11/2020 drug scree n, urine benzodiazepi ne NEGATI VE 100 Not Available [facility] [place], [address], 01/14/2020 12:38:05 01/11/2001/11/2020 drug scree n, urine buprenorphin e POSITI VE 100 Not Available [facility] [place], [address], 01/14/2020 12:38:05 01/11/20 20 01/11/2020 drug scree n, urine cannabinoid NEGATI VE 100 Not Available [place] [address] [place], [address], 01/14/2020 12:38:05 01/11/20 20 01/11/2020 drug scree n, urine cocaine metab. NEGATI VE 100 Not Available [place] [address] [place], [address], 01/14/2020 12:38:05 01/11/20 20 01/11/2020 drug scree n, urine methadone NEGATI VE 100 Not Available [place] [address] [place], [address], 01/14/2020 12:38:05 01/11/20 20 01/11/2020 drug scree n, urine opiates NEGATI VE 100 Not Available [place] [address] [place], [address], 01/14/2020 12:38:05 01/11/20 20 01/11/2020 drug scree n, urine oxycodone NEGATI VE 100 Not Available [place] [address] [place], [address], 01/14/2020 12:38:05 01/11/20 20 01/11/2020 drug scree n, urine ethanol <10, <10 mg/dL <10 Not Available [place] [address] [place], [address], 01/14/2020 12:38:05 01/11/20 20 01/11/2020 drug scree n, urine fentanyl NEGATI VE 100 Not Available [place] [address] [place], [address], 01/14/2020 12:38:05 01/11/20 20 01/11/2020 drug scree n, urine creatinine 203.2 mg/dL >20 Not Available [place] [address] [place], [address], 01/14/2020 12:38:05 01/11/20 20 01/11/2020 drug scree n, urine specific gravity 1.024 1.003- 1.035 Not Available [place] [address] [address] [place], [address], 01/14/2020 12:38:05 01/11/20 20 01/11/2020 drug scree n, urine pH 7.00 4.5-9. 0 Not Available [place] [address] [address] [place], [address], 01/14/2020 12:38:05 01/11/20 20 01/11/2020 pregn vasquez test, urine HCG negati ve Not Available [facility] [address], [address], 01/11/2020 14:25:45 01/16/20 20 01/16/2020 drug scree n, urine amphetamine Negati ve 100 Elect solitario rodrigues d by IRENE LOPEZ Not Available [place] [address] [place], [address], 01/17/2020 11:39:43 01/16/20 20 01/16/2020 drug scree n, urine benzodiazepi ne Negati ve 100 Not Available [place] [address] [place], [address], 01/17/2020 11:39:43 01/16/20 20 01/16/2020 drug scree n, urine buprenorphin e Positi ve 100 Not Available [place] [address] [place], [address], 01/17/2020 11:39:43 01/16/20 20 01/16/2020 drug scree n, urine cocaine metab. Negati ve 100 Not Available [place] [address] [place], [address], 01/17/2020 11:39:43 01/16/20 20 01/16/2020 drug scree n, urine methadone Negati ve 100 Not Available [place] [address] [place], [address], 01/17/2020 11:39:43 01/16/20 20 01/16/2020 drug scree n, urine opiates Negati ve 100 Not Available [place] [address] [place], [address], 01/17/2020 11:39:43 01/16/20 20 01/16/2020 drug scree n, urine oxycodone Negati ve 100 Not Available [place] [address] [place], [address], 01/17/2020 11:39:43 01/16/20 20 01/16/2020 drug scree n, urine fentanyl Negati ve 100 Not Available [place] [address] [place], [address], 01/17/2020 11:39:43 01/16/20 20 01/16/2020 drug scree n, urine creatinine 112.9 mg/dL >20 Not Available [place] [address] [place], [address], 01/17/2020 11:39:43 01/16/20 20 01/16/2020 drug scree n, urine specific gravity 1.021 1.003- 1.035 Not Available [place] [address] [place], [address], 01/17/2020 11:39:43 01/16/20 20 01/16/2020 drug scree n, urine pH 7.10 4.5-9. 0 Not Available [place] [address] [place], [address], 01/17/2020 11:39:43 Result Notes None recorded. Problems Name Problem SNOMED Code Status Onset Date Resolution Date Notes Provider Name and Address Organization Details Recorded Time Opioid dependence 84428645 Active 020 IRENE LOPEZ NP [address] [place] [address] [place], [address], [facility], 0 07:03:19 Anxiety 81943500 Active 020 IRENE LOPEZ NP [address] [place], [address], [facility] [employer] [facility], 0 07:03:28 Migraine 01116347 Active 020 IRENE LOPEZ NP [address] [place], [address], [facility] [employer] [facility], 0 07:03:35 Insomnia 257511322 Active 020 IRENE LOPEZ, VIET [address] [place], [address], [facility] [employer] [facility], 0 07:04:01 Problem Notes None recorded. Procedures Surgical History Date Name Laterality Status Provider Name and Address Organization Details Recorded Time 01/16/2020 [address]137, G0480, G0481 completed [facility] [employer] [facility], 01/16/2020 15:21:56 01/11/2020 58869, G0480, G0481 completed [facility] [employer] [facility], 01/11/2020 14:25:41 Imaging Results None recorded. Procedure Notes None recorded. Medical Equipment None Reported. Allergies Allergen ID Allergen Name Allergen Category Reaction Reaction Severity Criticality Documentation Date Start Date Code Code System Note Provider Name and Address Organization Details Recorded Time 4119 amoxicill in medicatio n Not available Not available Not available 01/12/2020 723 RxNorm IRENE LOPEZ NP [address] [place] [address], [place], [address], [facility] [employer] [facility], 0 06:58:39 Medications Name Sig Start Date Stop Date Status Note LastModified by Organization Details LastModified Time Suboxone 4 mg-[address] 1 film twice a day by sublingual route. 2019 active Not Available Not Available Not Avai lable Vitals Date Recorded Body temperature Provider Name a nd Address Organization Details Last Updated DateTime 01/11/2020 98.5 [degF] Tanika Colon [facility] [employer] [facility], 01/11/2020 14:21:38 Date Recorded Body temperature Provider Name a nd Address Organization Details Last Updated DateTime 01/16/2020 98.7 [degF] Tanika Hollingsworth [facility], 01/16/2020 15:17:28 Date Recorded Oxygen saturation Oxygen saturation in Arterial blood by Pulse oximetry Heart rate Provider Name and Address Organization Details Last Updated DateTime 01/16/2020 98 % 98 % 130 /min Nasreen Yoder [facility], 01/16/2020 15:31:42 Social History None recorded. Functional Status None recorded. Mental Status None recorded. Family History Nothing Reported Notes:NICOTINE ADDICTION Medical History No medical history recorded. Gynecological HistoryNo gynecological history recorded. Obstetrics History GPAL:G 0 P 0 0 0 0 Past Encounters Encounter ID Performer Location Encounter Start Date Encounter Closed Date Diagnosis/Indication Diagnosis SNOMED-CT Code Diagnosis ICD10 Code Diagnosis Note [id number] Ashely Sharp MD [facility] [address] [facility] [place] [address] 01/11/2020 14:19:16 01/11/2020 15:58:59 Opioid dependence 15574593 F11.20 Anxiety 50100230 F41.9 [id number] Ashely Sharp MD [facility] [address] [facility] [place] [address] 01/16/2020 15:17:05 01/16/2020 16:24:54 Opioid dependence 57272352 F11.20 Health Concerns Section Related Observation LastModified by Organization Detai ls LastModified Time None Recorded Concern Status LastModified by Organization Details LastModified Time None Recorded Advance Directives Directive None Recorded Payers Encounter Date Sequence Insurance Name Policy Number Policy Lemon Covered Member ID Lemon Member ID Guarantor Name 01/11/2020 1 [facility] [employer] [facility] PLAN (MEDICAID HMO) [id number] Eugenia Davispardo [id number] Eugenia Hightower 01/16/2020 1 [facility] [employer] CRITICAL [facility]ESS HOSPITAL PLAN (MEDICAID HMO) [id number] Eugenia Davispardo [id number] Eugenia Davispar Notes Date Note Type [...] CLICK TO FREE TEXT}}. IRENE LOPEZ NP [address] [place] [address], [address], [facility] [employer] 01/19/2020 11:22:57 01/16/2020 text/html The patient repo [...] TEXT OR DELETE LINE}} IRENE LOPEZ NP [address] [place] [address], [address], [facility] [employer] [facility], 01/17/2020 08:23:35 OBGyn Episode No OBEpisode recorded.
--- OUTSIDE RECORDS SUMMARY | 2024-11-15 15:18 | XMS_ITS | Patient Health Record ---
Author Organization [facility] Address [address] [place] [address] Care Team Providers Care Enroller Name Role Phone SHELLY DUKES Primary Care Provider Jesus Abbasi Unavailable [phone] Katie Blancas Unavailable [phone] Allergies Allergen (clinical drug ingredient) Drug/Non Drug Allergy documented on EMR Reaction Allergy Type Onset Date Status amoxicillin Amoxicillin hives Drug Allergy Act poncho Reason For Referral Reason please evaluate and treat Please evaluate and treat Diagnosis 1 Tinea unguium (B35.1 ) Referral Organization [facility] Referring Provider First Name Katie Referring Provider Last Name Yonny Referred Provider Specialty Podiatry General Notes Please call the vincent ent to schedule the appointment, [facility] contact them at [phone], Elvie Landers 10/26/2024 04:33:01 PM > Referral Priority Routine Reason the right intercosta l pain Please evaluate and treat Diagnosis 1 Intercostal pain (R0 7.82) Referral Organization [facility] Referring Provider First Name SHELLY Referring Provider Last Name ROSELINE Referring Provider Speciality Internal M edicine Referred Provider Specialty Pain Medicin e General Notes Please call the vincent ent to schedule the appointment, [facility] - [phone] Referral Priority Routine Medications Medication SIG (Take, Route, Frequency, Duration) Notes Start Date End Date Status oxyCODONE HCl 5 MG 1 tablet as needed Orally every 8 hrs for 3 days Partial Fill upon Patient Request 11/02/2024 Active Benzonatate 100 MG 1 capsule as needed Orally Three times a day for 7 days 08/27/2024 Not-Taking Fluticasone Propionate 50 MCG/ACT SPRAY 1 SPRAY INTO EACH NOSTRIL EVERY DAY for 90 Active SUMAtriptan Succinate 25 MG as directed Orally daily for 7 days As needed 08/27/2024 Active Ventolin HFA 108 (90 Base) MCG/ACT INHALE 1 PUFF PRN INTO THE LUNGS EVERY 4 HOURS for 30 days Active Diclofenac Sodium 3 % as directed Externally [...] as needed Orally Once a day Active Social History Tobacco Use: Social History Observation Description Date Details (start date - stop date) Never Smoker NA - NA Tobacco Use/Smoking Question Answer Notes Are you a nonsmoker Problems Problem Type SNOMED Code ICD Code Onset Dates Problem Status W/U Status Risk Notes Problem Thyrotoxicosis (57830652) Thyrotoxicosis, unspecified without thyrotoxic crisis or storm (E05.90) Active confirmed Problem Vitamin D deficiency (93612500) Vitamin D deficiency, unspecified (E55.9) Active confirmed Problem Opioid dependence (88953588) Opioid dependence, uncomplicated (F11.20) Active confirmed Problem Generalized anxiety disorder (11413858) Generalized anxiety disorder (F41.1) Active confirmed Problem Chronic migraine without aura, non-refractory (disorder) (410177568961322) Migraine without aura, not intractable, without status migrainosus (G43.009) Active confirmed Problem Migraine with aura, intractable, without status migrainosus (G43.119) Active confirmed Problem Chronic sinusitis (88183204) Chronic sinusitis, unspecified (J32.9) Active confirmed Vital Signs Heart Rate 85 /min 10/30/2024 Temperature 97.7 degrees Fahrenheit 10/30/2024 Blood pressure diastolic 70 mm Hg 10/30/2024 Oximetry 98 % 10/30/2024 Height 64 in 10/30/2024 Blood pressure systolic 112 mm Hg 10/30/2024 Weight 121 lbs 10/30/2024 BMI 20.77 kg/m2 10/30/2024 Encounters Encounter Location Date Provider Diagnosis [address] [place] [address] 09/12/[address] [place] [address] 06/04/2024 BRAVO Angelica [address] [place] [address] 08/27/2024 Jesus Fischer Acute sinusitis, unspecified J01.90 and Migraine with aura, intractable, without status migrainosus G43.[address] [place] [address] 09/03/2024 BRAVO GUL Cough, unspecified R05.9 and Intercostal pain R07.[address] [place] [address] 10/24/2024 Ghadeer Mazloum Chronic sinusitis, unspecified J32.9 ; Abdominal pain in female R10.9 and Tinea unguium B35.[address] [place] [address] 10/30/2024 BRAVO GUL Abdominal pain R10.[address] [place] [address] 12/20/2023 BRAVO MAVISL [address] [place] [address] 08/27/2024 [facility] [address] [place] [address] 08/30/2024 Aroosa Alam Migraine with aura, intractable, without status migrainosus G43.119 [facility] [address] [place] [address] 09/03/2024 [facility] [address] [place] [address] 09/12/2024 [facility] [address] [place] [address] 10/08/2024 [facility] Acute pancreatitis without necrosis or infection, unspecified K85.90 [facility] [address] [place] [address] 10/15/2024 [facility] [address] [place] [address] 10/24/2024 [facility] [address] [place] [address] 10/26/2024 [facility] [address] [place] [address] 10/28/2024 BRAVO GUL Acute pancreatitis without necrosis or infection, unspecified K85.90 [facility] [address] [place] [address] 10/28/2024 BRAVO GUL Acute pancreatitis without necrosis or infection, unspecified K85.90 [facility] [address] [place] [address] 10/29/2024 [facility] [address] [place] [address] 11/01/2024 [facility] [address] [place] [address] 11/02/2024 BRAVO GU Abdominal pain R10.9 [facility] [address] [place] [address] 11/05/2024 SHELLY DUKES [facility] [address] [facility] [address] [place] [address] 11/02/2024 Katie Blancas Acute pancreatitis without necrosis or infection, unspecified K85.90 [facility] [address] [facility] [address] [place] [address] 11/02/2024 SHELLY DUKES Acute pancreatitis without necrosis or infection, unspecified K85.90 [facility] [address] [facility] [address] [place] [address] 11/02/2024 SHELLY DUKES Assessments Encounter Date Diagnosis (ICD [...] For follow-up on her recent discharge from [facility]. Patient was seen in the ER [...] abdominal pain. We will obtain records from [facility] for review Chronic sinusitis - We will [...] For follow-up on her recent discharge from [facility]. Patient was seen in the ER [...] abdominal pain. We will obtain records from [facility] in [place] for review Chronic sinusitis - We will [...] for recurrent abdominal pain. She went to [facility] emergency room and then recently she went to [facility] emergency room and she had CT scan of the abdomen and pelvis with contrast with no significant finding except for mild right pleural effusion, mild pericardial effusion and no signs of acute pancreatitis but she has pancreatic devisum and history of pancreatitis in [place] a few months ago. Her lipase and [...] discharge paperwork reviewed and questions answered 11/02/2024 Acute pancreatitis without necrosis or infection, unspecified (ICD-10 - K85.90) 11/02/2024 Acute pancreatitis without necrosis or infection, unspecified (ICD-10 - K85.90) 11/02/2024 Abdominal pain (ICD-10 - R10.9) 10/24/2024 Tinea unguium (ICD-10 - B35.1) Ms. Hightower is a 29 year old lady with vitamin D deficiency, migraine headaches, mood disorder/anxiety disorder, insomnia and opioid use disorder is here today for For follow-up on her recent discharge from [facility]. Patient was seen in the ER [...] abdominal pain. We will obtain records from [facility] for review Chronic sinusitis - We will [...] PANEL 06/02/2022 C-REACTIVE PROTEIN 06/02/2022 DNA (DOUBLE-STRANDED, [place]) ANTIBODY 1 08/02/2021 LIPID PANEL 06/02/2022 RHEUMATOID [...] Insured Coverage Start Date Coverage End Date [facility]) [address] [address] [place] [address] [id number] Eugenia Hightower Self - patient is the insured Medical (General) History Medical History History ICD Code hypertension hyperthyroidism insomnia Opioid use disorder Generalized anxiety disorder/mood disord er, Dr. Saldana Chronic insomnia Migraine headaches Vitamin D deficiency Personal history of COVID-19
--- OUTSIDE RECORDS SUMMARY | 2024-11-15 15:18 | XMS_ITS | Clinical Summary ---
Author Organization [facility] Address [address] [place] [address] Phone Care Team Providers Care Manufacturers Representative Name Role Phone Dick Rene MD Primary Care Provider [phone] Allergies Active Allergy Reactions Criticality Noted Date Comments Amoxicillin Rash 12/13/2006 Medications promethazine (PHENERGAN) 12.5 mg tablet Take 1 tablet (12.5 mg total) by mouth every 4 (four) hours if needed. 10/08/2024 Active Active Problems No known active problems Encounters Date Type Department Care Team Description 10/27/2024 2:38 PM EDT - 10/27/2024 7:14 PM EDT Emergency [facility] Emergency [address] [place] [phone] Abdominal pain, epigastric (Primary Dx); Pericardial effusion Discharge Disposition: Home or Self Care 09/08/2024 1:17 PM EST - 09/08/2024 5:06 PM EST Emergency [facility] Emergency [address] [place] [phone] Acute recurrent frontal sinusitis (Primary Dx) Discharge [...] GEMUSE QTc 457 ms GEMUSE P Wave [place] 40 degrees GEMUSE R [place] 71 degrees GEMUSE T [place] 45 degrees GEMUSE ECG Interpretation Normal sinus rhythm with sinus arrhythmia Normal ECG When compared with ECG of 23-AUG-2017 21:54, QT has lengthened Confirmed by MD Domingo, Dexter ([id number]) on 10/28/2024 12:15:21 AM GEMUSE 10/27/2024 4:20 PM EDT 10/28/2024 12:15 AM EDT Blair OJEDA ECG ORDERABLES Final Result GEMUSE * Urinalysis with reflex microscopic and culture (10/27/2024 4:08 PM EDT) Specific [place] Urine 1.017 1.003 - 1.030 LAB URINALYSIS - AUTOMATED METHOD 10/27/2024 4:38 PM EDT [facility] pH, Urine 7.0 5.0 - 8.0 pH LAB URINALYSIS - AUTOMATED METHOD 10/27/2024 4:38 PM [facility] Leukocytes, Urine Negative Negative LAB URINALYSIS - AUTOMATED METHOD 10/27/2024 4:38 PM [facility] Nitrite, Urine Negative Negative LAB URINALYSIS - AUTOMATED METHOD 10/27/2024 4:38 PM [facility] Protein, Urine Negative <=Trace mg/dL LAB URINALYSIS - AUTOMATED METHOD 10/27/2024 4:38 PM [facility] Glucose, Urine Negative Negative mg/dL LAB URINALYSIS - AUTOMATED METHOD 10/27/2024 4:38 PM [facility] Ketones, Urine Negative Negative mg/dL LAB URINALYSIS - AUTOMATED METHOD 10/27/2024 4:38 PM [facility] Urobilinogen, Urine 0.2 0.2 - 1.0 mg/dL LAB URINALYSIS - AUTOMATED METHOD 10/27/2024 4:38 PM [facility] Bilirubin, Urine Negative Negative LAB URINALYSIS - AUTOMATED METHOD 10/27/2024 4:38 PM [facility] Blood, Urine Negative Negative LAB URINALYSIS - AUTOMATED METHOD 10/27/2024 4:38 PM [facility] Urine Urine specimen obtained by clean catch procedure / Unknown Non-blood Collection / Unknown 10/27/2024 4:08 PM EDT 10/27/2024 4:15 PM EDT [facility] LAB URINE ORDERABLES Final Resul t Performing Organization Address [facility]/ZIP Co de Phone Number [facility] [address] [place] [address], [place] [phone] * Schmitz urine culture tube (10/27/2024 4:08 PM EDT) Pathologist [facility] Extra Tube Hold for add-ons. 10/27/2024 6:01 PM EDT [facility] Comment:Auto resulted. Urine Urine specimen obtained by clean catch procedure / Unknown Non-blood Collection / Unknown 10/27/2024 4:08 PM EDT 10/27/2024 4:15 PM EDT [facility] LAB URINE ORDERABLES Final Resul t Performing Organization Address [facility] Co de Phone Number [facility] [address] [place] [address], [place] [phone] * POC , urine manually resulted (10/27/2024 [...] PM EDT) WBC 5.7 4.8 - 10.8 K/[facility] LAB HEMETOLOGY METHOD 10/27/2024 2:23 PM EDT [facility] RBC 3.90 3.80 - 4.80 M/mcL LAB HEMETOLOGY METHOD 10/27/2024 2:23 PM EDT [facility] Hemoglobin 11.0(L) 11.5 - 16.0 g/dL LAB HEMETOLOGY METHOD 10/27/2024 2:23 PM EDT [facility] Hematocrit 33.4(L) 35.0 - 47.0 % LAB HEMETOLOGY METHOD 10/27/2024 2:23 PM EDT [facility] MCV 84.8 79.0 - 98.0 FL LAB HEMETOLOGY METHOD 10/27/2024 2:23 PM EDT [facility] MCH 27.9 27.0 - 32.0 pcg LAB HEMETOLOGY METHOD 10/27[facility]2024 [facility] MCHC 32.9 32.0 - 37.0 g/dL LAB HEMETOLOGY METHOD 10/27/2024 2:[facility] RDW 11.6 11.0 - 15.0 % LAB HEMETOLOGY METHOD 10/27/2024 2:23 PM EDT [facility] Platelets 254 130 - 400 K/mcL LAB HEMETOLOGY METHOD 10/27/2024 2:23 [facility] MPV 9.6 7.0 - 11.0 FL LAB HEMETOLOGY METHOD 10/27/2024 2:23 [facility] NRBC 0.0 <1.0 % LAB HEMETOLOGY METHOD 10/27/2024 2:23 PM EDT [facility] NRBC Absolute 0.00 <0.10 K/mcL LAB HEMETOLOGY METHOD 10/27/2024 2:23 [facility] Neutrophils Relative 55.3 % LAB HEMETOLOGY METHOD 10/27/2024 2:23 [facility] Lymphocytes Relative 36.8 % LAB HEMETOLOGY METHOD 10/27/2024 2:23 PM EDT [facility] Monocytes Relative 5.7 % LAB HEMETOLOGY METHOD 10/27/2024 2:23 PM EDT [facility] Eosinophils Relative 0.9 % LAB HEMETOLOGY METHOD 10/27/2024 2:23 PM EDT [facility] Basophils Relative 0.9 % LAB HEMETOLOGY METHOD 10/27/2024 2:23 PM EDT [facility] Immature Granulocytes Relative 0.4 % LAB HEMETOLOGY METHOD 10/27/2024 2:23 PM EDT [facility] Neutrophils Absolute 3.13 1.50 - 7.00 K/mcL LAB HEMETOLOGY METHOD 10/27/2024 2:23 PM EDT [facility] Lymphocytes Absolute 2.08 1.00 - 5.00 K/mcL LAB HEMETOLOGY METHOD 10/27/2024 2:23 PM EDT [facility] Monocytes Absolute 0.32 0.20 - 1.00 K/mcL LAB HEMETOLOGY METHOD 10/27/2024 2:23 PM EDT [facility] Eosinophils Absolute 0.05 0.00 - 0.50 K/mcL LAB HEMETOLOGY METHOD 10/27/2024 2:23 PM [facility] Basophils Absolute 0.05 0.00 - 0.20 K/mcL LAB HEMETOLOGY METHOD 10/27/2024 2:23 PM EDT [facility] Immature Granulocytes Absolute 0.02 0.00 - 0.03 K/mcL LAB HEMETOLOGY METHOD 10/27/2024 2:23 PM [facility] Blood Venous blood specimen / Unknown Venipuncture / Unknown 10/27/2024 1:59 PM EDT 10/27/2024 2:17 PM EDT De Moody MD LAB BLOOD ORDERABLES Final Result [facility] [address] [place] [address], [place] [phone] * Lipase (10/27/2024 1:59 PM EDT) Pathologist [facility] Lipase 17 13 - 75 unit/L LAB CHEMISTRY METHOD 10/27/2024 2:47 PM EDT [facility] Blood Venous blood specimen / Unknown Venipuncture / Unknown 10/27/2024 1:59 PM EDT 10/27/2024 2:17 PM EDT De Moody MD LAB BLOOD ORDERABLES Final Result Performing Organization Address [facility] Co de Phone Number [facility] [address] [place] [address], [place] [phone] * Comprehensive metabolic panel (10/27/2024 1:59 PM EDT) [facility] Sodium 136 133 - 145 mmol/L LAB CHEMISTRY METHOD 10/27/2024 2:47 PM [facility] Potassium 4.3 3.5 - 5.5 mmol/L LAB CHEMISTRY METHOD 10/27/2024 2:47 PM [facility] Chloride 102 96 - 110 mmol/L LAB CHEMISTRY METHOD 10/27/2024 2:47 PM [facility] CO2 27 21 - 32 mmol/L LAB CHEMISTRY METHOD 10/27/2024 2:47 PM [facility] Anion Gap 7 3 - 11 LAB CHEMISTRY METHOD 10/27/2024 2:47 PM [facility] Glucose 95 70 - 100 mg/dL LAB CHEMISTRY METHOD 10/27/2024 2:47 PM [facility] BUN 11 5 - 25 mg/dL LAB CHEMISTRY METHOD 10/27/2024 2:47 PM [facility] Creatinine 0.57 0.50 - 1.10 mg/dL LAB CHEMISTRY METHOD 10/27/2024 2:47 PM T [facility] eGFR 126 >=60 mL/min/1. 73m2 LAB CHEMISTRY METHOD 10/27/2024 2:47 PM T [facility] Comment:Calculation based on the??Chronic Kidney Disease Epidemiology Collaboration (CKD-EPI) equation refit??without adjustment for race. BUN/Creatinine Ratio 19.3 LAB CHEMISTRY METHOD 10/27/2024 2:47 PM T [facility] Calcium 9.3 8.5 - 10.5 mg/dL LAB CHEMISTRY METHOD 10/27/2024 2:47 PM [facility] AST (SGOT) 11 10 - 42 unit/L LAB CHEMISTRY METHOD 10/27/2024 2:47 PM [facility] ALT (SGPT) 13 10 - 60 unit/L LAB CHEMISTRY METHOD 10/27/2024 2:47 PM [facility] Alkaline Phosphatase 63 42 - 121 unit/L LAB CHEMISTRY METHOD 10/27/2024 2:47 PM [facility] Total Protein 7.5 6.0 - 8.0 g/dL LAB CHEMISTRY METHOD 10/27/2024 2:47 PM [facility] Albumin 4.1 3.2 - 5.0 g/dL LAB CHEMISTRY METHOD 10/27/2024 2:47 PM [facility] Total Bilirubin 0.3 0.0 - 1.4 mg/dL LAB CHEMISTRY METHOD 10/27/2024 2:47 PM [facility] Blood Venous blood specimen / Unknown Venipuncture / Unknown 10/27/2024 1:59 PM EDT 10/27/2024 2:17 PM EDT us De Moody MD LAB BLOOD ORDERABLES Final Result [facility] [address] [place] [address], [place] [phone] * XR Chest 2 Views (09/08/2024 1:21 PM EST) Anatomical Region Laterality Modality Body Radiographic Yasmin ging 09/08/2024 1:50 PM EST Impressions 09/08/2024 1:51 PM EST No acute chest disease -------- FINAL REPORT -------- Dictated By: Geoffrey Acosta Dictated Date: 09/08/2024 13:50 ET Assigned Physician: Geoffrey Acosta Reviewed and Electronically Signed By: Geoffrey Acosta Signed Date: 09/08/2024 13:51 ET Workstation ID: [id number] Transcribed By: Self Edit Transcribed Date: 09/08/2024 [...] Signed Date: 09/08/2024 13:51 ET Workstation ID: [id number] Transcribed By: Self Edit Transcribed Date: 09/08/2024 13:50 ET Zion Moss MD IMG XR PROCEDURES Final Resul t * Respiratory virus panel molecular study (09/08/2024 1:10 PM EST) Adenovirus Detection by PCR Not Detected Not Detected LAB MICROBIOLOGY METHOD 09/08/2024 2:31 PM [facility] Influenza A PCR Not Detected Not Detected LAB MICROBIOLOGY METHOD 09/08/2024 2:31 PM [facility] Influenza B PCR Not Detected Not Detected LAB MICROBIOLOGY METHOD 09/08/2024 2:31 PM [facility] Coronavirus 229E Not Detected Not Detected LAB MICROBIOLOGY METHOD 09/08/2024 2:31 PM [facility] Coronavirus HKU1 Not Detected Not Detected LAB MICROBIOLOGY METHOD 09/08/2024 2:31 PM [facility] Coronavirus OC43 Not Detected Not Detected LAB MICROBIOLOGY METHOD 09/08/2024 2:31 PM [facility] Coronavirus NL63 Not Detected Not Detected LAB MICROBIOLOGY METHOD 09/08/2024 2:31 PM [facility] Parainfluenza Virus 1 Not Detected Not Detected LAB MICROBIOLOGY METHOD 09/08/2024 2:31 PM [facility] Parainfluenza Virus 2 Not Detected Not Detected LAB MICROBIOLOGY METHOD 09/08/2024 2:31 PM [facility] Parainfluenza Virus 3 Not Detected Not Detected LAB MICROBIOLOGY METHOD 09/08/2024 2:31 PM [facility] Parainfluenza Virus 4 Not Detected Not Detected LAB MICROBIOLOGY METHOD 09/08/2024 2:31 PM [facility] RSV PCR Not Detected Not Detected LAB MICROBIOLOGY METHOD 09/08/2024 2:31 PM [facility] Human Metapneumovirus A and B Not Detected Not Detected LAB MICROBIOLOGY METHOD 09/08/2024 2:31 PM [facility] Rhinovirus/Entero virus Not Detected Not Detected LAB MICROBIOLOGY METHOD 09/08/2024 2:31 PM EST [facility] Bordetella pertussis Not Detected Not Detected LAB MICROBIOLOGY METHOD 09/08/2024 2:31 PM EST [facility] Bordetella parapertussis Not Detected Not Detected LAB MICROBIOLOGY METHOD 09/08/2024 2:31 PM EST [facility] Mycoplasma pneumo by PCR Not Detected Not Detected LAB MICROBIOLOGY METHOD 09/08/2024 2:31 PM EST [facility] Chlamydia pneumoniae Not Detected Not Detected LAB MICROBIOLOGY METHOD 09/08/2024 2:31 PM EST [facility] SARS COV-2 Not Detected Not Detected LAB MICROBIOLOGY METHOD 09/08/2024 2:31 PM EST [facility] Swab Both anterior nares / Unknown Non-blood Collection / Unknown 09/08/2024 1:10 PM EST 09/08/2024 1:19 PM EST Narrative [facility] - 09/08/2024 2:31 PM EST Testing was performed using the Birthday Gorilla Respiratory Pathogen PCR Assay. All results must [...] MICROBIOLOGY - GENERAL OR DERABLES Final Result [facility] [address] [place] [address], * Rapid strep A screen (09/08/2024 1:10 PM EST) Strep A Ag Negative Negative, Invalid 09/08/2024 1:53 PM EST [facility] Comment:Refer to Throat Cult ure. Swab Structure of anterior portion of neck / Unknown Non-blood Collection / Unknown 09/08/2024 1:10 PM EST 09/08/2024 1:18 PM EST Zion Moss MD LAB MICROBIOLOGY - GENERAL OR DERABLES Final Result Performing Organization Address [facility] de Phone Number [facility] [address] [place] [address], * (ABNORMAL) Culture throat (09/08/2024 1:10 PM EST) Culture, Throat Streptococcus beta-hemolytic Group C(A) 09/10/2024 12:32 PM EDT [facility] Comment: Susceptibility testing is [...] OR DERABLES Final Result Performing Organization Address [facility] de Phone Number [facility] [address] [place] [address], from Last 3 Months Insurance [facility] [employer] Care Teams Manufacturers Representative Relationship Specialty Start Date End Date Dick Rene MD [address] [place] [address] PCP - General Internal Medicine 09/08/24
[2024-11-15 15:59] LABS: Amylase 51 U/L (28-100)
[2024-11-15 16:04] LABS: Lipase 15 U/L (8-78)
[2024-11-15 16:22] LABS: Free T4 (Free Thyroxine) 1.02 ng/dL (0.71-1.85)
[2024-11-15 16:25] LABS: Erythrocyte Sedimentation Rate 16 MM/HR (0-20)
[2024-11-20 10:38] LABS: Immunoglobulin G Subclass 1 562 mg/dL (382-929); Immunoglobulin G Subclass 2 188 mg/dL (241-700); Immunoglobulin G Subclass 3 6 mg/dL (22-178); Immunoglobulin G Subclass 4 67.4 mg/dL (4-86); Immunoglobulin G Total 941 mg/dL (600-1640)
[2024-11-24 15:43] LABS: IgE Antibody (Anti-IgE IgG) 35 ng/mL (<168)
== END 2024-11-15 14:39 | disposition home or self-care (01) ==
LOC: HO.LAB 14:38
PROVIDERS: Absent Provider Student in an Organized Health Care Education/Training Program; PCP Hospitalist; Visit Provider Internal Medicine Rheumatology
DX: R76.8 Other specified abnormal immunological findings in serum (principal); K85.90 Acute pancreatitis without necrosis or infection, unspecified; M25.50 Pain in unspecified joint
CPT/HCPCS: 36415; 82150; 82784; 83520; 83690; 84439; 84443; 85652

== ENCOUNTER 2024-12-07 15:31 | Outpatient (REF) | payer OTHER, SELFPAY ==
--- NOTE | ~2024-12-07 | US_ITS ---
EXAMINATION: US THYROID CLINICAL INFORMATION: Iodine deficiency related goiter. COMPARISON: None available. TECHNIQUE: Linear transducer grayscale and color Doppler examination with attention to the region of the thyroid. FINDINGS: SIZE: Measurements of the thyroid lobes and nodules are given in sagittal, anteroposterior and transverse dimensions respectively. Right Thyroid Lobe: 4.6 x 1.5 x 1.5 cm, volume 5.1 mL. Parenchyma: The gland echotexture is heterogeneous. Thyroid vascularity is increased. Left Thyroid Lobe: 4.4 x 1.4 x 1.5 cm, volume 4.8 mL. Parenchyma: The gland echotexture is heterogeneous. Thyroid vascularity is increased. Isthmus: 0.2 cm in maximum AP dimension. Estimated total number of nodules greater than or equal to 1 cm: 0. Handwriting Expert nodules are described as follows: 1. Location: Right lower pole. Size: 0.7 x 0.5 x 0.8 cm, volume 0.14 mL. Nodule characteristics: Composition: Solid (2). Echogenicity: Hypoechoic (2). Shape: Not taller than wide (0). Margins: Smooth (0). Echogenic Foci: Punctate echogenic foci (3). ACR TI-RADS total points: 7 ACR TI-RADS category: 5 NODES: No lymphadenopathy is seen in the tissue surrounding the thyroid gland. US/US thyroid IMPRESSION: 1. There is a 0.8 cm TR category 5 nodule in the left lower pole. Follow-up ultrasound as detailed below recommended. 2. No additional nodules. 3. The remainder of the gland is heterogeneous and mildly hyperemic consistent with thyroiditis. 4. There is no abnormal lymphadenopathy identified. ACR TI-RADS RECOMMENDATION REFERENCE: Ultrasound-guided fine-needle aspiration, followup ultrasound, no further follow up. * TR1 (0 point) and TR2 (2 points): No FNA or follow up. * TR3 (3 points): FNA if more than or equal to 2.5 cm in maximum dimension, followup ultrasound in 1, 3 and 5 years if 1.5 to 2.4 cm in maximum dimension. * TR4 (4-6 points): FNA if more than or equal to 1.5 cm in maximum dimension, followup ultrasound in 1, 2, 3 and 5 years if 1 to 1.4 cm in maximum dimension. * TR5 (more than or equal to 7 points): FNA if more than or equal to 1 cm in maximum dimension, followup ultrasound every year for 5 years if 0.5 to 0.9 cm in maximum dimension. * TR3, TR4 or TR5 nodules that are below the size threshold for followup receive no follow up. Electronically signed by: Jeremiah Morfin MD 12/10/2024 10:09 AM EDT
--- OUTSIDE RECORDS SUMMARY | 2024-12-07 15:34 | XMS_ITS | Patient Health Record ---
Author Organization [facility] Address [address] [place] [address] Care Team Providers Care Search Analyst Name Role Phone SHELLY DUKES Primary Care Provider Jesus Abbasi Unavailable [phone] Katie Blancas Unavailable [phone] Allergies Allergen (clinical drug ingredient) Drug/Non Drug Allergy documented on EMR Reaction Allergy Type Onset Date Status amoxicillin Amoxicillin hives Drug Allergy Act poncho Reason For Referral Reason please evaluate and treat Please evaluate and treat Diagnosis 1 Tinea unguium (B35.1 ) Referral Organization [facility] Referring Provider First Name Katie Referring Provider Last Name Yonny Referred Provider Specialty Podiatry General Notes Please call the vincent ent to schedule the appointment, [facility] Pod[facility] contact them at [phone], Elvie Landers 10/26/2024 04:33:01 PM > Referral Priority Routine Reason the right intercosta l pain Please evaluate and treat Diagnosis 1 Intercostal pain (R0 7.82) Referral Organization [facility] Referring Provider First Name SHELLY Referring Provider Last Name ROSELINE Referring Provider Speciality Internal M edicine Referred Provider Specialty Pain Medicin e General Notes Please call the vincent ent to schedule the appointment, [facility] - [phone] Referral Priority Routine Medications Medication SIG (Take, [...] Status W/U Status Risk Notes Problem Thyrotoxicosis (25035254) Thyrotoxicosis, unspecified without thyrotoxic crisis or storm (E05.90) Active confirmed Problem Vitamin D deficiency (88023716) Vitamin D deficiency, unspecified (E55.9) Active confirmed Problem Opioid dependence (45624310) Opioid dependence, uncomplicated (F11.20) Active confirmed Problem Generalized anxiety disorder (33027851) Generalized anxiety disorder (F41.1) Active confirmed Problem Chronic migraine without aura, non-refractory (disorder) (891577605885647) Migraine without aura, not intractable, without status migrainosus (G43.009) Active confirmed Problem Refractory migraine with aura (045581594) Migraine with aura, intractable, without status migrainosus (G43.119) Active confirmed Problem Chronic sinusitis (56822508) Chronic sinusitis, unspecified (J32.9) Active confirmed Vital Signs Heart Rate 85 /min 10/30/2024 Temperature 97.7 degrees Fahrenheit 10/30/2024 Oximetry 98 % 10/30/2024 Blood pressure diastolic 70 mm Hg 10/30/2024 Height 64 in 10/30/2024 Blood pressure systolic 112 mm Hg 10/30/2024 Weight 121 lbs 10/30/2024 BMI 20.77 kg/m2 10/30/2024 Encounters Encounter Location Date Provider Diagnosis [address] [place] [address] 09/12/2024 Jesus Abbasi [address] [place] [address] 06/04/2024 SHELLY DUKES [address] [place] [address] 08/27/2024 Aromonique Ala Acute sinusitis, unspecified J01.90 and Migraine with aura, intractable, without status migrainosus G43.[address] [place] [address] 09/03/2024 BRAVORANDALL GAMBLEL Cough, unspecified R05.9 and Intercostal pain R07.[address] [place] [address] 10/24/2024 Ghadeer Mazloum Chronic sinusitis, unspecified J32.9 ; Abdominal pain in female R10.9 and Tinea unguium B35.[address] [place] [address] 10/30/2024 BRAVO MAVISL Abdominal pain R10.[address] [place] [address] 12/20/2023 SHELLY GAMBLEL [address] [place] [address] 08/27/2024 [facility] [address] [place] [address] 08/30/2024 Aroosa Alam Migraine with aura, intractable, without status migrainosus G43.119 [facility] [address] [place] [address] 09/03/2024 [facility] [address] [place] [address] 09/12/2024 [facility] [address] [place] [address] 10/08/2024 [facility] Acute pancreatitis without necrosis or infection, unspecified K85.90 [facility] [address] [place] [address] 10/15/2024 [facility] [address] [place] [address] 10/24/2024 [facility] [address] [place] [address] 10/26/2024 [facility] [address] [place] [address] 10/28/2024 BRAVO GUL Acute pancreatitis without necrosis or infection, unspecified K85.90 [facility] [address] [place] [address] 10/28/2024 BRAVO GUL Acute pancreatitis without necrosis or infection, unspecified K85.90 [facility] [address] [place] [address] 10/29/2024 [facility] [address] [place] [address] 11/01/2024 [facility] [address] [place] [address] 11/02/2024 BRAVO [facility] Abdominal pain R10.9 [facility] [address] [facility] [address] [place] [address] 11/05/2024 SHELLY DUKES [facility] [address] [place] [address] 11/02/2024 Katie Blancas Acute pancreatitis without necrosis or infection, unspecified K85.90 [facility] [address] [place] [address] 11/02/2024 SHELLY DUKES Acute pancreatitis without necrosis or infection, unspecified K85.90 [facility] [address] [place] [address] 11/02/2024 SHELLY DUKES Assessments Encounter Date Diagnosis [...] For follow-up on her recent discharge from [facility] ER. Patient was seen in the ER [...] abdominal pain. We will obtain records from [facility] for review Chronic sinusitis - [...] For follow-up on her recent discharge from [facility] ER. Patient was seen in the ER [...] abdominal pain. We will obtain records from [facility] in [place] for review Chronic sinusitis - We will [...] for recurrent abdominal pain. She went to [facility] emergency room and then recently she went to [facility] emergency room and she had CT scan of the abdomen and pelvis with contrast with no significant finding except for mild right pleural effusion, mild pericardial effusion and no signs of acute pancreatitis but she has pancreatic devisum and history of pancreatitis in [place] a few months ago. Her lipase and [...] 10/24/2024 Tinea unguium (ICD-10 - B35.1) Ms. Lopardo is a 29 year old lady with vitamin D deficiency, migraine headaches, mood disorder/anxiety disorder, insomnia and opioid use disorder is here today for For follow-up on her recent discharge from [facility] ER. Patient was seen in the ER [...] abdominal pain. We will obtain records from [facility] for review Chronic sinusitis - [...] PANEL 06/02/2022 C-REACTIVE PROTEIN 06/02/2022 DNA (DOUBLE-STRANDED, AGUA CALIENTE) ANTIBODY 1 08/02/2021 LIPID PANEL 06/02/2022 RHEUMATOID [...] Date Coverage End Date [facility]) [address] [address] [place] [address] [id number] Eugenia Hightower Self - patient is the insured Medical (General) History Medical History History ICD Code hypertension hyperthyroidism insomnia Opioid use disorder Generalized anxiety disorder/mood disord er, Dr. Saldana Chronic insomnia Migraine headaches Vitamin D deficiency Personal history of COVID-19
== END 2024-12-07 15:32 | disposition home or self-care (01) ==
LOC: HO.HMGCX 15:31
PROVIDERS: PCP Hospitalist; Visit Provider Student in an Organized Health Care Education/Training Program
DX: E01.0 Iodine-deficiency related diffuse (endemic) goiter (principal)
CPT/HCPCS: 76536

== ENCOUNTER → 2024-12-07 15:33 | Outpatient (BNV) | payer OTHER, SELFPAY | PROVIDERS: PCP Hospitalist; Visit Provider Radiology Diagnostic Radiology | DX: E04.1 Nontoxic single thyroid nodule (principal); E07.89 Other specified disorders of thyroid | CPT/HCPCS: 76536 ==

== ENCOUNTER 2024-12-26 14:36 | Outpatient (AMB) | payer OTHER, SELFPAY ==
--- NOTE | 2024-12-26 14:30 | MHC.OFFVIS ---
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 Accompanied by: se Allergies amoxicillin Allergy (Unknown, Verified 12/26/24 14:34) Hives Medication List - Last Reconciled 12/26/24 by KEVEN Valentin albuterol sulfate 90 mcg/actuation (Ventolin HFA) 1 puff inhalation Q4H PRN clonidine HCl 0.1 mg PO BID fluticasone propionate 50 mcg/actuation 1 spray intranasal BID gabapentin 600 mg PO TID galcanezumab-gnlm (Emgality Pen) 120 mg subcut ONCE 30 days hydrocortisone 2.5% topical hydroxyzine HCl 50 mg PO BID levocetirizine 5 mg PO DAILY multivitamin 1 tab PO DAILY norgestimate-ethinyl estradiol 0.25-0.035 mg 1 tab PO DAILY propranolol 20 mg PO BID riboflavin (vitamin B2) (Vitamin B-2) 200 mg PO BID rizatriptan 5 - 10 mg (0.5 - 1 x 10 mg) PO Q2H PRN 90 days trazodone 100 mg (2 x 50 mg) PO BEDTIME PRN 30 days zolmitriptan (Zomig) take 1 tab at onset of headache; if no relief, may repeat 1 tab after at least 2 hrs; max = 2 tabs/24 hrs orally PRN; 90 days HPI Comments Details: 29-yr-old female presents for f/u telehealth visit for migraine. Pt reports she has been having nausea and vomiting due to the recent heat wave, and that her air conditioner is no longer functioning. She is trying to take water, but if she takes too much then she vomits it up. States her lips are dry. She states she does not have an alternative place to stay during this heat wave. She has an air conditioner which is being delivered in the next few days. She does have Pedialyte at home. Prior to this, she had a significant URI, which can just started to resolve before this recent heat wave started. She does note ongoing nasal drainage despite being told her sinuses are clear. Pt reports Emgality is still effective at reducing her overall migraine burden. Unfortunately, her pharmacy, [facility], has not been able to refill her naratriptan resolved sumatriptan in a timely fashion-as they are often out of these medications. Psychiatry recently started her on propranolol for anxiety, and cardiology would like her to increase this for heart rate control. Since the last visit, she has reestablished care with Rheumatology, was ordering additional lab workup. She has had endocrinology consult, and has undergone follow-up lab work and a recent thyroid ultrasound, showed a small thyroid nodule. Patient states she is scheduled for a follow-up thyroid ultrasound. She continues to follow-up with GI. States she still has difficulty swallowing. States a previous modified barium swallow was normal. She has had unremarkable endoscopy. She has never done speech therapy before. 01/20/2025, brain MRI with and without contrast was unremarkable 07/30/2024, L-spine XR was unremarkable, without acute findings, and without significant degenerative changes. 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 Pain in joint involving multiple sites POTS (postural orthostatic tachycardia syndrome) Anxiety Hair loss Surgical History History of nasal surgery Family History Father HTN (hypertension) Mother Asthma FH: mental illness Paternal Grandfather Fibromyalgia Social History Household Members: Family Alcohol intake: never Patient Tobacco Use Status: Never used Tobacco Current occupational status: employed 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 Physical Exam Const General: cooperative and no acute distress Orientation/consciousness: patient oriented x3 Resp Effort & Inspection: normal respiratory effort and able to speak in complete sentences Neuro General: patient oriented x3 Cognition (Neuro): normal cognition Psych Appearance: grossly normal Mental Status: mental status grossly normal Attitude: cooperative Telehealth Telehealth Telehealth Platform: Telephone Location of provider rendering services: practice address Location of patient: address on file Patient Identification confirmed using: Name, : Yes Telehealth method: voice only Patient verbally consented to treatment: Yes Patient verbally consented to billing insurance company: Yes Patient informed of any privacy concerns related to visit: Yes Minutes spent on Phone/Video with Pt.: 17 Assessment & Plan Assessment & Plan (1) Migraine without aura: Code(s): G43.009 - Migraine without aura, not intractable, without status migrainosus Category: Medical Qualifiers: Status migrainosus presence: without status migrainosus Intractability: not intractable Qualified Code(s): G43.009 - Migraine without aura, not intractable, without status migrainosus (2) Orthostatic lightheadedness: Code(s): R42 - Dizziness and giddiness Category: Medical (3) Nausea and vomiting: Comment: Likely secondary to heat exhaustion Code(s): R11.2 - Nausea with vomiting, unspecified Category: Medical Plan For current nausea and vomiting: Patient advised to take sips of fluids, including Pedialyte. If symptoms worsen, including but not limited to if she is unable to take fluids without vomiting, she should seek urgent medical attention and go to her closest ER. Brain MRI w/wo- unremarkable Patient may benefit from speech therapy, to assist with swallowing issues. I would defer to her GI specialist. For history of low back apin: XR l-spine- unremarkable OTC Ibuprofen 400-600mg q 4-6 hrs prn or Naproxen 440mg q 12 hrs prn Warm packs x's 20 min as needed Future consideration- PT For sleep: Previous HST- inconclusive. Continue trazodone 50mg tab- 1-2 tabs qhs prn. Information previously shared on various [facility] resources. F/u w/ psychiatry. ? For acute headache treatment: Continue Rizatriptan 10mg prn- she may try to take this along with an NSAID 1-2 days prior to onset of menses. May also use Zomig 5 mg at onset of migraine, may repeat in 2 hours- when rizatriptan not available. Previous acute migraine medication trials: Sumatriptan- ineffective. Acute migraine medication contraindications: Opioids. ? For headache prevention medication: Continue Riboflavin 400mg qam Continue OTC Magnesium 400mg qhs Continue Emgality 120 mg sc q month- patient has had greater than 30% reduction in monthly migraine days with the use. Previous migraine prevention medication trials: Emgalaity was helpful- but previously stopped d/t insurance issues. Aimovig- was not tolerated or effective. Amitriptyline- ineffective. Propranolol- ineffective and caused hypotension. Topiramate- ineffective and caused altered taste. Migraine prevention medication contraindications: none at this time ? ? Pt to follow-up in 6 months or sooner prn. Medications: Refilled rizatriptan max 2 tabs per day or 4 tabs per week 5 - 10 mg (0.5 - 1 x 10 mg) PO Q2H PRN 18 tabs 1RF migraine headache 90 days zolmitriptan (Zomig) take 1 tab at onset of headache; if no relief, may repeat 1 tab after at least 2 hrs; max = 2 tabs/24 hrs orally PRN; 18 tabs 1RF migraine headache 90 days Coding Level of Care Code Tele Est Pt Level 4 (80365) Diagnoses Migraine without aura and without status migrainosus, not intractable G43.009 Status migrainosus presence: without status migrainosus Intractability: not intractable Orthostatic lightheadedness R42 Nausea and vomiting R11.2
--- OUTSIDE RECORDS SUMMARY | 2024-12-26 17:29 | XMS_ITS | Patient Health Record ---
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 Name Role Phone SHELLY DUKES Primary Care Provider Jesus Abbasi Unavailable [phone] Katie Blancas Unavailable [phone] Allergies Allergen (clinical drug ingredient) Drug/Non Drug Allergy documented on EMR Reaction Allergy Type Onset Date Status amoxicillin Amoxicillin hives Drug Allergy Act poncho Reason For Referral Reason please evaluate and treat Please evaluate and treat Diagnosis 1 Tinea unguium (B35.1 ) Referral Organization [facility] Referring Provider First Name Katie Referring Provider Last Name Yonny Referred Provider Specialty Podiatry General Notes Please call the vincent ent to schedule the appointment, [facility] contact them at [phone], Elvie Landers 10/26/2024 04:33:01 PM > Referral Priority Routine Reason the right intercosta l pain Please evaluate and treat Diagnosis 1 Intercostal pain (R0 7.82) Referral Organization [facility] Referring Provider First Name SHELLY Referring Provider Last Name ROSELINE Referring Provider Speciality Internal M edicine Referred Provider Specialty Pain Medicin e General Notes Please call the vincent ent to schedule the appointment, [facility] - [phone] Referral Priority Routine Medications Medication SIG (Take, [...] Status W/U Status Risk Notes Problem Thyrotoxicosis (25519955) Thyrotoxicosis, unspecified without thyrotoxic crisis or storm (E05.90) Active confirmed Problem Vitamin D deficiency (89292420) Vitamin D deficiency, unspecified (E55.9) Active confirmed Problem Opioid dependence (58796593) Opioid dependence, uncomplicated (F11.20) Active confirmed Problem Generalized anxiety disorder (14227451) Generalized anxiety disorder (F41.1) Active confirmed Problem Chronic migraine without aura, non-refractory (disorder) (644290231877726) Migraine without aura, not intractable, without status migrainosus (G43.009) Active confirmed Problem Refractory migraine with aura (951069754) Migraine with aura, intractable, without status migrainosus (G43.119) Active confirmed Problem Chronic sinusitis (44228619) Chronic sinusitis, unspecified (J32.9) Active confirmed Vital Signs Heart Rate 85 /min 10/30/2024 Temperature 97.7 degrees Fahrenheit 10/30/2024 Oximetry 98 % 10/30/2024 Blood pressure diastolic 70 mm Hg 10/30/2024 Height 64 in 10/30/2024 Blood pressure systolic 112 mm Hg 10/30/2024 Weight 121 lbs 10/30/2024 BMI 20.77 kg/m2 10/30/2024 Encounters Encounter Location Date Provider Diagnosis [address] [place] [address] 09/12/2024 Jesus Abbasi [address] [place] [address] 06/04/2024 SHELLY DUKES [address] [place] [address] 08/27/2024 Aromonique Ala Acute sinusitis, unspecified J01.90 and Migraine with aura, intractable, without status migrainosus G43.[address] [place] [address] 09/03/2024 BRAVO GUL Cough, unspecified R05.9 and Intercostal pain R07.[address] [place] [address] 10/24/2024 Ghadeer Mazloum Chronic sinusitis, unspecified J32.9 ; Abdominal pain in female R10.9 and Tinea unguium B35.[address] [place] [address] 10/30/2024 BRAVO GUL Abdominal pain R10.[address] [place] [address] 08/27/2024 SHELLY GAMBLEL [address] [place] [address] 08/30/2024 Aroosa Alam Migraine with aura, intractable, without status migrainosus G43.119 [facility] [address] [place] [address] 09/03/2024 [facility] [address] [place] [address] 09/12/2024 [facility] [address] [place] [address] 10/08/2024 [facility] Acute pancreatitis without necrosis or infection, unspecified K85.90 [facility] [address] [place] [address] 10/15/2024 [facility] [address] [place] [address] 10/24/2024 [facility] [address] [place] [address] 10/26/2024 [facility] [address] [place] [address] 10/28/2024 BRAVO GUL Acute pancreatitis without necrosis or infection, unspecified K85.90 [facility] [address] [place] [address] 10/28/2024 BRAVO GUL Acute pancreatitis without necrosis or infection, unspecified K85.90 [facility] [address] [place] [address] 10/29/2024 [facility] [address] [place] [address] 11/01/2024 [facility] [address] [place] [address] 11/02/2024 BRAVO GU Abdominal pain R10.9 [facility] [address] [place] [address] 11/05/2024 [facility] [address] [place] [address] 11/02/2024 Katie Blancas Acute pancreatitis without necrosis or infection, unspecified K85.90 [facility] [address] [place] [address] 11/02/2024 SHELLY DUKES Acute pancreatitis without necrosis or infection, unspecified K85.90 [facility] [address] [place] [address] 11/02/2024 SHELLY DUKES Assessments Encounter Date Diagnosis [...] For follow-up on her recent discharge from [facility]. Patient was seen in the ER for [...] abdominal pain. We will obtain records from [facility] in [place] for review Chronic sinusitis - We will [...] For follow-up on her recent discharge from [facility] ER. Patient was seen in the [...] abdominal pain. We will obtain records from [facility] for review Chronic sinusitis - We [...] for recurrent abdominal pain. She went to [facility] emergency room and then recently she went to [facility] emergency room and she had CT scan of the abdomen and pelvis with contrast with no significant finding except for mild right pleural effusion, mild pericardial effusion and no signs of acute pancreatitis but she has pancreatic devisum and history of pancreatitis in [place] a few months ago. Her lipase and [...] K85.90) 11/02/2024 Abdominal pain (ICD-10 - R10.9) 08/27/2024 Migraine with aura, intractable, without status [...] For follow-up on her recent discharge from [facility] ER. Patient was seen in the [...] abdominal pain. We will obtain records from [facility] for review Chronic sinusitis - We [...] Insured Coverage Start Date Coverage End Date [facility] [address] [address] [place] [address] [id number] Eugenia Hightower Self - patient is the insured Medical (General) History Medical History History ICD Code hypertension hyperthyroidism insomnia Opioid use disorder Generalized anxiety disorder/mood disord er, Dr. Saldana Chronic insomnia Migraine headaches Vitamin D deficiency Personal history of COVID-19
== END 2024-12-26 15:30 | disposition home or self-care (01) ==
PROVIDERS: PCP Hospitalist; Visit Provider Nurse Practitioner Family
DX: G43.009 Migraine without aura, not intractable, without status migrainosus (principal); R42 Dizziness and giddiness; R11.2 Nausea with vomiting, unspecified
CPT/HCPCS: 99214

== ENCOUNTER 2025-01-03 14:30 | Outpatient (AMB) | payer OTHER, SELFPAY ==
--- NOTE | 2025-01-03 14:31 | A.OFFVIS_ITS ---
Vital Signs 01/03/25 14:33 Height 5 ft 4 in Weight 121 lb 11.123 oz BMI 20.9 BP 110/60 Blood Pressure Location Lt brachial Position Sitting Pulse 70 Pulse Source Pulse Oximeter Pulse Oximetry (%) 98 Oxygen Delivery Method Room Air Intake Visit Reasons: 2 months Intake Note: presents to office today for joint pain for auto immune. Allergies amoxicillin Allergy (Unknown, Verified 01/03/25 14:33) Hives HPI HPI 2 months: Details: She had a visit with [facility] in [place] and reports that Yoel's test revealed that she has dry eyes. She started using eyedrops with improvement in her vision. She continues to have dry mouth. She is experiencing joint pain in her hands, right hip and bilateral feet. She feels that her right hip is going to pop. Denies joint swelling. Morning stiffness is 30 minutes. [facility] Medical History (Updated 01/03/25 @ 21:44 by Campbell Peter MD) Thyromegaly Anti-TPO antibodies present Pericardial effusion Pleural effusion Acute pancreatitis 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 Pain in joint involving multiple sites POTS (postural orthostatic tachycardia syndrome) Anxiety Hair loss Surgical History History of nasal surgery Family History Father HTN (hypertension) Mother Asthma FH: mental illness Paternal Grandfather Fibromyalgia Social History Household Members: Family Alcohol intake: never Patient Tobacco Use Status: Never used Tobacco Current occupational status: employed 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 Good respiratory effort MSK: Tender bilateral MCPs, right PIPs, bilateral wrists, bilateral elbows, bilateral shoulders, bilateral MTPs. No synovitis. Normal range of motion of upper extremity and lower extremity. Left external rotation of hip is greater than right. Tender right groin region. Assessment & Plan Assessment & Plan (1) Polyarthritis: Comment: She has history of sicca symptoms, fatigue, malar rash, Raynaud's phenomenon and polyarthralgias. SSA/SSB neg 10/2023, negative LATASHA x3, rheumatoid factor without cytopenias or elevated inflammatory markers on current workup. She has a prior history of leukopenia and low C4, which can occur in Sjogren syndrome. Most current workup for SLE and IgG4-RD is unremarkable. She reports that recent Yoel's test was positive for ocular Sjogren's syndrome. I do not have report. If Yoel's test is positive, I will further evaluate for Sjogren syndrome with minor salivary gland biopsy. Code(s): M13.0 - Polyarthritis, unspecified Category: Medical Plan: Requesting eye exam from [facility] Yoel's testing If eye exam reveals positive Yoel's test, I will pursue minor salivary gland biopsy. She is an established patient of ENT surgeons of [facility] Continue eye drops per Optometry/chemical preparer X-rays of bilateral hands and feet ordered Return to clinic in 3 months (2) Right hip pain: Comment: DDX ligament/muscular strain versus femoroacetabular syndrome Code(s): M25.551 - Pain in right hip Category: Medical Plan: Right hip x-ray ordered. I will review results prior to ordering PT for hip strengthening (3) Transaminitis: Comment: Mild elevation in ALT 35 with normal less than 31. Improved from her hospitalizations earlier on in the year when she presented with acute pancreatitis. Code(s): R74.01 - Elevation of levels of liver transaminase levels Category: Medical Plan: Avoid Tylenol for pain control. She is currently using it sparingly for joint pain Orders: Orders XR Foot Carson 3V Today M13.0 - Polyarthritis, unspecified, M25.551 - Pain in right hip XR hip RT min 2V Today M13.0 - Polyarthritis, unspecified, M25.551 - Pain in right hip XR Hand Carson 2V Today M13.0 - Polyarthritis, unspecified, M25.551 - Pain in right hip Coding Level of Care Code Est Pt Level 4 (64774) Complex EM visit Add On G2211 Diagnoses Polyarthritis M13.0 Right hip pain M25.551 Transaminitis R74.01
--- OUTSIDE RECORDS SUMMARY | 2025-01-03 14:32 | XMS_ITS | Patient Health Record ---
Author Organization [facility] Address [address] [place] [address] Care Team Providers Care Manager Alliance Name Role Phone SHELLY DUKES Primary Care Provider Jesus Abbasi Unavailable [phone] Katie Blancas Unavailable [phone] Allergies Allergen (clinical drug ingredient) Drug/Non Drug Allergy documented on EMR Reaction Allergy Type Onset Date Status amoxicillin Amoxicillin hives Drug Allergy Act poncho Reason For Referral Reason please evaluate and treat Please evaluate and treat Diagnosis 1 Tinea unguium (B35.1 ) Referral Organization [facility] Referring Provider First Name Katie Referring Provider Last Name Yonny Referred Provider Specialty Podiatry General Notes Please call the vincent ent to schedule the appointment, [facility] contact them at [phone], Elvie Landers 10/26/2024 04:33:01 PM > Referral Priority Routine Reason the right intercosta l pain Please evaluate and treat Diagnosis 1 Intercostal pain (R0 7.82) Referral Organization [facility] Referring Provider First Name SHELLY Referring Provider Last Name ROSELINE Referring Provider Speciality Internal M edicine Referred Provider Specialty Pain Medicin e General Notes Please call the vincent ent to schedule the appointment, [facility] - [phone] Referral Priority Routine Medications Medication SIG (Take, Route, Frequency, Duration) Notes Start Date End Date Status oxyCODONE HCl 5 MG 1 tablet as needed Orally every 8 hrs; Duration: 3 days Partial Fill upon Patient Request 11/02/2024 Active Benzonatate 100 MG 1 capsule as needed Orally Three times a day; Duration: 7 days 08/27/2024 Not-Taking Fluticasone Propionate 50 MCG/ACT SPRAY 1 SPRAY INTO EACH NOSTRIL EVERY DAY; Duration: 90 Active SUMAtriptan Succinate 25 MG as directed Orally daily; Duration: 7 days As needed 08/27/2024 Active Ventolin HFA 108 (90 Base) MCG/ACT INHALE 1 PUFF PRN INTO THE LUNGS EVERY 4 HOURS; Duration: 30 days Active Diclofenac Sodium 3 % as directed Externally three times a day; Duration: 7 days applied to the right thumb 08/27/2024 Active clonazePAM 1 MG 1 tablet at bedtime Orally Active tiZANidine HCl 4 MG 1 tablet at bedtime as needed Orally Once a day; Duration: 14 days 09/03/2024 Not-Taking Biotin Active Azithromycin 250 MG as directed Orally 2 tablets on the first day, then 1 tablet daily; Duration: 5 days 09/03/2024 Not-Taking Levocetirizine Dihydrochloride 5 MG TAKE 1 TABLET BY MOUTH EVERY DAY IN THE EVENING FOR 30 DAYS; Duration: 90 Active Vitamin D 25 MCG (1000 UT) 1 tablet Orally Once a day Active Doxycycline Hyclate 100 MG 1 capsule Orally Twice a day; Duration: 7 days 08/27/2024 Not-Taking cloNIDine HCl 0.1 MG 1 tablet Orally Once a day Active traZODone HCl 150 MG 1 tablet at bedtime Orally Once at night Active Gabapentin 600 MG 1 capsule Orally 3 TIMES A DAY 06/02/2023 Active Acetaminophen-Codeine 300-30 MG 1 tablet as needed Orally 3 times a day; Duration: 5 days 11/02/2024 Active hydrOXYzine HCl 50 MG 1 tablet as needed Orally Once a day Active Social History Tobacco Use: Social History Observation Description Date Details (start date - stop date) Never Smoker NA - NA Tobacco Use/Smoking Question Answer Notes Are you a nonsmoker Problems Problem Type SNOMED Code ICD Code Onset Dates Problem Status W/U Status Risk Notes Problem Thyrotoxicosis (93623654) Thyrotoxicosis, unspecified without thyrotoxic crisis or storm (E05.90) Active confirmed Problem Vitamin D deficiency (64520770) Vitamin D deficiency, unspecified (E55.9) Active confirmed Problem Opioid dependence (83586934) Opioid dependence, uncomplicated (F11.20) Active confirmed Problem Generalized anxiety disorder (46381316) Generalized anxiety disorder (F41.1) Active confirmed Problem Chronic migraine without aura, non-refractory (disorder) (670787126156761) Migraine without aura, not intractable, without status migrainosus (G43.009) Active confirmed Problem Refractory migraine with aura (095789174) Migraine with aura, intractable, without status migrainosus (G43.119) Active confirmed Problem Chronic sinusitis (09683557) Chronic sinusitis, unspecified (J32.9) Active confirmed Vital Signs Heart Rate 85 /min 10/30/2024 Temperature 97.7 degrees Fahrenheit 10/30/2024 Oximetry 98 % 10/30/2024 Blood pressure diastolic 70 mm Hg 10/30/2024 Height 64 in 10/30/2024 Blood pressure systolic 112 mm Hg 10/30/2024 Weight 121 lbs 10/30/2024 BMI 20.77 kg/m2 10/30/2024 Encounters Encounter Location Date Provider Diagnosis [address] [place] [address] 09/12/2024 Jesus Abbasi [address] [place] [address] 06/04/2024 BRAVO GUL [address] [place] [address] 08/27/2024 Aromonique Alajia Acute sinusitis, unspecified J01.90 and Migraine with aura, intractable, without status migrainosus G43.[address] [place] [address] 09/03/2024 BRAVO GUL Cough, unspecified R05.9 and Intercostal pain R07.[address] [place] [address] 10/24/2024 Ghadeer Mazloum Chronic sinusitis, unspecified J32.9 ; Abdominal pain in female R10.9 and Tinea unguium B35.[address] [place] [address] 10/30/2024 BRAVO GUL Abdominal pain R10.[address] [place] [address] 08/27/2024 [facility] [address] [place] [address] 08/30/2024 Aroosa Alam Migraine with aura, intractable, without status migrainosus G43.119 [facility] [address] [place] [address] 09/03/2024 [facility] [address] [place] [address] 09/12/2024 [facility] [address] [place] [address] 10/08/2024 [facility] Acute pancreatitis without necrosis or infection, unspecified K85.90 [facility] [address] [place] [address] 10/15/2024 [facility] [address] [place] [address] 10/24/2024 [facility] [address] [place] [address] 10/26/2024 [facility] [address] [place] [address] 10/28/2024 BRAVO GUL Acute pancreatitis without necrosis or infection, unspecified K85.[address] [place] [address] 10/28/2024 BRAVO GUL Acute pancreatitis without necrosis or infection, unspecified K85.90 [facility] [address] [place] [address] 10/29/2024 [facility] [address] [place] [address] 11/01/2024 [facility] [address] [place] [address] 11/02/2024 [facility]VO [facility] Abdominal pain R10.9 [facility] [address] [place] [address] 11/05/2024 SHELLY DUKES [facility] [address] [place] [address] 11/02/2024 Katie Blancas Acute pancreatitis without necrosis or infection, unspecified K85.90 [facility] [address] [place] [address] 11/02/2024 SHELLY DUKES Acute pancreatitis without necrosis or infection, unspecified K85.90 [facility] [address] [place] [address] 11/02/2024 SHELLY DUKES Assessments Encounter Date Diagnosis [...] taking NSAID therapy, and apply Voltaren cream. 10/30/2024 Abdominal pain (ICD-10 - R10.9) Eugenia is 29 years old lady with generalized anxiety disorder and follows up with psychiatrist, migraine headaches and opioid dependence in the past and has been sober for the past 6 years is here today for recurrent abdominal pain. She went to [facility] emergency room and then recently she went to [facility] emergency room and she had CT scan of the abdomen and pelvis with contrast with no significant finding except for mild right pleural effusion, mild pericardial effusion and no signs of acute pancreatitis but she has pancreatic devisum and history of pancreatitis in [place] a few months ago. Her lipase and [...] discharge paperwork reviewed and questions answered 10/24/2024 Chronic sinusitis, unspecified (ICD-10 - J32.9) Ms. Hightower is a 29 year old lady with vitamin D deficiency, migraine headaches, mood disorder/anxiety disorder, insomnia and opioid use disorder is here today for For follow-up on her recent discharge from [facility]. Patient was seen in the ER [...] abdominal pain. We will obtain records from [facility] for review Chronic sinusitis - We [...] For follow-up on her recent discharge from [facility]. Patient was seen in the ER for [...] abdominal pain. We will obtain records from [facility] for review Chronic sinusitis - We [...] on her recent discharge from [facility]. Patient was seen in the ER [...] abdominal pain. We will obtain records from [facility] for review Chronic sinusitis - We [...] PANEL 06/02/2022 C-REACTIVE PROTEIN 06/02/2022 DNA (DOUBLE-STRANDED, HAVASUPAI) ANTIBODY 1 08/02/2021 LIPID PANEL 06/02/2022 RHEUMATOID [...] Insured Coverage Start Date Coverage End Date [facility]) [address] [address] [place] [address] [id number] Eugenia Hightower Self - patient is the insured Medical (General) History Medical History History ICD Code hypertension hyperthyroidism insomnia Opioid use disorder Generalized anxiety disorder/mood disord er, Dr. Saldana Chronic insomnia Migraine headaches Vitamin D deficiency Personal history of COVID-19
[2025-01-03 14:33] VITALS: BP 110/60; PULSE 70; O2SAT 98; BMI 20.9
--- OUTSIDE RECORDS SUMMARY | 2025-01-03 14:33 | XMS_ITS | Data Portability ---
Author Organization [employer] [place] Address [address] [place] [address] Assessment Encounter Date Assessment Date Assessment LastModified [...] UDS NEG Seeing mental health prescriber @ [facility] - stable on current medications per patient. 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 - Site: [facility] - Lot #: [id number] - Exp. Date: 07/02/23 Sublocade dose 25 [...] of amphetamine Seeing mental health prescriber @ [facility] - stable on current medications per patient. 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 - Site: [facility] - Lot #: [id number] - Exp. Date: 06/02/23 PLAN (narrative, if [...] states she plans to start traveling the after she has completed the 3 month follow up She states she understands that she can call MAT provider anytime to restart tx if needed UDS + amphetamine- NEG on confirmation Denies use of amphetamine Seeing mental health prescriber @ [facility] - stable on current medications per patient. 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 Lab drug screen, urine 2022 023 [facility], [address] [place] [address], [address], 3 10:56:05 test, urine [address], [address], 3 14:43:59 drug screen, urine 2022 023 [facility], [address] [place] [address], [address], 3 05:45:06 test, urine 2022 023 [facility], [address], 3 15:37:12 drug screen, urine 2022 023 [facility], [address] [place] [address], [address], 3 13:11:53 test, urine 2022 023 [email or web address], [address], 3 14:40:45 drug screen, urine 2021 022 [facility], [address] [place], [address], 11:14:53 test, urine 2021 [facility], [address] [place] [address], [address], 11:13:49 drug screen, urine 2021 [facility], [address] [place], [address], 09:31:40 test, urine 2021 [email or web address] alcaraz [facility], [address], 16:20:30 Referral None recorded. Procedures None recorded. Surgeries None recorded. Imaging None recorded. Medication Orders None recorded. Patient TargetsNo targets recorded. Patient Instructions Encounter Date Encounter Id Patient Instructions Last Modified By Organization Details Last Modified Time 05/10/2022 [id number] Education provid ed at today's visit included: [...] [email or web address] Not available 05/10/2022 16:07:51 06/08/2022 [id number] Education provid ed at today's visit included: [...] [email or web address] Not available 06/08/2022 15:51:30 07/07/2022 [id number] Education provid ed at today's visit included: [...] and coordinating care. [email or web address] Not available 07/07/2022 14:29:46 08/05/2022 [id number] Education provid ed at today's visit included: [...] [email or web address] Not available 08/05/2022 15:32:15 09/01/2022 [id number] Education provid ed at today's visit included: [...] ve NG/mL 1,000 Tatianna brown by LESTER BUI-WE ISS Not Available [facility] [place] [address] [place], [address], 04/14/2022 09:05:52 04/12/20 22 04/12/2022 BUPRE NORPH INE PT SCREE ISHMAEL benzodiazapi everton Negati ve NG/mL 200 Not Available [facility] [facility] [address] [place], [address], 04/14/2022 09:05:52 04/12/20 22 04/12/2022 BUPRE NORPH INE PT SCREE ISHMAEL buprenorphin e Positi ve NG/mL 5 Not Available [place] [address] [place], [address], 04/14/2022 09:05:52 04/12/20 22 04/12/2022 BUPRE NORPH INE PT SCREE ISHMAEL cocaine metabolite Negati ve NG/mL 150 Not Available [place] [address] [place], [address], 04/14/2022 09:05:52 04/12/20 22 04/12/2022 BUPRE NORPH INE PT SCREE ISHMAEL opiates Negati ve NG/mL 300 Not Available [place] [address] [place], [address], 04/14/2022 09:05:52 04/12/20 22 04/12/2022 BUPRE NORPH INE PT SCREE ISHMAEL oxycodone Negati ve NG/mL 300 Not Available [place] [address] [place], [address], 04/14/2022 09:05:52 04/12/20 22 04/12/2022 BUPRE NORPH INE PT SCREE ISHMAEL fentanyl Negati ve NG/mL 2 Not Available [place] [address] [place], [address], 04/14/2022 09:05:52 04/12/20 22 04/12/2022 BUPRE NORPH INE PT SCREE ISHMAEL ethyl alcohol Negati ve mg/dL 10 Not Available [place] [address] [place], [address], 04/14/2022 09:05:52 04/12/20 22 04/12/2022 BUPRE NORPH INE PT SCREE ISHMAEL methadone metabolite Negati ve NG/mL 300 Not Available [place] [address] [place], [address], 04/14/2022 09:05:52 04/12/20 22 04/12/2022 BUPRE NORPH INE PT SCREE ISHMAEL cannabinoids (THC) Negati ve NG/mL 50 Not Available [place] [address] [place], [address], 04/14/2022 09:05:52 04/12/20 22 04/12/2022 BUPRE NORPH INE PT SCREE ISHMAEL urine creatinine 287.3 mg/dL >20 Not Available [place] [address] [place], [address], 04/14/2022 09:05:52 04/12/20 22 04/12/2022 BUPRE NORPH INE PT SCREE ISHMAEL urine pH 6.10 4.5-9. 0 Not Available [place] [address] [place], [address], 04/14/2022 09:05:52 04/12/20 22 04/12/2022 BUPRE NORPH INE PT SCREE ISHMAEL specific gravity 1.034 1.003- 1.035 Not Available [place] [address] [place], [address], 04/14/2022 09:05:52 04/12/20 22 04/12/2022 PRESC RIBED DRUG CONFI RMATI ON BUPRE NORPH INE 1, QN, U buprenorphin e 225.6 NG/mL 10 Elect solitario rodrigues d by LESTER KEMP NA-WE ISS Not Available [place] [address] [place], [address], 04/15/2022 06:09:06 04/12/20 22 04/12/2022 PRESC RIBED DRUG CONFI RMATI ON BUPRE NORPH INE 1, QN, U norbuprenorp liliane 103.7 NG/mL 10 Not Available [place] [address] [place], [address], 04/15/2022 06:09:06 04/12/20 22 04/12/2022 PRESC RIBED DRUG CONFI RMATI ON BUPRE NORPH INE 1, QN, U legend Abbrev iation s LOW - Detec courtney but unqua ntifi able OLR - Outsi de of linea r range ATR - Addit ional Testi ng Requi red Not Available [place] [address] [place], [address], 04/15/2022 06:09:06 04/12/20 22 04/12/2022 PRESC RIBED DRUG CONFI RMATI ON BUPRE NORPH INE 1, QN, U billing only ([id number]) Billin g Only Not Available [facility] [place], [address], 04/15/2022 06:09:06 05/10/20 22 05/10/2022 BUPRE NORPH INE PT SCREE ISHMAEL amphetamines Positi ve NG/mL 1,000 abnormal Elect solitario rodrigues d by LESTER KEMP NA-WE ISS Not Available [place] [address] [place], [address], 05/12/2022 09:31:40 05/10/20 22 05/10/2022 BUPRE NORPH INE PT SCREE ISHMAEL benzodiazapi everton Negati ve NG/mL 200 Not Available [facility] [place], [address], 05/12/2022 09:31:40 05/10/20 22 05/10/2022 BUPRE NORPH INE PT SCREE ISHMAEL buprenorphin e Positi ve NG/mL 5 Not Available [facility] [place], [address], 05/12/2022 09:31:40 05/10/20 22 05/10/2022 BUPRE NORPH INE PT SCREE ISHMAEL cocaine metabolite Negati ve NG/mL 150 Not Available [facility], [address], 05/12/2022 09:31:40 05/10/20 22 05/10/2022 BUPRE NORPH INE PT SCREE ISHMAEL opiates Negati ve NG/mL 300 Not Available [place] [address] [place], [address], 05/12/2022 09:31:40 05/10/20 22 05/10/2022 BUPRE NORPH INE PT SCREE ISHMAEL oxycodone Negati ve NG/mL 300 Not Available [place] [address] [place], [address], 05/12/2022 09:31:40 05/10/20 22 05/10/2022 BUPRE NORPH INE PT SCREE ISHMAEL fentanyl Negati ve NG/mL 2 Not Available [place] [address] [place], [address], 05/12/2022 09:31:40 05/10/20 22 05/10/2022 BUPRE NORPH INE PT SCREE ISHMAEL ethyl alcohol Negati ve mg/dL 10 Not Available [place] [address] [place], [address], 05/12/2022 09:31:40 05/10/20 22 05/10/2022 BUPRE NORPH INE PT SCREE ISHMAEL methadone metabolite Negati ve NG/mL 300 Not Available [facility], [address], 05/12/2022 09:31:40 05/10/20 22 05/10/2022 BUPRE NORPH INE PT SCREE ISHMAEL cannabinoids (THC) Negati ve NG/mL 50 Not Available [place] [address] [place], [address], 05/12/2022 09:31:40 05/10/20 22 05/10/2022 BUPRE NORPH INE PT SCREE ISHMAEL urine creatinine 357.1 mg/dL >20 Not Available [place] [address] [place], [address], 05/12/2022 09:31:40 05/10/20 22 05/10/2022 BUPRE NORPH INE PT SCREE ISHMAEL urine pH 5.90 4.5-9. 0 Not Available [place] [address] [place], [address], 05/12/2022 09:31:40 05/10/20 22 05/10/2022 BUPRE NORPH INE PT SCREE ISHMAEL specific gravity 1.036 1.003- 1.035 high Not Available [place] [address] [place], [address], 05/12/2022 09:31:40 05/10/20 22 05/10/2022 AMPHE TAMIN ES, QN, U amphetamine Negati ve NG/mL 250 Elect solitario rodrigues d by LESTER KEMP NA-WE ISS Not Available [place] [address] [address] [place], [address], 05/14/2022 07:28:01 05/10/20 22 05/10/2022 AMPHE TAMIN ES, QN, U methamphetam ine Negati ve NG/mL 250 Not Available [facility] Debbie [place]ope[place], [address], 05/14/2022 07:28:01 05/10/20 22 05/10/2022 AMPHE TAMIN ES, QN, U mda Negati ve NG/mL 250 Not Available [place] [address] [place], [address], 05/14/2022 07:28:01 05/10/20 22 05/10/2022 AMPHE TAMIN ES, QN, U legend Abbrev iation s OLR - Outsi de of linea r range Not Available [place] [address] [address] [place] M[place]ain, [address], 05/14/2022 07:28:01 05/10/20 22 05/10/2022 AMPHE TAMIN ES, QN, U billing only ([id number]) Billin g Only Not Available [place] [address] [place], [address], 05/14/2022 07:28:01 05/10/20 22 05/10/2022 PRESC RIBED DRUG CONFI RMATI ON BUPRE NORPH INE 1, QN, U buprenorphin e 428.5 NG/mL 10 Elect solitario rodrigues d by LESTER KEMP NA-WE ISS Not Available [place] [address] [place], [address], 05/14/2022 07:28:02 05/10/20 22 05/10/2022 PRESC RIBED DRUG CONFI RMATI ON BUPRE NORPH INE 1, QN, U norbuprenorp liliane 261.3 NG/mL 10 Not Available [place] [address] [place], [address], 05/14/2022 07:28:02 05/10/20 22 05/10/2022 PRESC RIBED DRUG CONFI RMATI ON BUPRE NORPH INE 1, QN, U legend Abbrev iation s LOW - Detec courtney but unqua ntifi able OLR - Outsi de of linea r range ATR - Addit ional Testi ng Requi red Not Available [place] [address] [place], [address], 05/14/2022 07:28:02 05/10/20 22 05/10/2022 pregn vasquez test, urine HCG negati ve Not Available [facility] [address], [address], 05/10/2022 16:05:50 06/08/20 22 06/08/2022 BUPRE NORPH INE PT SCREE ISHMAEL amphetamines Positi ve NG/mL 1,000 abnormal Elect solitario rodrigues d by LESTER KEMP NA-WE ISS Not Available [place] [address] [place], [address], 06/10/2022 11:14:53 06/08/20 22 06/08/2022 BUPRE NORPH INE PT SCREE ISHMAEL benzodiazapi everton Negati ve NG/mL 200 Not Available [facility], [address], 06/10/2022 11:14:53 06/08/20 22 06/08/2022 BUPRE NORPH INE PT SCREE ISHMAEL buprenorphin e Positi ve NG/mL 5 Not Available [facility], [address], 06/10/2022 11:14:53 06/08/20 22 06/08/2022 BUPRE NORPH INE PT SCREE ISHMAEL cocaine metabolite Negati ve NG/mL 150 Not Available [facility], [address], 06/10/2022 11:14:53 06/08/20 22 06/08/2022 BUPRE NORPH INE PT SCREE IHSMAEL opiates Negati ve NG/mL 300 Not Available [facility], [address], 06/10/2022 11:14:53 06/08/20 22 06/08/2022 BUPRE NORPH INE PT SCREE ISMHAEL oxycodone Negati ve NG/mL 300 Not Available [facility], [address], 06/10/2022 11:14:53 06/08/20 22 06/08/2022 BUPRE NORPH INE PT SCREE ISHMAEL fentanyl Negati ve NG/mL 2 Not Available [facility], [address], 06/10/2022 11:14:53 06/08/20 22 06/08/2022 BUPRE NORPH INE PT SCREE ISHMAEL ethyl alcohol Negati ve mg/dL 10 Not Available [facility], [address], 06/10/2022 11:14:53 06/08/20 22 06/08/2022 BUPRE NORPH INE PT SCREE ISHMAEL methadone metabolite Negati ve NG/mL 300 Not Available [facility] [address] [place], [address], 06/10/2022 11:14:53 06/08/20 22 06/08/2022 BUPRE NORPH INE PT SCREE ISHMAEL cannabinoids (THC) Negati ve NG/mL 50 Not Available [facility] [address] [place], [address], 06/10/2022 11:14:53 06/08/20 22 06/08/2022 BUPRE NORPH INE PT SCREE ISHMAEL urine creatinine 284.9 mg/dL >20 Not Available [place] [address] [place], [address], 06/10/2022 11:14:53 06/08/20 22 06/08/2022 BUPRE NORPH INE PT SCREE ISHMAEL urine pH 6.70 4.5-9. 0 Not Available [place] [address] [place], [address], 06/10/2022 11:14:53 06/08/20 22 06/08/2022 BUPRE NORPH INE PT SCREE ISHMAEL specific gravity 1.035 1.003- 1.035 Not Available [place] [address] [place], [address], 06/10/2022 11:14:53 06/08/20 22 06/08/2022 PRESC RIBED DRUG CONFI RMATI ON BUPRE NORPH INE 1, QN, U buprenorphin e 333.9 NG/mL 10 Tatianna brown by LESTER PERSON Not Available [place] [address] [place], [address], 06/14/2022 08:11:13 06/08/20 22 06/08/2022 PRESC RIBED DRUG CONFI RMATI ON BUPRE NORPH INE 1, QN, U norbuprenorp liliane 383.6 NG/mL 10 Not Available [place] [address] [place], [address], 06/14/2022 08:11:13 06/08/20 22 06/08/2022 [facility] RIBED DRUG CONFI RMATI ON BUPRE NORPH INE 1, QN, U legend Abbrev iation s LOW - Detec courtney but unqua ntifi able OLR - Outsi de of linea r range ATR - Addit ional Testi ng Requi red Not Available [place] [address] [place], [address], 06/14/2022 08:11:13 06/08/20 22 06/08/2022 [facility] RIBED DRUG CONFI RMATI ON BUPRE NORPH INE 1, QN, U billing only ([id number]) Billin g Only Not Available [facility], [address], 06/14/2022 08:11:13 06/08/20 22 06/08/2022 AMPHE TAMIN ES, QN, U amphetamine Negati ve NG/mL 250 Elect solitario rodrigues d by LESTER KEMP NA-WE ISS Not Available [place] [address] [place], [address], 06/14/2022 08:11:13 06/08/20 22 06/08/2022 AMPHE TAMIN ES, QN, U methamphetam ine Negati ve NG/mL 250 Not Available [facility], [address], 06/14/2022 08:11:13 06/08/20 22 06/08/2022 AMPHE TAMIN ES, QN, U mda Negati ve NG/mL 250 Not Available [facility], [address], 06/14/2022 08:11:13 06/08/20 22 06/08/2022 AMPHE TAMIN ES, QN, U legend Abbrev iation s OLR - Outsi de of linea r range Not Available [place] [address] [place], [address], 06/14/2022 08:11:13 06/10/20 22 06/10/2022 pregn vasquez test, urine HCG negati ve Not Available [facility] [address], [address], 06/08/2022 15:48:34 07/07/19 23 07/07/2022 BUPRE NORPH INE PT SCREE ISHMAEL amphetamines Negati ve NG/mL 1,000 Elect solitario rodrigues d by LESTER KEMP NA-WE ISS Not Available [place] [address] [place], [address], 07/09/2022 13:11:53 07/07/19 23 07/07/2022 BUPRE NORPH INE PT SCREE ISHMAEL benzodiazapi everton Negati ve NG/mL 200 Not Available [facility], [address], 07/09/2022 13:11:53 07/07/19 23 07/07/2022 BUPRE NORPH INE PT SCREE ISHMAEL buprenorphin e Positi ve NG/mL 5 Not Available [facility], [address], 07/09/2022 13:11:53 07/07/19 23 07/07/2022 BUPRE NORPH INE PT SCREE ISHMAEL cocaine metabolite Negati ve NG/mL 150 Not Available [facility], [address], 07/09/2022 13:11:53 07/07/19 23 07/07/2022 BUPRE NORPH INE PT SCREE ISHMEAL opiates Negati ve NG/mL 300 Not Available [facility], [address], 07/09/2022 13:11:53 07/07/19 23 07/07/2022 BUPRE NORPH INE PT SCREE ISHMAEL oxycodone Negati ve NG/mL 300 Not Available [place] [address] [place], [address], 07/09/2022 13:11:53 07/07/19 23 07/07/2022 BUPRE NORPH INE PT SCREE ISHMAEL fentanyl Negati ve NG/mL 2 Not Available [place] [address] [place], [address], 07/09/2022 13:11:53 07/07/19 23 07/07/2022 BUPRE NORPH INE PT SCREE ISHMAEL ethyl alcohol Negati ve mg/dL 10 Not Available [place] [address] [place], [address], 07/09/2022 13:11:53 07/07/19 23 07/07/2022 BUPRE NORPH INE PT SCREE ISHMAEL methadone metabolite Negati ve NG/mL 300 Not Available [facility], [address], 07/09/2022 13:11:53 07/07/19 23 07/07/2022 BUPRE NORPH INE PT SCREE ISHMAEL cannabinoids (THC) Positi ve NG/mL 50 abnormal Not Available [facility], [address], 07/09/2022 13:11:53 07/07/19 23 07/07/2022 BUPRE NORPH INE PT SCREE ISHMAEL urine creatinine 213.0 mg/dL >20 Not Available [place] [address] [place], [address], 07/09/2022 13:11:53 07/07/19 23 07/07/2022 BUPRE NORPH INE PT SCREE ISHMAEL urine pH 6.20 4.5-9. 0 Not Available [place] [address] [place], [address], 07/09/2022 13:11:53 07/07/19 23 07/07/2022 BUPRE NORPH INE PT RHEA QUIÑONSE specific gravity 1.036 1.003- 1.035 high Not Available [place] [address] [place], [address], 07/09/2022 13:11:53 07/07/19 23 07/07/2022 PRESC RIBED DRUG CONFI RMATI ON BUPRE NORPH INE 1, QN, U buprenorphin e 156.3 NG/mL 10 Elect solitario rodrigues d by LESTER KEMP NA-WE ISS Not Available [place] [address] [place], [address], 07/13/2022 10:49:19 07/07/19 23 07/07/2022 PRESC RIBED DRUG CONFI RMATI ON BUPRE NORPH INE 1, QN, U norbuprenorp liliane 160.8 NG/mL 10 Not Available [place] [address] [place], [address], 07/13/2022 10:49:19 07/07/19 23 07/07/2022 PRESC RIBED DRUG CONFI RMATI ON BUPRE NORPH INE 1, QN, U legend Abbrev iation s LOW - Detec courtney but unqua ntifi able OLR - Outsi de of linea r range ATR - Addit ional Testi ng Requi red Not Available [place] [address] [place], [address], 07/13/2022 10:49:19 07/07/19 23 07/07/2022 PRESC RIBED DRUG CONFI RMATI ON BUPRE NORPH INE 1, QN, U billing only ([id number]) Billin g Only Not Available [place] [address] [place], [address], 07/13/2022 10:49:19 07/07/19 23 07/07/2022 pregn vasquez test, urine HCG negati ve Not Available [facility] [address], [place], [address], 07/07/2022 14:23:58 08/05/19 23 08/05/2022 BUPRE NORPH INE PT SCREE ISHMAEL amphetamines Positi ve NG/mL 1,000 abnormal Elect solitario rodrigues d by LESTER KEMP NA-WE ISS Not Available [place] [address] [place], [address], 08/10/2022 05:45:06 08/05/19 23 08/05/2022 BUPRE NORPH INE PT SCREE ISHMAEL benzodiazapi everton Positi ve NG/mL 200 abnormal Not Available [place] [address] [place], [address], 08/10/2022 05:45:06 08/05/19 23 08/05/2022 BUPRE NORPH INE PT SCREE ISHMAEL buprenorphin e Positi ve NG/mL 5 Not Available [place] [address] [place], [address], 08/10/2022 05:45:06 08/05/19 23 08/05/2022 BUPRE NORPH INE PT SCREE ISHMAEL cocaine metabolite Negati ve NG/mL 150 Not Available [place] [address] [place], [address], 08/10/2022 05:45:06 08/05/19 23 08/05/2022 BUPRE NORPH INE PT SCREE ISHMAEL opiates Negati ve NG/mL 300 Not Available [place] [address] [place], [address], 08/10/2022 05:45:06 08/05/19 23 08/05/2022 BUPRE NORPH INE PT SCREE ISHMAEL oxycodone Negati ve NG/mL 300 Not Available [place] [address] [place], [address], 08/10/2022 05:45:06 08/05/19 23 08/05/2022 BUPRE NORPH INE PT SCREE ISHMAEL fentanyl Negati ve NG/mL 2 Not Available [place] [address] [place], [address], 08/10/2022 05:45:06 08/05/19 23 08/05/2022 BUPRE NORPH INE PT SCREE ISHMAEL ethyl alcohol Negati ve mg/dL 10 Not Available [place] [address] [place], [address], 08/10/2022 05:45:06 08/05/19 23 08/05/2022 BUPRE NORPH INE PT SCREE ISHMAEL methadone metabolite Negati ve NG/mL 300 Not Available [place] [address] [place], [address], 08/10/2022 05:45:06 08/05/19 23 08/05/2022 BUPRE NORPH INE PT SCREE ISHMAEL cannabinoids (THC) Positi ve NG/mL 50 abnormal Not Available [place] [address] [place], [address], 08/10/2022 05:45:06 08/05/19 23 08/05/2022 BUPRE NORPH INE PT SCREE ISHMAEL urine creatinine 204.1 mg/dL >20 Not Available [place] [address] [place], [address], 08/10/2022 05:45:06 08/05/19 23 08/05/2022 BUPRE NORPH INE PT SCREE ISHMAEL urine pH 5.70 4.5-9. 0 Not Available [place] [address] [place], [address], 08/10/2022 05:45:06 08/05/19 23 08/05/2022 BUPRE NORPH INE PT SCREE ISHMAEL specific gravity 1.032 1.003- 1.035 Not Available [place] [address] [place], [address], 08/10/2022 05:45:06 08/05/19 23 08/05/2022 AMPHE TAMIN ES, QN, U amphetamine Negati ve NG/mL 250 Elect ronic allkimberly lilia d by LESTER KEMP NA-WE ISS Not Available [place] [address] [place], [address], 08/12/2022 09:42:11 08/05/19 23 08/05/2022 AMPHE TAMIN ES, QN, U methamphetam ine Negati ve NG/mL 250 Not Available [facility], [address], 08/12/2022 09:42:11 08/05/19 23 08/05/2022 AMPHE TAMIN ES, QN, U mda Negati ve NG/mL 250 Not Available [facility], [address], 08/12/2022 09:42:11 08/05/19 23 08/05/2022 AMPHE TAMIN ES, QN, U legend Abbrev iation s OLR - Outsi de of linea r range Not Available [place] [address] [place], [address], 08/12/2022 09:42:11 08/05/19 23 08/05/2022 AMPHE TAMIN ES, QN, U billing only ([id number]) Billin g Only Not Available [place] [address] [place], [address], 08/12/2022 09:42:11 08/05/19 23 08/05/2022 BENZO DIAZE PINES , QN, U alpha-hydrox yalprazolam Negati ve NG/mL 25 Elect solitario [place] lliia d by LESTER KEMP NA-WE ISS Not Available [place] [address] [place], [id number], 08/12/2022 09:42:11 08/05/19 23 08/05/2022 BENZO DIAZE PINES , QN, U 7-aminoclona zepam 1619.1 NG/mL 40 high Not Available [place] [address] [address] [place], [id number], 08/12/2022 09:42:11 08/05/19 23 08/05/2022 BENZO DIAZE PINES , QN, U lorazepam Negati ve NG/mL 50 Not Available [facility] [place], [id number], 08/12/2022 09:42:11 08/05/19 23 08/05/2022 BENZO DIAZE PINES , QN, U nordiazepam Negati ve NG/mL 50 Not Available [facility], [address], 08/12/2022 09:42:11 08/05/19 23 08/05/2022 BENZO DIAZE PINES , QN, U temazepam Negati ve NG/mL 50 Not Available [facility] [place], [id number], 08/12/2022 09:42:11 08/05/19 23 08/05/2022 BENZO DIAZE PINES , QN, U legend Abbrev iation s OLR - Outsi de of linea r range Not Available [place] [address] [place], [address], 08/12/2022 09:42:11 08/05/19 23 08/05/2022 PRESC RIBED DRUG CONFI RMATI ON BUPRE NORPH INE 1, QN, U buprenorphin e 92.2 NG/mL 10 Elect solitario rodrigues d by LESTER KEMP NA-WE ISS Not Available [place] [address] [place], [id number], 08/12/2022 09:42:12 08/05/19 23 08/05/2022 PRESC RIBED DRUG CONFI RMATI ON BUPRE NORPH INE 1, QN, U norbuprenorp liliane 114.0 NG/mL 10 Not Available [place] [address] [place], [address], 08/12/2022 09:42:12 08/05/19 23 08/05/2022 PRESC RIBED DRUG CONFI RMATI ON BUPRE NORPH INE 1, QN, U legend Abbrev iation s LOW - Detec courtney but unqua ntifi able OLR - Outsi de of linea r range ATR - Addit ional Testi ng Requi red Not Available [place] [address] [place], [address], 08/12/2022 09:42:12 08/05/19 23 08/05/2022 pregn vasquez test, urine HCG negati ve Not Available [facility] [address], [address], 08/05/2022 15:24:01 09/02/19 23 09/01/2022 BUPRE NORPH INE PT SCREE ISHMAEL amphetamines Positi ve NG/mL 1,000 abnormal Elect solitario rodrigues d by LESTER KEMP NA-WE ISS Not Available [address] [address] [place], [address], 09/02/2022 10:56:04 09/02/19 23 09/01/2022 BUPRE NORPH INE PT SCREE ISHMAEL benzodiazapi everton Positi ve NG/mL 200 abnormal Not Available [facility], [address], 09/02/2022 10:56:04 09/02/19 23 09/01/2022 BUPRE NORPH INE PT SCREE ISHMAEL buprenorphin e Positi ve NG/mL 5 Not Available [facility], [address], 09/02/2022 10:56:04 09/02/19 23 09/01/2022 BUPRE NORPH INE PT SCREE ISHMAEL cocaine metabolite Negati ve NG/mL 150 Not Available [facility], [address], 09/02/2022 10:56:04 09/02/19 23 09/01/2022 BUPRE NORPH INE PT SCREE ISHMAEL opiates Negati ve NG/mL 300 Not Available [address] [address] [place], [address], 09/02/2022 10:56:04 09/02/19 23 09/01/2022 BUPRE NORPH INE PT SCREE ISHMAEL oxycodone Negati ve NG/mL 300 Not Available [address] [address] [place], [address], 09/02/2022 10:56:04 09/02/19 23 09/01/2022 BUPRE NORPH INE PT SCREE ISHMAEL fentanyl Negati ve NG/mL 2 Not Available [facility], [address], 09/02/2022 10:56:04 09/02/19 23 09/01/2022 BUPRE NORPH INE PT SCREE ISHMAEL ethyl alcohol Negati ve mg/dL 10 Not Available [facility], [address], 09/02/2022 10:56:04 09/02/19 23 09/01/2022 BUPRE NORPH INE PT SCREE ISHMAEL methadone metabolite Negati ve NG/mL 300 Not Available [address] [address] [place], [address], 09/02/2022 10:56:04 09/02/19 23 09/01/2022 BUPRE NORPH INE PT SCREE ISHMAEL cannabinoids (THC) Positi ve NG/mL 50 abnormal Not Available [facility], [address], 09/02/2022 10:56:04 09/02/19 23 09/01/2022 BUPRE NORPH INE PT SCREE ISHMAEL urine creatinine 216.0 mg/dL >20 Not Available [address] [place] [address] [place], [address], 09/02/2022 10:56:04 09/02/19 23 09/01/2022 BUPRE NORPH INE PT SCREE ISHMAEL urine pH 5.90 4.5-9. 0 Not Available [address] [address] [place], [address], 09/02/2022 10:56:04 09/02/19 23 09/01/2022 BUPRE NORPH INE PT SCREE ISHMAEL specific gravity 1.029 1.003- 1.035 Not Available [address] [address] [place], [address], 09/02/2022 10:56:04 09/02/19 23 09/01/2022 AMPHE TAMIN ES, QN, U amphetamine Negati ve NG/mL 250 Elect solitario rodrigues d by LESTER KEMP NA-WE ISS Not Available [address] [address] [place], [address], 09/07/2022 07:12:38 09/02/19 23 09/01/2022 AMPHE TAMIN ES, QN, U methamphetam ine Negati ve NG/mL 250 Not Available [facility], [address], 09/07/2022 07:12:38 09/02/19 23 09/01/2022 AMPHE TAMIN ES, QN, U mda Negati ve NG/mL 250 Not Available [facility], [address], 09/07/2022 07:12:38 09/02/19 23 09/01/2022 AMPHE TAMIN ES, QN, U legend Abbrev iation s OLR - Outsi de of linea r range Not Available [address] [address] [place], [address], 09/07/2022 07:12:38 09/02/19 23 09/01/2022 AMPHE TAMIN ES, QN, U billing only ([id number]) Billin g Only Not Available [address] [address] [place], [address], 09/07/2022 07:12:38 09/02/19 23 09/01/2022 PRESC RIBED DRUG CONFI RMATI ON BUPRE NORPH INE 1, QN, U buprenorphin e 91.2 NG/mL 10 Elect solitario [place] lilia d by LESTER KEMP NA-WE ISS Not Available [address] [address] [place], [address], 09/07/2022 07:12:38 09/02/19 23 09/01/2022 PRESC RIBED DRUG CONFI RMATI ON BUPRE NORPH INE 1, QN, U norbuprenorp liliane 95.9 NG/mL 10 Not Available [address] [address] [place], [address], 09/07/2022 07:12:38 09/02/19 23 09/01/2022 PRESC RIBED DRUG CONFI RMATI ON BUPRE NORPH INE 1, QN, U legend Abbrev iation s LOW - Detec courtney but unqua ntifi able OLR - Outsi de of linea r range ATR - Addit ional Testi ng Requi red Not Available [address] [address] [place], [address], 09/07/2022 07:12:38 09/02/19 23 09/01/2022 BENZO DIAZE PINES , QN, U alpha-hydrox yalprazolam Negati ve NG/mL 25 Elect solitario [place] lilia d by LESTER KEMP NA-WE ISS Not Available [address] [address] [place], [address], 09/07/2022 07:12:39 09/02/19 23 09/01/2022 BENZO DIAZE [place] , QN, U 7-aminoclona zepam 662.7 NG/mL 40 high Not Available [address] [address] [address] [place], [address], 09/07/2022 07:12:39 09/02/19 23 09/01/2022 BENZO DIAZE [place] , QN, U lorazepam Negati ve NG/mL 50 Not Available [address] [address] [place], [address], 09/07/2022 07:12:39 09/02/19 23 09/01/2022 BENZO [place] , QN, U nordiazepam Negati ve NG/mL 50 Not Available [facility], [address], 09/07/2022 07:12:39 09/02/19 23 09/01/2022 BENZO [place] , QN, U temazepam Negati ve NG/mL 50 Not Available [facility] [place], [address], 09/07/2022 07:12:39 09/02/19 23 09/01/2022 BENZO DIAZE [place] , QN, U legend Abbrev iation s OLR - Outsi de of linea r range Not Available [address] [address] [place], [address], 09/07/2022 07:12:39 09/02/19 23 09/01/2022 pregn vasquez test, urine HCG negati ve Not Available [facility] [address] [place], [address], 09/01/2022 14:30:05 Result Notes None recorded. Problems Name Problem SNOMED Code Status Onset Date Resolution Date Notes Provider Name and Address Organization Details Recorded Time Insomnia 085820726 Active 2019 Not Available [facility] 1 10:09:00 Migraine 33016548 Active 2019 Not Available [facility] 1 10:09:00 Anxiety 47036356 Active 2019 Not Available [facility] 1 10:09:00 Opioid dependence 36857240 Active 2019 Not Available [facility] 1 10:09:00 Problem Notes None recorded. Procedures Surgical History Date Name Laterality Status Provider Name and Address Organization Details Recorded Time 09/01/2022 93257, G0480, G0481 completed [facility] 09/01/2022 14:24:21 08/05/2022 15494, G0480, G0481 completed Danniepalak [facility] 08/05/2022 15:19:14 07/07/2022 47300, G0480, G0481 [facility] 07/07/2022 14:18:49 06/08/2022 99838, G0480, G0481 completed [facility] 06/08/2022 15:37:43 05/10/2022 79836, G0480, G0481 completed Shaylaemely [facility] 05/10/2022 15:55:35 04/12/2022 37724, G0480, G0481 completed [facility] Carm[facility] 04/12/2022 15:53:06 03/15/2022 86177, G0480, G0481 completed [facility] Carmen [facility] 03/15/2022 15:23:47 02/11/2022 14241, G0480, G0481 completed [facility] 02/11/2022 15:04:07 01/14/2022 49819, G0480, G0481 completed [facility] Carmen [facility] 01/14/2022 15:04:41 12/17/2021 24912, G0480, G0481 completed Gabby Sharmin [facility] 12/17/2021 13:08:22 12/03/2021 76328, G0480, G0481 [facility]03[facility] 14:22:57 11/19/2021 15832, G0480, G0481 completed Emmanuelle Ann, GUILHERME [address] [place], [address], [facility] 11/19/2021 09:55:23 11/03/2021 12044, G0480, G[address] [facility] 11/03/2021 15:38:04 10/20/2021 24248, G0480, G[address] [facility] 10/20/2021 15:28:52 10/09/2021 47916, G0480, G0481 completed Doroteo George [facility] 10/09/2021 14:36:25 09/23/2021 56338, G0480, G04[address] [facility] 09/23/2021 14:54:59 09/08/2021 95854, G0480, G[address] [facility] 09/08/2021 14:57:18 09/01/2021 88403, G0480, G[address] [facility] 09/01/2021 14:40:04 08/25/2021 09400, G0480, G0481 completed Tanika Colon [facility] 08/25/2021 15:42:53 08/10/2021 23568, G0480, G0481 completed Emmanuelle Ann, HIDE COOKING OPERATOR [address] [place], [address], [facility] 08/10/2021 13:28:19 08/03/2021 95986, G0480, G0481 completed Gabby Finney [facility] 08/03/2021 13:26:53 Imaging Results None recorded. Procedure Notes None recorded. Medical Equipment None Reported. Allergies Allergen ID Allergen Name Allergen Category Reaction Reaction Severity Criticality Documentation Date Start Date Code Code System Note Provider Name and Address Organization Details Recorded Time 4661 amoxicill in medicatio n Not available Not available Not available 07/03/2021 723 RxNorm Not Available [facility] 1 10:33:24 6583 Suboxone medicatio n headache nausea palpitati ons tachycard ia Not available Not available Not available Not available Not available 08/03/2021 64839 0 RxNorm Emmanuelle Nicolas guillen, HIDE COOKING OPERATOR [address] [place], [address], [facility] 2 13:50:24 Medications Name Sig Start Date Stop Date Status Note LastModified by Organization Details LastModified Time clonidine HCl 0.1 mg tablet Take 1 tablet every day by oral route. 08/25 completed Not Available Not Available Not Available hydroxyzine HCl 50 mg tablet Take 1 tablet every day by oral route. active Not Available Not Available No t Available pramipexole 0.125 mg tablet Take 1 tablet 3 times a day by oral route as needed for 7 days. 09/23 completed Not Available Not Available Not Available hydroxyzine HCl 25 mg tablet Take 1 tablet 3 times a day by oral route as needed for 7 days. 09/23 completed Not Available Not Available Not Available ondansetron 4 mg disintegrat ing tablet [...] 07/07/2022 82 /min 98 % 98 % Bettyjoby Morales [facility] 07/07/2022 14:24:53 Date Recorded Heart rate Oxygen saturation Oxygen saturation in Arterial blood by Pulse oximetry Body temperature Provider Name and Address Organization Details Last Updated DateTime 08/05/2022 98 /min 98 % 98 % 97.6 [degF] Stas Escobartron [facility] 15:30:04 Date Recorded Heart rate Oxygen saturation Oxygen saturation in Arterial blood by Pulse oximetry Body temperature Provider Name and Address Organization Details Last Updated DateTime 05/10/2022 79 /min 99 % 99 % 98 [degF] Shayla Elena [facility] 16:05:33 Social History Question Answer Notes LastModified by Organizat ion Details LastModified Time *Housing Stable - Safe Information not available 08/03/2021 *Employment Employed Self Empployed Information not available 08/03/2021 *Food Adequate Information no t available 08/03/2021 *[place] Not A Information not available 08/03/2021 *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 [...] SNOMED-CT Code Diagnosis ICD10 Code Diagnosis Note [id number] PATIENT IMPORT [facility] [address] [place] [address], [place] [address] 01/11/2020 00:00:00 01/19/2020 11:22:57 [id number] PATIENT IMPORT [facility] [address] [place] [address], [place] [address] 01/16/2020 00:00:00 01/17/2020 08:23:35 [id number] Jessi Ruvalcaba NP [facility] [place] [address] 08/03/2021 13:03:32 08/03/2021 14:08:09 Opioid dependence 00384955 F11.20 unstable [id number] Jessi Ruvalcaba NP [facility] [address] [place] [address], [place] [address] 08/10/2021 13:20:15 08/10/2021 16:40:07 Opioid dependence 86507411 F11.20 unstable [id number] Jessi Ruvalcaba NP [facility] [place] [address] 08/25/2021 15:42:12 08/25/2021 16:54:25 Opioid dependence 28460733 F11.20 unstable Injection given 22165536 2 Z98.890 Stable [id number] Jessi Ruvalcaba, ATMOSPHERIC PHYSICIST [facility] [address] [facility] [place] [address] 09/01/2021 14:38:50 09/01/2021 16:28:07 Opioid dependence 75741736 F11.20 unstable [id number] Jessi Ruvalcaba, ATMOSPHERIC PHYSICIST [facility] [address] [facility] [place] [address] 09/08/2021 14:52:38 09/08/2021 16:53:09 Opioid dependence 23579799 F11.20 unstable [id number] Jessi Ruvalcaba, ATMOSPHERIC PHYSICIST [facility] [address] [facility] [place] [address] 09/23/2021 14:47:37 09/23/2021 16:04:39 Opioid dependence 45343032 F11.20 stable Anxiety 74612056 F41.9 Stable Injection given 70720929 2 Z98.890 Stable [id number] Mendez Cantu, DO [facility] [address] [facility] [place] [address] 10/09/2021 14:34:31 10/09/2021 15:13:25 Opioid dependence 27460746 F11.20 STABLE [id number] Jessi Ruvalcaba, ATMOSPHERIC PHYSICIST [facility] [address] [facility] [place] [address] 10/20/2021 15:17:33 10/20/2021 15:39:02 Opioid dependence 42030262 F11.20 stable Anxiety 97742841 F41.9 Stable Injection given 83532823 2 Z98.890 Stable [id number] Jessi Ruvalcaba, ATMOSPHERIC PHYSICIST [facility] [address] [facility] [place] [address] 11/03/2021 15:33:38 11/03/2021 16:25:13 Opioid dependence 66980833 F11.20 stable [id number] Jessi Ruvalcaba, ATMOSPHERIC PHYSICIST [facility] [address] [facility] [place] [address] 11/19/2021 09:49:28 11/19/2021 11:06:05 Opioid dependence 95829216 F11.20 stable Injection given 01243787 2 Z98.890 Stable [id number] Jessi Ruvalcaba, VIET [facility] [address] [facility] [place] [address] 12/03/2021 14:22:00 12/03/2021 14:36:00 Opioid dependence 15910380 F11.20 stable [id number] Jessi Ruvalcaba, ATMOSPHERIC PHYSICIST [facility] [address] [facility] [place] [address] 12/17/2021 13:00:08 12/17/2021 13:35:03 Opioid dependence 97720939 F11.20 stable Injection given 04448480 2 Z98.890 Stable [id number] Jessi Ruvalcaba, VIET [facility] [address] [facility] [place] [address] 01/14/2022 15:02:05 01/14/2022 15:31:24 Opioid dependence 55794994 F11.20 stable Injection given 57711707 2 Z98.890 Stable [id number] Jessi Ruvalcaba, VIET [facility] [address] [facility] [place] [address] 02/11/2022 15:00:34 02/11/2022 16:15:24 Opioid dependence 02519332 F11.20 stable Injection given 75556523 2 Z98.890 Stable [id number] Jessi Ruvalcaba, ATMOSPHERIC PHYSICIST [facility] [address] [facility] [place] [address] 03/15/2022 15:16:13 03/15/2022 15:58:08 Opioid dependence 62719987 F11.20 stable Injection given 51496359 2 Z98.890 Stable [id number] Jessi Ruvalcaba, ATMOSPHERIC PHYSICIST [facility] [address] [facility] [place] [address] 04/12/2022 15:47:56 04/12/2022 16:15:19 Opioid dependence 96719076 F11.20 stable Injection given 65698040 2 Z98.890 Stable Medication dose decreased by tapering 5735299357 11938 Z76.89 Stable [id number] Jessi Ruvalcaba, VIET [facility] [address] [place] [address] 05/10/2022 15:51:12 2022 12:11:13 Opioid dependence 68934167 F11.20 stable Injection given 78521875 2 Z98.890 Stable Medication dose decreased by tapering 8997725121 97067 Z76.89 Stable [id number] Jessi Ruvalcaba, VIET [facility] [address] [place] [address] 06/08/2022 15:35:19 06/08/2022 16:47:05 Opioid dependence 85649584 F11.20 stable Injection given 60259391 2 Z98.890 Stable Medication dose decreased by tapering 6870949940 69799 Z76.89 Stable [id number] Jessi Ruvalcaba, VIET [facility] [address] [place] [address] 07/07/2022 14:14:30 07/07/2022 14:45:17 Opioid dependence 34157732 F11.20 stable [id number] Jessi Ruvalcaba, VIET [facility] [address] [place] [address] 08/05/2022 15:18:13 08/06/2022 17:14:01 Opioid dependence 37112953 F11.20 stable [id number] Jessi Ruvalcaba, VIET [facility] [address] [place] [address] 09/01/2022 14:18:47 09/01/2022 14:43:39 Opioid dependence 33299466 F11.20 stable Health Concerns Section Related Observation LastModified by Organization Detai ls LastModified Time None Recorded Concern Status LastModified by Organization Details LastModified Time None Recorded Advance Directives Directive None Recorded Payers Insurance Date Sequence Insurance Name Policy Number Policy Lemon Covered Member ID Lemon Member ID Guarantor Name 08/17/2021 1 [facility] (MEDICAID HMO) [id number] Eugenia Davispardo [id number] Eugenia Lopardo 10/24/2022 1 [facility] (MEDICAID HMO) [id number] Eugenia Lopardo [id number] Eugenia Lopardo Notes Date Note Type Note Provider Name and Address Organization Details Recorded Time 05/10/2022 text/html This patient is being treated for their OUD with Sublocade Injection. They are here today for their injection visit. PLEASE SEE A & P SECTION FOR FULL VISIT NOTE Emmanuelle Ann CNP [address] [place], [address], [facility] [employer] [facility] 05/10/2022 16:20:28 06/08/2022 text/html This patient is being treated for their OUD with Sublocade Injection. They are here today for their injection visit. PLEASE SEE A & P SECTION FOR FULL VISIT NOTE Emmanuelle Ann CNP [address] [place], [address], [facility] [employer] [facility] 06/08/2022 16:57:07 07/07/2022 text/html This patient [...] FULL VISIT NOTE Emmanuelle Ann CNP [address] [place], [address], [facility] [employer] [facility] 07/07/2022 14:54:07 08/05/2022 text/html This patient is here today for their follow-up MAT visit. They are being treated for OUD with buprenorphine. PLEASE SEE A & P SECTION FOR FULL VISIT NOTE Emmanuelle Ann CNP [address] [place], [address], [facility] [employer] 08/05/2022 15:39:37 09/01/2022 text/html This patient is here today for their follow-up MAT visit. They are being treated for OUD with buprenorphine. PLEASE SEE A & P SECTION FOR FULL VISIT NOTE Emmanuelle Ann, HIDE COOKING OPERATOR [address] [place], [address], [facility] [employer] 09/01/2022 14:44:27 OBGyn Episode No OBEpisode recorded.
--- OUTSIDE RECORDS SUMMARY | 2025-01-03 14:33 | XMS_ITS | Clinical Summary ---
Author Organization [facility] Address [address] [place] [address] Phone Care Team Providers Care Special Agent Group Insurance Name Role Phone Dick Rene MD Primary Care Provider [phone] Allergies Active Allergy Reactions Criticality Noted Date Comments Amoxicillin Rash 12/13/2006 Medications promethazine (PHENERGAN) 12.5 mg tablet Take 1 tablet (12.5 mg total) by mouth every 4 (four) hours if needed. 10/08/2024 Active Active Problems No known active problems Encounters Date Type Department Care Team Description 10/27/2024 2:38 PM EDT - 10/27/2024 7:14 PM EDT Emergency [facility] Emergency [address] [place] [address] Abdominal pain, epigastric (Primary Dx); Pericardial effusion Discharge Disposition: Home or Self Care from [...] 89 10/27/2024 7:13 PM EDT Temperature 36.9 C (98.4 F) 10/27/2024 2:00 PM EDT Respiratory Rate 18 10/27/2024 2:00 PM EDT [...] AND DIFFERENTIAL STAT 10/27/2024 1:59 PM EDT from Last 3 Months Results * ECG-Annotated [...] by: Umberto Blevins MD on 10/27/2024 17:13:[address] PROCEDURES Final Result * ECG 12 lead (10/27/2024 4:20 PM EDT) Pathologist [facility] Ventricular Rate ECG 70 BPM GEMUSE Atrial Rate 70 BPM GEMUSE P-R Interval 120 ms GEMUSE QRS Duration 74 ms GEMUSE Q-T Interval 424 ms GEMUSE QTc 457 ms GEMUSE P Wave [place] 40 degrees GEMUSE R [place] 71 degrees GEMUSE T [place] 45 degrees GEMUSE ECG Interpretation Normal sinus rhythm with sinus arrhythmia Normal ECG When compared with ECG of 23-AUG-2017 21:54, QT has lengthened Confirmed by MD Domingo, Lititz ([id number]) on 10/28/2024 12:15:21 AM GEMUSE 10/27/2024 4:20 PM EDT 10/28/2024 12:15 AM EDT Blair OJEDA ECG ORDERABLES Final Result GEMUSE * Urinalysis with reflex microscopic and culture (10/27/2024 4:08 PM EDT) Pathologist [facility] Specific [place] Urine 1.017 1.003 - 1.030 LAB URINALYSIS - AUTOMATED METHOD 10/27/2024 4:38 PM EDT [facility] pH, Urine 7.0 5.0 - 8.0 pH LAB URINALYSIS - AUTOMATED METHOD 10/27/2024 4:38 PM EDT [facility] Leukocytes, Urine Negative Negative LAB URINALYSIS - AUTOMATED METHOD 10/27/2024 4:38 PM EDT [facility] Nitrite, Urine Negative Negative LAB URINALYSIS - AUTOMATED METHOD 10/27/2024 4:38 PM EDT [facility] Protein, Urine Negative <=Trace mg/dL LAB URINALYSIS - AUTOMATED METHOD 10/27/2024 4:38 PM EDT [facility] Glucose, Urine Negative Negative mg/dL LAB URINALYSIS - AUTOMATED METHOD 10/27/2024 4:38 PM EDT [facility] Ketones, Urine Negative Negative mg/dL LAB URINALYSIS - AUTOMATED METHOD 10/27/2024 4:38 PM T [facility] Urobilinogen, Urine 0.2 0.2 - 1.0 mg/dL LAB URINALYSIS - AUTOMATED METHOD 10/27/2024 4:38 PM T [facility] Bilirubin, Urine Negative Negative LAB URINALYSIS - AUTOMATED METHOD 10/27/2024 4:38 PM T [facility] Blood, Urine Negative Negative LAB URINALYSIS - AUTOMATED METHOD 10/27/2024 4:38 PM T [facility] Urine Urine specimen obtained by clean catch procedure / Unknown Non-blood Collection / Unknown 10/27/2024 4:08 PM EDT 10/27/2024 4:15 PM EDT us Blair OJEDA LAB URINE ORDERABLES Final Resul t [facility] [address] [place] [address], * Schmitz urine culture tube (10/27/2024 4:08 PM EDT) Extra Tube Hold for add-ons. 10/27/2024 6:01 PM EDT [facility] Comment:Auto resulted. Urine Urine specimen obtained by clean catch procedure / Unknown Non-blood Collection / Unknown 10/27/2024 4:08 PM EDT 10/27/2024 4:15 PM EDT Blair OJEDA LAB URINE ORDERABLES Final Resul t [facility] [address] [place] [address], [place] [phone] * POC , urine manually resulted (10/27/2024 4:07 PM EDT) HCG, Ur POC Negative Negative POC hCG Int QC Pass? Yes Yes Urine Urine specimen obtained by clean catch procedure / Unknown 10/27/2024 4:07 PM EDT De Moody MD POINT OF CARE TEST ENTER/ED IT ORDERABLES Final Result * (ABNORMAL) CBC auto differential (10/27/2024 1:59 PM EDT) WBC 5.7 4.8 - 10.8 K/mcL LAB HEMETOLOGY METHOD 10/27/2024 2:23 PM EDT [facility] RBC 3.90 3.80 - 4.80 M/mcL LAB HEMETOLOGY METHOD 10/27/2024 2:23 PM EDT [facility] Hemoglobin 11.0(L) 11.5 - 16.0 g/dL LAB HEMETOLOGY METHOD 10/27/2024 2:23 PM EDT [facility] Hematocrit 33.4(L) 35.0 - 47.0 % LAB HEMETOLOGY METHOD 10/27/2024 2:23 PM EDT [facility] MCV 84.8 79.0 - 98.0 FL LAB HEMETOLOGY METHOD 10/27/2024 2:23 PM EDT [facility] MCH 27.9 27.0 - 32.0 pcg LAB HEMETOLOGY METHOD 10/27/2024 2:23 PM EDT [facility] MCHC 32.9 32.0 - 37.0 g/dL LAB HEMETOLOGY [facility] RDW 11.6 11.0 - 15.0 % LAB HEMETOLOGY METHOD 10/27/2024 2:23 PM [facility] Platelets 254 130 - 400 K/mcL LAB HEMETOLOGY [facility] MPV 9.6 7.0 - 11.0 FL LAB HEMETOLOGY METHOD 10/27/2024 2:23 PM [facility] NRBC 0.0 <1.0 % LAB HEMETOLOGY METHOD 10/27/2024 2:23 PM [facility] NRBC Absolute 0.00 <0.10 K/mcL LAB HEMETOLOGY METHOD 10/27/2024 2:23 PM [facility] Neutrophils Relative 55.3 % LAB HEMETOLOGY METHOD 10/27/2024 2:23 PM [facility] Lymphocytes Relative 36.8 % LAB HEMETOLOGY METHOD 10/27/2024 2:23 PM [facility] Monocytes Relative 5.7 % LAB HEMETOLOGY METHOD 10/27/2024 2:23 PM [facility] Eosinophils Relative 0.9 % LAB HEMETOLOGY METHOD 10/27/2024 2:23 PM [facility] Basophils Relative 0.9 % LAB HEMETOLOGY METHOD 10/27/2024 2:23 PM [facility] Immature Granulocytes Relative 0.4 % LAB HEMETOLOGY METHOD 10/27/2024 2:23 PM [facility] Neutrophils Absolute 3.13 1.50 - 7.00 K/mcL LAB HEMETOLOGY METHOD 10/27/2024 2:23 PM EDT [facility] Lymphocytes Absolute 2.08 1.00 - 5.00 K/mcL LAB HEMETOLOGY METHOD 10/27/2024 2:23 PM EDT [facility] Monocytes Absolute 0.32 0.20 - 1.00 K/mcL LAB HEMETOLOGY METHOD 10/27/2024 2:23 PM EDT [facility] Eosinophils Absolute 0.05 0.00 - 0.50 K/[facility] LAB HEMETOLOGY METHOD 10/27/2024 2:23 PM EDT [facility] Basophils Absolute 0.05 0.00 - 0.20 K/mcL LAB HEMETOLOGY METHOD 10/27/2024 2:23 PM EDT [facility] Immature Granulocytes Absolute 0.02 0.00 - 0.03 K/mcL LAB HEMETOLOGY METHOD 10/27/2024 2:23 PM EDT [facility] Blood Venous blood specimen / Unknown Venipuncture / Unknown 10/27/2024 1:59 PM EDT 10/27/2024 2:17 PM EDT De Moody MD LAB BLOOD ORDERABLES Final Result Performing Organization Address [facility]/ZIP Md de Phone Number [facility] [address] [place] [address], * Lipase (10/27/2024 1:59 PM EDT) Lipase 17 13 - 75 unit/L LAB CHEMISTRY METHOD 10/27/2024 2:47 PM EDT [facility] Blood Venous blood specimen / Unknown Venipuncture / Unknown 10/27/2024 1:59 PM EDT 10/27/2024 2:17 PM EDT De Moody MD LAB BLOOD ORDERABLES Final Result [facility] [address] [place] [address], [place] [phone] * Comprehensive metabolic panel (10/27/2024 1:59 PM EDT) Sodium 136 133 - 145 mmol/L LAB CHEMISTRY METHOD 10/27/2024 2:47 PM EDT [facility] Potassium 4.3 3.5 - 5.5 mmol/L LAB CHEMISTRY METHOD 10/27/2024 2:47 PM EDT [facility] Chloride 102 96 - 110 mmol/L LAB CHEMISTRY METHOD 10/27/2024 2:47 PM EDT [facility] CO2 27 21 - 32 mmol/L LAB CHEMISTRY METHOD [facility] Anion Gap 7 3 - 11 LAB CHEMISTRY METHOD [facility]/27[facility]2024 [facility] Glucose 95 70 - 100 mg/dL LAB CHEMISTRY METHOD 10/27[facility]2024 [facility] BUN 11 5 - 25 mg/dL LAB CHEMISTRY METHOD 10/27[facility]2024 [facility] Creatinine 0.57 0.50 - 1.10 mg/dL LAB CHEMISTRY METHOD 10/27[facility]2024 2:[facility] eGFR 126 >=60 mL/min/1. 73m2 LAB CHEMISTRY METHOD 10/27/2024 2:47 PM EDT [facility] Comment:Calculation based on the Chronic Kidney Disease Epidemiology Collaboration (CKD-EPI) equation refit without adjustment for race. BUN/Creatinine Ratio 19.3 LAB CHEMISTRY METHOD 10/27/2024 2:47 PM EDT [facility] Calcium 9.3 8.5 - 10.5 mg/dL LAB CHEMISTRY METHOD 10/27/2024 2:[facility] AST (SGOT) 11 10 - 42 unit/L LAB CHEMISTRY METHOD 10/27/2024 2:47 PM EDT [facility] ALT (SGPT) 13 10 - 60 unit/L LAB CHEMISTRY METHOD 10/27/2024 2:47 PM EDT [facility] Alkaline Phosphatase 63 42 - 121 unit/L LAB CHEMISTRY METHOD 10/27/2024 2:47 PM EDT [facility] Total Protein 7.5 6.0 - 8.0 g/dL LAB CHEMISTRY METHOD 10/27/2024 2:47 PM EDT [facility] Albumin 4.1 3.2 - 5.0 g/dL LAB CHEMISTRY METHOD 10/27/2024 2:47 PM EDT [facility] Total Bilirubin 0.3 0.0 - 1.4 mg/dL LAB CHEMISTRY METHOD 10/27/2024 2:47 PM EDT [facility] Blood Venous blood specimen / Unknown Venipuncture / Unknown 10/27/2024 1:59 PM EDT 10/27/2024 2:17 PM EDT us De Moody MD LAB BLOOD ORDERABLES Final Result [facility] [address] [place] [address], [place] [phone] from Last 3 Months Insurance [facility] [employer] Care Teams Special Agent Group Insurance Relationship Specialty Start Date End Date Dick Rene MD [address] [place] [address] PCP - General Internal Medicine 09/08/24
== END 2025-01-03 15:08 | disposition home or self-care (01) ==
PROVIDERS: PCP Hospitalist; Visit Provider Internal Medicine Rheumatology
DX: M13.0 Polyarthritis, unspecified (principal); M25.551 Pain in right hip; R74.01 Elevation of levels of liver transaminase levels
CPT/HCPCS: 99214; G2211

== ENCOUNTER → 2025-01-03 14:30 | Outpatient (BNVA) | payer OTHER, SELFPAY | PROVIDERS: PCP Hospitalist; Visit Provider Internal Medicine Rheumatology | DX: M25.551 Pain in right hip (principal); M13.0 Polyarthritis, unspecified; R74.01 Elevation of levels of liver transaminase levels | CPT/HCPCS: 99212 ==

== ENCOUNTER 2025-04-09 13:58 | Outpatient (AMB) | payer OTHER, SELFPAY ==
[2025-04-09 14:01] VITALS: BP 100/60; PULSE 86; O2SAT 99; BMI 23.5
--- NOTE | 2025-04-09 14:01 | A.OFFVIS_ITS ---
Vital Signs 04/09/25 14:01 Height 5 ft 4 in Weight 136 lb 14.513 oz BMI 23.5 BP 100/60 Blood Pressure Location Rt brachial Position Sitting Pulse 86 Pulse Source Pulse Oximeter Pulse Oximetry (%) 99 Oxygen Delivery Method Room Air Intake Visit Reasons: 3 Months Intake Note: presents to office today for joint pain for auto immune. Accompanied by: Friend Allergies amoxicillin Allergy (Unknown, Verified 04/09/25 14:01) Hives HPI HPI 3 Months: Details: She has been experiencing dry eyes, dry mouth and dry skin. It is hard for her medication to be dissolved in her mouth. She is experiencing joint pain, especially in her back. Her most bothersome pain this visit is her lower back. She had cortisone injection in her lower back with benefit for a month. She had 1 joint dislocation when she was a child. Denies uterus prolapse. Denies history of valvular disease. [facility] Medical History Thyroid nodule Thyromegaly Anti-TPO antibodies present Pericardial effusion Pleural effusion Acute pancreatitis 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 Pain in joint involving multiple sites POTS (postural orthostatic tachycardia syndrome) Anxiety Hair loss Surgical History History of nasal surgery Family History Father HTN (hypertension) Mother Asthma FH: mental illness Paternal Grandfather Fibromyalgia Social History Household Members: Family Alcohol intake: never Patient Tobacco Use Status: Never used Tobacco Current occupational status: employed 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 Good respiratory effort MSK: Tender bilateral wrists and elbows. No synovitis. Normal range of motion of upper extremity and lower extremity. [place] score: ?1. Passive dorsiflexion and hyperextension of the fifth MCP joint beyond 90? 0 0 2. Passive apposition of the thumb to th e flexor aspect of the forearm 0 0 3. Passive hyperextension of the elbow beyond 10? 1 1 4. Passive hyperextension of the knee be yond 10? 0 0 5. Active forward flexion of the trunk w ith the knees fully extended so that the palms of the hands rest flat on the floor 1 TOTAL 3 Assessment & Plan Assessment & Plan (1) Polyarthritis: Comment: She has history of sicca symptoms, fatigue, malar rash, Raynaud's phenomenon and polyarthralgias. SSA/SSB neg 10/2023, negative LATASHA x3, rheumatoid factor without cytopenias or elevated inflammatory markers on current workup. She has a prior history of remote leukopenia (07/2024) and low C4 (10/2023), which can occur in Sjogren syndrome. She had eye exam in November 2024, which reports rapid tear break- up time bilateral. She was given a diagnosis with dysfunctional tear syndrome with recommendations to use artificial tears, which she does with benefit. I have asked her to contact [facility] for an exam specifically with Yoel's test and to evaluate if there are any signs of keratoconjunctivitis sicca. If so, I will then pursue minor salivary gland biopsy for evaluation of Sjogren syndrome in setting of negative serologies. 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 We discussed the importance of rehabilitation to help with managing hypermobile EDS. She will be following up with her specialist who gave her L-spine cortisone injection soon. I have asked her to discuss with her care team to start physical therapy after she receives another spinal cortisone injection. She will contact office if she needs a PT referral. Code(s): M13.0 - Polyarthritis, unspecified Category: Medical Plan: Requesting patient to contact [facility] surgery Yoel's testing and evaluation for keratoconjunctivitis sicca. I have also asked my staff to contact the office to assist in patient being seen soon workup for ocular Sjogren's was requested after visit 10/31/2024. If eye exam reveals positive Yoel's test, I will pursue minor salivary gland biopsy. She is an established patient of [facility] Continue artificial tears per Optometry/director surface transportation X-rays bilateral hands, feet and right hip ordered in January She can use NSAIDs PRN joint pain. She was prescribed ibuprofen 600 mg. I advised her that she can take 600 mg q.8 hourly PRN pain. We discussed long- term side effects with chronic NSAIDs use. She has had transaminitis related to her hospitalizations where she was diagnosed with pancreatitis. She is working with GI for evaluation of chronic right upper quadrant pain with plan to have gastric emptying study. LFTs are downtrending 01/2025. Use Tylenol sparingly. Return to clinic in 3 months (2) Right hip pain: Comment: Chronic. DDX ligament/muscular strain versus femoroacetabular syndrome Code(s): M25.551 - Pain in right hip Category: Medical Plan: Right hip x-ray ordered in January. I will review results prior to ordering PT for hip strengthening (3) Raynaud phenomenon without gangrene: Comment: Active Code(s): I73.00 - Raynaud's syndrome without gangrene Category: Medical Plan: We discussed conservative management (4) Hypermobile Ramirez-Danlos syndrome: Code(s): Q79.62 - Hypermobile Ramirez-Danlos syndrome Category: Medical Plan: See above Coding Level of Care Code Est Pt Level 5 (01309) Complex EM visit Add On G2211 Diagnoses Polyarthritis M13.0 Right hip pain M25.551 Raynaud phenomenon without gangrene I73.00 Hypermobile Ramirez-Danlos syndrome Q79.62 Time Spent (min) 40
--- OUTSIDE RECORDS SUMMARY | 2025-04-09 17:14 | XMS_ITS | Patient Health Record ---
Author Organization [facility] Address [address] [place], [place] [id number] Care Team Providers Care White Lead Filterer Name Role Phone Rhett Art Primary Care Provider [phone] Allergies Allergen (clinical drug ingredient) Drug/Non Drug Allergy documented on EMR Reaction Allergy Type Onset Date Status Amoxil (uncoded) hives Allergy Act poncho Reason For Referral No Information Medications Medication SIG (Take, Route, Fr equency, Duration) Notes Start Date End Date Status Ibuprofen 600 MG 1 tablet with food o r milk Orally Three times a day; Duration: 7 days 09/08/2017 Active Clindamycin HCl 300 MG 1 capsule Orally every 8 hrs; Duration: 7 days 09/08/2017 Active Social History Tobacco Use: Social History Observation Description Date Details (start date - stop date) Never Smoker NA - NA Tobacco Use: Question Answer Notes Are you a: never smoker Plan Of Treatment Pending Test Test Name Order Date Rapid Strep 09/08/2017 Insurance Providers Payer Name Payer Address Payer Phone Subscriber Number Group Number Insured Name Patient Relationship to Insured Coverage Start Date Coverage End Date [facility] [employer] [address] [address] [place] [address] [id number] Eugenia Hightower Self - patient is the insured Medications Administered Medication Instructions Date of Administration Dosage Notes DEXAMETHASONE 8MG WITH CORRE CT NDC CODE 09/08/2017 8 mg Medical (General) History Medical History History ICD Code Migraine
== END 2025-04-09 14:48 | disposition home or self-care (01) ==
LOC: HO.RHES 13:58
PROVIDERS: PCP Hospitalist; Visit Provider Internal Medicine Rheumatology
DX: M13.0 Polyarthritis, unspecified (principal); M25.551 Pain in right hip; I73.00 Raynaud's syndrome without gangrene; Q79.62 Hypermobile Ehlers-Danlos syndrome
CPT/HCPCS: 99215

== ENCOUNTER → 2025-04-09 13:58 | Outpatient (BNVA) | payer OTHER, SELFPAY | PROVIDERS: PCP Hospitalist; Visit Provider Internal Medicine Rheumatology | DX: M13.0 Polyarthritis, unspecified (principal); M25.551 Pain in right hip; I73.00 Raynaud's syndrome without gangrene; Q79.62 Hypermobile Ehlers-Danlos syndrome | CPT/HCPCS: 99212 ==